=== PATIENT | male | born 1980 | race Caucasian/White ===

== ENCOUNTER → 2017-10-17 11:37 | Outpatient (CLI) | payer OTHER, SELFPAY ==
[2017-10-19 20:26] LABS: Testosterone, Total, LC/MS 818.2 ng/dL (264.0-916.0); Testosterone,Free 25.6 pg/mL (8.7-25.1)
== END ==
PROVIDERS: PCP Internal Medicine Adolescent Medicine; Visit Provider Urology
DX: E29.1 Testicular hypofunction (principal)
CPT/HCPCS: 36415; 84402; 84403

== ENCOUNTER → 2018-06-26 10:15 | Outpatient (CLI) | payer OTHER, SELFPAY ==
[2018-06-26 10:17] LABS: MANUAL DIFFERENTIAL MANUAL DIFFERENTIAL (MANUAL DIFF)
[2018-06-26 11:11] LABS: Basophils # 0.1 K/mm3 (0-0.2); Basophils % 0.7 % (0.1-2.0); Eosinophils # 0.3 K/mm3 (0.0-0.4); Eosinophils % 3.9 % (0.1-12.0); Hematocrit 44.5 % (42.0-52.0); Hemoglobin 16.6 g/dL (14.1-18.0); Lymphocytes # 2.5 K/mm3 (0.7-4.5); Lymphocytes % 31.7 % (10-50); Mean Corpuscular HGB Conc 37.3 g/dL (31.8-35.4); Mean Corpuscular Hemoglobin 31.1 pg (27.0-31.2); Mean Corpuscular Volume 83.3 fl (80-94); Monocytes # 0.5 K/mm3 (0.1-1.0); Neutrophils # 4.5 K/mm3 (1.8-7.8); Neutrophils % 57.7 % (37.0-80.0); Platelet Count 264 K/mm3 (142-424); Red Blood Count 5.34 M/mm3 (4.60-6.20); Red Cell Distribution Width 14.1 % (11.5-17.5); White Blood Count 7.8 K/mm3 (4.8-10.8)
[2018-06-26 11:28] LABS: Alanine Aminotransferase 104 U/L (12-78); Albumin Level 4.2 gm/dL (3.4-5.0); Alkaline Phosphatase 42 U/L (46-116); Aspartate Amino Transferase 39 U/L (15-37); Bilirubin,Direct 0.1 mg/dL (0.0-0.2); Bilirubin,Indirect 0.6 mg/dL (0.0-0.9); Bilirubin,Total 0.7 mg/dL (0.2-1.0); Total Protein,Serum 7.8 gm/dL (6.4-8.2)
[2018-06-26 13:26] LABS: Eosinophils % 4 % (0-3); Lymphocytes % 27 % (10-50); Monocytes % 5 % (2-9); Neutrophils % 57 % (42-76); Platelet Estimate Normal; RBC Morphology Normal; Total Cells Counted 100
== END ==
PROVIDERS: Visit Provider Urology
DX: E34.9 Endocrine disorder, unspecified (principal)
CPT/HCPCS: 36415; 80076; 85007; 85014; 85018; 85048; 85049

== ENCOUNTER → 2019-01-08 09:58 | Outpatient (CLI) | payer OTHER, SELFPAY ==
[2019-01-13 06:15] LABS: Testosterone, Total, LC/MS 1335.2 ng/dL (264.0-916.0); Testosterone,Free 34.3 pg/mL (8.7-25.1)
== END ==
PROVIDERS: Visit Provider Urology
DX: E34.9 Endocrine disorder, unspecified (principal)
CPT/HCPCS: 36415; 84402; 84403

== ENCOUNTER → 2019-07-10 11:28 | Outpatient (CLI) | payer OTHER, SELFPAY ==
[2019-07-10 12:24] LABS: Basophils # 0.2 K/mm3 (0-0.2); Basophils % 2.7 % (0.1-2.0); Eosinophils # 0.2 K/mm3 (0.0-0.4); Eosinophils % 2.9 % (0.1-12.0); Hematocrit 52.7 % (42.0-52.0); Lymphocytes # 2.1 K/mm3 (0.7-4.5); Lymphocytes % 25.2 % (10-50); Mean Corpuscular HGB Conc 34.6 g/dL (31.8-35.4); Mean Corpuscular Hemoglobin 29.5 pg (27.0-31.2); Mean Corpuscular Volume 85.2 fl (80-94); Mean Platelet Volume 7.7 fl (7.4-10.4); Monocytes # 0.5 K/mm3 (0.1-1.0); Monocytes % 6.4 % (1.7-9.3); Neutrophils # 5.2 K/mm3 (1.8-7.8); Neutrophils % 62.8 % (37.0-80.0); Platelet Count 248 K/mm3 (142-424); Red Blood Count 6.18 M/mm3 (4.60-6.20); Red Cell Distribution Width 14.3 % (11.5-17.5); White Blood Count 8.4 K/mm3 (4.8-10.8)
[2019-07-10 12:28] LABS: Hemoglobin 18.2 g/dL (14.1-18.0)
[2019-07-10 12:41] LABS: Alanine Aminotransferase 60 U/L (12-78); Albumin Level 5.4 g/dl (3.5-5.0); Alkaline Phosphatase 39 U/L (38-126); Aspartate Amino Transferase 39 U/L (17-59); Bilirubin,Direct 0.2 mg/dl (0.0-0.4); Bilirubin,Total 1.2 mg/dl (0.2-1.3); Total Protein,Serum 8.4 g/dl (6.3-8.2)
[2019-07-15 14:32] LABS: Testosterone, Total, LC/MS 824.5 ng/dL (264.0-916.0)
[2019-07-15 14:33] LABS: Testosterone,Free 30.4 pg/mL (8.7-25.1)
== END ==
PROVIDERS: Visit Provider Urology
DX: R79.89 Other specified abnormal findings of blood chemistry (principal)
CPT/HCPCS: 36415; 80076; 84402; 84403; 85025

== ENCOUNTER 2019-10-15 17:12 | Emergency (ER) | payer OTHER, SELFPAY ==
[2019-10-15 17:25] VITALS: BP 120/80; PULSE 74; RESP 18; TEMP 36.8; O2SAT 98; BMI 39.4
--- NOTE | 2019-10-15 17:42 | HMH.EDUTC ---
[facility] [place] Disposition Clinical Impression: Otitis media Qualifiers: Otitis media type: unspecified Laterality: right Qualified Code(s): H66.91 - Otitis media, unspecified, right ear Impacted ear wax Qualifiers: Laterality: bilateral Qualified Code(s): H61.23 - Impacted cerumen, bilateral Disposition: Home, Self-Care Condition on Discharge: Good Instructions: DI for Cerumen Impaction, Middle Ear Infections (Alternative Therapy), Cerumen Impaction, Middle Ear Infection Additional Instructions: Take medication as prescribed Over the counter Motrin and Tylenol as directed on package for pain Follow up with Family Doctor if needed Return if needed Straight to ER if any life threatening symptoms Prescriptions: Cefdinir [Omnicef 300mg Capsule] 300 mg PO BID #20 cap Transmission Status: Pending to [id number] Referrals: Jam Richardson MD [Primary Care Provider] - As needed Time of Disposition: 17:52 Medical Decision Making - Gabriele Inquiry Pt receiving controlled substance: No Gabriele was queried for this patient: No Vital Signs: 10/15/19 17:25 Temperature 98.2 F Temperature Source Oral Pulse Rate [Right Brachial] 74 Respiratory Rate 18 Blood Pressure [Right Arm] 120/80 Blood Pressure Mean [Right Arm] 93 Blood Pressure Source [Right Arm] Automatic Cuff Blood Pressure Position [Right Arm] Sitting 02 Sat by Pulse Oximetry 98 Oxygen Delivery Method Room Air [facility] [place] HPI - General Stated complaint: R ear pain Time Seen by Provider: 10/15/19 17:43 Mode of Arrival: Ambulatory Source of Information: Patient Limitations: No Limitations Description of Symptoms (Recalled from Triage Doc. by RN): PATIENT C/O RIGHT EAR PAIN AND DECREASED HEARING X 2 DAYS THAT STARTED AFTER CLEANING IT WITH A Q-TIP HEENT Symptoms (Recalled from RN notes): Yes Resp Symptoms (Recalled from RN notes): No Skin Symptoms (Recalled from RN notes): No MS Symptoms (Recalled from RN notes): No Functional Status (Recalled from RN notes): WNL - History of Present Illness Provider Complaint: Patient state that he has been having pain in his right ear for several days and feeling like it is stopped up and he cannot hear out of it State that left ear feels stopped up too with decreased hearing and needing them checked and cleaned out - Related Data Home Medications Medication Instructions Recorded Confirmed amlodipine 10 mg tablet 10 mg PO DAILY 10/03/17 07/10/19 carvedilol 25 mg tablet 25 mg PO BID 10/03/17 07/10/19 metformin 1,000 mg tablet 1,000 mg PO BID 10/03/17 07/10/19 Previous Rx's Medication Instructions Recorded Cefdinir [Omnicef 300mg Capsule] 300 mg PO BID #20 cap 10/15/19 Allergies Allergy/AdvReac Type Severity Reaction Status Date / Time No Known Allergies Allergy Verified 07/10/19 11:13 - Worker's Comp Is this a Worker's Comp case?: No [facility] History - Hepatitis A Screen Drug use history?: No High risk sexual behaviors?: No History of sexually transmitted infection?: No Currently employed?: No Childcare worker?: No Do you have indoor plumbing?: Yes Do you have electricity?: Yes Attestation statement:: This patient has been screened for Hepatitis A risk factors. I have reviewed the patient's past medical history: Yes Medical History: Reports:: Diabetes Mellitus Type 2, Hypertension Other Surgeries: Yes: No Previous Surgery Amputation: No Fractures: No - Social History Smoking Status: Never smoker Alcohol Intake: never Substance Use Type: denies use Occupational Status: other Family Hx:: Heart Attack, Hyperlipidemia ROS Obtained: Yes All systems reviewed & no additional complaints, Yes Systems reviewed as appropriate & no additional complaints - Constitutional Constitutional: Reports system reviewed and no additional complaints, except as docu - ENT Ears, Nose, Mouth, and Throat: Reports otalgia Physical Exam - General General appearance: alert, in no apparent distress - E
[2019-10-15 17:56] VITALS: BP 120/80; PULSE 74; RESP 18; TEMP 36.8; O2SAT 98
== END 2019-10-15 17:59 | disposition home or self-care (01) ==
PROVIDERS: Emergency Provider Nurse Practitioner; PCP Internal Medicine Adolescent Medicine
DX: H66.91 Otitis media, unspecified, right ear (principal); H61.23 Impacted cerumen, bilateral; E11.9 Type 2 diabetes mellitus without complications; I10 Essential (primary) hypertension; Z79.899 Other long term (current) drug therapy
CPT/HCPCS: 99201

== ENCOUNTER → 2020-01-02 10:33 | Outpatient (CLI) | payer OTHER, SELFPAY ==
[2020-01-02 10:50] LABS: Basophils # 0.1 K/mm3 (0-0.2); Basophils % 1.3 % (0.1-2.0); Eosinophils # 0.3 K/mm3 (0.0-0.4); Eosinophils % 3.9 % (0.1-12.0); Hematocrit 54.1 % (42.0-52.0); Lymphocytes # 2.2 K/mm3 (0.7-4.5); Lymphocytes % 30.5 % (10-50); Mean Corpuscular HGB Conc 33.7 g/dL (31.8-35.4); Mean Corpuscular Hemoglobin 28.9 pg (27.0-31.2); Mean Corpuscular Volume 85.8 fl (80-94); Mean Platelet Volume 7.9 fl (7.4-10.4); Monocytes # 0.5 K/mm3 (0.1-1.0); Monocytes % 6.4 % (1.7-9.3); Neutrophils # 4.3 K/mm3 (1.8-7.8); Platelet Count 257 K/mm3 (142-424); Red Cell Distribution Width 14.7 % (11.5-17.5); White Blood Count 7.3 K/mm3 (4.8-10.8)
[2020-01-02 11:02] LABS: Hemoglobin 18.2 g/dL (14.1-18.0)
[2020-01-02 11:41] LABS: Chloride 101 mmol/L (98-107); Potassium 4.1 mmoL/L (3.5-5.1); Sodium 142 mmol/L (136-145)
[2020-01-02 11:43] LABS: Alanine Aminotransferase 105 U/L (12-78); Aspartate Amino Transferase 61 U/L (17-59); Blood Urea Nitrogen 13 mg/dl (9-20); Estimated Glomerular Filt Rate 68 ml/min (>60); GFR (African American) 82 ML/MIN (>60)
[2020-01-02 11:44] LABS: Albumin Level 4.9 g/dl (3.5-5.0); Albumin/Globulin Ratio 1.6 (1.1-1.8); Alkaline Phosphatase 31 U/L (38-126); Anion Gap 15.1 mEq/L (5-15); Bilirubin,Total 0.9 mg/dl (0.2-1.3); Calcium 10.2 mg/dl (8.4-10.2); Carbon Dioxide 30 mmol/L (22.0-30.0); Globulin 3.1 g/dL (1.3-3.2); Glucose 116 mg/dl (74-100)
[2020-01-02 11:45] LABS: Hemoglobin A1C 6.3 % (4.0-6.0)
[2020-01-02 12:14] LABS: Thyroid Stimulating Hormone 1.24 uIU/mL (0.465-4.68)
== END ==
PROVIDERS: Visit Provider Internal Medicine Adolescent Medicine
DX: I10 Essential (primary) hypertension (principal); E11.9 Type 2 diabetes mellitus without complications; Z79.84 Long term (current) use of oral hypoglycemic drugs
CPT/HCPCS: 36415; 80053; 83036; 84443; 85025

== ENCOUNTER 2020-02-15 14:56 | Outpatient (CLI) | payer OTHER, SELFPAY ==
[2020-02-15 15:02] VITALS: BMI 38.5
[2020-02-15 15:30] LABS: Hematocrit 56.4 % (42.0-52.0); Hemoglobin 19.1 g/dL (14.1-18.0)
[2020-02-15 15:38] VITALS: BP 131/84; PULSE 82; RESP 18; TEMP 36.6; O2SAT 99
[2020-02-15 16:08] VITALS: BP 136/78; PULSE 82; RESP 16; TEMP 36.6; O2SAT 99
--- NOTE | 2020-02-15 16:15 | PC.NURSE ---
1540 Patient receiving therapeutic phlebotomy as ordered per electronic lab technician/ Patient tolerating well. 1555 Therapeutic phlebotomy of 250ml complete. Patient tolerated well with no problems noted. 1610 Patient discharged home/stable. Denies complaints. See discharge assessment.
[2020-02-21 18:09] LABS: Testosterone, Total, LC/MS 955.8 ng/dL (264.0-916.0); Testosterone,Free 24.3 pg/mL (8.7-25.1)
== END 2020-02-15 16:10 | disposition home or self-care (01) ==
LOC: INF 14:56
PROVIDERS: Visit Provider Urology
DX: E34.9 Endocrine disorder, unspecified (principal); E29.1 Testicular hypofunction
CPT/HCPCS: 84402; 84403; 85014; 85018; 99195

== ENCOUNTER → 2020-08-23 12:42 | Outpatient (CLI) | payer OTHER, SELFPAY ==
[2020-08-23 12:43] LABS: MANUAL DIFFERENTIAL MANUAL DIFFERENTIAL (MANUAL DIFF)
[2020-08-23 14:43] LABS: Alanine Aminotransferase 61 U/L (12-78); Albumin Level 4.9 g/dl (3.5-5.0); Alkaline Phosphatase 44 U/L (38-126); Aspartate Amino Transferase 42 U/L (17-59); Bilirubin,Direct 0.6 mg/dl (0.0-0.4); Bilirubin,Indirect 0.6 mg/dL (0.0-0.9); Bilirubin,Total 1.2 mg/dl (0.2-1.3); Bilirubin,Unconjugated 0.6 mg/dL (0.0-1.1); Total Protein,Serum 7.8 g/dl (6.3-8.2)
[2020-08-23 18:41] LABS: Basophils # 0.1 K/mm3 (0-0.2); Basophils % 1.2 % (0.1-2.0); Eosinophils # 0.3 K/mm3 (0.0-0.4); Eosinophils % 4.2 % (0.1-12.0); Hematocrit 49.3 % (42.0-52.0); Hemoglobin 17.2 g/dL (14.1-18.0); Lymphocytes # 1.8 K/mm3 (0.7-4.5); Lymphocytes % 29.9 % (10-50); Mean Corpuscular Hemoglobin 29.7 pg (27.0-31.2); Mean Corpuscular Volume 84.9 fl (80-94); Mean Platelet Volume 9.4 fl (7.4-10.4); Monocytes # 0.4 K/mm3 (0.1-1.0); Monocytes % 5.8 % (1.7-9.3); Neutrophils # 3.6 K/mm3 (1.8-7.8); Neutrophils % 58.8 % (37.0-80.0); Platelet Count 231 K/mm3 (142-424); Red Blood Count 5.81 M/mm3 (4.60-6.20); Red Cell Distribution Width 13.9 % (11.5-17.5); White Blood Count 6.2 K/mm3 (4.8-10.8)
[2020-08-23 21:00] LABS: Total Cells Counted 100
[2020-08-23 21:01] LABS: Platelet Estimate Normal
[2020-08-27 10:12] LABS: Testosterone, Total, LC/MS 85.8 ng/dL (264.0-916.0); Testosterone,Free 3.5 pg/mL (8.7-25.1)
== END ==
PROVIDERS: Visit Provider Urology
DX: E29.1 Testicular hypofunction (principal)
CPT/HCPCS: 36415; 80076; 84402; 84403; 85007; 85014; 85018; 85048; 85049

== ENCOUNTER → 2020-12-15 19:02 | Outpatient (CLI) | payer OTHER, SELFPAY ==
[2020-12-15 19:59] LABS: Chloride 97 mmol/L (98-107); Sodium 136 mmol/L (136-145)
[2020-12-15 20:00] LABS: Potassium 3.8 mmoL/L (3.5-5.1)
[2020-12-15 20:02] LABS: Alanine Aminotransferase 98 U/L (12-78); Albumin Level 4.5 g/dl (3.5-5.0); Albumin/Globulin Ratio 1.6 (1.1-1.8); Alkaline Phosphatase 58 U/L (38-126); Anion Gap 14.8 mEq/L (5-15); Aspartate Amino Transferase 68 U/L (17-59); Bilirubin,Total 0.9 mg/dl (0.2-1.3); Blood Urea Nitrogen 13 mg/dl (9-20); Carbon Dioxide 28 mmol/L (22.0-30.0); Cholesterol 175 mg/dl (140-200); Estimated Glomerular Filt Rate 94 ml/min (>60); GFR (African American) 114 ML/MIN (>60); Globulin 2.9 g/dL (1.3-3.2); Total Protein,Serum 7.4 g/dl (6.3-8.2); Triglycerides 294 mg/dl (30-150); VLDL Cholesterol 59 mg/dL (0-40)
[2020-12-15 20:03] LABS: Calcium 9.8 mg/dl (8.4-10.2); Chol/HDL Ratio 5.8 (1-3.5); Glucose 247 mg/dl (74-100); HDL Cholesterol 30 mg/dl (40-60)
[2020-12-15 20:13] LABS: Direct LDL Cholesterol 106.14 mg/dL (100-129)
[2020-12-15 20:50] LABS: Hemoglobin A1C 8.8 % (4.0-6.0)
== END ==
PROVIDERS: Visit Provider Internal Medicine Adolescent Medicine
DX: E11.9 Type 2 diabetes mellitus without complications (principal); E78.5 Hyperlipidemia, unspecified; Z79.84 Long term (current) use of oral hypoglycemic drugs
CPT/HCPCS: 80053; 80061; 83036

== ENCOUNTER → 2021-02-23 11:13 | Outpatient (CLI) | payer OTHER, SELFPAY ==
[2021-02-23 11:15] LABS: MANUAL DIFFERENTIAL MANUAL DIFFERENTIAL (MANUAL DIFF)
[2021-02-23 11:49] LABS: Basophils # 0.1 K/mm3 (0-0.2); Basophils % 1.1 % (0.1-2.0); Eosinophils # 0.3 K/mm3 (0.0-0.4); Eosinophils % 4.4 % (0.1-12.0); Hematocrit 53.5 % (42.0-52.0); Lymphocytes # 1.7 K/mm3 (0.7-4.5); Mean Corpuscular HGB Conc 33.7 g/dL (31.8-35.4); Mean Corpuscular Hemoglobin 29.8 pg (27.0-31.2); Mean Corpuscular Volume 88.5 fl (80-94); Mean Platelet Volume 8.4 fl (7.4-10.4); Monocytes # 0.4 K/mm3 (0.1-1.0); Monocytes % 6.5 % (1.7-9.3); Neutrophils # 3.7 K/mm3 (1.8-7.8); Neutrophils % 61.1 % (37.0-80.0); Platelet Count 242 K/mm3 (142-424); Red Blood Count 6.04 M/mm3 (4.60-6.20); Red Cell Distribution Width 13.8 % (11.5-17.5); White Blood Count 6.1 K/mm3 (4.8-10.8)
[2021-02-23 13:13] LABS: Alanine Aminotransferase 100 U/L (12-78); Albumin Level 4.8 g/dl (3.5-5.0); Alkaline Phosphatase 42 U/L (38-126); Aspartate Amino Transferase 75 U/L (17-59); Bilirubin,Direct 0.4 mg/dl (0.0-0.4); Bilirubin,Indirect 0.8 mg/dL (0.0-0.9); Bilirubin,Total 1.2 mg/dl (0.2-1.3); Bilirubin,Unconjugated 0.8 mg/dL (0.0-1.1); Total Protein,Serum 7.6 g/dl (6.3-8.2)
[2021-02-23 13:37] LABS: Eosinophils % 3 % (0-3); Lymphocytes % 32 % (10-50); Monocytes % 4 % (2-9); Neutrophils % 61 % (42-76); Total Cells Counted 100
[2021-02-23 13:38] LABS: Platelet Estimate Normal; RBC Morphology Normal
[2021-02-27 18:13] LABS: Testosterone, Total, LC/MS 165.1 ng/dL (264.0-916.0); Testosterone,Free 9.5 pg/mL (8.7-25.1)
== END ==
LOC: LAB 11:13
PROVIDERS: Visit Provider Urology
DX: E29.1 Testicular hypofunction (principal)
CPT/HCPCS: 36415; 80076; 84402; 84403; 85007; 85014; 85018; 85048; 85049

== ENCOUNTER → 2021-06-03 10:02 | Outpatient (CLI) | payer OTHER, SELFPAY ==
[2021-06-03 11:49] LABS: Alanine Aminotransferase 66 U/L (12-78); Albumin Level 4.6 g/dl (3.5-5.0); Albumin/Globulin Ratio 1.8 (1.1-1.8); Alkaline Phosphatase 35 U/L (38-126); Anion Gap 11.9 mEq/L (5-15); Aspartate Amino Transferase 43 U/L (17-59); Bilirubin,Total 0.9 mg/dl (0.2-1.3); Blood Urea Nitrogen 15 mg/dl (9-20); Calcium 9.6 mg/dl (8.4-10.2); Carbon Dioxide 30 mmol/L (22.0-30.0); Chloride 99 mmol/L (98-107); Cholesterol 181 mg/dl (140-200); Estimated Glomerular Filt Rate 75 ml/min (>60); GFR (African American) 91 ML/MIN (>60); Globulin 2.6 g/dL (1.3-3.2); Glucose 237 mg/dl (74-100); HDL Cholesterol 36 mg/dl (40-60); Potassium 3.9 mmoL/L (3.5-5.1); Sodium 137 mmol/L (136-145); Total Protein,Serum 7.2 g/dl (6.3-8.2); Triglycerides 160 mg/dl (30-150); VLDL Cholesterol 32 mg/dL (0-40)
[2021-06-03 12:00] LABS: Direct LDL Cholesterol 114.23 mg/dL (100-129)
[2021-06-03 12:40] LABS: Hemoglobin A1C 9.2 % (4.0-6.0)
== END ==
PROVIDERS: PCP Internal Medicine Adolescent Medicine; Visit Provider Internal Medicine Adolescent Medicine
DX: E11.9 Type 2 diabetes mellitus without complications (principal); E78.2 Mixed hyperlipidemia; Z79.84 Long term (current) use of oral hypoglycemic drugs
CPT/HCPCS: 36415; 80053; 80061; 83036

== ENCOUNTER 2021-10-09 03:16 | Emergency (ER) | payer OTHER, SELFPAY ==
[2021-10-09 03:17] VITALS: BP 132/84; PULSE 81; RESP 14; TEMP 36.7; O2SAT 98; BMI 38.5
--- NOTE | 2021-10-09 03:27 | CT_ITS ---
PROCEDURE INFORMATION: Exam: CT Abdomen And Pelvis With Contrast Exam date and time: 10/09/2021 3:46 AM Age: 41 years old Clinical indication: Abdominal pain; Epigastric; Additional info: Upper abd pain TECHNIQUE: Imaging protocol: Computed tomography of the abdomen and pelvis with contrast. Radiation optimization: All CT scans at this facility use at least one of these dose optimization techniques: automated exposure control; mA and/or kV adjustment per patient size (includes targeted exams where dose is matched to clinical indication); or iterative reconstruction. Contrast material: ISOVUE; Contrast volume: 75 ml; Contrast route: IV; COMPARISON: RUQ US RUQ-(ABD LTD)1ORGAN/QUAD/FU 11/02/2016 8:32 AM FINDINGS: Lungs: The lung bases are clear. No pleural effusion. Liver: The liver is mildly enlarged with diffuse low attenuation consistent with fatty infiltration. No discrete hepatic mass abnormal enhanced. Gallbladder and bile ducts: Contracted. No calcified stones. No ductal dilation. Pancreas: Unremarkable. Spleen: The spleen is mildly enlarged. Adrenal glands: Unremarkable. Kidneys and ureters: No renal mass or hydronephrosis. Stomach and bowel: There are a few loops of fluid-filled nondilated small bowel exhibiting mildly thickened harper suggesting enteritis, mild. There is fluid within the right colon. No diverticulosis. Appendix: The appendix is identified and is normal. Intraperitoneal space: No free air. No significant fluid collection. Retroperitoneal space: No bulky lymphadenopathy. Vasculature: Unremarkable. No abdominal aortic aneurysm. Lymph nodes: Unremarkable. No enlarged lymph nodes. Urinary bladder: Unremarkable as visualized. Reproductive: Unremarkable as visualized. Bones/joints: Unremarkable. No acute osseous abnormality. Soft tissues: Small bilateral inguinal hernias contain fat only. Small umbilical hernia contains fat only. IMPRESSION: 1. Findings suggest enteritis. 2. Mild hepatosplenomegaly with diffuse fatty infiltration of liver.
[2021-10-09 03:38] LABS: Microscopic, Urine URINE MICROSCOPIC (MICROSCOPIC)
[2021-10-09 03:46] LABS: Appearance,Urine CLEAR (Clear); Bilirubin,Urine Negative (Negative); Blood, Urine Negative (Negative); Color,Urine YELLOW (Yellow); Glucose,Urine (UA) 2+ (Negative); Ketones,Urine Negative (Negative); Leukocyte Esterase,Urine Negative (Negative); Nitrate,Urine Negative (Negative); Protein,Urine Negative (Negative); Specific Gravity, Urine >= 1.030 (1.005-1.030); Urobilinogen,Urine 0.2 EU/dl (0.2)
[2021-10-09 03:50] LABS: Amorphous Sediment,Urine Trace /lpf; Mucus,Urine Trace /lpf; WBC,Urine Occasional #/hpf (0-3)
[2021-10-09 03:55] LABS: Alanine Aminotransferase 85 U/L (12-78); Albumin Level 3.9 g/dl (3.5-5.0); Albumin/Globulin Ratio 1.4 (1.1-1.8); Alkaline Phosphatase 50 U/L (38-126); Amylase 61 U/L (30-110); Anion Gap 10.5 mEq/L (5-15); Aspartate Amino Transferase 49 U/L (17-59); Bilirubin,Total 0.4 mg/dl (0.2-1.3); Blood Urea Nitrogen 7 mg/dl (9-20); Calcium 9.6 mg/dl (8.4-10.2); Carbon Dioxide 27 mmol/L (22.0-30.0); Chloride 103 mmol/L (98-107); Creatinine Clearance Estimated 174 mL/min (50-200); Estimated Glomerular Filt Rate 75 ml/min (>60); GFR (African American) 90 ML/MIN (>60); Globulin 2.8 g/dL (1.3-3.2); Glucose 225 mg/dl (74-100); Lipase 325 U/L (23-300); Potassium 3.5 mmoL/L (3.5-5.1); Sodium 137 mmol/L (136-145); Total Protein,Serum 6.7 g/dl (6.3-8.2)
[2021-10-09 04:01] LABS: C-Reactive Protein 4.6 mg/L (0-4)
[2021-10-09 04:11] LABS: Erythrocyte Sedimentation Rate 1 mm/hr (0-15)
[2021-10-09 04:12] LABS: Procalcitonin 0.168 ng/mL (0.0-2.0)
[2021-10-09 04:13] LABS: Basophils # 0.1 K/mm3 (0-0.2); Basophils % 1.7 % (0.1-2.0); Eosinophils # 1.7 K/mm3 (0.0-0.4); Eosinophils % 20.9 % (0.1-12.0); Hematocrit 51.7 % (42.0-52.0); Hemoglobin 17.2 g/dL (14.1-18.0); Lymphocytes # 2.3 K/mm3 (0.7-4.5); Lymphocytes % 28.1 % (10-50); Mean Corpuscular HGB Conc 33.2 g/dL (31.8-35.4); Mean Corpuscular Hemoglobin 29.3 pg (27.0-31.2); Mean Corpuscular Volume 88.3 fl (80-94); Mean Platelet Volume 8.1 fl (7.4-10.4); Monocytes # 0.6 K/mm3 (0.1-1.0); Monocytes % 6.8 % (1.7-9.3); Neutrophils # 3.4 K/mm3 (1.8-7.8); Neutrophils % 42.4 % (37.0-80.0); Platelet Count 231 K/mm3 (142-424); Red Blood Count 5.86 M/mm3 (4.60-6.20); Red Cell Distribution Width 14.1 % (11.5-17.5); White Blood Count 8.1 K/mm3 (4.8-10.8)
--- NOTE | 2021-10-09 04:13 | HMH.EDNVD ---
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 The time I documented below is in addition to time spent performing reported procedures but includes the following listed in this critical care notation. Medical Decision Making - Medical Records Medical records reviewed: Yes: I reviewed the patient's medical records. - Gabriele Inquiry Pt receiving controlled substance: No Vital Signs: 10/09/21 03:17 Temperature 98.0 F Temperature Source Oral Pulse Rate [Right] 81 Respiratory Rate 14 Blood Pressure [Right Arm] 132/84 Blood Pressure Mean [Right Arm] 100 02 Sat by Pulse Oximetry 98 - Lab Data Lab results reviewed: Yes: I reviewed the patient's lab results. Lab Results 10/09/21 03:21: Urine Color Yellow, Urine Appearance Clear, Urine pH 6.0, Ur Specific [place] >= 1.030, Urine Protein Negative, Urine Glucose (UA) 2+, Urine Ketones Negative, Urine Blood Negative, Urine Nitrate Negative, Urine Bilirubin Negative, Urine Urobilinogen 0.2, Ur Leukocyte Esterase Negative, Urine WBC Occasional, Amorphous Sediment Trace, Urine Mucus Trace 10/09/21 03:30: WBC 8.1, RBC 5.86, Hgb 17.2, Hct 51.7, MCV 88.3, MCH 29.3, MCHC 33.2, RDW 14.1, Plt Count 231, MPV 8.1, Neut % (Auto) 42.4, Lymph % (Auto) 28.1, Orange % (Auto) 6.8, Eos % (Auto) 20.9 H, Baso % (Auto) 1.7, Neut # (Auto) 3.4, Lymph # (Auto) 2.3, Orange # (Auto) 0.6, Eos # (Auto) 1.7 H, Baso # (Auto) 0.1, ESR 1 10/09/21 03:30: Sodium 137, Potassium 3.5, Chloride 103, Carbon Dioxide 27, Anion Gap 10.5, BUN 7 L, Creatinine 1.10, Estimated Creat Clear 174, Estimated GFR 75, Est GFR ( Amer) 90, Glucose 225 H, Calcium 9.6, Total Bilirubin 0.4, AST 49, ALT 85 H, Alkaline Phosphatase 50, C-Reactive Protein 4.6 H, Total Protein 6.7, Albumin 3.9, Globulin 2.8, Albumin/Globulin Ratio 1.4, Amylase 61, Lipase 325 H, Procalcitonin 0.168 10/09/21 03:30: Hemoglobin A1c 9.7 H Result diagrams: 10/09/21 03:30 10/09/21 03:30 Orders (Tests/Meds): ED MEDICATIONS Generic Name Dose Route Start Last Admin Trade Name Freq PRN Reason Stop Dose Admin Sodium Chloride 8 ml 10/09/21 03:29 Sodium Chloride 0.9% 10ml Vial IV 11/08/21 03:28 NEEDED PRN dilute pepcid Discontinued Medications Generic Name Dose Route Start Last Admin Trade Name Freq PRN Reason Stop Dose Admin Famotidine 20 mg 10/09/21 03:29 10/09/21 03:40 Famotidine 20mg/2ml Vial IV 10/09/21 03:30 20 mg ONCE ONE Administration Sodium Chloride 1,000 mls @ 999 mls/hr 10/09/21 03:30 10/09/21 03:40 Sod Chlor 0.9% 1000ml Bag IV 10/09/21 04:30 999 mls/hr .Q1H1M CLAUDINE Administration Iopamidol 75 ml 10/09/21 03:59 10/09/21 04:00 Iopamidol-370 (76%);100ml Bottle IV 10/09/21 04:00 75 ml ONCE ONE Administration Ketorolac Tromethamine 30 mg 10/09/21 03:29 10/09/21 03:49 Ketorolac 30mg/Ml Vial IV 10/09/21 03:30 30 mg ONCE ONE Administration Metoclopramide HCl 10 mg 10/09/21 03:29 10/09/21 03:40 Metoclopramide Hcl 10mg/2ml Vial IVP 10/09/21 03:30 10 mg ONCE ONE Administration Ondansetron HCl 4 mg 10/09/21 03:29 10/09/21 03:40 Ondansetron 4mg/2ml Vial IV 09/19
[2021-10-09 04:27] LABS: Hemoglobin A1C 9.7 % (4.0-6.0)
[2021-10-09 05:48] LABS: Adenovirus F 40/41, stool Not Detected (NotDetected); Astrovirus Not Detected (NotDetected); Campylobacter Not Detected (NotDetected); Cryptosporidium Not Detected (NotDetected); Cyclospora Cayetanesis Not Detected (NotDetected); Entamoeba histolytica Not Detected (NotDetected); Enteroaggregative E coli Not Detected (NotDetected); Enteropathogenic E coli Not Detected (NotDetected); Enterotoxigenic E coli Not Detected (NotDetected); Giardia lamblia Not Detected (NotDetected); Norovirus Not Detected (NotDetected); Plesimonas Shigalloides, PCR Not Detected (NotDetected); Rotavirus A Not Detected (NotDetected); Salmonella, PCR Not Detected (NotDetected); Sapovirus Not Detected (NotDetected); Shiga-like toxin E coli Not Detected (NotDetected); Shigella Enterovasive E coli Not Detected (NotDetected); Vibrio Cholerae Not Detected (NotDetected); Vibrio, PCR Not Detected (NotDetected); Yersinia Entercolitica, PCR Not Detected (NotDetected)
[2021-10-09 06:14] VITALS: BP 125/85; PULSE 78; RESP 18; TEMP 36.6; O2SAT 99
--- NOTE | 2021-10-09 06:16 | PC.NURSE ---
Pt asked to leave ER prior to the results of his diarrhea panel. Per lab, it would be at least another 2 hours before the results would be ready. Pt was told that the ER would call him with the results of his panel as soon as possible. Pt was advised as well to set up the patient portal with registration so that his results would be more readily available. Pt states that he feels well enough to go home and plans to just take some tylenol and go to bed . Pt asked if he would like tylenol now and he said that he would just wait. Pt is alert oriented and stable upon dc.
[2021-10-09 08:02] LABS: Clostridium Difficile A/B, PCR Detected (NotDetected)
--- NOTE | 2021-10-09 09:05 | PC.NURSE ---
pt called with diarrhea panel results at this time, notified pt to contact PCP
== END 2021-10-09 06:19 | disposition home or self-care (01) ==
PROVIDERS: Emergency Provider Emergency Medicine; PCP Internal Medicine Adolescent Medicine
DX: K52.9 Noninfective gastroenteritis and colitis, unspecified (principal); E11.9 Type 2 diabetes mellitus without complications; Z79.4 Long term (current) use of insulin; Z87.891 Personal history of nicotine dependence; Z82.49 Family history of ischemic heart disease and other diseases of the circulatory system; Z83.438 Family history of other disorder of lipoprotein metabolism and other lipidemia
CPT/HCPCS: 74177; 80053; 81001; 82150; 83036; 83690; 84145; 85025; 85651; 86140; 87507; 96361; 96374; 96375; 99284; 99285; J2405; Q9967

== ENCOUNTER 2022-01-07 09:58 | Emergency (ER) | payer OTHER, SELFPAY ==
--- NOTE | 2022-01-07 11:14 | EXP.UTC ---
Discharge Plan Disposition Patient Disposition: Home, Self-Care Condition: Good Prescriptions Prescriptions: New azithromycin [Zithromax] 250 mg tablet 250 mg PO UD DOSE PK Qty: 6 0RF Rx Instructions: Take two (2) tablets today, then one (1) tablet days #2 thru #5 benzonatate [benzonatate] 100 mg capsule 100 mg PO TIDP PRN (Reason: Cough) Qty: 30 0RF methylprednisolone 4 mg Tablets,Dose Pack 4 mg PO DIRECTED Qty: 21 0RF No Action carvedilol 25 mg tablet 25 mg PO BID amlodipine 10 mg tablet 10 mg PO DAILY testosterone cypionate 200 MG/ML oil 200 mg IM Q2W pravastatin 40 MG tablet 40 mg PO HS meloxicam 15 MG tablet 15 mg PO DAILY allopurinol 100 MG tablet 100 mg PO DAILY hydrochlorothiazide 25 MG tablet 25 mg PO DAILY tadalafil (pulm. hypertension) 20 MG tablet 20 mg PO DAILY PRN (Reason: erectile dysfunction) semaglutide 2 MG/0.75 ML pen injector 2 mg SQ WEEKLY fenofibrate nanocrystallized 145 MG tablet 145 mg PO DAILY Referrals Follow up/Referrals: Jam Richardson MD [Primary Care Provider] - See instructions Activity Restrictions/Add. Instructions Additional Instructions/Restrictions: Drink plenty of fluids. Take tylenol or ibuprofen for pain or fever. Take the medications as directed. Follow up with your regular doctor. GO TO THE ER FOR ANY WORSENING SYMPTOMS Clinical Impressions Clinical Impression: Bronchitis Instructions Patient Instructions: Acute Bronchitis Discharge ED Provider: Alexandre Allen [facility] [place] HPI General Stated complaint: sore throat, congestion, cough Time Seen by Provider: 01/07/22 11:14 History of Present Illness Provider Complaint: He states that for the past 2 days he has had sore throat, chills, body aches and low grade fever. Related Data Home Medications Medication Instructions Recorded Confirmed amlodipine 10 mg tablet 10 mg PO DAILY High blood pressure 10/03/17 10/09/21 carvedilol 25 mg tablet 25 mg PO BID High blood pressure 10/03/17 10/09/21 allopurinol 100 mg tablet 100 mg PO DAILY gout 10/09/21 10/09/21 fenofibrate nanocrystallized 145 145 mg PO DAILY hld 10/09/21 10/09/21 mg tablet hydrochlorothiazide 25 mg tablet 25 mg PO DAILY htn 10/09/21 10/09/21 meloxicam 15 mg tablet 15 mg PO DAILY Pain 10/09/21 10/09/21 pravastatin 40 mg tablet 40 mg PO HS hld 10/09/21 10/09/21 semaglutide 2 mg/dose (8 mg/3 mL) 2 mg SQ WEEKLY dm 10/09/21 10/09/21 subcutaneous pen injector tadalafil (pulm. hypertension) 20 20 mg PO DAILY PRN erectile 10/09/21 10/09/21 mg tablet (pulmonary hypertension) dysfunction testosterone cypionate 200 mg/mL 200 mg IM Q2W Supplement 10/09/21 10/09/21 intramuscular oil Previous Rx's Medication Instructions Recorded azithromycin 250 mg tablet 250 mg PO UD DOSE PK #6 tabs 01/07/22 (Zithromax) benzonatate 100 mg capsule 100 mg PO TIDP PRN Cough #30 caps 01/07/22 methylprednisolone 4 mg tablets in 4 mg PO DIRECTED #21 tabs 01/07/22 a dose pack Allergies Allergy/AdvReac Type Severity Reaction Status Date / Time No Known Allergies Allergy Verified 01/07/22 11:28 [facility] Social History Smoking Status: Never smoker alcohol intake: former substance use type: denies use current occupational status: employed and other Travel in the last 8 weeks: None household members: spouse and family housing: house ROS Obtained: Yes All systems reviewed & no additional complaints except as documented Constitutional Constitutional: Reports chills and Reports fever(s) Eyes Eyes: Denies eye discharge ENT Ears, Nose, Mouth, and Throat: Reports as per HPI Cardiovascular Cardiovascular: Denies chest pain Respiratory Respiratory: Denies chest congestion and Reports cough Gastrointestinal Gastrointestingal: Reports nausea; Denies abdominal pain, constipation, crampi
[2022-01-07 11:26] VITALS: BP 111/60; PULSE 91; RESP 15; TEMP 36.8; O2SAT 97; BMI 37.5
[2022-01-07 11:35] LABS: UTC Strep Screen (Rapid) Negative (Negative)
[2022-01-07 11:36] LABS: UTC Influenza A Antigen Negative (Negative); UTC Influenza B Antigen Negative (Negative)
[2022-01-07 12:29] VITALS: BP 111/60; PULSE 91; RESP 15; TEMP 36.8
== END 2022-01-07 12:29 | disposition home or self-care (01) ==
PROVIDERS: Emergency Provider Nurse Practitioner Family; PCP Internal Medicine Adolescent Medicine
DX: J02.9 Acute pharyngitis, unspecified (principal); R50.9 Fever, unspecified; R05.9 Cough, unspecified; N52.9 Male erectile dysfunction, unspecified; R09.81 Nasal congestion; Z20.822 Contact with and (suspected) exposure to COVID-19; Z79.52 Long term (current) use of systemic steroids
CPT/HCPCS: 87804; 87880; 99213; C9803; G0463; U0003; U0005

== ENCOUNTER → 2023-01-15 09:18 | Outpatient (CLI) | payer OTHER, SELFPAY ==
[2023-01-15 09:31] LABS: Basophils # 0.1 K/mm3 (0-0.2); Basophils % 0.9 % (0.1-2.0); Eosinophils # 0.2 K/mm3 (0.0-0.4); Eosinophils % 2.4 % (0.1-12.0); Hematocrit 48.7 % (42.0-52.0); Hemoglobin 16.9 g/dL (14.1-18.0); Lymphocytes # 1.8 K/mm3 (0.7-4.5); Lymphocytes % 26.7 % (10-50); Mean Corpuscular HGB Conc 34.7 g/dL (31.8-35.4); Mean Corpuscular Hemoglobin 29.7 pg (27.0-31.2); Mean Corpuscular Volume 85.5 fl (80-94); Mean Platelet Volume 7.5 fl (7.4-10.4); Monocytes # 0.4 K/mm3 (0.1-1.0); Monocytes % 6.4 % (1.7-9.3); Neutrophils # 4.3 K/mm3 (1.8-7.8); Neutrophils % 63.5 % (37.0-80.0); Platelet Count 229 K/mm3 (142-424); Red Cell Distribution Width 13.6 % (11.5-17.5); White Blood Count 6.7 K/mm3 (4.8-10.8)
[2023-01-15 10:02] LABS: Hemoglobin A1C 9.8 % (4.0-6.0)
[2023-01-15 10:55] LABS: Chloride 98 mmol/L (98-107); Potassium 3.6 mmoL/L (3.5-5.1); Sodium 137 mmol/L (136-145)
[2023-01-15 10:57] LABS: Alanine Aminotransferase 122 U/L (12-78); Aspartate Amino Transferase 116 U/L (17-59); Blood Urea Nitrogen 16 mg/dl (9-20); Estimated Glomerular Filt Rate 83 ml/min (>60); GFR (African American) 100 ML/MIN (>60)
[2023-01-15 10:58] LABS: Albumin Level 4.5 g/dl (3.5-5.0); Albumin/Globulin Ratio 1.6 (1.1-1.8); Alkaline Phosphatase 53 U/L (38-126); Anion Gap 12.6 mEq/L (5-15); Bilirubin,Total 0.9 mg/dl (0.2-1.3); Calcium 9.2 mg/dl (8.4-10.2); Carbon Dioxide 30 mmol/L (22.0-30.0); Chol/HDL Ratio 7.4 (1-3.5); Cholesterol 171 mg/dl (140-200); Globulin 2.9 g/dL (1.3-3.2); Glucose 218 mg/dl (74-100); HDL Cholesterol 23 mg/dl (40-60); Total Protein,Serum 7.4 g/dl (6.3-8.2); Triglycerides 214 mg/dl (30-150); VLDL Cholesterol 43 mg/dL (0-40)
[2023-01-15 11:05] LABS: Uric Acid 2.8 mg/dl (3.5-8.5)
[2023-01-16 12:49] LABS: Testosterone,Total 341 ng/dL (264-916)
== END ==
LOC: LAB 09:20
PROVIDERS: PCP Nurse Practitioner Family; Visit Provider Nurse Practitioner Family
DX: E11.9 Type 2 diabetes mellitus without complications (principal); E29.1 Testicular hypofunction; M10.9 Gout, unspecified; R59.1 Generalized enlarged lymph nodes; Z79.84 Long term (current) use of oral hypoglycemic drugs
CPT/HCPCS: 36415; 80053; 80061; 83036; 84403; 84550; 85025

== ENCOUNTER 2023-09-23 10:17 | Emergency (ER) | payer OTHER, SELFPAY ==
[2023-09-23 10:24] VITALS: BP 129/80; PULSE 65; RESP 18; O2SAT 97
[2023-09-23 10:29] VITALS: BP 129/80; PULSE 89; RESP 16; TEMP 36.9; O2SAT 98; BMI 40.7
[2023-09-23 10:30] VITALS: BP 131/93; PULSE 91; O2SAT 98
--- NOTE | 2023-09-23 10:30 | PC.NURSE ---
DR RAM AT BEDSIDE
--- NOTE | 2023-09-23 10:31 | XR_ITS ---
FINAL REPORT CLINICAL HISTORY: fall off horse, pain COMPARISON: None FINDINGS: RIGHT FOOT: Three views of the right foot were obtained. Mild degenerative change is present. There is widening of the ankle mortise and lateral subluxation of the talus. There is a defect in the proximal fourth metatarsal, that may represent a subacute fracture or lytic mass. There is no soft tissue abnormality. IMPRESSION: Defect in the proximal fourth metatarsal that may represent a subacute fracture or lytic mass. Suggest either follow-up radiographs or MRI for further evaluation. Reviewed, Interpreted and Dictated by Sy Villarreal III, MD Transcribed by Soumya Long Authenticated and [facility]
--- NOTE | 2023-09-23 10:31 | XR_ITS ---
FINAL REPORT CLINICAL HISTORY: fall off horse, pain COMPARISON: None FINDINGS: Three views of the right knee reveal no evidence of fracture or dislocation. The bony alignment is normal. Mild degenerative change is present. There is no evidence of joint effusion. No localized soft tissue abnormality is identified. IMPRESSION: No acute abnormality identified. Reviewed, Interpreted and Dictated by Sy Villarreal III, MD Transcribed by Soumya Long Authenticated and [facility]
--- NOTE | 2023-09-23 10:31 | XR_ITS ---
FINAL REPORT CLINICAL HISTORY: fall off horse, pain COMPARISON: None FINDINGS: RIGHT TIBIA FIBULA: There is a comminuted fracture of the mid fibular diaphysis with a butterfly fragment present, and mild lateral displacement of the distal fracture fragment. There is lateral subluxation of the talus at the tibiotalar joint with a widened ankle mortise. IMPRESSION: Comminuted fracture of the mid fibular diaphysis with a butterfly fragment present, and lateral displacement of the distal fracture fragment. Lateral subluxation of the talus at the tibiotalar joint, with a widened ankle mortise. Reviewed, Interpreted and Dictated by Sy Villarreal III, MD Transcribed by Soumya Long Authenticated and [facility]
--- NOTE | 2023-09-23 10:31 | XR_ITS ---
FINAL REPORT CLINICAL HISTORY: fall off horse, pain COMPARISON: None FINDINGS: RIGHT ANKLE: Three views of the right ankle were obtained. There is no acute fracture or dislocation. There is lateral subluxation of the talus at the tibiotalar joint, with a widened ankle mortise. There is a small calcification adjacent to the medial malleolus of uncertain age. Diffuse soft tissue swelling is noted. Calcaneal spurs are present. There is no soft tissue abnormality. IMPRESSION: Lateral subluxation of the talus at the tibiotalar joint with a widened ankle mortise. Reviewed, Interpreted and Dictated by Sy Villarreal III, MD Transcribed by Soumya Long Authenticated and [facility]
--- NOTE | 2023-09-23 10:33 | ED_ITS ---
Discharge Plan Disposition Patient Disposition: Xfer Short-Term Hosp Condition: Good Prescriptions Prescriptions: No Action carvedilol 25 mg tablet 25 mg PO BID amlodipine 10 mg tablet 10 mg PO DAILY testosterone cypionate 200 MG/ML oil 200 mg IM Q2W pravastatin 40 MG tablet 40 mg PO HS meloxicam 15 MG tablet 15 mg PO DAILY allopurinol 100 MG tablet 100 mg PO DAILY hydrochlorothiazide 25 MG tablet 25 mg PO DAILY tadalafil (pulm. hypertension) 20 MG tablet 20 mg PO DAILY PRN (Reason: erectile dysfunction) semaglutide 2 MG/0.75 ML pen injector 2 mg SQ WEEKLY fenofibrate nanocrystallized 145 MG tablet 145 mg PO DAILY azithromycin [Zithromax] 250 mg tablet 250 mg PO UD DOSE PK Qty: 6 0RF Rx Instructions: Take two (2) tablets today, then one (1) tablet days #2 thru #5 benzonatate [benzonatate] 100 mg capsule 100 mg PO TIDP PRN (Reason: Cough) Qty: 30 0RF methylprednisolone 4 mg Tablets,Dose Pack 4 mg PO DIRECTED Qty: 21 0RF Referrals Follow up/Referrals: Trish Juarez APRN [Primary Care Provider] - See instructions Activity Restrictions/Add. Instructions Additional Instructions/Restrictions: Please proceed directly to [facility] at [address] [place] [address]. Clinical Impressions Clinical Impression: Closed right fibular fracture, Dislocation of right talus, Fracture of fourth metatarsal bone Print Language Print Language: Faroese Discharge ED Provider: Makayla Gregg General Adult HPI General Chief complaint: Extremity Injury, Lower Stated complaint: ao 8/3, right ankle/foot pain Time Seen by Provider: 09/23/23 10:18 History of Present Illness HPI narrative: This patient is a 43-year-old male with history of obesity, diabetes, hypertension, hyperlipidemia, gout presenting to the emergency department for evaluation with concern for right ankle injury. Patient reports that on Saturday, he was stepping off a horse when he stepped on his right foot/ankle wrong. He believes that his foot may have been dislocated, as his foot was sideways but his leg was straight, and he felt a loud pop. He felt a pop again as it realigned, and states that he has had pain since then. He went to another hospital was evaluated there with x-rays, which were reportedly negative for any acute fracture. He states that he feels something is still misaligned and is feeling popping anytime he tries to put weight on that leg. He is using a walking boot and crutches at this time. He also complains of pain just below his right knee and wonders if his knee could have been what popped. No numbness, tingling, or other concerns. No other injuries, such as head injury, loss of consciousness, or other issues. Related Data Home Medications ?Medication ?Instructions ?Recorded ?Confirmed amlodipine 10 mg tablet 10 mg PO DAILY High blood pressure 10/03/17 10/09/21 carvedilol 25 mg tablet 25 mg PO BID High blood pressure 10/03/17 10/09/21 allopurinol 100 mg tablet 100 mg PO DAILY gout 10/09/21 10/09/21 fenofibrate nanocrystallized 145 145 mg PO DAILY hld 10/09/21 10/09/21 mg tablet hydrochlorothiazide 25 mg tablet 25 mg PO DAILY htn 10/09/21 10/09/21 meloxicam 15 mg tablet 15 mg PO DAILY Pain 10/09/21 10/09/21 pravastatin 40 mg tablet 40 mg PO HS hld 10/09/21 10/09/21 semaglutide 2 mg/dose (8 mg/3 mL) 2 mg SQ WEEKLY dm 10/09/21 10/09/21 subcutaneous pen injector tadalafil (pulm. hypertension) 20 20 mg PO DAILY PRN erectile 10/09/21 10/09/21 mg tablet (pulmonary hypertension) dysfunction testosterone cypionate 200 mg/mL 200 mg IM Q2W Supplement 10/09/21 10/09/21 intramuscular oil Previous Rx's ?Medication ?Instructions ?Recorded azithromycin 250 mg tablet 250 mg PO UD DOSE PK #6 tabs 01/07/22 (Zithromax) benzonatate 100 mg capsule 100 mg PO TIDP PRN Cough #30 caps 01/07/22 methylprednisolone 4 mg tablets in 4 mg PO DIRECTED #21 tabs 01/07/22 a dose pack Allergies Allergy/AdvReac Type Severity Reaction Status Date / Time No Known Allergies Allergy Verified 09/23/23 10:38 [facility] Disclaimer: The information contained in this section may have been updated after the patient was seen, as this information can be updated by other users. Social History Smoking Status: Never smoker alcohol intake: former substance use type: denies use current occupational status: employed and other Travel in the last 8 weeks: None household members: spouse and family housing: house ROS Obtained: Yes All systems reviewed & no additional complaints except as documented Physical Exam General General appearance: alert and in no apparent distress Head Head exam: atraumatic and normocephalic Eye Eye exam: Present normal appearance, PERRL and EOMI ENT ENT exam: Present normal exam, normal oropharynx, mucous membranes moist and normal external ear exam Neck Neck exam: Present normal inspection, full ROM and trachea midline; Absent tenderness Chest Chest inspection: Present normal inspection and symmetric chest wall rise; Absent tenderness Respiratory Respiratory exam: Present normal lung sounds bilaterally; Absent respiratory distress, wheezes, stridor or accessory muscle use Cardiovascular Cardiovascular exam: Present regular rate and normal rhythm Abdominal Exam Abdominal exam: Present soft; Absent distention, tenderness or guarding Extremities Exam Extremities exam: Present tenderness (Medial right ankle joint), normal capillary refill, joint swelling (Right ankle) and other (All compartment soft, neurovascularly intact distally.); Absent full ROM (Limited range of motion of the right ankle secondary to pain) or edema Back Exam Back exam: Present normal inspection and full ROM; Absent tenderness Neurological Exam Neurological exam: Present alert, oriented X3, CN II-XII intact and normal gait; Absent motor sensory deficit Psychiatric Psychiatric exam: Present normal affect and normal mood Skin Skin exam: Present warm and dry Medical Decision Making Medical Records Medical records reviewed: Yes I reviewed the patient's medical records. Gabriele Inquiry Pt receiving controlled substance: No Vital Signs: 09/23/23 10:24 09/23/23 10:29 09/23/23 10:30 Temperature 98.5 F Temperature Source Oral Pulse Rate 65 91 H Pulse Rate [Left] 89 Respiratory Rate 18 16 Blood Pressure 129/80 131/93 H Blood Pressure [Right Arm] 129/80 Blood Pressure Mean 105 Blood Pressure Mean [Right Arm] 96 Blood Pressure Source [Right Arm] Automatic Cuff Blood Pressure Position [Right Arm] Sitting 02 Sat by Pulse Oximetry 97 98 98 Oxygen Delivery Method Room Air Room Air 09/23/23 11:23 09/23/23 11:30 Temperature Temperature Source Pulse Rate 82 84 Pulse Rate [Left] Respiratory Rate 18 16 Blood Pressure 140/85 138/93 H Blood Pressure [Right Arm] Blood Pressure Mean 100 110 Blood Pressure Mean [Right Arm] Blood Pressure Source [Right Arm] Blood Pressure Position [Right Arm] 02 Sat by Pulse Oximetry 97 96 Oxygen Delivery Method Room Air Room Air Lab Data Lab results reviewed: Yes I reviewed the patient's lab results. Orders (Tests/Meds): ED MEDICATIONS Generic Name Dose Route Start Last Admin Trade Name Eugenie PRN Reason Stop Dose Admin Acetaminophen 1,000 mg 09/23/23 12:03 Acetaminophen 500mg Tab PO 09/23/23 12:04 ONCE ONE Ondansetron HCl 4 mg 09/23/23 12:03 Ondansetron 4mg Odt SL 09/23/23 12:04 ONCE ONE Oxycodone HCl 10 mg 09/23/23 12:04 Oxycodone 5mg Immediate Release Tablet PO 09/23/23 12:05 ONCE ONE ORDERS Category Date Time Status Ankle XR -Right minimum 3 Views [XR ankle RT min 3V] Exams 09/23/23 10:31 Completed Stat Foot XR right minimum 3 views [XR foot RT min 3V] Stat Exams 09/23/23 10:31 Completed Tibia/fibula XR right 2 views [XR tibia fibula RT 2V] Exams 09/23/23 10:31 Completed Stat XR knee RT 3V Stat Exams 09/23/23 10:31 Completed Medical Decision Narrative: In summary, this patient is a 43-year-old male presenting to the Emergency Department for evaluation of right ankle pain after traumatic injury Saturday. Differential diagnoses considered include but are not limited to fracture, contusion, strain/sprain, neurovascular injury, dislocation. Ruling out the most morbid conditions drove assessment. It should be noted patient's history includes obesity, hypertension, hyperlipidemia, diabetes which may or may not be at goal therapy. This complicates all aspects of care by increasing patient's risk for morbidity. On exam, the patient is lying in bed in no acute distress. He has tenderness to palpation of the right ankle with limited range of motion secondary to pain, but he is neurovascularly intact. No open wounds. workup included x-rays of the right knee, tib-fib, ankle, and foot.. I independently interpreted x-ray prior to the radiologist read and noted fracture of the fibular diaphysis. Please see their read for final interpretation. They noted that he also has widening of his ankle joint with subluxation of his talus as well as an abnormality of his fourth metatarsal, which I notified him of. On reassessment, the patient remains neurovascularly intact. I advised him of his injuries and we unfortunately do not have orthopedist on-call here today. I considered procedural sedation and reduction, however since this has been subluxed since Saturday, I feel I am unlikely to have great success. given this, I called and had an interactive discussion with [facility] Dr. Andrew and the transfer center who advised he would be happy to accept the patient for transfer to [facility] emergency department for orthopedics evaluation. Patient was placed in a posterior short leg splint, which he tolerated well and remained neurovascularly intact afterwards. He elected to go to emergency department POV. Advised that he maintain nonweightbearing status and stay NPO. He was given instructions to proceed directly there. 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 He left in stable condition Critical Care Critical Care Time Critical Care Time: No
[2023-09-23 11:23] VITALS: BP 140/85; PULSE 82; RESP 18; O2SAT 97
[2023-09-23 11:30] VITALS: BP 138/93; PULSE 84; RESP 16; O2SAT 96
--- NOTE | 2023-09-23 11:58 | PC.NURSE ---
DR RAM AT BEDSIDE IMAGES POWERSHARED TO [facility]
--- NOTE | 2023-09-23 12:10 | PC.NURSE ---
Dr. Gregg speaking to [facility] at this time for possible transfer
--- NOTE | 2023-09-23 12:11 | PC.NURSE ---
DR RAM SPEAKING WITH DR DUARTE FOR TRANSFER
[2023-09-23] MEDS: ONDANSETRON 4MG ODT 4 MG SL (12:16)
[2023-09-23] MEDS: OXYCODONE 5MG IMMEDIATE RELEASE TABLET 10 MG PO (12:17)
[2023-09-23] MEDS: ACETAMINOPHEN 500MG TAB 1000 MG PO (12:17)
--- NOTE | 2023-09-23 12:31 | PC.NURSE ---
I called report to jacob Maddox RN, at ED.
--- NOTE | 2023-09-23 12:34 | PC.NURSE ---
Short posterior leg splint applied. Pt advised of care and understands. CR
[2023-09-23 12:42] VITALS: BP 123/87; PULSE 85; RESP 16; TEMP 36.7
--- NOTE | 2023-09-23 12:43 | HMH.EDGENADL ---
Discharge Plan Disposition Patient Disposition: Xfer Short-Term Hosp Condition: Good Prescriptions Prescriptions: No Action carvedilol 25 mg tablet 25 mg PO BID amlodipine 10 mg tablet 10 mg PO DAILY testosterone cypionate 200 MG/ML oil 200 mg IM Q2W pravastatin 40 MG tablet 40 mg PO HS meloxicam 15 MG tablet 15 mg PO DAILY allopurinol 100 MG tablet 100 mg PO DAILY hydrochlorothiazide 25 MG tablet 25 mg PO DAILY tadalafil (pulm. hypertension) 20 MG tablet 20 mg PO DAILY PRN (Reason: erectile dysfunction) semaglutide 2 MG/0.75 ML pen injector 2 mg SQ WEEKLY fenofibrate nanocrystallized 145 MG tablet 145 mg PO DAILY azithromycin [Zithromax] 250 mg tablet 250 mg PO UD DOSE PK Qty: 6 0RF Rx Instructions: Take two (2) tablets today, then one (1) tablet days #2 thru #5 benzonatate [benzonatate] 100 mg capsule 100 mg PO TIDP PRN (Reason: Cough) Qty: 30 0RF methylprednisolone 4 mg Tablets,Dose Pack 4 mg PO DIRECTED Qty: 21 0RF Referrals Follow up/Referrals: Trish Juarez APRN [Primary Care Provider] - See instructions Activity Restrictions/Add. Instructions Additional Instructions/Restrictions: Please proceed directly to [facility] ER at [address] [place] [address]. Clinical Impressions Clinical Impression: Closed right fibular fracture, Dislocation of right talus, Fracture of fourth metatarsal bone Stand Alone Forms Stand Alone Forms: Transfer Record - ED Print Language Print Language: Armenian Discharge ED Provider: Makayla Gregg General Adult HPI General Chief complaint: Extremity Injury, Lower Stated complaint: ao 8/3, right ankle/foot pain Time Seen by Provider: 09/23/23 10:18 Mode of Arrival: Wheelchair Source of Information: Patient and Spouse Limitations: No Limitations Description of Symptoms (Recalled from ER Triage Doc. by RN): pt reports he was on a horse Saturday and it reared up as he was trying to get off. pt states his L ankle rotated external and popped. pt states it popped again and felt like it went back in place. pt states he was seen at [facility] and had a negative xray. pt reports he is here for a second opinion. pt states he has sharp 5/10 ankle pain that radiates proximal to his knee and distal. Related Data Home Medications ?Medication ?Instructions ?Recorded ?Confirmed amlodipine 10 mg tablet 10 mg PO DAILY High blood pressure 10/03/17 10/09/21 carvedilol 25 mg tablet 25 mg PO BID High blood pressure 10/03/17 10/09/21 allopurinol 100 mg tablet 100 mg PO DAILY gout 10/09/21 10/09/21 fenofibrate nanocrystallized 145 145 mg PO DAILY hld 10/09/21 10/09/21 mg tablet hydrochlorothiazide 25 mg tablet 25 mg PO DAILY htn 10/09/21 10/09/21 meloxicam 15 mg tablet 15 mg PO DAILY Pain 10/09/21 10/09/21 pravastatin 40 mg tablet 40 mg PO HS hld 10/09/21 10/09/21 semaglutide 2 mg/dose (8 mg/3 mL) 2 mg SQ WEEKLY dm 10/09/21 10/09/21 subcutaneous pen injector tadalafil (pulm. hypertension) 20 20 mg PO DAILY PRN erectile 10/09/21 10/09/21 mg tablet (pulmonary hypertension) dysfunction testosterone cypionate 200 mg/mL 200 mg IM Q2W Supplement 10/09/21 10/09/21 intramuscular oil Previous Rx's ?Medication ?Instructions ?Recorded azithromycin 250 mg tablet 250 mg PO UD DOSE PK #6 tabs 01/07/22 (Zithromax) benzonatate 100 mg capsule 100 mg PO TIDP PRN Cough #30 caps 01/07/22 methylprednisolone 4 mg tablets in 4 mg PO DIRECTED #21 tabs 01/07/22 a dose pack Allergies Allergy/AdvReac Type Severity Reaction Status Date / Time No Known Allergies Allergy Verified 09/23/23 10:38 [facility] Disclaimer: The information contained in this section may have been updated after the patient was seen, as this information can be updated by other users. Social History Smoking Status: Never smoker alcohol intake: former substance use type: denies use current occupational status: employed and other Travel in the last 8 weeks: None household members: spouse and family housing: house Physical Exam General General appearance: alert and in no apparent distress Medical Decision Making Vital Signs: 09/23/23 10:24 09/23/23 10:29 09/23/23 10:30 Temperature 98.5 F Temperature Source Oral Pulse Rate 65 91 H Pulse Rate [Left] 89 Respiratory Rate 18 16 Blood Pressure 129/80 131/93 H Blood Pressure [Right Arm] 129/80 Blood Pressure Mean 105 Blood Pressure Mean [Right Arm] 96 Blood Pressure Source [Right Arm] Automatic Cuff Blood Pressure Position [Right Arm] Sitting 02 Sat by Pulse Oximetry 97 98 98 Oxygen Delivery Method Room Air Room Air 09/23/23 11:23 09/23/23 11:30 Temperature Temperature Source Pulse Rate 82 84 Pulse Rate [Left] Respiratory Rate 18 16 Blood Pressure 140/85 138/93 H Blood Pressure [Right Arm] Blood Pressure Mean 100 110 Blood Pressure Mean [Right Arm] Blood Pressure Source [Right Arm] Blood Pressure Position [Right Arm] 02 Sat by Pulse Oximetry 97 96 Oxygen Delivery Method Room Air Room Air Orders (Tests/Meds): ED MEDICATIONS Discontinued Medications Generic Name Dose Route Start Last Admin Trade Name Freq PRN Reason Stop Dose Admin Acetaminophen 1,000 mg 09/23/23 12:03 09/23/23 12:17 Acetaminophen 500mg Tab PO 09/23/23 12:04 1,000 mg ONCE ONE Administration Ondansetron HCl 4 mg 09/23/23 12:03 09/23/23 12:16 Ondansetron 4mg Odt SL 09/23/23 12:04 4 mg ONCE ONE Administration Oxycodone HCl 10 mg 09/23/23 12:04 09/23/23 12:17 Oxycodone 5mg Immediate Release Tablet PO 09/23/23 12:05 10 mg ONCE ONE Administration ORDERS Category Date Time Status Ankle XR -Right minimum 3 Views [XR ankle RT min 3V] Exams 09/23/23 10:31 Completed Stat Foot XR right minimum 3 views [XR foot RT min 3V] Stat Exams 09/23/23 10:31 Completed Tibia/fibula XR right 2 views [XR tibia fibula RT 2V] Exams 09/23/23 10:31 Completed Stat XR knee RT 3V Stat Exams 09/23/23 10:31 Completed Procedures Risk/Benefits of Procedure(s) Were Explained: Yes Orthopedic Splinting/Casting Injury #1: Side: right Lower Extremity Injury Location: lower leg Lower Extremity Immobilizer: posterior splint and applied by nurse/dr kathleen Additional Comments: Splint applied by medic and checked by myself. Patient was placed in a posterior short leg fiberglass splint and remained neurovascularly intact after splinting. He tolerated this well with no complications. Post Cast/Splinting Neuro Status: intact and no change Post Cast/Splinting Vasc Status: intact and no change
== END 2023-09-23 12:44 | disposition short-term general hospital (02) ==
PROVIDERS: Emergency Provider Emergency Medicine; PCP Nurse Practitioner Family
DX: S82.451A Displaced comminuted fracture of shaft of right fibula, initial encounter for closed fracture (principal); S93.01XA Subluxation of right ankle joint, initial encounter; S92.341A Displaced fracture of fourth metatarsal bone, right foot, initial encounter for closed fracture; X50.1XXA Overexertion from prolonged static or awkward postures, initial encounter; Y93.52 Activity, horseback riding
CPT/HCPCS: 29515; 73562; 73590; 73610; 73630; 99285; Q0162

== ENCOUNTER 2024-01-31 17:16 | Outpatient (CLI) | payer OTHER, SELFPAY ==
[2024-01-31 18:34] LABS: Hemoglobin A1C 6.9 % (4.0-6.0)
== END 2024-01-31 23:59 | disposition home or self-care (01) ==
LOC: LAB 17:18
PROVIDERS: PCP Nurse Practitioner Family; Visit Provider Nurse Practitioner Family
DX: E87.6 Hypokalemia (principal); E11.9 Type 2 diabetes mellitus without complications
CPT/HCPCS: 83036

== ENCOUNTER 2024-02-03 12:30 | Outpatient (CLI) | payer OTHER, SELFPAY ==
[2024-02-03 14:00] LABS: Chloride 93 mmol/L (98-107); Sodium 127 mmol/L (136-145)
[2024-02-03 14:01] LABS: Potassium 3.3 mmoL/L (3.5-5.1)
[2024-02-03 14:03] LABS: Blood Urea Nitrogen 14 mg/dl (9-20); Estimated Glomerular Filt Rate 74 ml/min (>60); GFR (African American) 89 ML/MIN (>60)
[2024-02-03 14:04] LABS: Anion Gap 9.3 mEq/L (5-15); Calcium 8.9 mg/dl (8.4-10.2); Carbon Dioxide 28 mmol/L (22.0-30.0); Glucose 251 mg/dl (74-100)
== END 2024-02-03 23:59 | disposition home or self-care (01) ==
PROVIDERS: PCP Internal Medicine Adolescent Medicine; Visit Provider Nurse Practitioner Family
DX: E87.6 Hypokalemia (principal); E11.9 Type 2 diabetes mellitus without complications
CPT/HCPCS: 36415; 80048

== ENCOUNTER 2024-08-13 10:40 | Outpatient (POV) | payer OTHER, SELFPAY ==
--- OUTSIDE RECORDS SUMMARY | 2024-06-15 10:00 | XMS_ITS | Encounter Summary ---
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 Name Role Phone Unavailable Primary Care Provider Unavailabl e Reason for Visit * Reason Comments Follow-up Encounter Details Date Type Department Care Team (Late st Contact Info) Description 06/15/2024 10:00 AM EDT Office Visit [facility] [address] [address] Edu Choe MD [address] [place] [address] Left arm pain (Primary Dx) Social History Tobacco Use Types Packs/Day Years Used Date Smoking Tobacco: Never Smokeless Tobacco: Current Chew Alcohol Use Standard Drinks/Week Comments Yes 0 (1 standard drink = 0.6 oz pur e alcohol) occas / 1-2 drinks/ day Sex and Gender Information Value Date Recorded Sex Assigned at Not on file Legal Sex Male 1:48 PM EST Gender Identity Not on file Sexual Orientation Not on file documented as of this encounter Progress Notes * Edu Choe MD - 06/15/2024 10:00 AM EDT Images from the original note were not included. Azeem Chris 1980 CC: S/p left arm exploration with neurolysis of radial nerve of the upper arm, left cubital tunnel release and left open carpal tunnel release DOS: 02/28/2024 History: Patient states that he has not had any change in function of his right hand and wrist. He states that the numbness throughout the hand is more pronounced than it was prior to surgery. Does not have sensation throughout the fingers in his hand. States that he has been having a lot of pain in his arm at the fracture site the past couple of weeks. No new injury. He has not been following with his surgeon in [place] for this. He did not do therapy for his shoulder. He did do hand therapy for the nerve palsy. He is in extension splint at night and does a lot of passive range of motion exercises. Physical exam: Left upper Extremity: Incisions are all well-healed. Wrist drop noted. Patient can actively extend the wrist 50 to 60 degrees but cannot actively extend the fingers. Is able to make a fist and actively flex thumb IP and index finger DIP joints Decreased sensation throughout median radial and ulnar nerve distribution in the hand. Fingers and hand are warm and well-perfused with brisk capillary refill. Radiology: 2 view image of the left humerus obtained today to check healing of the humeral shaft fracture. There is good callus present consistent with healing. Hardware intact without signs of failure. Impression: S/p above procedures Plan: Again talked with the patient about the very slow and unpredictable nature of nerve healing. Still could have some chance that further return of function over the course of a full year from postsurgical release. Discussed the importance of passively motion is stable. Would recommend that he reach out to his surgeon in [place] to get therapy on his shoulder and arm. Will have him follow-up another 3 months when he is about 6 months postoperative and consider getting a repeat EMG at that time. Patient in agreement with plan of care today and all questions answered. The supervising/collaborating provider for the technical component of the x-rays is Edu Choe MD. This chart was completed using voice recognition technology and may contain unintended errors. documented in this encounter Plan of Treatment Upcoming Encounters Date Type Department Care Team (Late st Contact Info) Description 09/14/2024 10:00 AM EDT Office Visit [facility] [address] [facility] [address] [place] [address] Edu Choe MD [address] [place] [address] documented as of this encounter Visit Diagnoses Diagnosis Left arm pain- Primary Pain in limb documented in this encounter
--- OUTSIDE RECORDS SUMMARY | 2024-06-15 10:15 | XMS_ITS | Encounter Summary ---
Author Organization [facility] Address [address] [place] [address] Care Team Providers Care Tugboat Mate Name Role Phone Unavailable Primary Care Provider Unavailabl e Encounter Details Date Type Department Care Team (Late st Contact Info) Description 06/15/2024 10:15 AM EDT Ancillary Procedure [facility] [address] [address] Karla Jackson PA-C [address] [place] [address] Left arm pain Social History Tobacco Use Types Packs/Day Years [...] on file documented as of this encounter Plan of Treatment Upcoming Encounters Date Type Department Care Team (Late st Contact Info) Description 09/14/2024 10:00 AM EDT Office Visit [facility] [address] [address] Edu Choe MD [address] [place] [address] documented as of this encounter Procedures Procedure Name Priority Date/Time Associated Diagnosis Comments XR HUMERUS LEFT AP LATERAL Routine 06/15/2024 10:22 AM EDT Left arm pain documented in this encounter Results * XR HUMERUS LEFT AP LATERAL (06/15/2024 10:22 AM EDT) Narrative [facility] - 06/15/2024 10:22 AM EDT Please see physician's note from office encounter for x-ray imaging result us Karla Jackson PA-C IMG DIAGNOSTIC IMAGING OR DERABLES Final Result [facility] documented in this encounter Visit Diagnoses Diagnosis Left arm pain Pain in limb documented in this encounter
--- OUTSIDE RECORDS SUMMARY | 2024-08-13 10:44 | XMS_ITS | Clinical Summary ---
Author Organization [facility] Address [address] [id number] Care Team Providers Care Data Management Specialist Name Role Phone Jam Richardson MD Primary Care Provider + [phone] Allergies Active Allergy Reactions Criticality Noted Date Comments Lisinopril Cough Low 09/23/2023 Medications carvedilol (Coreg) 25 MG tablet Take by mouth 2 (two) times a day with meals. Active amLODIPine (Norvasc) 10 MG tablet Take by mouth 1 (one) time each day in the morning. Active tirzepatide (Mounjaro) 15 MG/0.5ML solution pen-injector solution pen-injector Inject 0.5 mL (15 mg) under the skin 1 (one) time per week. Takes on Saturday. Active ondansetron ODT (Zofran-ODT) 4 MG disintegrating tablet Take 1 tablet (4 mg) by mouth every 8 (eight) hours if needed for nausea or vomiting. 20 tablet 09/27/19 24 Active oxyCODONE (Roxicodone) 5 MG immediate release tablet Take 1 tablet (5 mg) by mouth every 6 (six) hours if needed for severe pain. 20 tablet 10/03/19 24 Active Additional Information Patient not taking.Reported on 01/13/2024 allopurinol (Zyloprim) 100 MG tablet Take 1 tablet (100 mg) by mouth 1 (one) time each day. 03/19/19 17 Active Farxiga 5 MG tablet Take 1 tablet (5 mg) by mouth 1 (one) time each day. Active escitalopram (Lexapro) 10 MG tablet Take 1 tablet (10 mg) by mouth 1 (one) time each day. Active fenofibrate (Tricor) 145 MG tablet Take 1 tablet (145 mg) by mouth 1 (one) time each day. 03/19/19 17 Active glimepiride (Amaryl) 4 MG tablet Take 1 tablet (4 mg) by mouth 1 (one) time each day. Active hydroCHLOROthiazid e (HYDRODiuril) 12.5 MG tablet Take 10 mg by mouth 1 (one) time each day. Active acetaminophen (Tylenol) 500 MG tablet Take 1 tablet (500 mg) by mouth every 6 (six) hours if needed for pain for up to 20 doses. 20 tablet 10/18/19 24 Active ibuprofen 600 MG tablet Take 1 tablet (600 mg) by mouth every 6 (six) hours if needed for mild pain. 50 tablet 10/18/19 24 Active omeprazole (PriLOSEC) [address] capsule 11/06/19 24 Active pravastatin (Pravachol) 40 MG tablet 11/06/19 24 Active Xyosted 75 MG/0.5ML solution auto-injector 10/18/19 24 Active lidocaine (Xylocaine) 2 % solution APPLY 5 ML TO AFFECTED AREA 4 TIMES DAILY FOR 10 DAYS BEFORE MEALS AND AT BEDTIME 01/06/20 24 Active losartan (Cozaar) 25 MG tablet 01/12/20 24 Active meloxicam (Mobic) 7.5 MG tablet Take 1 tablet (7.5 mg) by mouth 1 (one) time each day. 12/31/19 24 Active Active Problems Problem Noted Date Diagnosed Date Class III obesity with body mass index (BMI) of 40.0 or higher 09/27/2023 Closed displaced comminuted fracture of shaft of right fibula 09/23/2023 Family History Medical History Relation Name Comments Coronary artery disease Other 1 COPD Other 2 Diabetes Other 3 Other cancer Other 4 Relation Name Status Comments Other 1 Other 2 Other 3 Other 4 Social History Tobacco Use Types Packs/Day Years Used Date Smoking Tobacco: Never Smokeless Tobacco: Never Tobacco Cessation:Counseling Given: Not Answered Alcohol Use Standard Drinks/Week Comments Yes 6 (1 standard drink = 0.6 oz pur e alcohol) socially every few days PHQ-2 Answer Date Recorded Patient Health Questionnaire-2 Score 0 10/18/2023 Sex and Gender Information Value Date Recorded Sex Assigned at Not on file Legal Sex Male 6:17 PM EDT Gender Identity Not on file Sexual Orientation Not on file Last Filed Vital Signs Vital Sign Reading Time Taken Comments Blood Pressure 179/98 01/13/2024 1:48 PM EST Pulse 88 01/13/2024 1:48 PM EST Temperature 36.4 C (97.6 F) 01/13/2024 1:48 PM EST Respiratory Rate 15 09/27/2023 1:30 PM EDT Oxygen Saturation 95% 01/13/2024 1:48 PM EST Inhaled Oxygen Concentration - - Weight 150 kg (330 lb) 01/13/2024 1:48 PM EST Height 190.5 cm (6' 3 ) 01/13/2024 1:48 PM EST Body Mass Index 41.25 01/13/2024 1:48 PM EST Plan of Treatment Health Maintenance Due Date Last Done Comments [facility]-/Child/Adol SDOH Screenings 1982 [facility]-Varicella Vaccines (1 of 2 - 13+ 2-dose series) 09/14/1995 HPV Vaccines (1 - Male 3-dos e series) 1997 [facility]-DTaP,Tdap,and Td Vaccine s (2 - Tdap) 12/02/1997 12/01/1997 [facility]- SDOH Screenings 2000 [facility]-Adult SDOH Screenings 2000 [facility]-Hepatitis B Vaccines (1 of 3 - 19+ 3-dose series) 2001 [id number] Vaccine (1 - 2023- season) 2023 [facility]-Depression Screening 10/17/2024 10/18/2023 [facility]-Influenza Vaccine ([place]as[place] n Ended) 2024 [facility]-Zoster Vaccines (1 of 2) 2032 [facility]-HIV Screening Completed 09/23/2023 [facility]-Hepatitis C Screening Completed 09/23/2023 [facility]-Obesity Intervention Completed 024, 11/11/2023, 10/18/2023 [facility]-HIB Vaccines Aged Out No longer e ligible based on patient's age to complete this topic [facility]-Hepatitis A Vaccines Aged Out No longer eligible based on patient's age to complete this topic [facility]-IPV Vaccines Aged Out No longer e ligible based on patient's age to complete this topic [facility]-Pneumococcal Vaccine: Pediatrics (0 to 5 Years) and At-Risk Patients (6 to 49 Years) Aged Out No longer eligible b ased on patient's age to complete this topic [facility]-Rotavirus Vaccines Aged Out No lo nger eligible based on patient's age to complete this topic Medical Devices Implanted Type Area Bolt Threader Device Identifier Shelf Expiration Date Model / Serial / 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[employer] Tightrope Ss - Sna - [id number] Implanted:Qty: 2 on 09/27/2023 by Calderon Alan MD at [facility] [place] Right: Ankle [id number] 09/26/2024 [id number] / NA / Plate Lcp 1/3 Tubl Col 57mm 5h - Sna - [id number] Implanted:Qty: 1 on 09/27/2023 by Calderon Alan MD at [facility] Plate Right: Ankle [employer] [id number] 09/26/2024 [id number] / NA / Screw 3.5mm Cortex Selftap 16mm - Sna - [id number] Implanted:Qty: 1 on 09/27/2023 by Calderon Alan MD at [facility] Screw Right: Ankle [employer] [id number] 09/26/2024 [id number] / NA / Procedures Procedure Name Priority Date/Time Associated Diagnosis Comments HEPATITIS C ANTIBODY - ED W/REFLEX TO HCV QUANT PCR STAT 09/23/2023 2:49 PM EDT ED HIV 1/2 ANTIBODY/ANTIGEN SCREEN WITH REFLEX TO HIV I/II DIFFERENTIATION STAT 09/23/2023 2:49 PM EDT from Last 3 Months or Most Recently Relevant to Health Maintenance Results * ED HIV 1/2 Antibody/Antigen Screen w/Reflex to HIV 1/2 Differentiation (09/23/2023 2:49 PM EDT) HIV 1 & 2 Antibody/Antigen Screen Non Reactive Non Reactive 09/23/2023 4:06 PM EDT [facility] Comment:Screening for HIV 1 & 2 antibodies, and P24 antigen is NONREACTIVE. No confirmatory testing is required. Blood Venous blood specimen / Unknown Venipuncture / Unknown 09/23/2023 2:49 PM EDT 09/23/2023 3:27 PM EDT Jacky Zuniga MD LAB BLOOD ORDERABLES Final Res ult [facility] [address] [place] [address] * Hepatitis C Antibody - ED (09/23/2023 2:49 PM EDT) Hepatitis C Antibody Negative Negative 09/23/2023 4:06 PM EDT [facility] Blood Venous blood specimen / Unknown Venipuncture / Unknown 09/23/2023 2:49 PM EDT 09/23/2023 3:26 PM EDT Jacky Zuniga MD LAB BLOOD ORDERABLES Final Res ult Performing Organization Address City/[facility]/ZIP Co de Phone Number [facility] [address] [place] [address] from Last 3 Months or Most Recently Relevant to Health Maintenance Insurance [facility] Advance Directives Documents on File Type Date Recorded Patient Change Booth Attendant Expl anation Advance Directives and Living Will 09/23/2023 Care Teams Data Management Specialist Relationship Specialty Start Date End Date Jam Richardson MD [address] [place] [address] [place] [address] PCP - General 07/01/20
--- OUTSIDE RECORDS SUMMARY | 2024-08-13 10:44 | XMS_ITS | Data Portability ---
Author Organization [facility] Address [address] [place] [address] Assessment Encounter Date Assessment Date Assessment LastModified by Organization Details LastModified Time 03/03/2024 03/03/2024 -sent rx for [facility]ed to [facility]. await HST result. has fu with hematology in summer 2024 -f/u with us in 1 month. Not available 03/03/2024 09:41:10 04/01/2024 04/01/2024 -sent rx for [facility]ed to [facility]. spoke with vaibhav warren aprn at hematology, HST result showes severe BRAXTON, she has ordered a CPAP has fu with hematology in summer 2024 -f/u with us in 1 month. labs today- shot 3 days ago [email or web address] Not available 04/01/2024 10:09:28 05/22/2024 05/22/2024 -sent rx for [facility]ed to [facility]. spoke with vaibhav warren aprn at hematology, HST result shows severe BRAXTON, she has ordered a CPAP has fu with hematology in summer 2024 -f/u with us in 1 month. labs before fu- may consider increasing dose, still fatigued. updated CSA again- filled out wrong pharmacy last time. [email or web address] Not available 05/22/2024 14:33:42 06/17/2024 06/17/2024 -sent rx for [facility]ed to [facility]. spoke with vaibhav warren aprn at hematology, HST result shows severe BRAXTON, she has ordered a CPAP has fu with hematology in summer 2024 -f/u with us in 1 month. still fatigued. will increase to 100mg weekly on 06/17 Not available 06/17/2024 11:26:30 07/15/2024 07/15/2024 spoke with vaibhav warren aprn at hematology, HST result shows severe BRAXTON, he is using CPAP has fu with hematology in summer 2024 -f/u with Linda Gamboa APRN july-september for xyosted refills and then I have given him a lab order for september to get labs repeated before he comes back to see me in october. Not available 07/15/2024 12:29:42 Plan of Treatment Reminders Order Date Submit Date Provider Last Modified By Organization Details Last Modified Time Details Appointments Follow Up 2024 02:00P Nadia Anderson APRN Not available Not available Not available Lab drug screen, urine 2024 025 [email or web address], [address] [place], [address], 07/15/2024 12:19:29 CBC w/ auto diff - get drawn 3-4 days after xyosted injection . 2024 025 [facility], [address], [address], [place], [address], 07/15/2024 12:20:19 testoster one, total, serum - get drawn 3-4 days after xyosted injection . 2024 025 [facility], [address], [address], [place], [address], 07/15/2024 12:20:19 drug screen, urine 2024 025 [email or web address], [address] [place], [address], 06/17/2024 11:30:32 drug screen, urine [address], [address] [place], [address], 05/22/2024 14:33:15 CBC w/ auto diff 2024 025 [facility], [address], [address], [place], [address], 06/09/2024 08:57:19 testoster one, total, serum 2024 025 [facility], [address], [address], [place], [address], 06/09/2024 08:57:19 PSA, total, serum or plasma 2024 025 [facility], [address], [address], [place], [address], 06/09/2024 08:57:20 drug screen, urine [address], [address] [place], [address], 04/01/2024 10:05:09 CBC w/ auto diff 2024 025 [facility], [address], [address], [place], [address], 04/02/2024 08:23:25 testoster one, total, serum 2024 025 [facility], [address], [address], [place], [address], 04/02/2024 08:23:26 drug screen, urine [address], [address] [place], [address], 03/03/2024 09:40:26 Referral None recorded. Procedures None recorded. Surgeries None recorded. Imaging None recorded. Medication Orders Xyosted 100 mg/0.5 mL subcutane ous auto-inje ctor 2024 025 [facility], [facility] Jeannine Carreon, [address], [place], [place], [phone], 07/22/2024 05:01:29 Xyosted 100 mg/0.5 mL subcutane ous auto-inje ctor 2024 025 [facility], [facility] , [address], [place], [place], [id number], 07/22/2024 05:01:29 Xyosted 75 mg/0.5 mL subcutane ous auto-inje ctor 2024 025 [facility], [facility] , [address], [place], [place], [phone], 07/15/2024 16:27:28 Xyosted 75 mg/0.5 mL subcutane ous auto-inje ctor 2024 025 [email or web address], [facility] Jeannine Carreon, [address], [place], [place], [phone], 07/15/2024 12:06:04 Xyosted 75 mg/0.5 mL subcutane ous auto-inje ctor 2024 025 [email or web address], [facility] Jeannine Carreon, [address], [place], [place], [phone], 07/15/2024 12:06:04 Patient TargetsNo targets recorded. Patient Instructions Encounter Date Encounter Id Patient Instructions Last Modified By Organization Details Last Modified Time 03/03/2024 [id number] high blood pressure: care instructions [email or web address] Not available 03/03/2024 09:40:26 Erection Problems: Care Instructions Not available 03/03/2024 09:40:25 type 2 diabetes: care instructions Not available 03/03/2024 09:40:25 hypogonadism: care instructions Not available 03/03/2024 09:40:25 high cholesterol : care instructions Not available 03/03/2024 09:40:26 polycythemia: care instructions Not available 03/03/2024 09:40:26 04/01/2024 [id number] high blood pressure: care instructions Not available 04/01/2024 10:05:08 Erection Problems: Care Instructions Not available 04/01/2024 10:05:09 type 2 diabetes: care instructions Not available 04/01/2024 10:05:09 hypogonadism: care instructions Not available 04/01/2024 10:05:09 high cholesterol : care instructions Not available 04/01/2024 10:05:09 polycythemia: care instructions Not available 04/01/2024 10:05:08 05/22/2024 [id number] high blood pressure: care instructions Not available 05/22/2024 14:24:49 Erection Problems: Care Instructions Not available 05/22/2024 14:24:49 type 2 diabetes: care instructions Not available 05/22/2024 14:24:49 hypogonadism: care instructions Not available 05/22/2024 14:24:49 high cholesterol : care instructions Not available 05/22/2024 14:24:49 polycythemia: care instructions Not available 05/22/2024 14:24:49 06/17/2024 [id number] high blood pressure: care instructions Not available 06/17/2024 11:30:32 Erection Problems: Care Instructions Not available 06/17/2024 11:30:32 type 2 diabetes: care instructions Not available 06/17/2024 11:30:32 hypogonadism: care instructions Not available 06/17/2024 11:30:32 high cholesterol : care instructions Not available 06/17/2024 11:30:32 polycythemia: care instructions Not available 06/17/2024 11:30:32 07/15/2024 [id number] high blood pressure: care instructions Not available 07/15/2024 12:19:29 Erection Problems: Care Instructions Not available 07/15/2024 12:19:29 type 2 diabetes: care instructions Not available 07/15/2024 12:19:29 hypogonadism: care instructions Not available 07/15/2024 12:19:29 high cholesterol : care instructions Not available 07/15/2024 12:19:29 polycythemia: care instructions Not available 07/15/2024 12:19:29 Reason for Referral None Reported. Results Created Date Observation Date Name Description Value Unit Range Abnormal Flag Note LastModifiedBy Organization Detail LastModifiedTime 03/03/1903/03/2024 drug scree n, urine THC negati ve Not Available [address], [address], 03/02/2024 07:57:04 03/03/1903/03/2024 drug scree n, urine TCA negati ve Not Available [facility] [address] [place], [address], 03/02/2024 07:57:04 03/03/1903/03/2024 drug scree n, urine BAR negati ve Not Available [facility] [address] [place], [address], 03/02/2024 07:57:04 03/03/1903/03/2024 drug scree n, urine BZO negati ve Not Available [address], [address], 03/02/2024 07:57:04 03/03/19 25 03/03/2024 drug scree n, urine MTD negati ve Not Available [facility] [address] [place], [address], 03/02/2024 07:57:04 03/03/1903/03/2024 drug scree n, urine AMP negati ve Not Available [facility] [address] [place], [address], 03/02/2024 07:57:04 03/03/19 25 03/03/2024 drug scree n, urine MOP negati ve Not Available [facility] [address] [place], [address], 03/02/2024 07:57:04 03/03/19 25 03/03/2024 drug scree n, urine OXY positi ve Not Available [facility] [address] [place], [address], 03/02/2024 07:57:04 03/03/19 25 03/03/2024 drug scree n, urine MDMA negati ve Not Available [facility] [address] [place], [address], 03/02/2024 07:57:04 03/03/19 25 03/03/2024 drug scree n, urine HUBERT negati ve Not Available [facility] [address] [place], [address], 03/02/2024 07:57:04 03/03/19 25 03/03/2024 drug scree n, urine PCP negati ve Not Available [facility] [address] [place], [address], 03/02/2024 07:57:04 03/03/19 25 03/03/2024 drug scree n, urine MET negati ve Not Available [facility] [address] [place], [address], 03/02/2024 07:57:04 04/01/1904/02/2024 CBC WITH DIFFE RENTI AL/PL ATELE T WBC 6.2 x10e3 /uL 3.4-10 .8 normal Not Available [facility] ([facility]) [address] [facility], [place], [address], 04/02/2024 08:23:25 04/01/1904/02/2024 CBC WITH DIFFE RENTI AL/PL ATELE T RBC 5.19 x10e6 /uL 4.14-5 .80 normal Not Available [facility] ([facility]) [address] [place], [address], 04/02/2024 08:23:25 04/01/1904/02/2024 CBC WITH DIFFE RENTI AL/PL ATELE T hemoglobin 15.0 g/dL 13.0-1 7.7 normal Not Available [facility] ([facility]) [address] [place], [address], 04/02/2024 08:23:25 04/01/1904/02/2024 CBC WITH DIFFE RENTI AL/PL ATELE T hematocrit 44.2 % 37.5-5 1.0 normal Not Available [facility] ([facility]) [address] [place], [address], 04/02/2024 08:23:25 04/01/1904/02/2024 CBC WITH DIFFE RENTI AL/PL ATELE T MCV 85 fL 79-97 normal Not Available [facility] ([facility]) [address] [place], [address], 04/02/2024 08:23:25 04/01/19 25 04/02/2024 CBC WITH DIFFE RENTI AL/PL ATELE T MCH 28.9 pg 26.6-3 3.0 normal Not Available [facility] ([facility]) [address] [facility], [place], [address], 04/02/2024 08:23:25 04/01/19 25 04/02/2024 CBC WITH DIFFE RENTI AL/PL ATELE T MCHC 33.9 g/dL 31.5-3 5.7 normal Not Available [facility] ([facility]) [address] [facility], [place], [address], 04/02/2024 08:23:25 04/01/19 25 04/02/2024 CBC WITH DIFFE RENTI AL/PL ATELE T RDW 13.8 % 11.6-1 5.4 Not Available [facility] ([facility]) [address] [facility], [place], [address], 04/02/2024 08:23:25 04/01/19 25 04/02/2024 CBC WITH DIFFE RENTI AL/PL ATELE T platelets 292 x10e3 /uL 150-45 0 normal Not Available [facility] ([facility]) [address] [facility], [place], [address], 04/02/2024 08:23:25 04/01/19 25 04/02/2024 CBC WITH DIFFE RENTI AL/PL ATELE T neutrophils 65 % not estab. normal Not Available [facility] ([facility]) [address] [place], [address], 04/02/2024 08:23:25 04/01/19 25 04/02/2024 CBC WITH DIFFE RENTI AL/PL ATELE T lymphs 19 % not estab. normal Not Available [facility] ([facility]) [address] [place], [address], 04/02/2024 08:23:25 04/01/19 25 04/02/2024 CBC WITH DIFFE RENTI AL/PL ATELE T monocytes 13 % not estab. normal Not Available [facility] ([facility]) [address] [place], [address], 04/02/2024 08:23:25 04/01/19 25 04/02/2024 CBC WITH DIFFE RENTI AL/PL ATELE T eos 1 % not estab. normal Not Available [facility] ([facility]) [address] [place], [address], 04/02/2024 08:23:25 04/01/19 25 04/02/2024 CBC WITH DIFFE RENTI AL/PL ATELE T basos 1 % not estab. normal Not Available [facility] ([facility]) [address] [place], [address], 04/02/2024 08:23:25 04/01/19 25 04/02/2024 CBC WITH DIFFE RENTI AL/PL ATELE T immature cells COTTON INSPECTOR Not Available [facility] ([facility]) [address] [place], [address], 04/02/2024 08:23:25 04/01/19 25 04/02/2024 CBC WITH DIFFE RENTI AL/PL ATELE T neutrophils (absolute) 4.1 x10e3 /uL 1.4-7. 0 normal Not Available [facility] ([facility]) [address] [place], [address], 04/02/2024 08:23:25 04/01/19 25 04/02/2024 CBC WITH DIFFE RENTI AL/PL ATELE T lymphs (absolute) 1.2 x10e3 /uL 0.7-3. 1 normal Not Available [facility] ([facility]) [address] [place], [address], 04/02/2024 08:23:25 04/01/19 25 04/02/2024 CBC WITH DIFFE RENTI AL/PL ATELE T monocytes(ab solute) 0.8 x10e3 /uL 0.1-0. 9 normal Not Available [facility] ([facility]) [address] [place], [address], 04/02/2024 08:23:25 04/01/19 25 04/02/2024 CBC WITH DIFFE RENTI AL/PL ATELE T eos (absolute) 0.1 x10e3 /uL 0.0-0. 4 normal Not Available [facility] ([facility]) [address] [facility], [place], [address], 04/02/2024 08:23:25 04/01/19 25 04/02/2024 CBC WITH DIFFE RENTI AL/PL ATELE T baso (absolute) 0.0 x10e3 /uL 0.0-0. 2 normal Not Available [facility] ([facility]) [address] [facility], [place], [address], 04/02/2024 08:23:25 04/01/19 25 04/02/2024 CBC WITH DIFFE RENTI AL/PL ATELE T immature granulocytes 1 % not estab. Not Available [facility] ([facility]) [address] [facility], [place], [address], 04/02/2024 08:23:25 04/01/19 25 04/02/2024 CBC WITH DIFFE RENTI AL/PL ATELE T immature grans (abs) 0.0 x10e3 /uL 0.0-0. 1 Not Available [facility] ([facility]) [address] [place], [address], 04/02/2024 08:23:25 04/01/19 25 04/02/2024 CBC WITH DIFFE RENTI AL/PL ATELE T NRBC COTTON INSPECTOR Not Available [facility] ([facility]) [address] [facility], [place], [address], 04/02/2024 08:23:25 04/01/19 25 04/02/2024 CBC WITH DIFFE RENTI AL/PL ATELE T hematology comments: COTTON INSPECTOR Not Available [facility] ([facility]) [address] [place], [address], 04/02/2024 08:23:25 04/01/19 25 04/02/2024 TESTO STERO NE testosterone 230 NG/dL 264-91 6 below low normal Adult male refer ence inter unruly is based on a popul ation of healt hy nonob jessica males (BMI <30) betwe en 19 and 39 years old. Jonathan landin, et.al . JCEM 2017, 102;1 161-1 173. PMID: 05593 103. Not Available [facility] ([facility]) [address] [facility], [place], [address], 04/02/2024 08:23:26 04/01/19 25 04/01/2024 drug scree n, urine THC negati ve Not Available [facility] [address] [place], [address], 03/30/2024 09:27:00 04/01/19 25 04/01/2024 drug scree n, urine TCA negati ve Not Available [facility] [address] [place], [address], 03/30/2024 09:27:00 04/01/19 25 04/01/2024 drug scree n, urine BAR negati ve Not Available [facility] [address] [place], [address], 03/30/2024 09:27:00 04/01/19 25 04/01/2024 drug scree n, urine BZO negati ve Not Available [facility] [address] [place], [address], 03/30/2024 09:27:00 04/01/19 25 04/01/2024 drug scree n, urine MTD negati ve Not Available [facility] [address] [place], [address], 03/30/2024 09:27:00 04/01/19 25 04/01/2024 drug scree n, urine AMP negati ve Not Available [facility] [address] [place], [address], 03/30/2024 09:27:00 04/01/19 25 04/01/2024 drug scree n, urine MOP negati ve Not Available [facility] [address] [place], [address], 03/30/2024 09:27:00 04/01/19 25 04/01/2024 drug scree n, urine OXY negati ve Not Available [facility] [address] [place], [address], 03/30/2024 09:27:00 04/01/19 25 04/01/2024 drug scree n, urine MDMA negati ve Not Available [facility] [address] [place], [address], 03/30/2024 09:27:00 04/01/19 25 04/01/2024 drug scree n, urine HUBERT negati ve Not Available [facility] [address] [place], [address], 03/30/2024 09:27:00 04/01/19 25 04/01/2024 drug scree n, urine PCP negati ve Not Available [facility] [address] [place], [address], 03/30/2024 09:27:00 04/01/19 25 04/01/2024 drug scree n, urine MET negati ve Not Available [facility] [address] [place], [address], 03/30/2024 09:27:00 05/23/19 25 05/22/2024 drug scree n, urine BAR negati ve Not Available [facility] [address] [place], [address], 04/27/2024 09:27:48 05/23/19 25 05/22/2024 drug scree n, urine BZO negati ve Not Available [facility] [address] [place], [address], 04/27/2024 09:27:48 05/23/19 25 05/22/2024 drug scree n, urine MTD negati ve Not Available [facility] [address] [place], [address], 04/27/2024 09:27:48 05/23/19 25 05/22/2024 drug scree n, urine AMP negati ve Not Available [facility] [address] [place], [address], 04/27/2024 09:27:48 05/23/19 25 05/22/2024 drug scree n, urine MOP negati ve Not Available [facility] [address] [place], [address], 04/27/2024 09:27:48 05/23/19 25 05/22/2024 drug scree n, urine OXY negati ve Not Available [facility] [address] [place], [address], 04/27/2024 09:27:48 05/23/19 25 05/22/2024 drug scree n, urine MDMA negati ve Not Available [facility] [address] [place], [address], 04/27/2024 09:27:48 05/23/19 25 05/22/2024 drug scree n, urine HUBERT negati ve Not Available [facility] [address] [place], [address], 04/27/2024 09:27:48 05/23/19 25 05/22/2024 drug scree n, urine PCP negati ve Not Available [facility] [address] [place], [address], 04/27/2024 09:27:48 05/23/19 25 05/22/2024 drug scree n, urine MET negati ve Not Available [facility] [address] [place], [address], 04/27/2024 09:27:48 06/09/19 25 06/09/2024 CBC WITH DIFFE RENTI AL/PL ATELE T WBC 7.0 x10e3 /uL 3.4-10 .8 normal Not Available [facility] ([facility]) [address] [place], [address], 06/09/2024 08:57:19 06/09/1906/09/2024 CBC WITH DIFFE RENTI AL/PL ATELE T RBC 5.34 x10e6 /uL 4.14-5 .80 normal Not Available [facility] ([facility]) [address] [place], [address], 06/09/2024 08:57:19 06/09/1906/09/2024 CBC WITH DIFFE RENTI AL/PL ATELE T hemoglobin 15.1 g/dL 13.0-1 7.7 normal Not Available [facility] ([facility]) [address] [place], [address], 06/09/2024 08:57:19 06/09/19 25 06/09/2024 CBC WITH DIFFE RENTI AL/PL ATELE T hematocrit 45.9 % 37.5-5 1.0 normal Not Available [facility] ([facility]) [address] [facility], [place], [address], 06/09/2024 08:57:19 06/09/19 25 06/09/2024 CBC WITH DIFFE RENTI AL/PL ATELE T MCV 86 fL 79-97 normal Not Available [facility] ([facility]) [address] [facility], [place], [address], 06/09/2024 08:57:19 06/09/19 25 06/09/2024 CBC WITH DIFFE RENTI AL/PL ATELE T MCH 28.3 pg 26.6-3 3.0 normal Not Available [facility] ([facility]) [address] [facility], [place], [address], 06/09/2024 08:57:19 06/09/19 25 06/09/2024 CBC WITH DIFFE RENTI AL/PL ATELE T MCHC 32.9 g/dL 31.5-3 5.7 normal Not Available [facility] ([facility]) [address] [facility], [place], [address], 06/09/2024 08:57:19 06/09/19 25 06/09/2024 CBC WITH DIFFE RENTI AL/PL ATELE T RDW 13.3 % 11.6-1 5.4 Not Available [facility] ([facility]) [address] [facility], [place], [address], 06/09/2024 08:57:19 06/09/19 25 06/09/2024 CBC WITH DIFFE RENTI AL/PL ATELE T platelets 257 x10e3 /uL 150-45 0 normal Not Available [facility] ([facility]) [address] [place], [address], 06/09/2024 08:57:19 06/09/19 25 06/09/2024 CBC WITH DIFFE RENTI AL/PL ATELE T neutrophils 63 % not estab. normal Not Available [facility] ([facility]) [address] [facility], [place], [address], 06/09/2024 08:57:19 06/09/19 25 06/09/2024 CBC WITH DIFFE RENTI AL/PL ATELE T lymphs 27 % not estab. normal Not Available [facility] ([facility]) [address] [facility], [place], [address], 06/09/2024 08:57:19 06/09/19 25 06/09/2024 CBC WITH DIFFE RENTI AL/PL ATELE T monocytes 7 % not estab. normal Not Available [facility] ([facility]) [address] [facility], [place], [address], 06/09/2024 08:57:19 06/09/19 25 06/09/2024 CBC WITH DIFFE RENTI AL/PL ATELE T eos 2 % not estab. normal Not Available [facility] ([facility]) [address] [facility], [place], [address], 06/09/2024 08:57:19 06/09/19 25 06/09/2024 CBC WITH DIFFE RENTI AL/PL ATELE T basos 1 % not estab. normal Not Available [facility] ([facility]) [address] [facility], [place], [address], 06/09/2024 08:57:19 06/09/19 25 06/09/2024 CBC WITH DIFFE RENTI AL/PL ATELE T immature cells COTTON INSPECTOR Not Available [facility] ([facility]) [address] [facility], [place], [address], 06/09/2024 08:57:19 06/09/19 25 06/09/2024 CBC WITH DIFFE RENTI AL/PL ATELE T neutrophils (absolute) 4.4 x10e3 /uL 1.4-7. 0 normal Not Available [facility] ([facility]) [address] [place], [address], 06/09/2024 08:57:19 06/09/19 25 06/09/2024 CBC WITH DIFFE RENTI AL/PL ATELE T lymphs (absolute) 1.9 x10e3 /uL 0.7-3. 1 normal Not Available [facility] ([facility]) [address] [facility], [place], [address], 06/09/2024 08:57:19 06/09/19 25 06/09/2024 CBC WITH DIFFE RENTI AL/PL ATELE T monocytes(ab solute) 0.5 x10e3 /uL 0.1-0. 9 normal Not Available [facility] ([facility]) [address] [facility], [place], [address], 06/09/2024 08:57:19 06/09/19 25 06/09/2024 CBC WITH DIFFE RENTI AL/PL ATELE T eos (absolute) 0.1 x10e3 /uL 0.0-0. 4 normal Not Available [facility] ([facility]) [address] [facility], [place], [address], 06/09/2024 08:57:19 06/09/19 25 06/09/2024 CBC WITH DIFFE RENTI AL/PL ATELE T baso (absolute) 0.1 x10e3 /uL 0.0-0. 2 normal Not Available [facility] ([facility]) [address] [facility], [place], [address], 06/09/2024 08:57:19 06/09/19 25 06/09/2024 CBC WITH DIFFE RENTI AL/PL ATELE T immature granulocytes 0 % not estab. Not Available [facility] ([facility]) [address] [place], [address], 06/09/2024 08:57:19 06/09/19 25 06/09/2024 CBC WITH DIFFE RENTI AL/PL ATELE T immature grans (abs) 0.0 x10e3 /uL 0.0-0. 1 Not Available [facility] ([facility]) [address] [facility], [place], [address], 06/09/2024 08:57:19 06/09/19 25 06/09/2024 CBC WITH DIFFE RENTI AL/PL ATELE T NRBC COTTON INSPECTOR Not Available [facility] ([facility]) [address] [facility], [place], [address], 06/09/2024 08:57:19 06/09/19 25 06/09/2024 CBC WITH DIFFE RENTI AL/PL ATELE T hematology comments: COTTON INSPECTOR Not Available [facility] ([facility]) [address] [facility], [place], [address], 06/09/2024 08:57:19 06/09/19 25 06/09/2024 TESTO STERO NE testosterone 191 NG/dL 264-91 6 below low normal Adult male refer ence inter unruly is based on a popul ation of healt hy nonob jessica males (BMI <30) betwe en 19 and 39 years old. Jonathan landin, et.al . JCEM 2017, 102;1 161-1 173. PMID: 77904 103. Not Available [facility] ([facility]) [address] [facility], [place], [address], 06/09/2024 08:57:19 06/09/1906/09/2024 PROST ATE-S PECIF IC AG prostate specific Ag 0.4 NG/mL 0.0-4. 0 normal Ladonna ECLIA metho dolog y. Accor ding to the [employer]i can [employer] iatio n, Serum PSA shoul d decre ase and remai n at undet ectab le level s after radic al prost atect alex. The AUA defin es bioch emica l recur rence as an initi al PSA value 0.2 ng/mL or great er follo wed by a subse quent confi rmato ry PSA value 0.2 ng/mL or great er. Value s obtai scotty with diffe rent assay metho ds or kits canno t be used inter cabrera eably . Resul ts canno t be inter prete d as absol johnny evide nce of the prese nce or absen ce of ross douglas se. Not Available [facility] ([facility]) [address], [place], [address], 06/09/2024 08:57:20 06/18/19 25 06/17/2024 drug scree n, urine BAR negati ve Not Available [facility] [address] [place], [place], [id number], 06/15/2024 09:40:10 06/18/19 25 06/17/2024 drug scree n, urine BZO negati ve Not Available [facility] [address] [place], [address], 06/15/2024 09:40:10 06/18/19 25 06/17/2024 drug scree n, urine MTD negati ve Not Available [facility] [address] [place], [address], 06/15/2024 09:40:10 06/18/19 25 06/17/2024 drug scree n, urine AMP negati ve Not Available [facility] [address] [place], [address], 06/15/2024 09:40:10 06/18/19 25 06/17/2024 drug scree n, urine MOP negati ve Not Available [facility] [address] [place], [address], 06/15/2024 09:40:10 06/18/19 25 06/17/2024 drug scree n, urine OXY negati ve Not Available [facility] [address] [place], [address], 06/15/2024 09:40:10 06/18/19 25 06/17/2024 drug scree n, urine MDMA negati ve Not Available [facility] [address] [place], [address], 06/15/2024 09:40:10 06/18/19 25 06/17/2024 drug scree n, urine HUBERT negati ve Not Available [facility] [address] [place], [address], 06/15/2024 09:40:10 06/18/19 25 06/17/2024 drug scree n, urine PCP negati ve Not Available [facility] [address] [place], [address], 06/15/2024 09:40:10 06/18/19 25 06/17/2024 drug scree n, urine MET negati ve Not Available [facility] [address] [place], [address], 06/15/2024 09:40:10 07/16/1907/15/2024 drug scree n, urine THC negati ve Not Available [facility] [address] [place], [address], 07/14/2024 07:54:16 07/16/19 25 07/15/2024 drug scree n, urine TCA negati ve Not Available [facility] [address] [place], [address], 07/14/2024 07:54:16 07/16/19 25 07/15/2024 drug scree n, urine BAR negati ve Not Available [facility] [address] [place], [address], 07/14/2024 07:54:16 07/16/19 25 07/15/2024 drug scree n, urine BZO negati ve Not Available [facility] [address] [place], [address], 07/14/2024 07:54:16 07/16/1907/15/2024 drug scree n, urine MTD negati ve Not Available [facility] [address] [place], [address], 07/14/2024 07:54:16 07/16/19 25 07/15/2024 drug scree n, urine AMP negati ve Not Available [facility] [address] [place], [address], 07/14/2024 07:54:16 07/16/1907/15/2024 drug scree n, urine MOP negati ve Not Available [facility] [address] [place], [address], 07/14/2024 07:54:16 07/16/1907/15/2024 drug scree n, urine OXY negati ve Not Available [facility] [address] [place], [address], 07/14/2024 07:54:16 07/16/1907/15/2024 drug scree n, urine MDMA negati ve Not Available [facility] [address] [place], [address], 07/14/2024 07:54:16 07/16/1907/15/2024 drug scree n, urine HUBERT negati ve Not Available [facility] [address] [place], [address], 07/14/2024 07:54:16 07/16/1907/15/2024 drug scree n, urine PCP negati ve Not Available [facility] [address] [place], [address], 07/14/2024 07:54:16 07/16/1907/15/2024 drug scree n, urine MET negati ve Not Available [facility] [address] [place], [address], 07/14/2024 07:54:16 Result Notes None recorded. Problems Name Problem SNOMED Code Status Onset Date Resolution Date Notes Provider Name and Address Organization Details Recorded Time Erectile dysfunction [id number] Active 2021 Yamini Ida null, [place] - [facility] 2 08:04:56 Hypertensive disorder 13291604 Active 2021 Yamini Ida null, [place] - [facility] 08:05:13 Problem Notes None recorded. Procedures Surgical History Date Name Laterality Status Provider Name and Address Organization Details Recorded Time Ear Tubes - Tympanostomy Tubes completed Yamini Ida [place] - [facility] 02/13/2022 08:12:25 Imaging Results None recorded. Procedure Notes None recorded. Medical Equipment None Reported. Allergies No known drug allergies Medications Name Sig Start Date Stop Date Status Note LastModified by Organization Details LastModified Time Prescript ion - Prior Authoriza tion Request active Not Available Not Available Not Available amoxicill in 500 mg capsule TAKE 1 CAPSULE BY MOUTH THREE TIMES DAILY UNTIL GONE 01/30 completed Not Available Not Available Not Available carvedilo l 25 mg tablet TAKE 1 TABLET BY MOUTH TWICE DAILY active Not Available Not Available No t Available trazodone 50 mg tablet TAKE 1 /2 (ONE-CARLO F) TO 1 TABLET BY MOUTH ONCE DAILY AT BEDTIME active Not Available Not Available No t Available azithromy genaro 250 mg tablet TAKE 2 TABLETS BY MOUTH ON DAY 1, AND THEN TAKE 1 TABLET BY MOUTH ONCE A DAY ON DAY 2 THROUGH DAY 5 07/15 completed Not Available Not Available Not Available pravastat in 40 mg tablet TAKE 1 TABLET BY MOUTH EVERY DAY AT BEDTIME active Not Available Not Available No t Available fluconazo le 150 mg tablet TAKE 1 TABLET BY MOUTH EVERY OTHER DAY FOR 4 DAYS active Not Available Not Available No t Available hydrocodo ne 5 mg-acetam inophen 325 mg tablet TAKE 1 TABLET BY MOUTH EVERY 6 HOURS NEEDED 07/15 completed Not Available Not Available Not Available meloxicam 15 mg tablet TAKE 1 TABLET BY MOUTH ONCE DAILY 07/15 completed Not Available Not Available Not Available diphenoxy late-atro pine 2.5 mg-0.025 mg tablet TAKE 1 BY MOUTH 4 TIMES A DAY 02/13 completed Not Available Not Available Not Available phentermi ne 37.5 mg tablet TAKE 1 TABLET BY MOUTH ONCE DAILY 09/14 completed Not Available Not Available Not Available allopurin ol 100 mg tablet TAKE 1 TABLET BY MOUTH ONCE DAILY active Not Available Not Available No t Available ciproflox acin 500 mg tablet TAKE 1 TABLET BY MOUTH EVERY 12 HOURS FOR 10 DAYS 12/25 completed Not Available Not Available Not Available sulfameth oxazole 800 mg-trimet hoprim 160 mg tablet TAKE 2 TABLETS BY MOUTH EVERY 12 HOURS FOR 14 DAYS active Not Available Not Available No t Available omeprazol e 40 mg capsule,d elayed release TAKE 1 CAPSULE BY MOUTH ONCE DAILY active Not Available Not Available No t Available vancomyci n 125 mg capsule TAKE 1 CAPSULE BY MOUTH 4 TIMES A DAY 02/13 completed Not Available Not Available Not Available glimepiri de 2 mg tablet TAKE 1 TABLET BY MOUTH ONCE DAILY 07/15 completed Not Available Not Available Not Available Voltaren 75 mg tablet,de layed release take 1 tablet (75 mg) by oral route 2 times per day for 15 days 03/02 completed Voltaren Oral Tablet, Delayed Release (E.C.) 75 mg;Recor ded Status: Recorded on: 03/03/19 10 12:45PM; Disconti nued Status: Disconti nued on: 03/02/19 11 9:27AM;U ser: [email or web address] ;Est. Completi on: 05/03/19 10;Print ed: 03/03/19 10 Not Available Not Available Not Available cefadroxi l 500 mg capsule TAKE 1 CAPSULE BY MOUTH TWICE DAILY 07/15 completed Not Available Not Available Not Available meloxicam 7.5 mg tablet TAKE 1 TABLET BY MOUTH ONCE DAILY active Not Available Not Available No t Available oxycodone -acetamin ophen 5 mg-325 mg tablet TAKE 1 TABLET BY MOUTH EVERY 4 HOURS NEEDED FOR PAIN active Not Available Not Available No t Available amlodipin e 10 mg tablet TAKE 1 TABLET BY MOUTH ONCE DAILY. active Not Available Not Available No t Available benzonata te 100 mg capsule TAKE 1 CAPSULE BY MOUTH THREE TIMES DAILY NEEDED FOR COUGH 02/13 completed Not Available Not Available Not Available clotrimaz ole-betam ethasone 1 %-0.05 % topical cream APPLY CREAM TOPICALL Y TO AFFECTED AND SURROUND ING AREA(S) TWICE DAILY IN THE MORNING AND IN THE EVENING FOR 2 WEEKS active Not Available Not Available No t Available lisinopri l 10 mg tablet take 1 tablet (10 mg) by oral route once daily for 30 days 03/02 completed Lisinopr il Oral Tablet 10 mg;Recor ded Status: Recorded on: 03/03/19 10 11:32AM; Disconti nued Status: Disconti nued on: 03/02/19 11 10:12AM; User: [email or web address] Not Available Not Available Not Available glimepiri de 4 mg tablet TAKE 1 TABLET BY MOUTH ONCE DAILY active Not Available Not Available No t Available losartan 25 mg tablet TAKE 1 TABLET BY MOUTH ONCE A DAY. active Not Available Not Available No t Available lidocaine HCl 2 % mucosal solution active Not Available Not Available Not Available omeprazol e 20 mg capsule,d elayed release take 1 capsule (20 mg) by oral route once daily before a meal for 30 days active Not Available Not Available No t Available hydroxyzi ne HCl 25 mg tablet TAKE 1 TABLET BY MOUTH THREE TIMES DAILY NEEDED FOR ANXIETY active Not Available Not Available No t Available hydrochlo rothiazid e 25 mg tablet TAKE 1 TABLET BY MOUTH ONCE DAILY active Not Available Not Available No t Available mupirocin 2 % topical ointment APPLY A SMALL AMOUNT TO THE AFFECTED AREA BY TOPICAL ROUTE 3 TIMES PER DAY active Not Available Not Available No t Available gabapenti n 100 mg capsule TAKE 1 TO 3 CAPSULES BY MOUTH THREE TIMES DAILY FOR 30 DAYS active Not Available Not Available No t Available testoster one cypionate 200 mg/mL intramusc ular oil 07/27 completed Not Available Not Available Not Available ibuprofen 600 mg tablet active Not Available Not Available Not Available methylpre dnisolone 4 mg tablets in a dose pack TAKE BY MOUTH DIRECTED ON INSIDE OF PACKAGE 07/15 completed Not Available Not Available Not Available lisinopri l 40 mg tablet take 1 tablet (40 mg) by oral route once daily for 30 days 11/12 completed lisinopr il Oral Tablet 40 mg;Recor ded Status: Recorded on: 10/14/19 11 3:44PM;U ser: [email or web address]; Est. Completi on: 11/13/19 11 Not Available Not Available Not Available ondansetr on 4 mg disintegr ating tablet active Not Available Not Available Not Available naproxen 500 mg tablet active Not Available Not Available Not Available oxycodone 5 mg tablet TAKE 1 TABLET BY MOUTH EVERY 6 HOURS NEEDED FOR SEVERE PAIN 07/15 completed Not Available Not Available Not Available escitalop marisa 10 mg tablet TAKE 1 TABLET BY MOUTH ONCE DAILY active Not Available Not Available No t Available escitalop marisa 20 mg tablet TAKE 1 TABLET BY MOUTH ONCE DAILY active Not Available Not Available No t Available tadalafil 20 mg tablet TAKE 1 TABLET BY MOUTH NEEDED ORALLY ONCE A DAY. active Not Available Not Available No t Available fenofibra te nanocryst allized 145 mg tablet TAKE 1 TABLET BY MOUTH ONCE DAILY active Not Available Not Available No t Available Farxiga 10 mg tablet TAKE 1 TABLET BY MOUTH ONCE DAILY active Not Available Not Available No t Available Farxiga 5 mg tablet TAKE 1 TABLET BY MOUTH ONCE DAILY 07/15 completed Not Available Not Available Not Available testoster one cypionate 200 mg/mL intramusc ular kit 07/27 completed Not Available Not Available Not Available Ozempic 0.25 mg or 0.5 mg (2 mg/1.5 mL) subcutane ous pen injector INJECT 0.25 MG SUBCUTAN EOUSLY ONCE WEEKLY DIRECTED 02/13 completed Not Available Not Available Not Available Xyosted 100 mg/0.5 mL subcutane ous auto-inje ctor Inject 0.5 mL every week by subcutan eous route for 28 days. 07/22 completed Not Available Not Available Not Available Xyosted 75 mg/0.5 mL subcutane ous auto-inje ctor Inject 0.5 mL every week by subcutan eous route for 28 days. 07/15 completed Not Available Not Available Not Available Ozempic 1 mg/dose (4 mg/3 mL) subcutane ous pen injector INJECT 1 MG SUBCUTAN EOUSLY ONCE A WEEK 02/13 completed Not Available Not Available Not Available Ozempic 2 mg/dose (8 mg/3 mL) subcutane ous pen injector INJECT 2 UNITS SUBCUTAN EOUSLY ONCE A WEEK DIRECTED active Not Available Not Available No t Available Mounjaro 7.5 mg/0.5 mL subcutane ous pen injector INJECT 1 ONCE A WEEK 07/15 completed Not Available Not Available Not Available Mounjaro 5 mg/0.5 mL subcutane ous pen injector INJECT 1 ONCE A WEEK 09/14 completed Not Available Not Available Not Available Mounjaro 15 mg/0.5 mL subcutane ous pen injector INJECT 1 PEN SUBCUTAN EOUSLY ONCE A WEEK active Not Available Not Available No t Available Mounjaro 10 mg/0.5 mL subcutane ous pen injector INJECT 1 SYRINGE SUBCUTAN EOUSLY ONCE A WEEK FOR 28 DAYS 07/15 completed Not Available Not Available Not Available Mounjaro 12.5 mg/0.5 mL subcutane ous pen injector 07/15 completed Not Available Not Available Not Available Mounjaro 2.5 mg/0.5 mL subcutane ous pen injector INJECT 2.5 MG SUBCUTAN EOUSLY ONCE A WEEK 09/14 completed Not Available Not Available Not Available Vitals Date Recorded Body height Body mass index (BMI) Body weight Heart rate Oxygen saturation Oxygen saturation in Arterial blood by Pulse oximetry Systolic blood pressure Diastolic blood pressure Provider Name and Address Organization Details Last Updated DateTime 5 185.42 cm 47.3 kg/m2 399589. 17 g 90 /min 95 % 95 % 138 mm[Hg] 70 mm[Hg] Ángela Walt [place] - [facility] 5 09:21:30 Date Recorded Body height Body mass index (BMI) Body weight Heart rate Oxygen saturation Oxygen saturation in Arterial blood by Pulse oximetry Respiratory rate Systolic blood pressure Diastolic blood pressure Provider Name and Address Organization Details Last Updated DateTime 5 185.42 cm 45.4 kg/m2 657108. 78 g 73 /min 95 % 95 % 18 /min 126 mm[Hg] 80 mm[Hg] Olivia Guzmán [facility] 5 09:46:55 Date Recorded Body height Body mass index (BMI) Body weight Heart rate Oxygen saturation Oxygen saturation in Arterial blood by Pulse oximetry Respiratory rate Systolic blood pressure Diastolic blood pressure Provider Name and Address Organization Details Last Updated DateTime 5 185.42 cm 44.6 kg/m2 519133. 22 g 93 /min 95 % 95 % 18 /min 122 mm[Hg] 74 mm[Hg] Olivia FRANKLIN [facility] 5 14:14:35 Date Recorded Body height Body mass index (BMI) Body weight Heart rate Oxygen saturation Oxygen saturation in Arterial blood by Pulse oximetry Respiratory rate Systolic blood pressure Diastolic blood pressure Provider Name and Address Organization Details Last Updated DateTime 5 185.42 cm 45.2 kg/m2 401913. 99 g 80 /min 95 % 95 % 18 /min 130 mm[Hg] 80 mm[Hg] Olivia RFANKLIN [facility] 5 11:20:53 Date Recorded Body height Body mass index (BMI) Body weight Heart rate Oxygen saturation Oxygen saturation in Arterial blood by Pulse oximetry Respiratory rate Systolic blood pressure Diastolic blood pressure Provider Name and Address Organization Details Last Updated DateTime 5 185.42 cm 45.6 kg/m2 213335. 17 g 85 /min 96 % 96 % 18 /min 142 mm[Hg] 82 mm[Hg] Olivia FRANKLIN [facility] 5 12:02:55 Social History Question Answer Notes LastModified by Organizat ion Details LastModified Time Tobacco Smoking Status Never Smoker Yamini recinos [place] - [facility] 02/13/2022 08:07:28 Do You Have An Advance Directive? No Information n ot available 02/13/2022 Are You Blind Or Do You Have Difficulty Seeing? No Information n ot available 02/13/2022 What Is Your Level Of Caffeine Consumption? Occasional Information not available 02/13/2022 How Much Tobacco Do You Chew? 1/day Information not available 02/13/2022 In The 14 Days Before Symptom Onset, Have You Had Close Contact With A Laboratory-confirm ed COVID-19 While That Case Was Ill? No Information n ot available 02/13/2022 In The 14 Days Before Symptom Onset, Have You Had Close Contact With A Person Who Is Under Investigation For COVID-19 While That Person Was Ill? No Information not available 02/13/2022 Have You Been To An Area Known To Be High Risk For COVID-19? No Information not available 02/13/2022 Are You Deaf Or Do You Have Serious Difficulty Hearing? No Information not available 02/13/2022 What Type Of Diet Are You Following? REGULAR Information n ot available 02/13/2022 Have You Processed Blood Or Body Fluids From An Ebola Virus Disease Patient Without Appropriate PPE? No Information not available 02/13/2022 Do You Reside In Or Have You Traveled To An Area Where Ebola Virus Transmission Is Active? No Information not available 02/13/2022 What Is The Highest Grade Or Level Of School You Have Completed Or The Highest Degree You Have Received? [id number] Information not available 02/13/2022 Have There Been Any Changes To Your Family Or Social Situation? No Information no t available 02/13/2022 Have You Recently Or Are You Planning To Travel To An Area With Zika Virus? No Information not available 02/13/2022 Do You Have A Medical Power Of Rehabilitation Counsellor? No Information not available 02/13/2022 What Was The Date Of Your Most Recent Tobacco Screening? 03/03/2024 [email or web address] Information not available 03/03/2024 How Many Children Do You Have? 3 Information not available 02/13/2022 What Is Your Relationship Status? Information not available 02/13/2022 Are You Sexually Active? Yes Information not available 02/13/2022 Do You Have Smoke And Carbon Monoxide Detectors In Your Home? Yes Information not available 02/13/2022 Are You Passively Exposed To Smoke? No Information no t available 02/13/2022 Do You Have Difficulty Walking Or Climbing Stairs? No Information not available 02/13/2022 How Many Years Have You Used Smokeless Tobacco? 20 Information n ot available 02/13/2022 Sex: Male Functional Status Question Answer Note LastModified by Organizat ion Details LastModified Time How many times per week do you consume alcohol? 5-7 times per week Information not available 02/13/2022 Do you or have you ever used smokeless tobacco? Currently chews tobacco Information not available 02/13/2022 Are you currently employed? Yes Information not available 02/13/2022 Do you have transportation difficulties? Yes Information not available 02/13/2022 Are you able to care for yourself? Yes Information n ot available 02/13/2022 Do you have difficulty dressing or bathing? No Information not available 02/13/2022 Do you or have you ever used e-cigarettes or vape? Never used electronic cigarettes Information not available 02/13/2022 What is your exercise level? None Information not available 02/13/2022 Do you use any illicit or recreational drugs? No Information not available 02/13/2022 Do you or have you ever used any other forms of tobacco or nicotine? Yes Information not available 02/13/2022 What is your level of alcohol consumption? Moderate Information not available 02/13/2022 Are you able to walk? YESWOREST Information not available 02/13/2022 Do you have difficulty doing errands alone? 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 [id number] Information not available 02/13/2022 Do you have difficulty concentrating, remembering or making decisions? No Information no t available 02/13/2022 Family History Relationship Description Onset Age of this Age Resolved Age Notes LastModified by Organization Details LastModified Time Mother Multiple sclerosis Not available 2021 08:05:28 Maternal Grandfather Hypertensive disorder Not available 2021 08:05:45 Medical History No medical history recorded. Past Encounters Encounter ID Performer Location Encounter Start Date Encounter Closed Date Diagnosis/Indication Diagnosis SNOMED-CT Code Diagnosis ICD10 Code [id number] [facility] [address] [place] [address] 02/13/2022 07:47:44 02/13/2022 09:15:32 Male hypogonadism 58857324 E29.1 Discussed with pt protocol/p jacob for evaluating /treating hypogonadi sm: - will begin replacemen t and standardiz ed dose, and then may adjust in the future.--- - Minimum visit in office [id number] and possibly labs as needed.--- - Pt to visit monthly for refills. no refill to be given if overdue for visit to office.- Controlled substance agreement required. UPDATED 02/13/22- UDS - UPDATED--- - If failed UDS- no prescripti on for controlled substance will be given.- CHARLINE at every refill. UPDATED Erectile dysfunction 860 166284 F52.21 Hypertensive disorder 38 003991 I10 Hyperlipidemia 00821253 E78.5 Patient id dical record not available [id number] Z76.89 [id number] Suzie Anderson [facility] [address] [place] [address] 03/13/2022 08:20:14 03/13/2022 09:00:19 Male hypogonadism 53815702 E29.1 Discussed with pt protocol/p jacob for evaluating /treating hypogonadi sm: - will begin replacemen t and standardiz ed dose, and then may adjust in the future.--- - Minimum visit in office [id number] and possibly labs as needed.--- - Pt to visit monthly for refills. no refill to be given if overdue for visit to office.- Controlled substance agreement required. UPDATED 02/13/22- UDS - UPDATED--- - If failed UDS- no prescripti on for controlled substance will be given.- CHARLINE at every refill. UPDATED Erectile dysfunction 860 080656 F52.21 Hypertensive disorder 38 113145 I10 Hyperlipidemia 85763177 E78.5 [id number] [facility] [address] [place] [address] 04/06/2022 10:44:36 04/06/2022 13:15:17 Male hypogonadism 72644349 E29.1 Discussed with pt protocol/p jacob for evaluating /treating hypogonadi sm: - will begin replacemen t and standardiz ed dose, and then may adjust in the future.--- - Minimum visit in office [id number] and possibly labs as needed.--- - Pt to visit monthly for refills. no refill to be given if overdue for visit to office.- Controlled substance agreement required. UPDATED 02/13/22- UDS - UPDATED--- - If failed UDS- no prescripti on for controlled substance will be given.- CHARLINE at every refill. UPDATED Erectile dysfunction 860 731062 F52.21 Hypertensive disorder 38 179878 I10 Hyperlipidemia 46566565 E78.5 Reduced libido 5367593 R 68.82 Needle phobia 028324678 F40.231 Incoordination 534947459 R27.9 Liver enzy mes level above reference range 915924930 R74.01 [id number] [facility] [address] [place] [address] 05/04/2022 10:47:11 05/04/2022 11:22:18 Male hypogonadism 99895370 E29.1 Discussed with pt protocol/p jacob for evaluating /treating hypogonadi sm: - will begin replacemen t and standardiz ed dose, and then may adjust in the future.--- - Minimum visit in office [id number] and possibly labs as needed.--- - Pt to visit monthly for refills. no refill to be given if overdue for visit to office.- Controlled substance agreement required. UPDATED 02/13/22- UDS - UPDATED--- - If failed UDS- no prescripti on for controlled substance will be given.- CHARLINE at every refill. UPDATED Erectile dysfunction 860 966754 F52.21 Hypertensive disorder 38 482675 I10 Hyperlipidemia 76421402 E78.5 Reduced libido 8354080 R 68.82 Needle phobia 504443417 F40.231 Incoordination 909491464 R27.9 [id number] [facility] [address] [place] [address] 06/01/2022 10:04:52 06/01/2022 11:32:00 Male hypogonadism 87491350 E29.1 Discussed with pt protocol/p diannay for evaluating /treating hypogonadi sm: - will begin replacemen t and standardiz ed dose, and then may adjust in the future.--- - Minimum visit in office [id number] and possibly labs as needed.--- - Pt to visit monthly for refills. no refill to be given if overdue for visit to office.- Controlled substance agreement required. UPDATED 02/13/22- UDS - UPDATED--- - If failed UDS- no prescripti on for controlled substance will be given.- CHARLINE at every refill. UPDATED Erectile dysfunction 860 341304 F52.21 Hypertensive disorder 38 547547 I10 Hyperlipidemia 92278286 E78.5 Reduced libido 6200172 R 68.82 Needle phobia 794735453 F40.231 Incoordination 047706258 R27.9 Furuncle 212759942 L02.9 2 [id number] [facility] [address] [place] [address] 06/21/2022 09:58:50 06/21/2022 10:30:12 Male hypogonadism 25146029 E29.1 Discussed with pt protocol/p jacob for evaluating /treating hypogonadi sm: - will begin replacemen t and standardiz ed dose, and then may adjust in the future.--- - Minimum visit in office [id number] and possibly labs as needed.--- - Pt to visit monthly for refills. no refill to be given if overdue for visit to office.- Controlled substance agreement required. UPDATED 02/13/22- UDS - UPDATED--- - If failed UDS- no prescripti on for controlled substance will be given.- CHARLINE at every refill. UPDATED Erectile dysfunction 860 913928 F52.21 Hypertensive disorder 38 618122 I10 Hyperlipidemia 34453015 E78.5 Reduced libido 8466866 R 68.82 Needle phobia 112623946 F40.231 Incoordination 984659852 R27.9 [id number] [facility] [address] [place] [address] 07/27/2022 10:07:19 07/27/2022 11:02:14 Male hypogonadism 28610377 E29.1 Discussed with pt protocol/p jacob for evaluating /treating hypogonadi sm: - will begin replacemen t and standardiz ed dose, and then may adjust in the future.--- - Minimum visit in office s5wtwesn and possibly labs as needed.--- - Pt to visit monthly for refills. no refill to be given if overdue for visit to office.- Controlled substance agreement required. UPDATED 02/13/22- UDS - UPDATED--- - If failed UDS- no prescripti on for controlled substance will be given.- CHARLINE at every refill. UPDATED Erectile dysfunction 860 176863 F52.21 Hypertensive disorder 38 614578 I10 Hyperlipidemia 39198632 E78.5 Reduced libido 5819948 R 68.82 Needle phobia 540649342 F40.231 Incoordination 438665345 R27.9 [id number] [facility] [address] [place] [address] 09/14/2022 09:04:02 09/14/2022 10:17:58 Male hypogonadism 29020049 E29.1 Discussed with pt protocol/p jacob for evaluating /treating hypogonadi sm: - will begin replacemen t and standardiz ed dose, and then may adjust in the future.--- - Minimum visit in office w2ersawb and possibly labs as needed.--- - Pt to visit monthly for refills. no refill to be given if overdue for visit to office.- Controlled substance agreement required. UPDATED 02/13/22- UDS - UPDATED--- - If failed UDS- no prescripti on for controlled substance will be given.- CHARLINE at every refill. 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 no refill to be given if overdue for visit to office.- Controlled substance agreement required. UPDATED 02/13/22- UDS - UPDATED--- - If failed UDS- no prescripti on for controlled substance will be given.- CHARLINE at every refill. 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 no refill to be given if overdue for visit to office.- Controlled substance agreement required. UPDATED 02/13/22- UDS - UPDATED--- - If failed UDS- no prescripti on for controlled substance will be given.- CHARLINE at every refill. 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 no refill to be given if overdue for visit to office.- Controlled substance agreement required. UPDATED 02/13/22- UDS - UPDATED--- - If failed UDS- no prescripti on for controlled substance will be given.- CHARLINE at every refill. UPDATED Erectile dysfunction 860 464110 F52.21 Hypertensive disorder 38 364401 I10 Hyperlipidemia 01946071 E78.5 Reduced libido 9120290 R 68.82 Needle phobia 693547090 F40.231 Incoordination 436577010 R27.9 Type 2 timoteo betes mellitus 41200592 E11.9 Secondary polycythemia 49030314 D75.1 [id number] [facility] [address] [place] [address] 01/22/2023 08:33:03 01/22/2023 09:11:51 Male hypogonadism 54512903 E29.1 Discussed with pt protocol/p olicy for evaluating /treating hypogonadi sm: - will begin replacemen t and standardiz ed dose, and then may adjust in the future.--- - Minimum visit in office v7cvbycu and possibly labs as needed.--- - Pt to visit monthly for refills. no refill to be given if overdue for visit to office.- Controlled substance agreement required. UPDATED 02/13/22- UDS - UPDATED--- - If failed UDS- no prescripti on for controlled substance will be given.- CHARLINE at every refill. UPDATED Erectile dysfunction 860 469770 F52.21 Hypertensive disorder 38 582108 I10 Hyperlipidemia 38057728 E78.5 Reduced libido 8485881 R 68.82 Needle phobia 376583796 F40.231 Incoordination 409468717 R27.9 Type 2 timoteo betes mellitus 28442269 E11.9 Secondary polycythemia 91881727 D75.1 [id number] [facility] [address] [place] [address] 02/22/2023 08:38:05 02/22/2023 09:06:49 Male hypogonadism 89999322 E29.1 Discussed with pt protocol/p jacob for evaluating /treating hypogonadi sm: - will begin replacemen t and standardiz ed dose, and then may adjust in the future.--- - Minimum visit in office i7goxyzm and possibly labs as needed.--- - Pt to visit monthly for refills. no refill to be given if overdue for visit to office.- Controlled substance agreement required. UPDATED 02/22/23- UDS - UPDATED--- - If failed UDS- no prescripti on for controlled substance will be given.- CHARLINE at every refill. UPDATED Erectile dysfunction 860 752429 F52.21 Hypertensive disorder 38 851969 I10 Hyperlipidemia 41853407 E78.5 Reduced libido 8744512 R 68.82 Needle phobia 956951168 F40.231 Incoordination 062671889 R27.9 Type 2 timoteo betes mellitus 45639902 E11.9 Secondary polycythemia 44987966 D75.1 [id number] [facility] [address] [place] [address] 03/26/2023 08:05:02 03/26/2023 09:00:27 Male hypogonadism 75901804 E29.1 Discussed with pt protocol/p jacob for evaluating /treating hypogonadi sm: - will begin replacemen t and standardiz ed dose, and then may adjust in the future.--- - Minimum visit in office p4vjmiwb and possibly labs as needed.--- - Pt to visit monthly for refills. no refill to be given if overdue for visit to office.- Controlled substance agreement required. UPDATED 02/22/23- UDS - UPDATED--- - If failed UDS- no prescripti on for controlled substance will be given.- CHARLINE at every refill. UPDATED Erectile dysfunction 860 935034 F52.21 Hypertensive disorder 38 798502 I10 Hyperlipidemia 76843237 E78.5 Reduced libido 7931559 R 68.82 Needle phobia 701577511 F40.231 Incoordination 551963669 R27.9 Type 2 timoteo betes mellitus 67781703 E11.9 Secondary polycythemia 86728363 D75.1 [id number] Suzie Anderson APRN [facility] [address] [place] [address] 05/21/2023 09:23:39 05/21/2023 10:35:56 Male hypogonadism 24632042 E29.1 Discussed with pt protocol/p jacob for evaluating /treating hypogonadi sm: - will begin replacemen t and standardiz ed dose, and then may adjust in the future.--- - Minimum visit in office l7lskssh and possibly labs as needed.--- - Pt to visit monthly for refills. no refill to be given if overdue for visit to office.- Controlled substance agreement required. UPDATED 02/22/23- UDS - UPDATED--- - If failed UDS- no prescripti on for controlled substance will be given.- CHARLINE at every refill. UPDATED Erectile dysfunction 860 069651 F52.21 Hypertensive disorder 38 481369 I10 Hyperlipidemia 41691109 E78.5 Reduced libido 9752912 R 68.82 Needle phobia 724577398 F40.231 Incoordination 010450479 R27.9 Type 2 timoteo betes mellitus 74081486 E11.9 Secondary polycythemia 75538081 D75.1 [id number] [facility] [address] [place] [address] 07/05/2023 14:47:28 07/05/2023 15:20:47 Male hypogonadism 91111256 E29.1 Discussed with pt protocol/p jacob for evaluating /treating hypogonadi sm: - will begin replacemen t and standardiz ed dose, and then may adjust in the future.--- - Minimum visit in office i2fnroos and possibly labs as needed.--- - Pt to visit monthly for refills. no refill to be given if overdue for visit to office.- Controlled substance agreement required. UPDATED 02/22/23- UDS - UPDATED--- - If failed UDS- no prescripti on for controlled substance will be given.- CHARLINE at every refill. UPDATED Erectile dysfunction 860 255850 F52.21 Hypertensive disorder 38 642791 I10 Hyperlipidemia 06304138 E78.5 Reduced libido 6445033 R 68.82 Needle phobia 263847554 F40.231 Incoordination 650314308 R27.9 Type 2 timoteo betes mellitus 63857451 E11.9 Secondary polycythemia 44166464 D75.1 [id number] [facility] [address] [place] [address] 08/02/2023 08:19:02 08/02/2023 08:55:30 Male hypogonadism 19227987 E29.1 Discussed with pt protocol/p jacob for evaluating /treating hypogonadi sm: - will begin replacemen t and standardiz ed dose, and then may adjust in the future.--- - Minimum visit in office r3izgnlt and possibly labs as needed.--- - Pt to visit monthly for refills. no refill to be given if overdue for visit to office.- Controlled substance agreement required. UPDATED 02/22/23- UDS - UPDATED--- - If failed UDS- no prescripti on for controlled substance will be given.- CHARLINE at every refill. UPDATED Erectile dysfunction 860 563666 F52.21 Hypertensive disorder 38 393930 I10 Hyperlipidemia 72128990 E78.5 Reduced libido 3554514 R 68.82 Needle phobia 713076810 F40.231 Incoordination 838351407 R27.9 Type 2 timoteo betes mellitus 44519909 E11.9 Secondary polycythemia 31601677 D75.1 [id number] [facility] [address] [place] [address] 09/17/2023 11:17:43 09/17/2023 11:52:03 Male hypogonadism 89138586 E29.1 Discussed with pt protocol/p diannay for evaluating /treating hypogonadi sm: - will begin replacemen t and standardiz ed dose, and then may adjust in the future.--- - Minimum visit in office d2nckerm and possibly labs as needed.--- - Pt to visit monthly for refills. no refill to be given if overdue for visit to office.- Controlled substance agreement required. UPDATED 02/22/23- UDS - UPDATED--- - If failed UDS- no prescripti on for controlled substance will be given.- CHARLINE at every refill. UPDATED Erectile dysfunction 860 013978 F52.21 Hypertensive disorder 38 692764 I10 Hyperlipidemia 96052617 E78.5 Reduced libido 9433178 R 68.82 Needle phobia 266398391 F40.231 Incoordination 162020658 R27.9 Type 2 timoteo betes mellitus 42300337 E11.9 Secondary polycythemia 30799375 D75.1 Patient id dical record not available 593102580 Z76.89 Penile candidiasis 28513 8000 B37.49 [id number] [facility] [address] [place] [address] 10/17/2023 09:48:12 10/17/2023 11:07:34 Male hypogonadism 73834330 E29.1 Discussed with pt protocol/p jacob for evaluating /treating hypogonadi sm: - will begin replacemen t and standardiz ed dose, and then may adjust in the future.--- - Minimum visit in office f3cdnsgk and possibly labs as needed.--- - Pt to visit monthly for refills. no refill to be given if overdue for visit to office.- Controlled substance agreement required. UPDATED 02/22/23- UDS - UPDATED--- - If failed UDS- no prescripti on for controlled substance will be given.- CHARLINE at every refill. UPDATED Erectile dysfunction 860 400368 F52.21 Hypertensive disorder 38 281343 I10 Hyperlipidemia 32788052 E78.5 Reduced libido 4294974 R 68.82 Needle phobia 705759470 F40.231 Incoordination 837682191 R27.9 Type 2 timoteo betes mellitus 62073781 E11.9 Secondary polycythemia 81443427 D75.1 Patient me dical record not available 868156063 Z76.89 [id number] [facility] 1 [place] [address] 4 11/20/2023 08:30:53 11/20/2023 09:31:02 Male hypogonadism 44329512 E29.1 Discussed with pt protocol/p olicy for evaluating /treating hypogonadi sm: - will begin replacemen t and standardiz ed dose, and then may adjust in the future.--- - Minimum visit in office h0glgqdx and possibly labs as needed.--- - Pt to visit monthly for refills. no refill to be given if overdue for visit to office.- Controlled substance agreement required. UPDATED 02/22/23- UDS - UPDATED--- - If failed UDS- no prescripti on for controlled substance will be given.- CHARLINE at every refill. UPDATED Erectile dysfunction 860 222992 F52.21 Hypertensive disorder 38 067414 I10 Hyperlipidemia 90666293 E78.5 Reduced libido 9524651 R 68.82 Needle phobia 301097426 F40.231 Incoordination 576285098 R27.9 Type 2 timoteo betes mellitus 97155773 E11.9 Secondary polycythemia 65157137 D75.1 [id number] [facility] [address] [place] [address] 12/18/2023 09:16:06 12/18/2023 10:17:41 Male hypogonadism 14011428 E29.1 Discussed with pt protocol/p olicy for evaluating /treating hypogonadi sm: - will begin replacemen t and standardiz ed dose, and then may adjust in the future.--- - Minimum visit in office w4nhejom and possibly labs as needed.--- - Pt to visit monthly for refills. no refill to be given if overdue for visit to office.- Controlled substance agreement required. UPDATED 02/22/23- UDS - UPDATED--- - If failed UDS- no prescripti on for controlled substance will be given.- CHARLINE at every refill. UPDATED Erectile dysfunction 860 913454 F52.21 Hypertensive disorder 38 063175 I10 Hyperlipidemia 59119523 E78.5 Reduced libido 3482554 R 68.82 Needle phobia 122143073 F40.231 Incoordination 175240280 R27.9 Type 2 timoteo betes mellitus 13043554 E11.9 Secondary polycythemia 80352851 D75.1 Long-term current use of drug therapy 150743285 Z79.899 Patient me dical record not available 221574892 Z76.89 [id number] Suzie Anderson ACCREDITATION SPECIALIST [facility] [address] [place] [address] 01/31/2024 13:28:39 01/31/2024 14:09:15 Male hypogonadism 49501788 E29.1 Discussed with pt protocol/p jacob for evaluating /treating hypogonadi sm: - will begin replacemen t and standardiz ed dose, and then may adjust in the future.--- - Minimum visit in office x0ejcwjk and possibly labs as needed.--- - Pt to visit monthly for refills. no refill to be given if overdue for visit to office.- Controlled substance agreement required. UPDATED 02/22/23- UDS - UPDATED--- - If failed UDS- no prescripti on for controlled substance will be given.- CHARLINE at every refill. UPDATED Erectile dysfunction 860 583616 F52.21 Hypertensive disorder 38 076387 I10 Hyperlipidemia 71623641 E78.5 Reduced libido 4440499 R 68.82 Needle phobia 745584810 F40.231 Incoordination 758282772 R27.9 Type 2 timoteo betes mellitus 55222253 E11.9 Secondary polycythemia 69505416 D75.1 Long-term current use of drug therapy 074126610 Z79.899 Patient id dical record not available 046482805 Z76.89 [id number] [facility] [place] [address] 03/03/2024 09:02:13 03/03/2024 09:44:26 Male hypogonadism 66617942 E29.1 Discussed with pt protocol/alem james for evaluating /treating hypogonadi sm: - will begin replacemen t and standardiz ed dose, and then may adjust in the future.--- - Minimum visit in office m0zubtmt and possibly labs as needed.--- - Pt to visit monthly for refills. no refill to be given if overdue for visit to office.- Controlled substance agreement required. UPDATED 02/22/23- UDS - UPDATED--- - If failed UDS- no prescripti on for controlled substance will be given.- CHARLINE at every refill. UPDATED Erectile dysfunction 860 694575 F52.21 Hypertensive disorder 38 312644 I10 Hyperlipidemia 17760876 E78.5 Reduced libido 0488434 R 68.82 Needle phobia 401414158 F40.231 Incoordination 606524804 R27.9 Type 2 timoteo betes mellitus 88360640 E11.9 Secondary polycythemia 99009081 D75.1 Long-term current use of drug therapy 060582268 Z79.927 [id number] [facility] [address] [place] [address] 04/01/2024 09:37:49 04/01/2024 10:18:31 Male hypogonadism 75688814 E29.1 Discussed with pt protocol/alem james for evaluating /treating hypogonadi sm: - will begin replacemen t and standardiz ed dose, and then may adjust in the future.--- - Minimum visit in office t1kznqdm and possibly labs as needed.--- - Pt to visit monthly for refills. no refill to be given if overdue for visit to office.- Controlled substance agreement required. UPDATED 02/22/23- UDS - UPDATED--- - If failed UDS- no prescripti on for controlled substance will be given.- CHARLINE at every refill. UPDATED Erectile dysfunction 860 609285 F52.21 Hypertensive disorder 38 761207 I10 Hyperlipidemia 39770975 E78.5 Reduced libido 0879531 R 68.82 Needle phobia 562345939 F40.231 Incoordination 277087146 R27.9 Type 2 timoteo betes mellitus 52850005 E11.9 Secondary polycythemia 48504896 D75.1 Long-term current use of drug therapy 345990788 Z79.960 [id number] [facility] [address] [place] [address] 05/22/2024 14:01:29 05/22/2024 15:14:41 Male hypogonadism 33129587 E29.1 Discussed with pt protocol/p olicy for evaluating /treating hypogonadi sm: - will begin replacemen t and standardiz ed dose, and then may adjust in the future.--- - Minimum visit in office k7zhihwd and possibly labs as needed.--- - Pt to visit monthly for refills. no refill to be given if overdue for visit to office.- Controlled substance agreement required. UPDATED 05/22/24- UDS - UPDATED--- - If failed UDS- no prescripti on for controlled substance will be given.- CHARLINE at every refill. UPDATED Erectile dysfunction 860 352728 F52.21 Hypertensive disorder 38 080851 I10 Hyperlipidemia 97276064 E78.5 Reduced libido 9123056 R 68.82 Needle phobia 924241699 F40.231 Incoordination 883902283 R27.9 Type 2 timoteo betes mellitus 39492164 E11.9 Secondary polycythemia 74565904 D75.1 Long-term current use of drug therapy 672616637 Z79.141 [id number] [facility] [address] [place] [address] 06/17/2024 11:11:45 06/17/2024 15:15:28 Male hypogonadism 22690940 E29.1 Discussed with pt protocol/p olicy for evaluating /treating hypogonadi sm: - will begin replacemen t and standardiz ed dose, and then may adjust in the future.--- - Minimum visit in office d4ulyojn and possibly labs as needed.--- - Pt to visit monthly for refills. no refill to be given if overdue for visit to office.- Controlled substance agreement required. UPDATED 05/22/24- UDS - UPDATED--- - If failed UDS- no prescripti on for controlled substance will be given.- CHARLINE at every refill. UPDATED Erectile dysfunction 860 945590 F52.21 Hypertensive disorder 38 555585 I10 Hyperlipidemia 76526068 E78.5 Reduced libido 4531212 R 68.82 Needle phobia 778679288 F40.231 Incoordination 013677754 R27.9 Type 2 timoteo betes mellitus 67741801 E11.9 Secondary polycythemia 37092151 D75.1 Long-term current use of drug therapy 704411393 Z79.271 [id number] Suzie Anderson ACCREDITATION SPECIALIST [facility] [address] [place] [address] 07/15/2024 11:34:38 07/15/2024 12:32:00 Male hypogonadism 06323382 E29.1 Discussed with pt protocol/p jacob for evaluating /treating hypogonadi sm: - will begin replacemen t and standardiz ed dose, and then may adjust in the future.--- - Minimum visit in office c0rkfeex and possibly labs as needed.--- - Pt to visit monthly for refills. no refill to be given if overdue for visit to office.- Controlled substance agreement required. UPDATED 05/22/24- UDS - UPDATED--- - If failed UDS- no prescripti on for controlled substance will be given.- CHARLINE at every refill. UPDATED Erectile dysfunction 860 091341 F52.21 Hypertensive disorder 38 012533 I10 Hyperlipidemia 74993133 E78.5 Reduced libido 6838145 R 68.82 Needle phobia 785724188 F40.231 Incoordination 182784715 R27.9 Type 2 timoteo betes mellitus 44543936 E11.9 Secondary polycythemia 60920828 D75.1 Long-term current use of drug therapy 643447146 Z79.899 Health Concerns Section Related Observation LastModified by Organization Detai ls LastModified Time None Recorded Concern Status LastModified by Organization Details LastModified Time None Recorded Advance Directives Directive N: Payers Insurance Date Sequence Insurance Name Policy Number Policy Schumacher Covered Member ID Schumacher Member ID Guarantor Name 07/12/2024 Nilsa MARC [id number] Azeem Perez [id number] Azeem Lua Perez Notes Date Note Type Note Provider Name and Address Organization Details Recorded Time 03/03/2024 text/html Lower Urinary Tr act Symptoms (LUTS)Reported bypatient.Context:patrick s seen Urologist (dr capellan) Associated Symptoms:no abdominal pain; no groin pain; no flank pain; no low back pain; no chills; no fever; no constipation; no diarrhea; no nausea; no vomiting; no temperaure; good force of stream; no straining; no post void dribbling; no hesitancy; empties well; no urgency; no frequency; no dysuria; no incontinence; no nocturia; no urine odor; no gross hematuria; no hematospermia; no ejaculatory pain; no premature ejaculation; no penile pain; no penile curvature;abnormal erection(uses cialis);decreased libido(improved with testo)Notes:-04/04/22 - rbc 5.84, hgb 16.8, hct 49.2, AST 46, ALT, 65, lipid- trig 160, HDL 27, LDL 116. testo 194, psa 0.3 -08/03/22- psa 0.4, testo 648, lipids- trigs 266, hdl 29, bmp, gluc 258, CBC stable. (notified of dx of T2DM and HLD, instructed to see primary care, he had already been started on meds. ) -09/14/22- hgb 17.8, hct 54.3, rbc 6.53 -11/22/22- CBC- RBC- 6.08, hgb 17.4, hct 52.6. -12/05/22- UCX- enterococcus faecalis (tx cipro 500mg bid x 10 days.) -01/15/23- CBC- hgb 16.9, hct 48.2 -05/20/23- testo 74, cbc- hgb 18.0, hct 53.5, rbc 6.2. 07/05/23- CBC WNL. BMP stable. iron/tibc wnl. testo 293. psa 0.4. ferritin wnl. (testo shot 3 days before) 11/20/23- CBC-hgb 18.2, hct 53.4, iron/tibc/ferritin WNL. testo 347 12/09/23- CBC WNL 01/31/24- CBC WNL. iron/tibc/ferritin WNL. testo 78. Pt comes for low T. was previously seeing Dr Capellan.PCP is Dr Patterson in [place]. hx HLD, HTN, t2dm, ED. takes cialis 20mg PRN. has been taking for the past year. works well. Travels a lot for work. 03/03/24 comes to f/u on lowt, ed, polycythemia STARTED XYOSTED 04/06/22needs refill.saw dontae, scheduled for sleep study.ortho had him hold his testo x 1 wk as he is having surgery on his arm this saturday. reviewed driver sales note from 01/20/24neg polycythemia vera testing, erythrocytosis likely secondary to undx BRAXTON and testo tx. which they ordered a HST and he fu in 6 months. he did HST last night. waiting on results. Suzie Alvaton, ACCREDITATION SPECIALIST [address], [place], [address], [place] - [facility] 03/03/2024 09:42:35 04/01/2024 text/html Lower Urinary Tr act Symptoms (LUTS)Reported bypatient.Context:patrick s seen Urologist (dr capellan) Associated Symptoms:no abdominal pain; no groin pain; no flank pain; no low back pain; no chills; no fever; no constipation; no diarrhea; no nausea; no vomiting; no temperaure; good force of stream; no straining; no post void dribbling; no hesitancy; empties well; no urgency; no frequency; no dysuria; no incontinence; no nocturia; no urine odor; no gross hematuria; no hematospermia; no ejaculatory pain; no premature ejaculation; no penile pain; no penile curvature;abnormal erection(uses cialis);decreased libido(improved with testo)Notes:-04/04/22 - rbc 5.84, hgb 16.8, hct 49.2, AST 46, ALT, 65, lipid- trig 160, HDL 27, LDL 116. testo 194, psa 0.3 -08/03/22- psa 0.4, testo 648, lipids- trigs 266, hdl 29, bmp, gluc 258, CBC stable. (notified of dx of T2DM and HLD, instructed to see primary care, he had already been started on meds. ) -09/14/22- hgb 17.8, hct 54.3, rbc 6.53 -11/22/22- CBC- RBC- 6.08, hgb 17.4, hct 52.6. -12/05/22- UCX- enterococcus faecalis (tx cipro 500mg bid x 10 days.) -01/15/23- CBC- hgb 16.9, hct 48.2 -05/20/23- testo 74, cbc- hgb 18.0, hct 53.5, rbc 6.2. 07/05/23- CBC WNL. BMP stable. iron/tibc wnl. testo 293. psa 0.4. ferritin wnl. (testo shot 3 days before) 11/20/23- CBC-hgb 18.2, hct 53.4, iron/tibc/ferritin WNL. testo 347 12/09/23- CBC WNL driver sales note from 01/20/24neg polycythemia vera testing, erythrocytosis likely secondary to undx BRAXTON and testo tx. which they ordered a HST and he fu in 6 months. 01/31/24- CBC WNL. iron/tibc/ferritin WNL. testo 78. Pt comes for low T. was previously seeing Dr Capellan.PCP is Dr Patterson in [place]. hx HLD, HTN, t2dm, ED. takes cialis 20mg PRN. has been taking for the past year. works well. Travels a lot for work. 04/01/24 comes to f/u on lowt, ed, polycythemia STARTED XYOSTED 04/06/22needs refill.saw dontae, HAD sleep study. Suzie Anderson, ACCREDITATION SPECIALIST [address], [place], [address], [place] - [facility] 04/01/2024 10:09:31 05/22/2024 text/html Lower Urinary Tr act Symptoms (LUTS)Reported bypatient.Context:patrick s seen Urologist (dr capellan) Associated Symptoms:no abdominal pain; no groin pain; no flank pain; no low back pain; no chills; no fever; no constipation; no diarrhea; no nausea; no vomiting; no temperaure; good force of stream; no straining; no post void dribbling; no hesitancy; empties well; no urgency; no frequency; no dysuria; no incontinence; no nocturia; no urine odor; no gross hematuria; no hematospermia; no ejaculatory pain; no premature ejaculation; no penile pain; no penile curvature;abnormal erection(uses cialis);decreased libido(improved with testo)Notes:-04/04/22 - rbc 5.84, hgb 16.8, hct 49.2, AST 46, ALT, 65, lipid- trig 160, HDL 27, LDL 116. testo 194, psa 0.3 -08/03/22- psa 0.4, testo 648, lipids- trigs 266, hdl 29, bmp, gluc 258, CBC stable. (notified of dx of T2DM and HLD, instructed to see primary care, he had already been started on meds. ) -09/14/22- hgb 17.8, hct 54.3, rbc 6.53 -11/22/22- CBC- RBC- 6.08, hgb 17.4, hct 52.6. -12/05/22- UCX- enterococcus faecalis (tx cipro 500mg bid x 10 days.) -01/15/23- CBC- hgb 16.9, hct 48.2 -05/20/23- testo 74, cbc- hgb 18.0, hct 53.5, rbc 6.2. 07/05/23- CBC WNL. BMP stable. iron/tibc wnl. testo 293. psa 0.4. ferritin wnl. (testo shot 3 days before) 11/20/23- CBC-hgb 18.2, hct 53.4, iron/tibc/ferritin WNL. testo 347 12/09/23- CBC WNL driver sales note from 01/20/24neg polycythemia vera testing, erythrocytosis likely secondary to undx BRAXTON and testo tx. which they ordered a HST and he fu in 6 months. 01/31/24- CBC WNL. iron/tibc/ferritin WNL. testo 78. 04/01/24- testo-230 CBC WNL Pt comes for low T. was previously seeing Dr Capellan.PCP is Dr Patterson in [place]. hx HLD, HTN, t2dm, ED. takes cialis 20mg PRN. has been taking for the past year. works well. Travels a lot for work. 05/22/24 comes to f/u on lowt, ed, polycythemia STARTED XYOSTED 04/06/22needs refill.saw dontae, HAD sleep study. severe BRAXTON. CPAP [facility], ACCREDITATION SPECIALIST [address], [place], [address], [place] - [facility] 05/22/2024 14:33:57 06/17/2024 text/html Lower Urinary Tr act Symptoms (LUTS)Reported bypatient.Context:patrick s seen Urologist (dr capellan) Associated Symptoms:no abdominal pain; no groin pain; no flank pain; no low back pain; no chills; no fever; no constipation; no diarrhea; no nausea; no vomiting; no temperaure; good force of stream; no straining; no post void dribbling; no hesitancy; empties well; no urgency; no frequency; no dysuria; no incontinence; no nocturia; no urine odor; no gross hematuria; no hematospermia; no ejaculatory pain; no premature ejaculation; no penile pain; no penile curvature;abnormal erection(uses cialis);decreased libido(improved with testo)Notes:-04/04/22 - rbc 5.84, hgb 16.8, hct 49.2, AST 46, ALT, 65, lipid- trig 160, HDL 27, LDL 116. testo 194, psa 0.3 -08/03/22- psa 0.4, testo 648, lipids- trigs 266, hdl 29, bmp, gluc 258, CBC stable. (notified of dx of T2DM and HLD, instructed to see primary care, he had already been started on meds. ) -09/14/22- hgb 17.8, hct 54.3, rbc 6.53 -11/22/22- CBC- RBC- 6.08, hgb 17.4, hct 52.6. -12/05/22- UCX- enterococcus faecalis (tx cipro 500mg bid x 10 days.) -01/15/23- CBC- hgb 16.9, hct 48.2 -05/20/23- testo 74, cbc- hgb 18.0, hct 53.5, rbc 6.2. 07/05/23- CBC WNL. BMP stable. iron/tibc wnl. testo 293. psa 0.4. ferritin wnl. (testo shot 3 days before) 11/20/23- CBC-hgb 18.2, hct 53.4, iron/tibc/ferritin WNL. testo 347 12/09/23- CBC WNL driver sales note from 01/20/24neg polycythemia vera testing, erythrocytosis likely secondary to undx BRAXTON and testo tx. which they ordered a HST and he fu in 6 months. 01/31/24- CBC WNL. iron/tibc/ferritin WNL. testo 78. 04/01/24- testo-230 CBC WNL 06/08/24- psa 0.4, testo 191. CBC WNL. (3 days post injection) Pt comes for low T. was previously seeing Dr Capellan.PCP is Dr Patterson in [place].hx HLD, HTN, t2dm, ED. Travels a lot for work. 06/17/24 comes to f/u on lowt, ed, polycythemia takes cialis 20mg PRN. works well. STARTED XYOSTED 04/06/22needs refill.saw dontae, HAD sleep study. severe BRAXTON using CPAP got labs. Suzie Anderson, ACCREDITATION SPECIALIST [address], [place], [address], [place] - [facility] 06/18/2024 14:17:51 07/15/2024 text/html Lower Urinary Tr act Symptoms (LUTS)Reported bypatient.Context:patrick s seen Urologist (dr capellan) Associated Symptoms:no abdominal pain; no groin pain; no flank pain; no low back pain; no chills; no fever; no constipation; no diarrhea; no nausea; no vomiting; no temperaure; good force of stream; no straining; no post void dribbling; no hesitancy; empties well; no urgency; no frequency; no dysuria; no incontinence; no nocturia; no urine odor; no gross hematuria; no hematospermia; no ejaculatory pain; no premature ejaculation; no penile pain; no penile curvature;abnormal erection(uses cialis);decreased libido(improved with testo)Notes:-04/04/22 - rbc 5.84, hgb 16.8, hct 49.2, AST 46, ALT, 65, lipid- trig 160, HDL 27, LDL 116. testo 194, psa 0.3 -08/03/22- psa 0.4, testo 648, lipids- trigs 266, hdl 29, bmp, gluc 258, CBC stable. (notified of dx of T2DM and HLD, instructed to see primary care, he had already been started on meds. ) -09/14/22- hgb 17.8, hct 54.3, rbc 6.53 -11/22/22- CBC- RBC- 6.08, hgb 17.4, hct 52.6. -12/05/22- UCX- enterococcus faecalis (tx cipro 500mg bid x 10 days.) -01/15/23- CBC- hgb 16.9, hct 48.2 -05/20/23- testo 74, cbc- hgb 18.0, hct 53.5, rbc 6.2. 07/05/23- CBC WNL. BMP stable. iron/tibc wnl. testo 293. psa 0.4. ferritin wnl. (testo shot 3 days before) 11/20/23- CBC-hgb 18.2, hct 53.4, iron/tibc/ferritin WNL. testo 347 12/09/23- CBC WNL driver sales note from 01/20/24neg polycythemia vera testing, erythrocytosis likely secondary to undx BRAXTON and testo tx. which they ordered a HST and he fu in 6 months. 01/31/24- CBC WNL. iron/tibc/ferritin WNL. testo 78. 04/01/24- testo-230 CBC WNL 06/08/24- psa 0.4, testo 191. CBC WNL. (3 days post injection) Pt comes for low T. was previously seeing Dr Capellan.PCP is Dr Patterson in [place].hx HLD, HTN, t2dm, ED. Travels a lot for work. 07/15/24 comes to f/u on lowt, ed, polycythemia takes cialis 20mg PRN. works well. STARTED XYOSTED 04/06/22,increased to 100mg weekly on 06/17 needs refill.saw dontae, HAD sleep study. severe BRAXTON using CPAP just got refill in mail the other day but isnt showing on charline yet. Suzie Anderson, ACCREDITATION SPECIALIST [address], [place], [address], [place] - [facility] 07/15/2024 12:30:10
--- OUTSIDE RECORDS SUMMARY | 2024-08-13 10:45 | XMS_ITS | Continuity of Care Document ---
Author Organization [facility] Address [address] [place] [address] Assessment Encounter Date Assessment Date Assessment LastModified by Organization Details LastModified Time 06/17/2024 06/17/2024 -sent rx for xyosted to [place]. spoke with vaibhav warren aprn at hematology, HST result shows severe BRAXTON, she has ordered a CPAP has fu with hematology in summer 2024 -f/u with us in 1 month. still fatigued. will increase to 100mg weekly on 06/17 Not available 06/17/2024 11:26:30 Plan of Treatment Reminders Order Date Submit Date Provider Last Modified By Organization Details Last Modified Time Details Appointments Follow Up 20 2024 02:00P M Suzie Anderson APRN Not available Not available Not available Lab drug screen, urine [address] [facility], [address], [place], [address], 06/17/2024 11:30:32 Referral None recorded. Procedures None recorded. Surgeries None recorded. Imaging None recorded. Medication Orders Xyosted 100 mg/0.5 mL subcutane ous auto-inje ctor 2024 025 [facility], [address] [place] [address] , [address], [place], [place], [id number], 07/22/2024 05:01:29 Patient TargetsNo targets recorded. Patient Instructions Encounter Date Encounter Id Patient Instructions Last Modified By Organization Details Last Modified Time 06/17/2024 [id number] high blood pressure: care instructions Not available 06/17/2024 11:30:32 Erection Problems: Care Instructions Not available 06/17/2024 11:30:32 type 2 diabetes: care instructions Not available 06/17/2024 11:30:32 hypogonadism: care instructions Not available 06/17/2024 11:30:32 high cholesterol : care instructions Not available 06/17/2024 11:30:32 polycythemia: care instructions Not available 06/17/2024 11:30:32 Reason for Referral None Reported. Results Created Date Observation Date Name Description Value Unit Range Abnormal Flag Note LastModifiedBy Organization Detail LastModifiedTime 06/18/19 25 06/17/2024 drug scree n, urine BAR negati ve Not Available [facility] [address] [place], [address], 06/15/2024 09:40:10 06/18/19 25 06/17/2024 drug scree n, urine BZO negati ve Not Available [facility] [address] [place], [address], 06/15/2024 09:40:10 06/18/19 25 06/17/2024 drug scree n, urine MTD negati ve Not Available [facility] [address] [place], [address], 06/15/2024 09:40:10 06/18/19 25 06/17/2024 drug scree n, urine AMP negati ve Not Available [facility] [address] [place], [address], 06/15/2024 09:40:10 06/18/19 25 06/17/2024 drug scree n, urine MOP negati ve Not Available [facility] [address] [place], [address], 06/15/2024 09:40:10 06/18/19 25 06/17/2024 drug scree n, urine OXY negati ve Not Available [facility] [address] [place], [address], 06/15/2024 09:40:10 06/18/19 25 06/17/2024 drug scree n, urine MDMA negati ve Not Available [facility] [address] [place], [address], 06/15/2024 09:40:10 06/18/19 25 06/17/2024 drug scree n, urine HUBERT negati ve Not Available [facility] [address] [place], [address], 06/15/2024 09:40:10 06/18/19 25 06/17/2024 drug scree n, urine PCP negati ve Not Available [facility] [address] [place], [address], 06/15/2024 09:40:10 06/18/19 25 06/17/2024 drug scree n, urine MET negati ve Not Available [facility] [address] [place], [address], 06/15/2024 09:40:10 Result Notes None recorded. Problems Name Problem SNOMED Code Status Onset Date Resolution Date Notes Provider Name and Address Organization Details Recorded Time Erectile dysfunction 520663672 Active 2021 Yamini Prieto null, [place] - [facility] 2 08:04:56 Hypertensive disorder 92620865 Active 2021 Yamini Prieto null, [place] - [facility] 2 08:05:13 Problem Notes None recorded. Procedures Surgical History Date Name Laterality Status Provider Name and Address Organization Details Recorded Time Ear Tubes - Tympanostomy Tubes completed Yamini Prieto [place] - [facility] 02/13/2022 08:12:25 Imaging Results [...] Status: Recorded on: 10/14/19 11 3:44PM;U ser: bart; Est. Completi on: 11/13/19 11 Not Available [...] Updated DateTime 5 185.42 cm 45.2 kg/m2 974908. 99 g 80 /min 95 % 95 % 18 /min 130 mm[Hg] 80 mm[Hg] Olivia Rodriguez [place] - [facility] 5 11:20:53 Social History Question Answer Notes LastModified by Organizat ion Details LastModified Time Tobacco Smoking Status Never Smoker Yamini Ida recinos, [place] - [facility] 02/13/2022 08:07:28 Do You Have [...] Or The Highest Degree You Have Received? [id number] Information not available 02/13/2022 Have There Been Any Changes To Your Family Or Social Situation? No Information no t available 02/13/2022 Have You Recently Or Are You Planning To Travel To An Area With Zika Virus? No Information not available 02/13/2022 Do You Have A Medical Power Of Fitness And Wellness Manager? No Information not available 02/13/2022 What Was The Date Of Your Most Recent Tobacco Screening? 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 [id number] Information not available 02/13/2022 Do you have [...] SNOMED-CT Code Diagnosis ICD10 Code Diagnosis Note [id number] Suzie Anderson APRN [facility] [address] [place] [address] 05/22/2024 14:01:29 05/22/2024 15:14:41 Male hypogonadism 08992825 E29.1 Discussed with pt protocol/p jacob for evaluating /treating hypogonadi sm: - will begin replacemen t and standardiz ed dose, and then may adjust in the future.--- - Minimum visit in office [id number] and possibly labs as needed.--- - Pt to visit monthly for refills. no refill to be given if overdue for visit to office.- Controlled substance agreement required. UPDATED 05/22/24- UDS - UPDATED--- - If failed UDS- no prescripti on for controlled substance will be given.- CHARLINE at every refill. UPDATED Erectile dysfunction 860 179386 F52.21 Hypertensive disorder 38 006358 I10 Hyperlipidemia 05410437 E78.5 Reduced libido 8579042 R 68.82 Needle phobia 574162234 F40.231 Incoordination 702228327 R27.9 Type 2 timoteo betes mellitus 50022302 E11.9 Secondary polycythemia 92863323 D75.1 Long-term current use of drug therapy 402324875 Z79.468 [id number] Szuie Anderson [facility] [address] [place] [address] 06/17/2024 11:11:45 06/17/2024 15:15:28 Male hypogonadism 71052897 E29.1 Discussed with pt protocol/p jacob for evaluating /treating hypogonadi sm: - will begin replacemen t and standardiz ed dose, and then may adjust in the future.--- - Minimum visit in office [id number] and possibly labs as needed.--- - Pt to visit monthly for refills. no refill to be given if overdue for visit to office.- Controlled substance agreement required. UPDATED 05/22/24- UDS - UPDATED--- - If failed UDS- no prescripti on for controlled substance will be given.- CHARLINE at every refill. UPDATED Erectile dysfunction 860 438736 F52.21 Hypertensive disorder 38 627962 I10 Hyperlipidemia 25007667 E78.5 Reduced libido 8090128 R 68.82 Needle phobia 577026397 F40.231 Incoordination 106398912 R27.9 Type 2 timoteo betes mellitus 46453733 E11.9 Secondary polycythemia 44458040 D75.1 Long-term current use of drug therapy 820962452 Z79.899 Health Concerns Section Related Observation LastModified by Organization Detai ls LastModified Time None Recorded Concern Status LastModified by Organization Details LastModified Time None Recorded Payers Encounter Date Sequence Insurance Name Policy Number Policy Schumacher Covered Member ID Schumacher Member ID Guarantor Name 06/17/2024 Nilsa MARC [id number] Azeem Lua Chris [id number] Azeem Perez Notes Date Note Type Note Provider Name and Address Organization Details Recorded Time 06/17/2024 text/html Lower Urinary Tr act Symptoms (LUTS)Reported bypatient.Context:patrick s seen Urologist (dr galloway) Associated Symptoms:no abdominal pain; no groin pain; [...] iron/tibc/ferritin WNL. 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 which they ordered a HST and he fu in 6 months. 01/31/24- CBC WNL. iron/tibc/ferritin WNL. testo 78. 04/01/24- testo-230 CBC WNL 06/08/24- psa 0.4, testo 191. CBC WNL. (3 days post injection) Pt comes for low T. was previously seeing Dr Galloway.PCP is Dr Patterson in [place].hx HLD, HTN, t2dm, ED. Travels a lot for work. 06/17/24 comes to f/u on lowt, ed, polycythemia takes cialis 20mg PRN. works well. STARTED XYOSTED 04/06/22needs refill.saw dontae, HAD sleep study. severe BRAXTON using CPAP got labs. Suzie Anderson, [employer] [address], [place], [address], [place] - [facility] 06/18/2024 14:17:51
--- OUTSIDE RECORDS SUMMARY | 2024-08-13 10:45 | XMS_ITS | Data Portability ---
Author Organization [place] - [facility] Address [address] [place] [address] Care Team Providers Care Preflight Mechanic Name Role Phone ROCÍO GUZMAN Primary Care Provider Assessment No assessment recorded. Plan of Treatment Reminders Order Date Submit Date Provider Last Modified By Organization Details Last Modified Time Details Appointments None recorded. Lab iron + total iron-larry ng capacity (TIBC), serum [address] (Registration ), [place], [address], 5 08:46:36 CBC w/ auto diff 2023 024 [facility] (Registration ), [place], [address], 5 08:30:01 ferritin, serum or plasma [address] (Registration ), [place], [address], 5 08:46:36 hemochroma tosis mutation (hfe), blood/tiss ue 2023 024 [email or web address] [facility] (Registration ), [place], [address], 4 08:23:13 iron + TIBC + ferritin, serum [address] (Registration ), [place], [address], 4 08:37:55 iron saturation , serum [address] (Registration ), [place], [address], 4 08:23:13 CBC w/ auto diff 2023 024 [facility] (Registration ), [place], [address], 4 19:07:05 Referral None recorded. Procedures None recorded. Surgeries None recorded. Imaging home sleep study 2024 025 [facility] Centralized Scheduling, [place], [address], 5 11:35:23 home sleep study [address] Centralized Scheduling, [place], [address], 4 08:23:04 XR, humerus 2023 024 liz [facility], [address] [place] [address] [place], [address], 4 07:09:03 XR, humerus 2023 024 [email or web address] [facility], [address] [place] [address] [place], [address], 4 14:06:17 Medication Orders None recorded. Patient TargetsNo targets recorded. Patient InstructionsNo instructions recorded. Reason for Referral None Reported. Results Created Date Observation Date Name Description Value Unit Range Abnormal Flag Note LastModifiedBy Organization Detail LastModifiedTime 10/03/19 24 10/03/2023 C-BETZY CTIVE PROTE IN note See Note Order ing Provi suni: Emanuel Wells MD Not Available [address] , [place], [address], 10/03/2023 10:03:50 10/03/19 24 10/03/2023 C-BETZY CTIVE PROTE IN C-reactive protein 22.3 mg/L <5.0 high NOT E NEW REFER ENCE RANGE S Not Available [address] , [place], [address], 10/03/2023 10:03:50 10/03/19 24 10/03/2023 C-BETZY CTIVE PROTE IN performing lab see note - [facility] R [address] [facility] [address] Not Available [address] , [place], [address], 10/03/2023 10:03:50 10/10/19 24 10/10/2023 C-BETZY CTIVE PROTE IN note See Note Order ing Provi suni: Emanuel Wells MD Not Available [address] , [place], [address], 10/10/2023 10:39:22 10/10/19 24 10/10/2023 C-BETZY CTIVE PROTE IN C-reactive protein 6.4 mg/L <5.0 high NOT E NEW REFER ENCE RANGE S Not Available [address] , [place], [address], 10/10/2023 10:39:22 10/10/19 24 10/10/2023 C-BETZY CTIVE PROTE IN performing lab see note ML - [facility] R [address] [facility] [address] Not Available [address], [place], [address], 10/10/2023 10:39:22 10/17/19 24 10/17/2023 C-BETZY CTIVE PROTE IN note See Note Order ing Provi suni: Emanuel Wells MD Not Available [address] , [place], [address], 10/17/2023 10:45:09 10/17/19 24 10/17/2023 C-BETZY CTIVE PROTE IN C-reactive protein <5.0 mg/L <5.0 NOT E NEW REFER ENCE RANGE S Not Available [address] , [place], [address], 10/17/2023 10:45:09 10/17/19 24 10/17/2023 C-BETZY CTIVE PROTE IN performing lab see note ML - [facility] R [address] [facility] [address] Not Available [address], [place], [address], 10/17/2023 10:45:09 12/09/19 24 12/09/2023 CBC W/AUT O DIFFE RENTI AL note SEE NOTE Order ing Provi suni: Leoncio caldwell APRN Not Available [address], [place], [address], 12/09/2023 19:07:05 12/09/19 24 12/09/2023 CBC W/AUT O DIFFE RENTI AL white blood cell 7.2 10e3/ uL 4.5-13 .0 normal Not Available [address] , [place], [address], 12/09/2023 19:07:05 12/09/19 24 12/09/2023 CBC W/AUT O DIFFE RENTI AL red blood cell 5.53 10e6/ uL 4.10-5 .70 normal Not Available [address], [place], [address], 12/09/2023 19:07:05 12/09/1912/09/2023 CBC W/AUT O DIFFE RENTI AL hemoglobin 16.7 g/dL 12.0-1 6.9 normal Not Available [address], [place], [address], 12/09/2023 19:07:05 12/09/1912/09/2023 CBC W/AUT O DIFFE RENTI AL hematocrit 48.2 % 36.0-4 9.0 normal Not Available [address], [place], [address], 12/09/2023 19:07:05 12/09/1912/09/2023 CBC W/AUT O DIFFE RENTI AL mean cell volume 87 fL 78.0-9 8.0 normal Not Available [place] [address], [place], [address], 12/09/2023 19:07:05 12/09/1912/09/2023 CBC W/AUT O DIFFE RENTI AL mean cell HGB 30.2 pg 25.0-3 5.0 normal Not Available [address], [place], [address], 12/09/2023 19:07:05 12/09/1912/09/2023 CBC W/AUT O DIFFE RENTI AL mean cell HGB concentratio n 34.6 g/dL 31.0-3 6.0 normal Not Available [address], [place], [address], 12/09/2023 19:07:05 12/09/19 24 12/09/2023 CBC W/AUT O DIFFE RENTI AL red cell distribution width 13.7 % 11.0-1 5.0 normal Not Available [address], [place], [address], 12/09/2023 19:07:05 12/09/19 24 12/09/2023 CBC W/AUT O DIFFE RENTI AL platelet count 276 10e3/ uL 150-40 0 normal Not Available [address], [place], [address], 12/09/2023 19:07:05 12/09/1912/09/2023 CBC W/AUT O DIFFE RENTI AL immature granulocyte % 1 0-1 normal Not Available [address] [place], [place], [address], 12/09/2023 19:07:05 12/09/19 24 12/09/2023 CBC W/AUT O DIFFE RENTI AL neutrophil % 62 % 35-75 normal Not Available [address] [place], [place], [address], 12/09/2023 19:07:05 12/09/19 24 12/09/2023 CBC W/AUT O DIFFE RENTI AL lymphocyte % 24 % 10-50 normal Not Available [address], [place], [address], 12/09/2023 19:07:05 12/09/1912/09/2023 CBC W/AUT O DIFFE RENTI AL monocyte % 9 % 0-15 normal Not Available [address] [place], [place], [address], 12/09/2023 19:07:05 12/09/19 24 12/09/2023 CBC W/AUT O DIFFE RENTI AL eosinophil % 3 % 0-5 normal Not Available [address] [place], [place], [address], 12/09/2023 19:07:05 12/09/19 24 12/09/2023 CBC W/AUT O DIFFE RENTI AL basophil % 1 % 0-5 normal Not Available [address] [place], [place], [address], 12/09/2023 19:07:05 12/09/1912/09/2023 CBC W/AUT O DIFFE RENTI AL immature granulocyte # 0.04 x1000 /uL 0-0.05 normal Not Available [address] , [place], [address], 12/09/2023 19:07:05 12/09/1912/09/2023 CBC W/AUT O DIFFE RENTI AL neutrophil # 4.47 x1000 /uL 1.50-8 .00 normal Not Available [address], [place], [address], 12/09/2023 19:07:05 12/09/19 24 12/09/2023 CBC W/AUT O DIFFE RENTI AL lymphocyte # 1.74 x1000 /uL 1.20-5 .20 normal Not Available [place] [address], [place], [address], 12/09/2023 19:07:05 12/09/19 24 12/09/2023 CBC W/AUT O DIFFE RENTI AL monocyte # 0.64 x1000 /uL 0.30-0 .90 normal Not Available [address] [place], [place], [address], 12/09/2023 19:07:05 12/09/19 24 12/09/2023 CBC W/AUT O DIFFE RENTI AL eosinophil # 0.19 x1000 /uL 0.00-0 .50 normal Not Available [address] , [place], [address], 12/09/2023 19:07:05 12/09/19 24 12/09/2023 CBC W/AUT O DIFFE RENTI AL basophil # 0.07 x1000 /uL 0.00-0 .30 normal Not Available [address], [place], [address], 12/09/2023 19:07:05 12/09/19 24 12/09/2023 CBC W/AUT O DIFFE RENTI AL NRBC automated 0.0 /100_ WBC Not Available [address] , [place], [address], 12/09/2023 19:07:05 12/09/19 24 12/09/2023 CBC W/AUT O DIFFE RENTI AL performing lab SEE NOTE - [facility] R [address] [facility] [address] Not Available [address] , [place], [address], 12/09/2023 19:07:05 12/09/19 24 12/09/2023 FE W/TOT AL IRON LARRY NG CAP note See Note Order ing Provi suni: Leoncio caldwell APRN Not Available [address], [place], [address], 12/09/2023 20:39:59 12/09/19 24 12/09/2023 FE W/TOT AL IRON LARRY NG CAP iron 62 ug/dL 65-175 low Not Available [address] [place], [place], [address], 12/09/2023 20:39:59 12/09/19 24 12/09/2023 FE W/TOT AL IRON LARRY NG CAP total iron binding capacity 412 ug/dL 260-40 0 high Not Available [address] , [place], [address], 12/09/2023 20:39:59 12/09/19 24 12/09/2023 FE W/TOT AL IRON LARRY NG CAP iron saturation 15 % 20-50 low Not Available [address] , [place], [address], 12/09/2023 20:39:59 12/09/1912/09/2023 FE W/TOT AL IRON LARRY NG CAP performing lab see note ML - [facility] R [address] [place] [address] [place] [address] Not Available [address] , [place], [address], 12/09/2023 20:39:59 12/09/19 24 12/09/2023 JANINA TIN note See Note Order ing Provi suni: Leoncio caldwell [employer] Not Available [address] , [place], [address], 12/09/2023 20:46:19 12/09/19 24 12/09/2023 JANINA TIN ferritin 155 NG/mL 26-388 normal Not Available [address] , [place], [address], 12/09/2023 20:46:19 12/09/19 24 12/09/2023 JANINA TIN performing lab see note ML - [facility] R [address] [place] [address] Not Available [address] , [place], [address], 12/09/2023 20:46:19 12/09/19 24 12/09/2023 HERED .HEMO CHROM ATOSI S DNA, PCR note See Note Order ing Provi suni: Leoncio caldwell [employer] Not Available [place] [id number] , [place], [address], 12/17/2023 14:14:06 12/09/19 24 12/09/2023 HERED .HEMO CHROM ATOSI S DNA, PCR hered hemochromato sis DNA, PCR Commen t () Resul t: c.845 G>A (p.Cy s282T yr) - Not Detec rajiv c.187 C>G (p.Hi s63As p) - Not Detec rajiv c.193 A>T (p.Se r65Cy s) - Not Detec rajiv Not assoc iated with incre ased risk to devel op clini whitley sympt oms of Hered itary Hemoc hroma tosis . In sympt omati c indiv idual s, other cause s of iron overl oad shoul d be evalu ated. See Addit ional Infor matio n and Comme nts. . Addit ional Clini whitley Infor matio n: Hered itary hemoc hroma tosis (HFE relat ed) is an autos omal reces sive iron stora ge disor suni. Patie nts may have a kyle ic diagn osis of hered itary hemoc hroma tosis and never show clini whitley sympt oms. Clini whitley sympt oms typic ally appea r betwe en 40 to 60 years in males and after menop ause in femal es. Signs and sympt oms may inclu de organ damag e, prima rily in the liver , risk for hepat ocell ular carci noma, diabe nora, and heart disea se due to iron accum ulati on. Life expec tancy may be decre ased in indiv idual s who devel op cirrh osis. Treat ment for clini teodora sympt omati c indiv idual s may inclu de thera peuti c phleb otomy . Liver trans plant may be used to treat end stage liver failu re. For preve ntive care, monit oring for iron overl oad is recom dominic d for patie nts who are homoz ygous for c.845 G>A (p.Cy s282T yr) and have yet to exper ience clini whitley sympt oms. . Comme nts: The most commo n HFE varia nts assoc iated with hered itary hemoc hroma tosis are c.845 G>A (p.Cy s282T yr), c.187 C>G (p.Hi s63As p), c.193 A>T (p.Se r65Cy s). While patie nts homoz ygous for c.845 G>A (p.Cy s282T yr) are the most likel y to prese nt clini whitley sympt oms, less than 10% devel op clini teodora signi fican t iron overl oad with tissu e and organ damag e. . Kyle ic couns julio is recom dominic d to discu ss the poten tial clini whitley impli catio ns of posit vance resul ts, as well as recom menda tions for testi ng famil y membe rs. Kyle ic Coord inato rs are avail able for healt h care provi ders to discu ss resul ts at [phone] [phone] (1978 ). . Test Detai ls: Three varia nts cookie zed: c.845 G>A (p.Cy s282T yr), commo nly refer red to as C282Y c.187 C>G (p.Hi s63As p), commo nly refer red to as H63D c.193 A>T (p.Se r65Cy s), commo nly refer red to as S65C . Metho ds/Li mitat ions: DNA Cookie sis of the HFE gene (NM_[id number] .[id number]) was perfo rmed by PCR ampli ficat ion follo wed by restr ictio n enzym e diges tion cookie ses. Resul ts must be combi scotty with clini whitley infor matio n for the most accur ate inter preta tion. Molec ular- based testi ng is highl y accur ate, but as in any labor atory test, diagn ostic error s may occur . False posit vance or false negat vance resul ts may occur for reaso ns that inclu de kyle ic varia nts, blood trans fusio ns, bone marro w trans plant ation , somat ic or tissu e-spe cific mosai cism, misla beled sampl es, or giovanna eous repre senta tion of famil y relat ionsh ips. This test was devel oped and its perfo rmanc e grey cteri stics deter mined by [facility]. It has not been clear ed or appro keyanna by the Food and Drug Admin istra tion. . Refer ences : Williams BR, Yaakov PC, Orlandol ey K[place], Taurus norris LW, Anurag norris ; Ameri can Assoc iatio n for the Study of Liver Disea ses. Diagn osis and manag ement of hemoc hroma tosis : 2010 pract ice guide line by the Ameri can Assoc iatio n for the Study of Liver Disea ses. Hepat ology . 2010;5 4(1): 328-4 3. doi: 10.10 /he p.243 30. PMID: 35389 290; PMCID : PMC31 07817 . Molly G, Maribeth ot P, Rudolph vaughna DW, Natalie r H, Ponce valdez O, Tracy n S, Conrad o I, Ray s M, Joel y S. EMQN best pract ice guide lines for the molec ular kyle ic diagn osis of hered itary hemoc hroma tosis (HH). Eur J Hum Kyle . 2016 May;2 4(4): 479-9 5. doi: 10.10 /ej hg.20 15.12 8. Epub 2014Aug 25. PMID: 61239 218; PMCID : PMC49 10938 . Not Available [address] , [place], [address], 12/17/2023 14:14:06 12/09/19 24 12/09/2023 HERED .HEMO CHROM ATOSI S DNA, PCR performing lab see note LC2 - [facility] MUSHTAQ Vargas# [id number] [address] [place] [address] Not Available [address] , [place], [address], 12/17/2023 14:14:06 01/20/20 24 01/20/2024 CBC W/AUT O DIFFE RENTI AL note SEE NOTE Order ing Provi suni: Leoncio winston caldwell APRN Not Available [address], [place], [address], 01/22/2024 17:21:46 01/20/20 24 01/20/2024 CBC W/AUT O DIFFE RENTI AL white blood cell 8.6 10e3/ uL 4.5-13 .0 normal Not Available [address], [place], [address], 01/22/2024 17:21:46 01/20/20 24 01/20/2024 CBC W/AUT O DIFFE RENTI AL red blood cell 5.29 10e6/ uL 4.10-5 .70 normal Not Available [address], [place], [address], 01/22/2024 17:21:46 01/20/20 24 01/20/2024 CBC W/AUT O DIFFE RENTI AL hemoglobin 16.1 g/dL 12.0-1 6.9 normal Not Available [place] [address], [place], [address], 01/22/2024 17:21:46 01/20/20 24 01/20/2024 CBC W/AUT O DIFFE RENTI AL hematocrit 45.2 % 36.0-4 9.0 normal Not Available [place] [address], [place], [address], 01/22/2024 17:21:46 01/20/20 24 01/20/2024 CBC W/AUT O DIFFE RENTI AL mean cell volume 85 fL 78.0-9 8.0 normal Not Available [address], [place], [address], 01/22/2024 17:21:46 01/20/20 24 01/20/2024 CBC W/AUT O DIFFE RENTI AL mean cell HGB 30.4 pg 25.0-3 5.0 normal Not Available [address] [place], [place], [address], 01/22/2024 17:21:46 01/20/20 24 01/20/2024 CBC W/AUT O DIFFE RENTI AL mean cell HGB concentratio n 35.6 g/dL 31.0-3 6.0 normal Not Available [address], [place], [address], 01/22/2024 17:21:46 01/20/20 24 01/20/2024 CBC W/AUT O DIFFE RENTI AL red cell distribution width 13.3 % 11.0-1 5.0 normal Not Available [address], [place], [address], 01/22/2024 17:21:46 01/20/20 24 01/20/2024 CBC W/AUT O DIFFE RENTI AL platelet count 273 10e3/ uL 150-40 0 normal Not Available [address] [place], [place], [address], 01/22/2024 17:21:46 01/20/20 24 01/20/2024 CBC W/AUT O DIFFE RENTI AL immature granulocyte % 0 0-1 normal Not Available [address] [place], [place], [address], 01/22/2024 17:21:46 01/20/20 24 01/20/2024 CBC W/AUT O DIFFE RENTI AL neutrophil % 69 % 35-75 normal Not Available [address] [place], [place], [address], 01/22/2024 17:21:46 01/20/20 24 01/20/2024 CBC W/AUT O DIFFE RENTI AL lymphocyte % 19 % 10-50 normal Not Available [address] , [place], [address], 01/22/2024 17:21:46 01/20/20 24 01/20/2024 CBC W/AUT O DIFFE RENTI AL monocyte % 10 % 0-15 normal Not Available [address] [place], [place], [address], 01/22/2024 17:21:46 01/20/20 24 01/20/2024 CBC W/AUT O DIFFE RENTI AL eosinophil % 1 % 0-5 normal Not Available [address] , [place], [address], 01/22/2024 17:21:46 01/20/20 24 01/20/2024 CBC W/AUT O DIFFE RENTI AL basophil % 1 % 0-5 normal Not Available [address] [place], [place], [address], 01/22/2024 17:21:46 01/20/20 24 01/20/2024 CBC W/AUT O DIFFE RENTI AL immature granulocyte # 0.03 x1000 /uL 0-0.05 normal Not Available [address], [place], [address], 01/22/2024 17:21:46 01/20/20 24 01/20/2024 CBC W/AUT O DIFFE RENTI AL neutrophil # 5.89 x1000 /uL 1.50-8 .00 normal Not Available [address] [place], [place], [address], 01/22/2024 17:21:46 01/20/20 24 01/20/2024 CBC W/AUT O DIFFE RENTI AL lymphocyte # 1.63 x1000 /uL 1.20-5 .20 normal Not Available [address] , [place], [address], 01/22/2024 17:21:46 01/20/20 24 01/20/2024 CBC W/AUT O DIFFE RENTI AL monocyte # 0.84 x1000 /uL 0.30-0 .90 normal Not Available [address] , [place], [address], 01/22/2024 17:21:46 01/20/20 24 01/20/2024 CBC W/AUT O DIFFE RENTI AL eosinophil # 0.09 x1000 /uL 0.00-0 .50 normal Not Available [address] , [place], [address], 01/22/2024 17:21:46 01/20/20 24 01/20/2024 CBC W/AUT O DIFFE RENTI AL basophil # 0.07 x1000 /uL 0.00-0 .30 normal Not Available [address] , [place], [address], 01/22/2024 17:21:46 01/20/20 24 01/20/2024 CBC W/AUT O DIFFE RENTI AL NRBC automated 0.0 /100_ WBC Not Available [address] , [place], [address], 01/22/2024 17:21:46 01/20/20 24 01/20/2024 CBC W/AUT O DIFFE RENTI AL performing lab SEE NOTE - JASBIR [address] [facility] [address] Not Available [address] [place], [address], 01/22/2024 17:21:46 01/20/20 24 01/20/2024 FE W/TOT AL IRON LARRY NG CAP note SEE NOTE Order ing Provi suni: Leoncio winston caldwell [employer] Not Available [address] , [place], [address], 01/22/2024 17:21:52 01/20/20 24 01/20/2024 FE W/TOT AL IRON LARRY NG CAP iron 95 ug/dL 65-175 normal Not Available [address] , [place], [address], 01/22/2024 17:21:52 01/20/20 24 01/20/2024 FE W/TOT AL IRON LARRY NG CAP total iron binding capacity 399 ug/dL 260-40 0 normal Not Available [address] , [place], [address], 01/22/2024 17:21:52 01/20/20 24 01/20/2024 FE W/TOT AL IRON LARRY NG CAP iron saturation 24 % 20-50 normal Not Available [address] , [place], [address], 01/22/2024 17:21:52 01/20/20 24 01/20/2024 FE W/TOT AL IRON LARRY NG CAP performing lab SEE NOTE - [facility] R [address] [facility] [address] Not Available [address] , [place], [address], 01/22/2024 17:21:52 01/20/20 24 01/20/2024 JANINA TIN note SEE NOTE Order ing Provi suni: Miguel Angelvaldo winston caldwell [employer] Not Available [address] , [place], [address], 01/22/2024 17:21:54 01/20/20 24 01/20/2024 JANINA TIN ferritin 129 NG/mL 26-388 normal Not Available [address] , [place], [address], 01/22/2024 17:21:54 01/20/2001/20/2024 JANINA CAMARA performing lab SEE NOTE - [facility] R [address] [facility] [address] Not Available [address] , [place], [address], 01/22/2024 17:21:54 10/10/19 24 XR, humer us No observ ation record ed. [address] , [place], [address], 10/10/2023 08:51:46 10/17/19 24 XR, humer us No observ ation record ed. ISRRAEL [address] , [place], [address], 10/17/2023 13:38:58 11/12/19 24 XR, humer us No observ ation record ed. [address] , [place], [address], 11/14/2023 10:44:53 03/04/19 25 03/02/2024 home sleep study No observ ation record ed. [address] , [place], [address], 04/02/2024 14:26:43 Result Notes None recorded. Problems Name Problem SNOMED Code Status Onset Date Resolution Date Notes Provider Name and Address Organization Details Recorded Time Serum ferritin above reference range 162216435 Active 2023 NOEMI Yao - [facility] - [place] 13:33:07 Hemochromat osis 834531292 Active 2024 MICHAEL HWANG NP [address] [facility],Jadyn te [address] [place] [address], [phone], [place] - [facility] - [place] 5 11:31:40 Hypertensiv e disorder 08037277 Active 2021 Samara Walden null, [place] - [facility] - [facility] [place] 4 12:16:10 Erectile dysfunction 637885637 Active 2021 Samara Brownmons null, [place] - [facility] - [facility] & [place] 4 12:16:10 Erythrocyto sis 174263487 Active 2023 MICHAEL HWANG NP [address] [place] [address],[address], [phone], [place] - [facility] - [place] 4 10:24:29 Cellulitis of left upper limb 6826769592306 9108 Active 2023 Alli Wells MD [address] [place] [address],[address], [address], [place] - [facility] - [place] 4 09:41:57 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 2023 Alli Wells MD [address] [place] [address],Jadyn te [address] [place] [address], [phone], [place] - [facility] - [place] 4 09:42:17 Stitch abscess 491429925 Active 2023 Alli Wells MD [address] [place] [address],Jadyn te [address] [place] [address], [phone], [place] - [facility] - [place] 4 09:42:23 Problem Notes Documentation Provider Name and Address Organization Details Recorded Time Clinic Note : [facility] Clinical Note REPORT #: [id number] REPORT STATUS: Signed DATE: 03/04/24 TIME: 437 PATIENT: ROSELYN PEREZ UNIT #: [id number] ROOM/BED: AGE: 43 SEX: M ATTEND: Michael Hwang APRN ADM AUTHOR: Lavon Mendez MD * ALL edits or amendments must be made on the electronic/computer document * Sleep Study Note Sleep Study Note Home sleep study 43-year-old male with a weight of 362 and BMI of 48. Patient complains of snoring, fatigue and witnessed apneas. Note a home sleep study may underestimate the severity of sleep apnea and/or the presence of other sleep disorders, clinical correlation recommended. Total monitoring time was 377 minutes. Patient had an apnea plus hypopnea index of 80, which is severe sleep apnea. Patient spent 121 minutes less than 90 percent saturation, lowest saturation recorded was 79 percent. Average saturation was 91 percent. Patient spent 98 percent of the night snoring. Patient had a mean heart rate of 78, lowest heart rate during sleep was 51, highest heart rate during sleep was 102. Impression: 1. Severe obstructive sleep apnea-hypopnea syndrome G4 7.33 2. Morbid obesity Recommendations: 1. No driving motorized vehicles or operating machinery while fatigued, sleepy or drowsy. Avoidance of alcohol and sedatives. Weight loss. 2. Consider auto titrating CPAP in a range of 5-20 cm. If auto titrating CPAP is used, this should be set up per the patient's primary care physician/primary care provider/referring physician/referring provider. 3. If the patient is intolerant to CPAP, or if ineffective, then consider return for full overnight CPAP/BiPAP titration study, clinical correlation recommended. 4. Follow-up with the patient's primary care physician/primary care provider/ referring physician/referring provider and with a sleep physician if necessary. at 0446 RPT #: [id number] END OF REPORT CC'ed Logic: Ordering Provider: MANSOOR MERRITT Attending Provider: ERI RODRIGUEZ Referring Provider: ERI RODRIGUEZ Consulting Provider: NOEMI Mittal TYLER [facility] [place] 03/04/2024 09:06:15 Procedures Surgical History Date Name Laterality Status Provider Name and Address Organization Details Recorded Time 5 ENT Surgery completed Sveta BUTLER [facility] [place] 09/03/2023 08:19:55 Imaging Results None recorded. Procedure Notes None recorded. Medical Equipment None Reported. Allergies Allergen ID Allergen Name Allergen Category Reaction Reaction Severity Criticality Documentation Date Start Date Code Code System Note Provider Name and Address Organization Details Recorded Time [id number] No known allergy (situatio n) Not available Not available Not available Not available 12/12/2023 [id number] SNOMED Angela Taylor [facility], [place] - [facility] [place] & [place] 4 13:07:45 Medications Name Sig Start Date Stop Date Status Note LastModified by Organization Details LastModified Time amoxicillin 500 mg capsule TAKE 1 CAPSULE BY MOUTH THREE TIMES DAILY UNTIL GONE 12/08 completed Not Available Not Available Not Available carvedilol 25 mg tablet TAKE 1 TABLET BY MOUTH TWICE DAILY active Not Available Not Available No t Available trazodone 50 mg tablet TAKE 1 /2 (ONE-HALF ) TO 1 TABLET BY MOUTH ONCE DAILY AT BEDTIME active Not Available Not Available No t Available azithromyci n 250 mg tablet TAKE 2 TABLETS BY MOUTH ON DAY 1, AND THEN TAKE 1 TABLET BY MOUTH ONCE A DAY ON DAY 2 THROUGH DAY 5 active Not Available Not Available No t Available pravastatin 40 mg tablet TAKE 1 TABLET BY MOUTH EVERY DAY AT BEDTIME active Not Available Not Available No t Available fluconazole 150 mg tablet TAKE 1 TABLET BY MOUTH EVERY OTHER DAY FOR 4 DAYS 12/08 completed Not Available Not Available Not Available hydrocodone 5 mg-acetamin ophen 325 mg tablet TAKE 1 TABLET BY MOUTH EVERY 6 HOURS NEEDED 12/08 completed Not Available Not Available Not Available meloxicam 15 mg tablet 15 mg by oral route. active Not Available Not Available No t Available testosteron e cypionate 100 mg/mL intramuscul ar oil 100 mg by intramusc . route. active Not Available Not Available No t Available diphenoxyla te-atropine 2.5 mg-0.025 mg tablet TAKE 1 BY MOUTH 4 TIMES A DAY 02/13 completed Not Available Not Available Not Available phentermine 37.5 mg tablet TAKE 1 TABLET BY MOUTH ONCE DAILY 09/14 completed Not Available Not Available Not Available allopurinol 100 mg tablet TAKE 1 TABLET BY MOUTH ONCE DAILY active Not Available Not Available No t Available ciprofloxac in 500 mg tablet TAKE 1 TABLET BY MOUTH EVERY 12 HOURS FOR 10 DAYS 12/25 completed Not Available Not Available Not Available sulfamethox azole 800 mg-trimetho prim 160 mg tablet TAKE 2 TABLETS BY MOUTH EVERY 12 HOURS FOR 14 DAYS 12/08 completed Not Available Not Available Not Available omeprazole 40 mg capsule,del ayed release TAKE 1 CAPSULE BY MOUTH ONCE DAILY active Not Available Not Available No t Available vancomycin 125 mg capsule TAKE 1 CAPSULE BY MOUTH 4 TIMES A DAY 02/13 completed Not Available Not Available Not Available glimepiride 2 mg tablet TAKE 1 TABLET BY MOUTH ONCE DAILY 12/08 completed Not Available Not Available Not Available Voltaren 75 mg tablet,misti yed release take 1 tablet (75 mg) by oral route 2 times per day for 15 days 03/02 completed Not Available Not Available Not Available cefadroxil 500 mg capsule TAKE 1 CAPSULE BY MOUTH TWICE DAILY 12/08 completed Not Available Not Available Not Available meloxicam 7.5 mg tablet TAKE 1 TABLET BY MOUTH ONCE DAILY active Not Available Not Available No t Available oxycodone-a cetaminophe n 5 mg-325 mg tablet TAKE 1 TABLET BY MOUTH EVERY 4 HOURS NEEDED FOR PAIN 12/08 completed Not Available Not Available Not Available amlodipine 10 mg tablet TAKE 1 TABLET BY MOUTH ONCE DAILY active Not Available Not Available No t Available benzonatate 100 mg capsule TAKE 1 CAPSULE BY MOUTH THREE TIMES DAILY NEEDED FOR COUGH 02/13 completed Not Available Not Available Not Available clotrimazol e-betametha sone 1 %-0.05 % topical cream APPLY CREAM TOPICALLY TO AFFECTED AND SURROUNDI NG AREA(S) TWICE DAILY IN THE MORNING AND IN THE EVENING FOR 2 WEEKS 12/08 completed Not Available Not Available Not Available lisinopril 10 mg tablet take 1 tablet (10 mg) by oral route once daily for 30 days 03/02 completed Not Available Not Available Not Available glimepiride 4 mg tablet TAKE 1 TABLET BY MOUTH ONCE DAILY active Not Available Not Available No t Available losartan 25 mg tablet TAKE 1 TABLET BY MOUTH ONCE DAILY active Not Available Not Available No t Available lidocaine HCl 2 % mucosal solution active Not Available Not Available Not Available omeprazole 20 mg capsule,del ayed release TAKE 1 CAPSULE BY MOUTH ONCE DAILY FOR 10 DAYS active Not Available Not Available No t Available hydroxyzine HCl 25 mg tablet TAKE 1 TABLET BY MOUTH THREE TIMES DAILY NEEDED FOR ANXIETY 12/08 completed Not Available Not Available Not Available hydrochloro thiazide 25 mg tablet TAKE 1 TABLET BY MOUTH ONCE DAILY active Not Available Not Available No t Available mupirocin 2 % topical ointment APPLY A SMALL AMOUNT TO THE AFFECTED AREA BY TOPICAL ROUTE 3 TIMES PER DAY active Not Available Not Available No t Available gabapentin 100 mg capsule TAKE 1 TO 3 CAPSULES BY MOUTH THREE TIMES DAILY FOR 30 DAYS active Not Available Not Available No t Available testosteron e cypionate 200 mg/mL intramuscul ar oil 07/27 completed Not Available Not Available Not Available ibuprofen 600 mg tablet active Not Available Not Available Not Available methylpredn isolone 4 mg tablets in a dose pack TAKE BY MOUTH DIRECTED ON INSIDE OF PACKAGE active Not Available Not Available No t Available lisinopril 40 mg tablet take 1 tablet (40 mg) by oral route once daily for 30 days 11/12 completed Not Available Not Available Not Available ondansetron 4 mg disintegrat ing tablet active Not Available Not Available N ot Available naproxen 500 mg tablet 09/02 completed Not Available Not Available Not Available oxycodone 5 mg tablet TAKE 1 TABLET BY MOUTH EVERY 4 HOURS NEEDED FOR PAIN active Not Available Not Available No t Available escitalopra m 10 mg tablet TAKE 1 TABLET BY MOUTH ONCE DAILY active Not Available Not Available No t Available escitalopra m 20 mg tablet TAKE 1 TABLET BY MOUTH ONCE DAILY active Not Available Not Available No t Available tadalafil 20 mg tablet TAKE 1 TABLET BY MOUTH ONCE DAILY active Not Available Not Available No t Available fenofibrate nanocrystal lized 145 mg tablet 145 mg by oral route. active Not Available Not Available No t Available Farxiga 10 mg tablet TAKE 1 TABLET BY MOUTH ONCE DAILY active Not Available Not Available No t Available Farxiga 5 mg tablet TAKE 1 TABLET BY MOUTH ONCE DAILY 12/08 completed Not Available Not Available Not Available testosteron e cypionate 200 mg/mL intramuscul ar kit 07/27 completed Not Available Not Available Not Available Ozempic 0.25 mg or 0.5 mg (2 mg/1.5 mL) subcutaneou s pen injector INJECT 0.25 MG SUBCUTANE OUSLY ONCE WEEKLY DIRECTED 02/13 completed Not Available Not Available Not Available Xyosted 75 mg/0.5 mL subcutaneou s auto-inject or Inject 0.5 mL every week by subcutane ous route for 28 days. active Not Available Not Available No t Available Ozempic 1 mg/dose (4 mg/3 mL) subcutaneou s pen injector INJECT 1 MG SUBCUTANE OUSLY ONCE A WEEK 02/13 completed Not Available Not Available Not Available Ozempic 2 mg/dose (8 mg/3 mL) subcutaneou s pen injector INJECT 2 UNITS SUBCUTANE OUSLY ONCE A WEEK DIRECTED 12/08 completed Not Available Not Available Not Available Mounjaro 7.5 mg/0.5 mL subcutaneou s pen injector INJECT 1 ONCE A WEEK 07/07 completed Not Available Not Available Not Available Mounjaro 5 mg/0.5 mL subcutaneou s pen injector INJECT 1 ONCE A WEEK 09/14 completed Not Available Not Available Not Available Mounjaro 15 mg/0.5 mL subcutaneou s pen injector INJECT 1 PEN SUBCUTANE OUSLY ONCE A WEEK active Not Available Not Available No t Available Mounjaro 10 mg/0.5 mL subcutaneou s pen injector INJECT 1 SYRINGE SUBCUTANE OUSLY ONCE A WEEK FOR 28 DAYS 07/07 completed Not Available Not Available Not Available Mounjaro 12.5 mg/0.5 mL subcutaneou s pen injector 07/07 completed Not Available Not Available Not Available Mounjaro 2.5 mg/0.5 mL subcutaneou s pen injector INJECT 2.5 MG SUBCUTANE OUSLY ONCE A WEEK 09/14 completed Not Available Not Available Not Available Vitals Date Recorded Body height Body mass index (BMI) Body weight Body temperature Oxygen saturation Oxygen saturation in Arterial blood by Pulse oximetry Heart rate Respiratory rate Systolic blood pressure Diastolic blood pressure Provider Name and Address Organization Details Last Updated DateTime 4 185.42 cm 44.8 kg/m2 709256. 89 g 98.4 [degF] 95 % 95 % 103 /min 16 /min 124 mm[Hg] 84 mm[Hg] May [facility] [place] 4 13:09:31 Date Recorded Body height Provider Name an d Address Organization Details Last Updated DateTime 12/12/2023 185.42 cm [facility] [place] 12/12/2023 13:07:28 Date Recorded Body height Body mass index (BMI) Body weight Body temperature Oxygen saturation Oxygen saturation in Arterial blood by Pulse oximetry Heart rate Respiratory rate Systolic blood pressure Diastolic blood pressure Provider Name and Address Organization Details Last Updated DateTime 185.42 cm 47.8 kg/m2 950235. 44 g 98 [degF] 93 % 93 % 92 /min 18 /min 168 mm[Hg] 92 mm[Hg] Marlene Wong [facility] [place] 14:12:58 Social History Question Answer Notes LastModified by [employer] Details LastModified Time Tobacco Smoking Status Never Smoker Samara Walden [facility], [facility] [place] 07/08/2023 12:18:12 Do You Have An Advance Directive? No Information not available 09/03/2023 Are You Blind Or Do You Have Difficulty Seeing? No Information not available 09/03/2023 What Was The Date Of Your Most Recent Tobacco Screening? 09/03/2023 Information not available 09/03/2023 Are You Passively Exposed To Smoke? No Information not available 09/03/2023 How Many Years Have You Smoked Tobacco? 0 Information not available 09/03/2023 Sex: Male Functional Status Question Answer Note LastModified by [employer] ion Details LastModified Time Do you use any illicit or recreational drugs? No Information not available 09/03/2023 Do you or have you ever used any other forms of tobacco or nicotine? Yes [email or web address] Information not available 07/08/2023 What is your level of alcohol consumption? Occasional Information not available 09/03/2023 Do you or have you ever used smokeless tobacco? Currently chews tobacco [email or web address] Information not available 07/08/2023 Do you or have you ever used e-cigarettes or vape? Never used electronic cigarettes Information not available 07/08/2023 What is your exercise level? Occasional Information not available 09/03/2023 Mental Status Question Answer Note LastModified by Organization D etails LastModified Time Do you feel stressed (tense, restless, nervous, or anxious, or unable to sleep at night)? [id number] Information not available 09/03/2023 Family History Relationship Description Onset Age of this Age Resolved Age Notes LastModified by Organization Details LastModified Time Mother Multiple sclerosis [email or web address] Not available 06/19 15:05:10 Maternal Grandfather Hypertensive disorder [email or web address] Not available 06/19 15:05:33 Medical History Condition Response Obesity Y Headaches Y Diabetes Y Reflux/GERD Y Hypertension Y Immunizations Vaccine Type Date Status Note Provider Nam e and Address Organization Details Recorded Time Td (adult), 2 Lf tetanus toxoid, preservative free, adsorbed 8 completed Sveta Montalvo [facility], [place] - [facility] [address] - [place] & [place] 09/19/2023 14:38:47 Past Encounters Encounter ID Performer Location Encounter Start Date Encounter Closed Date Diagnosis/Indication Diagnosis SNOMED-CT Code Diagnosis ICD10 Code Diagnosis Note [id number] [facility] [address] [place] [address] 07/08/2023 14:49:53 07/08/2023 15:26:47 Erythrocytosis 477857637 D75.1 Patient presents July 08, 2023 for evaluation of erythrocyt osis. Suspect this is likely secondary to undiagnose d obstructiv e sleep apnea. However, differenti al diagnosis cannot exclude myeloproli ferative disease, kidney disease, or vitamin deficiency . Laboratory evaluation today. Laboratory evaluation performed in the office. Labs pending at this time. Patient to return to clinic in 2 weeks to review results. Should you have any further questions or concerns, please feel free to give me a call at . I personally spent 45 minutes in patient care on this date reviewing records, obtaining interim history, performing a physical exam, counseling the patient, ordering and reviewing today's labs, and documentin g informatio n in the electronic health record. [id number] MD BRIDGER Stephen [facility] [address] [place], [place] [id number] 09/03/2023 07:48:34 09/03/2023 09:03:57 Closed fracture of shaft of humerus 75061039 S42.302A [id number] Alli Wells MD [facility] [place] [address] 09/19/2023 14:21:33 09/19/2023 14:56:06 Follow-up orthopedic assessment 536905788 Z47.89 [id number] Alli Wells MD [facility] [address] [place] [address] 9 10/03/2023 08:25:48 10/03/2023 09:21:28 Follow-up orthopedic assessment 448828687 Z47.89 Cellulitis of left upper limb 1120697364 1793309 L03.114 Stitch abscess 868997254 T81.41XA Right radi al nerve palsy 8717089752 2482823 G56.31 [id number] Alli Wells MD [facility] [place] [address] 10/10/2023 08:32:24 10/10/2023 08:57:00 Follow-up orthopedic assessment 025734615 Z47.89 Cellulitis of left upper limb 0828624376 2717293 L03.114 Stitch abscess 938634571 T81.41XA Right radi al nerve palsy 1923869619 5224761 G56.31 [id number] RIKA FRANCES DO [facility] [address] [place] [address] 9 10/17/2023 13:04:08 10/17/2023 14:29:36 Follow-up orthopedic assessment 844231431 Z47.89 Cellulitis of left upper limb 4397429773 6793228 L03.114 Stitch abscess 369896202 T81.41XA Right radi al nerve palsy 1021633918 1181146 G56.31 [id number] Alli Wells MD [facility] [address] [place] [address] 9 11/14/2023 09:57:36 11/14/2023 10:52:29 Follow-up orthopedic assessment 167050196 Z47.89 Cellulitis of left upper limb 8853866092 5695247 L03.114 Right radi al nerve palsy 8140553999 2616190 G56.31 [id number] [facility] [address] [place] [address] [place] [address] 12/09/2023 12:46:08 12/09/2023 13:55:33 Erythrocytosis 151417847 D75.1 Patient presents December 09, 2023 for follow-up regarding erythrocyt osis. patient reports he is doing well. He has donated blood since his last visit. Patient previously tested negative for JAK2. Suspect his erythrocyt osis is secondary to undiagnose d sleep apnea and testostero ne use. Laboratory evaluation today. Laboratory evaluation performed in the office. Labs pending at this time. Recommend home sleep study. Patient to return to clinic in 2 weeks to review results. Should you have any further questions or concerns, please feel free to give me a call at . I personally spent 25 minutes in patient care on this date reviewing records, obtaining interim history, performing a physical exam, counseling the patient, ordering and reviewing today's labs, and documentin g informatio n in the electronic health record. Serum ferr itin above reference range 322373911 R77.8 Patient with elevated ferritin. Concerns for hemochroma tosis. We will test for this today. [id number] MD BRIDGER Stephen [address] [address] 12/12/2023 13:02:49 12/12/2023 13:30:06 Follow-up orthopedic assessment [id number] Z47.89 Right radi al nerve palsy 3512300157 5742043 G56.31 [id number] [facility] [address] [place] [address] [place] [address] 01/20/2024 13:31:37 01/20/2024 14:47:00 Erythrocytosis [id number] D75.1 Patient presents January 20, 2024 for follow-up regarding erythrocyt osis. Patient reports he is doing well. He has donated blood since his last visit. Patient previously tested negative for JAK2. Suspect his erythrocyt osis is secondary to undiagnose d sleep apnea and testostero ne use. Laboratory evaluation today. Labs pending at this time. Recommend home sleep study, will reorder this. Patient to return to clinic in 6 months. Should you have any further questions or concerns, please feel free to give me a call at . I personally spent 25 minutes in patient care on this date reviewing records, obtaining interim history, performing a physical exam, counseling the patient, ordering and reviewing today's labs, and documentin g informatio n in the electronic health record. Serum ferr itin above reference range 300092994 R77.8 Patient with elevated ferritin. Hemochroma tosis was negative. Will reassess iron studies today. Health Concerns Section Related Observation LastModified by Organization Detai ls LastModified Time None Recorded Concern Status LastModified by Organization Details LastModified Time None Recorded Advance Directives Directive N: Payers Insurance Date Sequence Insurance Name Policy Number Policy Schumacher Covered Member ID Schumacher Member ID Guarantor Name 07/19/2024 1 MONICO [id number] Roselyn Perez [id number] 1 Roselyn Perez Notes Date Note Type Note Provider Name and Address Organization Details Recorded Time 10/17/2023 text/html Pt is here for f /u of his DOS 7.19.24 - left humeral shaft fx ORIF. His incision is less red. He took his last ABX yesterday. We are getting [id number] SWATI MANRIQUE NP [address] [place] [address],[address], [place], [address], [place] - [facility] - [place] & [place] 10/18/2023 13:18:26 11/14/2023 text/html Follow up left humeral shaft ORIF/radial nerve palsy with x-rays; DOS 7.19.24Pain is improving about upper arm, left hand is still drawing /unable gripPatient previously had cellulitis, incision continues to [id number] Alli Wells MD [address] [place] [address] Drive,[address], [place], [address], [place] - [facility] 11/15/2023 07:32:08 12/09/2023 text/html 42-year-old male referred for evaluation of erythrocytosis. Patient notes he presented to his PCP for routine follow-up and laboratory evaluation. Patient with a past medical history of erectile dysfunction, and hypertension. Patient complains of intermittent fatigue. he reports he does snore but has never had a sleep study before. He also reports receiving testosterone injections. He denies chest or abdominal pain. He denies palpitations or shortness of breath. He denies fever, chills, or night sweats. He denies any overt bleeding. He reports he has never smoked. He denies blood in his stool or changes in bowel habits. Patient denies family history of blood disorders or blood cancers.Laboratory evaluation from 05/21/2023 reviewed. CBC showed hemoglobin 18.0 with hematocrit 53.5, and MCV 86. RBC was elevated at 6.20. WBC, platelets, and differential were otherwise unremarkable. CBC from 01/15/2023 showed hemoglobin 16.9, hematocrit 40.7, MCV 85.5. Patient presents December 09, 2023 for follow-up regarding erythrocytosis. Patient reports he donated blood and felt better. He denies chest or abdominal pain. He denies palpitations or shortness of breath. He denies fever, chills, or night sweats. He denies any overt bleeding. MICHAEL HWANG NP [address] [facility],[address], [place], [address], [place] - [facility] [place] 01/03/2024 10:14:34 12/12/2023 text/html Patient is here today for EMG results. 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 Mild right carpal tunnel syndrome.2. Moderate left carpal tunnel syndrome.3. Mild right cubital tunnel syndrome.4. Moderate left cubital tunnel syndrome.5. Left radial motor nerve exhibited complete conduction block across the spiral groove and diminished CMAP amplitudes (approximal 75% side to side difference compared to the right side). 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 [id number] Alli Wells MD [address] [facility],[address], [place], [address], [facility] & [place] 12/13/2023 07:32:55 01/20/2024 text/html 43-year-old male referred for evaluation of erythrocytosis. Patient notes he presented to his PCP for routine follow-up and laboratory evaluation. Patient with a past medical history of erectile dysfunction, and hypertension. Patient complains of intermittent fatigue. he reports he does snore but has never had a sleep study before. He also reports receiving testosterone injections. He denies chest or abdominal pain. He denies palpitations or shortness of breath. He denies fever, chills, or night sweats. He denies any overt bleeding. He reports he has never smoked. He denies blood in his stool or changes in bowel habits. Patient denies family history of blood disorders or blood cancers.Laboratory evaluation from 05/21/2023 reviewed. CBC showed hemoglobin 18.0 with hematocrit 53.5, and MCV 86. RBC was elevated at 6.20. WBC, platelets, and differential were otherwise unremarkable. CBC from 01/15/2023 showed hemoglobin 16.9, hematocrit 40.7, MCV 85.5. Patient presents January 20, 2024 for follow-up regarding erythrocytosis. Patient reports he feels well. He denies chest or abdominal pain. He denies palpitations or shortness of breath. He denies fever, chills, or night sweats. He denies any overt bleeding. MICHAEL HWANG NP [address] [facility],[address], [place], [address], [facility] [place] 02/21/2024 11:35:36
--- OUTSIDE RECORDS SUMMARY | 2024-08-13 10:45 | XMS_ITS | Clinical Summary ---
Author Organization [facility] Phone Care Team Providers Care Human Resources Director Name Role Phone Unavailable Primary Care Provider Unavailabl e Allergies No known active allergies Medications amLODIPine (NORVASC) 10 mg Oral Tablet Take 1 Tablet by mouth daily. 8 Active allopurinoL (ZYLOPRIM) 100 mg Oral Tablet Take 1 Tablet by mouth daily. 7 Active carvediloL (COREG) 25 mg Oral Tablet Take 1 Tablet by mouth 2 times daily. 8 Active FARXIGA 10 mg Oral Tablet Take 1 Tablet by mouth daily. Active escitalopram oxalate (LEXAPRO) 20 mg Oral Tablet Take 1 Tablet by mouth daily. Active glimepiride (AMARYL) 4 mg Oral Tablet Take 1 Tablet by mouth daily. Active hydroCHLOROthia zide 25 mg Oral Tablet Take 1 Tablet by mouth daily. 2 Active losartan (COZAAR) 25 mg Oral Tablet Take 1 Tablet by mouth daily. 4 Active meclizine (ANTIVERT) 25 mg Oral Tablet Take 25 mg by mouth 3 times daily as needed. 1 Active meloxicam (MOBIC) 7.5 mg Oral Tablet Take 1 Tablet by mouth daily. 4 Active omeprazole (PRILOSEC) 40 mg Oral Capsule, Delayed Release(E.C.) Take 1 Capsule by mouth daily. 4 Active pravastatin (PRAVACHOL) 40 mg Oral Tablet Take 1 Tablet by mouth nightly. 2 Active XYOSTED 75 mg/0.5 mL SubQ Auto-Injector LD 02/18 4 Active MOUNJARO 15 mg/0.5 mL SubQ Pen Injector Subcutaneous (Inject under the skin) 15 mg once a week. Active oxyCODONE (ROXICODONE) 5 mg Oral Tablet Take 1 Tablet by mouth every 4 hours as needed for Major Surgery/Trauma (G89.18). 28 Tablet Active Additional Information Patient not taking.Reason: Therapy Completed, Reported on 06/15/2024 Active Problems Problem Noted Date Diagnosed Date Carpal tunnel syndrome of left wrist 01/20/2024 Cubital tunnel syndrome on left 01/20/2024 Encounters Date Type Department Care Team Description 06/15/2024 10:15 AM EDT Ancillary Procedure [facility] [address] [address] Karla Jackson PA-C Left arm pain 06/15/2024 10:00 AM EDT Office Visit [facility] [address] [address] Edu Choe MD Left arm pain (Primary Dx) from Last 3 Months Surgical History Surgery Date Site/Laterality Comments ARM SURGERY 08/19/2023 - 09/18/2023 Left Humerus ORIF ANKLE SURGERY 09/19/2023 - 10/19/2023 Right Broken Right Ankle EAR SURGERY tubes WISDOM TOOTH EXTRACTION ULNAR TUNNEL RELEASE 02/28/2024 Arm/Elbow/Left Left Cubital Tunnel Release, Open Carpal Tunnel Release, Exploration of Radial Nerve with Neurolysis Repair; Surgeon: Edu Choe MD; Location: [facility] OR; Service: Orthopedics CARPAL TUNNEL RELEASE 02/28/2024 Hand/Wrist/Left .; Surgeon: Eud Choe MD; Location: [facility]; Service: Orthopedics Medical History Medical History Date Comments Type 2 diabetes mellitus without complications ( HCC) Essential (primary) hypertension Hyperlipidemia Heartburn Depression Social History Tobacco Use Types Packs/Day Years Used Date Smoking Tobacco: Never Smokeless Tobacco: Current Chew Tobacco Cessation:Ready to Q uit: Not Asked; Counseling Given: Not Answered Alcohol Use Standard Drinks/Week Comments Yes 0 (1 standard drink = 0.6 oz pur e alcohol) occas / 1-2 drinks/ day Sex and Gender Information Value Date Recorded Sex Assigned at Not on file Legal Sex Male 1:48 PM EST Gender Identity Not on file Sexual Orientation Not on file Obstetrics History Last Filed Vital Signs Vital Sign Reading Time Taken Comments Blood Pressure 151/86 02/28/2024 4:40 PM EST Pulse 88 02/28/2024 4:40 PM EST Temperature 37.1 C (98.7 F) 02/28/2024 4:40 PM EST Respiratory Rate 18 02/28/2024 4:40 PM EST Oxygen Saturation 96% 02/28/2024 4:40 PM EST Inhaled Oxygen Concentration - - Weight 159.7 kg (352 lb) 02/28/2024 12:33 PM EST Height 190.5 cm (6' 3 ) 02/28/2024 12:33 PM EST Body Mass Index 44 02/28/2024 12:33 PM EST Plan of Treatment Upcoming Encounters Date Type Department Care Team (Late st Contact Info) Description 09/14/2024 10:00 AM EDT Office Visit [facility] [address] [place] [address] Edu Choe MD [address] [place] [address] Health Maintenance Due Date Last Done Comments Annual Wellness Exam 1985 DTaP/TDaP/Td (2 - Tdap) 12/02/1997 12/01/1997 Hepatitis B Vaccine (1 of 3 - 19+ 3-dose series) 2001 COVID-19 Vaccine (2023-2 5 season) 2023 Influenza Vaccine (Season Ended) 2024 Meningococcal B Vaccine Aged Out No l onger eligible based on patient's age to complete this topic Pneumococcal Vaccine 0-49 Aged Out No longer eligible based on patient's age to complete this topic Medical Devices Implanted Type Area Potato Sorter Device Identifier Shelf Expiration Date Model / Serial / Lot Plate And Screws In Left Arm Band And Screws In Right Leg/Ankle Procedures Procedure Name Priority Date/Time Associated Diagnosis Comments XR HUMERUS LEFT AP LATERAL Routine 06/15/2024 10:22 AM EDT Left arm pain from Last 3 Months Results * XR HUMERUS LEFT AP LATERAL (06/15/2024 10:22 AM EDT) Narrative [facility] - 06/15/2024 10:22 AM EDT Please see physician's note from office encounter for x-ray imaging result Karla Jackson PA-C IMG DIAGNOSTIC IMAGING OR DERABLES Final Result [facility]TH[facility] from Last 3 Months Insurance [employer] OPEN ACCESS [employer] [address] [place], [id number] [employer] [id number] [employer] OPEN ACCESS PLUS [facility] OPEN ACCESS PLUS
--- OUTSIDE RECORDS SUMMARY | 2024-08-13 10:45 | XMS_ITS | Continuity of Care Document ---
Author Organization [facility] Address [address] [place] [address] Assessment Encounter Date Assessment Date Assessment LastModified by Organization Details LastModified Time 07/15/2024 07/15/2024 spoke with vaibhav warren aprn at hematology, HST result shows severe BRAXTON, he is using CPAP has fu with hematology in summer 2024 -f/u with Linda Gamboa APRN july-september for xyosted refills and then I have given him a lab order for september to get labs repeated before he comes back to see me in october. aislinn Not available 07/15/2024 12:29:42 Plan of Treatment Reminders Order Date Submit Date Provider Last Modified By Organization Details Last Modified Time Details Appointments Follow Up 20 2024 02:00P Nadia Anderson APRN Not available Not available Not available Lab drug screen, urine 2024 025 aislinn [facility], [address], [place], [address], 07/15/2024 12:19:29 CBC w/ auto diff - get drawn 3-4 days after xyosted injection . 2024 025 aislinn [facility], [address], [address], [place], [address], 07/15/2024 12:20:19 testoster one, total, serum - get drawn 3-4 days after xyosted injection . 2024 025 [facility], [address], [address], [place], [address], 07/15/2024 12:20:19 Referral None recorded. Procedures None recorded. Surgeries None recorded. Imaging None recorded. Medication Orders Xyosted 100 mg/0.5 mL subcutane ous auto-inje ctor 2024 025 [facility], [facility] , [address], [place], [place], [id number], 07/22/2024 05:01:29 Patient TargetsNo targets recorded. Patient Instructions Encounter Date Encounter Id Patient Instructions Last Modified By Organization Details Last Modified Time 07/15/2024 [id number] high blood pressure: care instructions Not available [...] Abnormal Flag Note LastModifiedBy Organization Detail LastModifiedTime 07/16/1907/15/2024 drug scree n, urine THC negati ve Not Available [facility] [address] [place], [address], 07/14/2024 07:54:16 07/16/1907/15/2024 drug scree n, urine TCA negati ve Not Available [facility] [address] [place], [address], 07/14/2024 07:54:16 07/16/1907/15/2024 drug scree n, urine BAR negati ve Not Available [facility] [address] [place], [address], 07/14/2024 07:54:16 07/16/19 25 07/15/2024 drug scree n, urine BZO negati ve Not Available [facility] [address] [place], [address], 07/14/2024 07:54:16 07/16/19 25 07/15/2024 drug scree n, urine MTD negati ve Not Available [facility] [address] [place], [address], 07/14/2024 07:54:16 07/16/19 25 07/15/2024 drug scree n, urine AMP negati ve Not Available [facility] [address] [place], [address], 07/14/2024 07:54:16 07/16/1907/15/2024 drug scree n, urine MOP negati ve Not Available [facility] [address] [place], [address], 07/14/2024 07:54:16 07/16/1907/15/2024 drug scree n, urine OXY negati ve Not Available [facility] [address] [place], [address], 07/14/2024 07:54:16 07/16/1907/15/2024 drug scree n, urine MDMA negati ve Not Available [facility] [address] [place], [address], 07/14/2024 07:54:16 07/16/19 25 07/15/2024 drug scree n, urine HUBERT negati ve Not Available [facility] [address] [place], [address], 07/14/2024 07:54:16 07/16/1907/15/2024 drug scree n, urine PCP negati ve Not Available [facility] [address] [place], [address], 07/14/2024 07:54:16 07/16/1907/15/2024 drug scree n, urine MET negati ve Not Available [facility] [address] [place], [address], 07/14/2024 07:54:16 Result Notes None recorded. Problems Name Problem SNOMED Code Status Onset Date Resolution Date Notes Provider Name and Address Organization Details Recorded Time Erectile dysfunction 226446026 Active 2021 Yamini Prieto [place], [place] - [facility] 2 08:04:56 Hypertensive disorder 83592196 Active 2021 Yamini Prieto [place], [place] - [...] Status: Recorded on: 10/14/19 11 3:44PM;U ser: [email or web address]; Est. Completi on: 11/13/19 11 Not Available [...] Organization Details Last Updated DateTime 185.42 cm 45.6 kg/m2 045411. 17 g 85 /min 96 % 96 % 18 /min 142 mm[Hg] 82 mm[Hg] Olivia Rodriguez [place] - [facility] 05/28/202 5 12:02:55 Social History Question Answer Notes LastModified by Organizat ion Details LastModified Time Tobacco Smoking Status Never Smoker Yamini Prieto [place], [place] - [facility] 02/13/2022 08:07:28 Do You [...] Or The Highest Degree You Have Received? [id number] Information not available 02/13/2022 Have There Been Any Changes To Your Family Or Social Situation? No Information no t available 02/13/2022 Have You Recently Or Are You Planning To Travel To An Area With Zika Virus? No Information not available 02/13/2022 Do You Have A Medical Power Of Cone Classifier Tender? No Information not available 02/13/2022 What Was The Date Of Your Most Recent Tobacco Screening? 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 [id number] Information not available 02/13/2022 Do you have [...] SNOMED-CT Code Diagnosis ICD10 Code Diagnosis Note [id number] Suzie Anderson [facility] [address] [place] [address] 06/17/2024 11:11:45 06/17/2024 15:15:28 Male hypogonadism 39919058 E29.1 Discussed with pt protocol/p jacob for evaluating /treating hypogonadi sm: - will begin replacemen t and standardiz ed dose, and then may adjust in the future.--- - Minimum visit in office [id number] and possibly labs as needed.--- - Pt to visit monthly for refills. no refill to be given if overdue for visit to office.- Controlled substance agreement required. UPDATED 05/22/24- UDS - UPDATED--- - If failed UDS- no prescripti on for controlled substance will be given.- CHARLINE at every refill. UPDATED Erectile dysfunction 860 730208 F52.21 Hypertensive disorder 38 682033 I10 Hyperlipidemia 23034493 E78.5 Reduced libido 7212157 R 68.82 Needle phobia 585351068 F40.231 Incoordination 729229771 R27.9 Type 2 timoteo betes mellitus 60511621 E11.9 Secondary polycythemia 01324763 D75.1 Long-term current use of drug therapy 297046411 Z79.490 [id number] [facility] [address] [place] [address] 07/15/2024 11:34:38 07/15/2024 12:32:00 Male hypogonadism 98987568 E29.1 Discussed with pt protocol/p jacob for evaluating /treating hypogonadi sm: - will begin replacemen t and standardiz ed dose, and then may adjust in the future.--- - Minimum visit in office [id number] and possibly labs as needed.--- - Pt to visit monthly for refills. no refill to be given if overdue for visit to office.- Controlled substance agreement required. UPDATED 05/22/24- UDS - UPDATED--- - If failed UDS- no prescripti on for controlled substance will be given.- CHARLINE at every refill. UPDATED Erectile dysfunction 860 817644 F52.21 Hypertensive disorder 38 366204 I10 Hyperlipidemia 09792610 E78.5 Reduced libido 4659733 R 68.82 Needle phobia 013521871 F40.231 Incoordination 223848370 R27.9 Type 2 timoteo betes mellitus 01917310 E11.9 Secondary polycythemia 52701309 D75.1 Long-term current use of drug therapy 528570757 Z79.899 Health Concerns Section Related Observation LastModified by Organization Detai ls LastModified Time None Recorded Concern Status LastModified by Organization Details LastModified Time None Recorded Payers Encounter Date Sequence Insurance Name Policy Number Policy Schumacher Covered Member ID Schumacher Member ID Guarantor Name 07/15/2024 [id number] Azeem Perez [id number] Azeem Perez Notes Date Note Type Note Provider Name and Address Organization Details Recorded Time 07/15/2024 text/html Lower Urinary Tr act Symptoms [...] iron/tibc/ferritin WNL. 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 which they ordered a HST and he fu in 6 months. 01/31/24- CBC WNL. iron/tibc/ferritin WNL. testo 78. 04/01/24- testo-230 CBC WNL 06/08/24- psa 0.4, testo 191. CBC WNL. (3 days post injection) Pt comes for low T. was previously seeing Dr Capellan.PCP is Dr Patterson in [place].hx HLD, HTN, t2dm, ED. Travels a lot for work. 07/15/24 comes to f/u on lowt, ed, polycythemia takes cialis 20mg PRN. works well. STARTED XYOSTED 04/06/22,increased to 100mg weekly on 06/17 needs refill.saw dontae, HAD sleep study. severe BRAXTON using CPAP just got refill in mail the other day but isnt showing on charline yet. Suzie Anderson, WINDOW MACHINE OPERATOR [address], [place], [address], [place] - [facility] 07/15/2024 12:30:10
--- NOTE | 2024-08-13 12:25 | EXP.PAIN.OV ---
HPI Data of Consult Patient: new to practice Consult date: 08/13/24 Requesting Physician: Makayla Tenorio APRN Primary Care Provider: Trish Juarez APRN Reason for consult: left arm numbness, right ankle numbness History of present illness: Mr. Perez is a 43 year old male who presents today as a new patient. He is a referral from Denisse Juarez. Today he rates his pain a 7 out of 10. Patient has been having chronic pain in his left arm that does radiate down to his fingertips with constant numbness and right lower leg/ankle numbness. Patient states that this is all related to an injury he suffered last year around August where he was thrown off a horse and had multiple fractures in these 2 locations. Patient ended up having surgery with hardware placed. He states from then on he has continued to have worsening pain. Patient states that the upper extremity pain is worse than the lower. He does state that they ended up doing an EMG test and that it did show 75% nerve damage. 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 He states from his upper arm down to his fingers he cannot feel anything. Patient states that the pain is interfering with his activities of daily living such as cooking and cleaning. Patient has tried physical therapy with no additional improvement. He has also done heat and ice and topicals with minimal changes. Patient states that he was given gabapentin however this made no additional improvement. Patient has been tried on meloxicam however he states he really did not notice much improvement. Patient denies any heart or kidney issues other than having some high blood pressure. His Gabriele has been reviewed and is appropriate. Pain at rest (0-10 scale): 7 Has patient had previous pain injection?: No Conservative treatment options previously tried: NSAIDS (longer than 12 weeks), Home exercise plan (longer than 12 weeks) and Physical Therapy (no improvement) cc:: CC: Makayla Tenorio APRN [facility] Disclaimer: The information contained in this section may have been updated after the patient was seen, as this information can be updated by other users. Medical History (Updated 08/13/24 @ 12:27 by Makayla Tenorio APRN) GERD (gastroesophageal reflux disease) Chronic pain High blood pressure Diabetes Surgical History (Updated 01/14/24 @ 11:11 by GOVIND Larios) History of vasectomy Hx of LASIK History of surgery on lower extremity History of surgery on arm Social History (Updated 01/14/24 @ 11:14 by GOVIND Larios) Smoking Status: Current every day smoker tobacco type: smokeless tobacco alcohol intake: current alcohol intake frequency: 0-2 drinks per day counseling given: Yes substance use type: denies use current occupational status: employed Travel in the last 8 weeks?: None household members: spouse and family housing: house Review of Systems Review of Systems Review of systems:: pertinent systems reviewed and negative unless documented below Review of systems (narrative): Review of Systems: General: No recent weight changes, no fever, no sleep disturbances Respiratory: No cough, no shortness of air, no recurring pulmonary infections Cardiovascular/peripheral vascular: No chest pain, no palpitations, no edema, no shortness of breath Gastrointestinal: No new onset incontinence, normal bowel movements reported Genitourinary: No new onset incontinence Musculoskeletal: Left arm numbness/pain, altered assistant education director, right ankle pain Psychiatric: [Normal mood/affect] Neurological: [Denies weakness in extremities], [denies balance issues] Meds Home Medications and Allergies Home Medications ?Medication ?Instructions ?Recorded ?Confirmed ?Type amlodipine 10 mg tablet 10 mg PO DAILY High blood pressure 10/03/17 08/13/24 History carvedilol 25 mg tablet 25 mg PO BID High blood pressure 10/03/17 08/13/24 History allopurinol 100 mg tablet 100 mg PO DAILY gout 10/09/21 08/13/24 History fenofibrate nanocrystallized 145 145 mg PO DAILY hld 10/09/21 08/13/24 History mg tablet hydrochlorothiazide 25 mg tablet 25 mg PO DAILY htn 10/09/21 08/13/24 History pravastatin 40 mg tablet 40 mg PO HS hld 10/09/21 08/13/24 History tadalafil (pulm. hypertension) 20 20 mg PO DAILY PRN erectile 10/09/21 08/13/24 History mg tablet (pulmonary hypertension) dysfunction testosterone cypionate 200 mg/mL 200 mg IM Q2W Supplement 10/09/21 08/13/24 History intramuscular oil escitalopram oxalate 20 mg tablet 20 mg PO DAILY 01/14/24 08/13/24 History glimepiride 4 mg tablet 4 mg PO DAILY 01/14/24 08/13/24 History lidocaine HCl 2 % mucosal solution 2.5 ml mucous membrane TID-QID 01/14/24 08/13/24 History losartan 25 mg tablet 25 mg PO DAILY 01/14/24 08/13/24 History meloxicam 7.5 mg tablet 7.5 mg PO DAILY 01/14/24 08/13/24 History omeprazole 40 mg capsule,delayed 40 mg PO DAILY 01/14/24 08/13/24 History release tirzepatide 15 mg/0.5 mL 15 mg SQ QWEEK 01/14/24 08/13/24 History subcutaneous pen injector (Kunalunketanro) diclofenac sodium 75 mg 75 mg PO BID #28 tabs 08/13/24 Rx tablet,delayed release New Prescriptions to Start Prescriptions: diclofenac sodium Makayla Tenorio Allergies Allergy/AdvReac Type Severity Reaction Status Date / Time No Known Allergies Allergy Verified 01/14/24 11:03 Objective Narrative: Physical Exam: General: Alert and oriented x3, no acute distress, pleasant and cooperative Lungs: Respirations even and unlabored, symmetrical chest expansion Eyes: PERRL Musculoskeletal: Flexion and extension of left shoulder somewhat guarded secondary to pain, altered sensation and poor assistant education director in comparison to the right Neurological: Speech clear, no gross sensory deficit Assessment and Plan *Assessment and plan (1) Chronic pain: Status: Acute Category: Medical Code(s): G89.29 - Other chronic pain (2) Left arm pain: Status: Acute Category: Medical Code(s): M79.602 - Pain in left arm (3) Right ankle pain: Status: Acute Category: Medical Code(s): M25.571 - Pain in right ankle and joints of right foot (4) CRPS (complex regional pain syndrome), upper limb: Status: Acute Category: Medical Code(s): G90.519 - Complex regional pain syndrome I of unspecified upper limb Plan Patient is experienced significant pain and numbness throughout his left upper arm that does radiate down into his entire left hand with numbness. Patient did have significant loss of function including weak assistant education director and altered sensation. I did review over with the patient that I do believe he would benefit from a stellate ganglion nerve block along the left side. Risk and benefits were discussed with the patient and he would like to proceed forward with this plan of care. I will also order the patient compounded cream. We did discuss that we will discontinue the meloxicam and send in a 2-week prescription of diclofenac 75 mg twice a day. He was counseled to discontinue any other NSAIDs while taking this medication and to take it with food to minimize GI upset. Patient acknowledges understanding agrees with this plan of care. Patient has tried and failed conservative therapy including oral medications, heat and ice, topicals, physical therapy and continued at home stretching exercise that was physician guided for longer than 12 weeks. Patient has had surgical intervention with no additional improvement. Patient will be scheduled for a left stellate ganglion nerve block. This injection will be done with fluoroscopic and/or ultrasound guidance. Patient has been instructed to contact the clinic with any concerns before the next appointment. Dr. Robert has reviewed this note and agrees with this plan of care. This note was dictated using voice recognition software and make contain errors or omissions. All injections are used with Lidocaine, Bupivacaine and dexamethasone. Occasionally urine drug screen is needed to verify patient's compliance with our office pain contract. This is ordered based off specific treatments related to chronic pain with the potential to abuse certain medications.
[2024-08-13 12:27] VITALS: BP 108/57; PULSE 78; RESP 18; O2SAT 98; BMI 37.5
== END 2024-08-13 23:59 | disposition home or self-care (01) ==
PROVIDERS: PCP Nurse Practitioner Family; Visit Provider Nurse Practitioner Family
DX: G90.512 Complex regional pain syndrome I of left upper limb (principal); M25.571 Pain in right ankle and joints of right foot; Z79.1 Long term (current) use of non-steroidal anti-inflammatories (NSAID)
CPT/HCPCS: 99202; G0463

== ENCOUNTER 2024-08-28 14:11 | Day surgery (SDC) | payer OTHER, SELFPAY ==
[2024-08-28 14:31] VITALS: BP 116/62; PULSE 79; RESP 18; O2SAT 94; BMI 39.9
[2024-08-28] MEDS: LIDOCAINE 1% 30ML PF VIAL 30 ML (15:16)
[2024-08-28] MEDS: DEXAMETHASONE 10MG/ML 1ML VIAL 10 MG (15:18)
[2024-08-28 15:19] VITALS: BP 143/70; PULSE 80; RESP 18; O2SAT 94
[2024-08-28 15:22] VITALS: BP 143/70; PULSE 80; RESP 18; O2SAT 94
[2024-08-28] MEDS: IOPAMIDOL-200 (41%);10ML VIAL 10 ML IV (15:27)
[2024-08-28 15:28] VITALS: BP 125/75; PULSE 66; RESP 18; O2SAT 96
--- NOTE | 2024-08-28 15:50 | P.PCN_ITS ---
Procedure Date: 08/28/24 Time: 15:50 Anesthesiologist:: Yoan Robert MD Complications:: None Pre-procedure Diagnosis:: Complex regional pain syndrome type I left upper extremity Post-procedure Diagnosis:: Same Indications for Procedure:: The patient is a pleasant 43-year-old white male who we are treating for complex regional pain syndrome type I of left upper extremity. He has had previous injury and surgery to his left upper extremity with autonomic symptoms and temperature changes including increased pain and discoloration with complex regional pain syndrome symptoms. He is doing physical therapy. We will do a left stellate ganglion block today to help with his pain symptoms and allow him to be more aggressive with physical therapy. Procedure Details:: Informed consent was obtained the risk and benefits of the procedure were e xplained to the patient. The patient was taken the procedure room. He is placed supine on the procedure table. C arm fluoroscopy was used to view of the transverse process of the C7 vertebrae on the left side. The skin and subtenons tissues were anesthetized using lidocaine. A 25-gauge needle was inserted and advanced until it contacted the C7 transverse process on the left side. Dye was injected to make sure there was no intravascular spread. We then injected 15 mL lidocaine 1% and dexamethasone 10 mg and around the left stellate ganglion. The patient tolerated the procedure well with no complications. Plan and Disposition:: We will follow-up with this patient in 2 weeks. Will evaluate efficacy of this injection. Will reevaluate symptoms at that time.
== END 2024-08-28 15:28 | disposition home or self-care (01) ==
LOC: SC.PAINP 14:13
PROVIDERS: PCP Nurse Practitioner Family; Visit Provider Anesthesiology
DX: G90.512 Complex regional pain syndrome I of left upper limb (principal); E11.9 Type 2 diabetes mellitus without complications; K21.9 Gastro-esophageal reflux disease without esophagitis; I10 Essential (primary) hypertension; F17.290 Nicotine dependence, other tobacco product, uncomplicated; Z79.85 Long-term (current) use of injectable non-insulin antidiabetic drugs; Z79.899 Other long term (current) drug therapy
CPT/HCPCS: 64510; J1100; J2003; Q9966

== ENCOUNTER 2024-09-10 13:08 | Outpatient (POV) | payer OTHER, SELFPAY ==
--- OUTSIDE RECORDS SUMMARY | 2024-09-10 13:11 | XMS_ITS | Continuity of Care Document ---
[facility] Address [address] [place] [address] Assessment No assessment recorded. Plan of Treatment Reminders Order Date Submit Date Provider Last Modified By Organization Details Last Modified Time Details Appointments Establish ed Patient 2024 02:00P Nadia Gamboa APRN Not available Not available Not available Follow Up 2024 02:00P Nadia Anderson APRN Not available Not available Not available Lab drug screen, urine 2024 025 [facility], [address] [place] [address], [phone], 08/20/2024 16:55:46 Referral None recorded. Procedures None recorded. Surgeries None recorded. Imaging None recorded. Medication Orders Xyosted 100 mg/0.5 mL subcutane ous auto-inje ctor 2024 025 [facility], [address] [place] [address] , [address], [place], [place], [id number], 08/20/2024 16:33:38 Patient TargetsNo targets recorded. Patient InstructionsNo instructions recorded. Reason for Referral None Reported. Results Created Date Observation Date Name Description Value Unit Range Abnormal Flag Note LastModifiedBy Organization Detail LastModifiedTime 08/21/1908/20/2024 drug scree n, urine AMP negati ve Not Available [address], [address], 08/20/2024 15:35:04 08/21/19 25 08/20/2024 drug scree n, urine BAR negati ve Not Available [address], [address], 08/20/2024 15:35:04 08/21/19 25 08/20/2024 drug scree n, urine BUP negati ve Not Available [address], [address], 08/20/2024 15:35:04 08/21/19 25 08/20/2024 drug scree n, urine BZO negati ve Not Available [address], [address], 08/20/2024 15:35:04 08/21/19 25 08/20/2024 drug scree n, urine HUBERT negati ve Not Available [address], [address], 08/20/2024 15:35:04 08/21/19 25 08/20/2024 drug scree n, urine FTY negati ve Not Available [address], [address], 08/20/2024 15:35:04 08/21/19 25 08/20/2024 drug scree n, urine MDMA negati ve Not Available [address], [address], 08/20/2024 15:35:04 08/21/19 25 08/20/2024 drug scree n, urine MET negati ve Not Available [address], [address], 08/20/2024 15:35:04 08/21/19 25 08/20/2024 drug scree n, urine MOP negati ve Not Available [address], [address], 08/20/2024 15:35:04 08/21/19 25 08/20/2024 drug scree n, urine MTD negati ve Not Available [address], [address], 08/20/2024 15:35:04 08/21/19 25 08/20/2024 drug scree n, urine OXY negati ve Not Available [address], [address], 08/20/2024 15:35:04 08/21/19 25 08/20/2024 drug scree n, urine PCP negati ve Not Available [address], [address], 08/20/2024 15:35:04 08/21/19 25 08/20/2024 drug scree n, urine TCA negati ve Not Available [address], [address], 08/20/2024 15:35:04 08/21/19 25 08/20/2024 drug scree n, urine THC negati ve Not Available [address], [address], 08/20/2024 15:35:04 Result Notes None recorded. Problems Name Problem SNOMED Code Status Onset Date Resolution Date Notes Provider Name and Address Organization Details Recorded Time Erectile dysfunction 772952753 Active 2021 NOEMI Lewis - [facility] 2 08:04:56 Hypertensive disorder 20568670 Active 2021 Yamini Prieto nullNOEMI - [facility] 08:05:13 Problem Notes None recorded. Procedures Surgical History Date Name Laterality Status Provider Name and Address Organization Details Recorded Time Ear Tubes - Tympanostomy Tubes completed Yamini FRANKLIN - [facility] 02/13/2022 08:12:25 Imaging Results None [...] mg tablet TAKE 1 TABLET BY MOUTH AT BEDTIME active Not Available Not Available No t Available fluconazo le 150 mg tablet TAKE 1 TABLET BY MOUTH EVERY OTHER DAY FOR 4 DAYS 08/20 completed Not Available Not Available Not Available hydrocodo ne 5 mg-acetam inophen 325 [...] MOUTH EVERY 12 HOURS FOR 14 DAYS 08/20 completed Not Available Not Available Not Available omeprazol e 40 mg capsule,d elayed [...] completed Not Available Not Available Not Available cefadroxi l 500 mg capsule TAKE 1 CAPSULE BY MOUTH TWICE DAILY 07/15 completed Not Available Not Available Not Available meloxicam 7.5 mg tablet TAKE 1 TABLET BY MOUTH ONCE DAILY active Not Available Not Available No t Available oxycodone -acetamin ophen 5 mg-325 mg tablet TAKE 1 TABLET BY MOUTH EVERY 4 HOURS NEEDED FOR PAIN 08/20 completed Not Available Not Available Not Available amlodipin e 10 mg tablet TAKE [...] AND IN THE EVENING FOR 2 WEEKS 08/20 completed Not Available Not Available Not Available lisinopri l 10 mg tablet take 1 tablet (10 mg) by oral route once daily for 30 days 03/02 completed Lisinopr il Oral Tablet 10 mg;Recor ded Status: Recorded on: 03/03/19 10 11:32AM; Disconti nued Status: Disconti nued on: 03/02/19 11 10:12AM; User: haym Not Available Not Available Not Available glimepiri de 4 mg tablet TAKE 1 TABLET BY MOUTH ONCE DAILY active Not Available Not Available No t Available losartan 25 mg tablet TAKE 1 TABLET BY MOUTH ONCE A DAY. active Not Available Not Available No t Available lidocaine HCl 2 % mucosal solution 08/20 completed Not Available Not Available Not Available omeprazol e 20 mg capsule,d elayed release take 1 capsule (20 mg) by oral route once daily before a meal for 30 days 08/20 completed Not Available Not Available Not Available diclofena c sodium 75 mg tablet,de layed release TAKE 1 TABLET BY MOUTH TWICE DAILY [...] MOUTH THREE TIMES DAILY FOR 30 DAYS 08/20 completed swelling Not Available Not Available Not Available testoster one cypionate 200 mg/mL intramusc ular oil 07/27 completed Not Available Not Available Not Available ibuprofen 600 mg tablet 08/20 completed Not Available Not Available Not Available methylpre [...] ondansetr on 4 mg disintegr ating tablet 08/20 completed Not Available Not Available Not Available naproxen 500 mg tablet 08/20 completed Not Available Not Available Not Available oxycodone 5 mg tablet TAKE 1 TABLET BY MOUTH EVERY 6 HOURS NEEDED FOR SEVERE PAIN 07/15 completed Not Available Not Available Not Available escitalop marisa 10 mg tablet TAKE 1 TABLET BY MOUTH ONCE DAILY 08/20 completed Not Available Not Available Not Available escitalop marisa 20 mg tablet TAKE 1 TABLET BY MOUTH ONCE DAILY active Not Available Not Available No t Available bupropion HCl XL 150 mg 24 hr tablet, extended release TAKE 1 TABLET BY MOUTH ONCE DAILY FOR 30 DAYS active Not Available Not Available No t Available tadalafil 20 mg tablet TAKE 1 TABLET BY MOUTH NEEDED ORALLY ONCE A DAY. active Not Available Not Available No t Available fenofibra te nanocryst allized 145 mg tablet TAKE 1 TABLET BY MOUTH ONCE DAILY 08/20 completed Not Available Not Available Not Available Farxiga 10 mg tablet TAKE 1 [...] by subcutan eous route for 28 days. 2024 active Not Available Not Available Not Avai lable Xyosted 75 mg/0.5 mL subcutane ous auto-inje [...] UNITS SUBCUTAN EOUSLY ONCE A WEEK DIRECTED 08/20 completed Not Available Not Available Not Available Mounjaro 7.5 mg/0.5 mL subcutane ous [...] Arterial blood by Pulse oximetry Respiratory rate Pain severity - 0-10 verbal numeric rating [Score] - Reported Systolic And Diastolic Provider Name and Address Organization Details Last Updated DateTime 185.42 cm 46.8 kg/m2 492373. 29 g 88 /min 99 % 99 % 18 /min 0 138/80 mm[Hg] Angelia Black [place] - [facility] 16:24:51 Social History Question Answer Notes LastModified by [...] Or The Highest Degree You Have Received? [id number] Information not available 02/13/2022 Have There Been Any Changes To Your Family Or Social Situation? No Information no t available 02/13/2022 Have You Recently Or Are You Planning To Travel To An Area With Zika Virus? No Information not available 02/13/2022 Do You Have A Medical Power Of Television Picture Tube Rebuilder? 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 [id number] Information not available 02/13/2022 Do you have difficulty concentrating, remembering or making decisions? No Information no t available 02/13/2022 Family History Relationship Description Onset Age of this Age Resolved Age Notes LastModified by Organization Details LastModified Time Mother Multiple sclerosis Not available 2021 08:05:28 Maternal Grandfather Hypertensive disorder Not available 2021 08:05:45 Medical History No medical history recorded. Immunizations Vaccine Type Date Status Note Provider Nam e and Address Organization Details Recorded Time Td (adult), 2 Lf tetanus toxoid, preservative free, adsorbed 8 completed Not Available [facility] 08/20/2024 16:05:27 Past Encounters Encounter ID Performer Location Encounter Start Date Encounter Closed Date Diagnosis/Indication Diagnosis SNOMED-CT Code Diagnosis ICD10 Code Diagnosis Note [id number] Linda Gamboa APRN [address] [place] [address] 08/20/2024 16:04:34 08/20/2024 16:33:34 Erectile dysfunction 307988763 F52.21 Long-term current use of drug therapy 403203237 Z79.899 Male hypogonadism 453246 06 E29.1 Pt compliant with plan of careGabriele reviewedme dication compliance discussedL ast uds:08/20/24 Control substance agreement on file Health Concerns Section Related Observation LastModified by Organization Detai ls LastModified Time None Recorded Concern Status LastModified by Organization Details LastModified Time None Recorded Payers Encounter Date Sequence Insurance Name Policy Number Policy Schumacher Covered Member ID Schumacher Member ID Guarantor Name 08/20/2024 1 [id number] Azeem Perez [id number] Azeem Perez Notes Date Note Type Note Provider Name and Address Organization Details Recorded Time 08/20/2024 text/html 43 yr old male presents for a refill on xyosted. pt states he is doing well on this dose Linda Gamboa, PROCESS DEVELOPER [address], [place], [address], [place] - [facility] 08/20/2024 16:34:26
--- OUTSIDE RECORDS SUMMARY | 2024-09-10 13:11 | XMS_ITS | Clinical Summary ---
Author Organization [facility] Address [address] [id number] Care Team Providers Care Internal Control Consultant Name Role Phone Jam Richardson MD Primary Care Provider + [phone] Allergies Active Allergy Reactions Criticality Noted Date [...] of 3 - 19+ 3-dose series) 2001 [id number] Vaccine (1 - season) 2023 [facility]-Depression Screening 10/17/2024 10/18/2023 [facility]-Influenza Vaccine (#1) 2024 [facility]-Zoster Vaccines (1 of 2) 2032 [...] this topic Medical Devices Implanted Type Area Operator Assistant I Cementing Device Identifier Shelf Expiration Date Model / Serial / Lot [employer] Sys Watch Parts Grinder Knotless Tightrope Ss - Sna - [id number] Implanted:Qty: 2 on 09/27/2023 by Calderon Alan MD at [facility] Acton Right: Ankle [id number] 09/26/2024 [id number] / NA / Plate Lcp 1/3 Tubl Col 57mm 5h - Sna - [id number] Implanted:Qty: 1 on 09/27/2023 by Calderon Alan MD at [facility] Plate Right: Ankle Synthes [email or web address] 09/26/2024 [id number] / NA / Screw 3.5mm Cortex Selftap 16mm - Sna - [id number] Implanted:Qty: 1 on 09/27/2023 by Calderon Alan MD at [facility] Screw Right: Ankle [employer]ynthe[employer] [id number] 09/26/2024 204.816 / NA / Procedures Procedure [...] Reactive Non Reactive 09/23/2023 4:06 PM EDT [facility] Comment:Screening for HIV 1 & 2 antibodies, and P24 antigen is NONREACTIVE. No confirmatory testing is required. Blood Venous blood specimen / Unknown Venipuncture / Unknown 09/23/2023 2:49 PM EDT 09/23/2023 3:27 PM EDT Jacky Zuniga MD LAB BLOOD ORDERABLES Final Res ult [facility] [address] [place] [address] * Hepatitis C Antibody - ED (09/23/2023 2:49 PM EDT) Hepatitis C Antibody Negative Negative 09/23/2023 4:06 PM EDT [facility] Blood Venous blood specimen / Unknown Venipuncture / Unknown 09/23/2023 2:49 PM EDT 09/23/2023 3:26 PM EDT Jacky Zuniga MD LAB BLOOD ORDERABLES Final Res ult Performing Organization Address City/[facility]/ZIP Co de Phone Number [facility] [address] [place] [address] from Last 3 Months or Most Recently Relevant to Health Maintenance Insurance REPLACED BY [facility] Advance Directives Documents on File Type Date Recorded Patient Radiologic Technologist Chief Expl anation Advance Directives and Living Will 09/23/2023 Care Teams Internal Control Consultant Relationship Specialty Start Date End Date Jam Richardson MD [address] [place] [address] PCP - General 07/01/20
--- OUTSIDE RECORDS SUMMARY | 2024-09-10 13:11 | XMS_ITS | Data Portability ---
Author Organization [facility] Address [address] [place] [address] Assessment Encounter Date Assessment Date Assessment LastModified by Organization Details LastModified Time 04/01/2024 04/01/2024 -sent rx for [facility]ed to [facility]. spoke with vaibhav warren aprn at hematology, HST result showes severe BRAXTON, she has ordered a CPAP has fu with hematology in summer 2024 -f/u with us in 1 month. labs today- shot 3 days ago Not available 04/01/2024 10:09:28 05/22/2024 05/22/2024 -sent rx for [facility]osted to [facility]. spoke with vaibhav warren aprn at hematology, HST result shows severe BRAXTON, she has ordered a CPAP has fu with hematology in summer 2024 -f/u with us in 1 month. labs before fu- may consider increasing dose, still fatigued. updated CSA again- filled out wrong pharmacy last time. Not available 05/22/2024 14:33:42 06/17/2024 06/17/2024 -sent [...] in summer 2024 -f/u with Linda Gamboa [employer]PERVIS[employer] july-september for xyosted refills and then I have given him a lab order for september to get labs repeated before he comes back to see me in october. [email or web address] Not available 07/15/2024 12:29:42 Plan of Treatment Reminders Order Date Submit Date Provider Last Modified By Organization Details Last Modified Time Details Appointments Establish ed Patient 2024 02:00P M Linda Gamboa, [employer] SUPERVISOR Not available Not available Not available Follow Up 2024 02:00P M Suzie Anderson [employer] SUPERVISOR Not available Not available Not available Lab drug screen, urine 2024 025 [facility], [address] [place] [address], [address], 08/20/2024 16:55:46 drug screen, urine 2024 025 [email or web address], [address] [place] [address], [phone], 07/15/2024 12:19:29 CBC w/ auto diff - get drawn 3-4 days after xyosted injection . 2024 025 [facility], [address], [address], [place], [address], 07/15/2024 12:20:19 testoster one, total, serum - get drawn 3-4 days after xyosted injection . 2024 025 [facility], [address], [place] [address], [place], [address], 07/15/2024 12:20:19 drug screen, urine 2024 025 [facility], [address] [place] [address], [address], 06/17/2024 11:30:32 drug screen, urine [address], [address] [place], [address], 05/22/2024 14:33:15 CBC w/ auto diff 2024 025 [facility], [address], [address], [place], [address], 06/09/2024 08:57:19 testoster one, total, serum 2024 025 [facility], [address], [address], [place], [address], 06/09/2024 08:57:19 PSA, total, serum or plasma 2024 025 [facility], [address], [place] [address], [place], [address], 06/09/2024 08:57:20 drug screen, urine [address], [address] [place], [address], 04/01/2024 10:05:09 CBC w/ auto diff 2024 025 [facility], [address], [address], [place], [address], 04/02/2024 08:23:25 testoster one, total, serum 2024 025 [facility], [address], [address], [place], [address], 04/02/2024 08:23:26 Referral None recorded. Procedures None recorded. Surgeries None recorded. Imaging None recorded. Medication Orders Xyosted 100 mg/0.5 mL subcutane ous auto-inje ctor 2024 025 [facility], [address] [place] [address] , [address], [place], [place], [phone], 08/20/2024 16:33:38 Xyosted 100 mg/0.5 mL subcutane ous auto-inje ctor 2024 025 [facility], [address] [place] [address] , [address], [place], [place], [phone], 07/22/2024 05:01:29 Xyosted 100 mg/0.5 mL subcutane ous auto-inje ctor [email or web address] [facility], [address] [place] [address] , [address], [place], [place], [phone], 08/20/2024 16:18:15 Xyosted 75 mg/0.5 mL subcutane ous auto-inje ctor 2024 025 [facility], [address] [place] [address] , [address], [place], [place], [phone], 07/15/2024 16:27:28 Xyosted 75 mg/0.5 mL subcutane ous auto-inje ctor [email or web address], [address] [place] [address] , [address], [place], [place], [phone], 07/15/2024 12:06:04 Patient TargetsNo targets recorded. Patient Instructions Encounter Date Encounter Id Patient Instructions Last Modified By Organization Details Last Modified Time 04/01/2024 [id number] high blood pressure: care instructions Not available 04/01/2024 10:05:08 Erection Problems: Care Instructions Not available 04/01/2024 10:05:09 type 2 diabetes: care instructions Not available 04/01/2024 10:05:09 hypogonadism: care instructions Not available 04/01/2024 10:05:09 high cholesterol : care instructions Not available 04/01/2024 10:05:09 polycythemia: care instructions Not available 04/01/2024 10:05:08 05/22/2024 [id number] high blood pressure: care instructions Not available 05/22/2024 14:24:49 Erection Problems: Care Instructions Not available 05/22/2024 14:24:49 type 2 diabetes: care instructions Not available 05/22/2024 14:24:49 hypogonadism: care instructions Not available 05/22/2024 14:24:49 high cholesterol : care instructions Not available 05/22/2024 14:24:49 polycythemia: care instructions Not available 05/22/2024 14:24:49 06/17/2024 [id number] high blood pressure: care instructions Not available 06/17/2024 11:30:32 Erection Problems: Care Instructions Not available 06/17/2024 11:30:32 type 2 diabetes: care instructions Not available 06/17/2024 11:30:32 hypogonadism: care instructions Not available 06/17/2024 11:30:32 high cholesterol : care instructions Not available 06/17/2024 11:30:32 polycythemia: care instructions Not available 06/17/2024 11:30:32 07/15/2024 [id number] high blood pressure: care instructions Not available [...] n, urine THC negati ve Not Available [facility] [address] [place], [address], 03/02/2024 07:57:04 03/03/1903/03/2024 drug scree n, urine TCA negati ve Not Available [facility] [address] [place], [address], 03/02/2024 07:57:04 03/03/1903/03/2024 drug scree n, urine BAR negati ve Not Available [facility] [address] [place], [address], 03/02/2024 07:57:04 03/03/1903/03/2024 drug scree n, urine BZO negati ve Not Available [facility] [address] [place], [address], 03/02/2024 07:57:04 03/03/1903/03/2024 drug scree n, urine MTD negati ve Not Available [facility] [address] [place], [address], 03/02/2024 07:57:04 03/03/1903/03/2024 drug scree n, urine AMP negati ve Not Available [facility] [address] [place], [address], 03/02/2024 07:57:04 03/03/1903/03/2024 drug scree n, urine MOP negati ve Not Available [facility] [address] [place], [address], 03/02/2024 07:57:04 03/03/1903/0303/03/2024 drug scree n, urine OXY positi ve Not Available [facility] [address] [place], [address], 03/02/2024 07:57:04 03/03/19 25 03/03/2024 drug scree n, urine MDMA negati ve Not Available [facility] [address] [place], [address], 03/02/2024 07:57:04 03/03/19 25 03/03/2024 drug scree n, urine HUBERT negati ve Not Available [facility] [address] [place], [address], 03/02/2024 07:57:04 03/03/19 25 03/03/2024 drug scree n, urine PCP negati ve Not Available [facility] [address] [place], [address], 03/02/2024 07:57:04 03/03/19 25 03/03/2024 drug scree n, urine MET negati ve Not Available [facility] [address] [place], [address], 03/02/2024 07:57:04 04/01/19 25 04/02/2024 CBC WITH DIFFE RENTI AL/PL ATELE T WBC 6.2 x10e3 /uL 3.4-10 .8 normal Not Available [facility] ([facility] [place] [facility] [address] [place], [address], 04/02/2024 08:23:25 04/01/19 25 04/02/2024 CBC WITH DIFFE RENTI AL/PL ATELE T RBC 5.19 x10e6 /uL 4.14-5 .80 normal Not Available [facility] ([facility] [address] [place], [address], 04/02/2024 08:23:25 04/01/19 25 04/02/2024 CBC WITH DIFFE RENTI AL/PL ATELE T hemoglobin 15.0 g/dL 13.0-1 7.7 normal Not Available [facility] ([facility] [place] [facility] [address] [place], [address], 04/02/2024 08:23:25 04/01/19 25 04/02/2024 CBC WITH DIFFE RENTI AL/PL ATELE T hematocrit 44.2 % 37.5-5 1.0 normal Not Available [facility] ([facility] [place] [facility] [address] [place], [address], 04/02/2024 08:23:25 04/01/19 25 04/02/2024 CBC WITH DIFFE RENTI AL/PL ATELE T MCV 85 fL 79-97 normal Not Available [facility] ([facility] [address] [place], [address], 04/02/2024 08:23:25 04/01/19 25 04/02/2024 CBC WITH DIFFE RENTI AL/PL ATELE T MCH 28.9 pg 26.6-3 3.0 normal Not Available [facility] ([facility] [address] [place], [address], 04/02/2024 08:23:25 04/01/19 25 04/02/2024 CBC WITH DIFFE RENTI AL/PL ATELE T MCHC 33.9 g/dL 31.5-3 5.7 normal Not Available [facility] ([facility] [address] [place], [address], 04/02/2024 08:23:25 04/01/19 25 04/02/2024 CBC WITH DIFFE RENTI AL/PL ATELE T RDW 13.8 % 11.6-1 5.4 Not Available [facility] ([facility] [place] [facility] [address] [place], [address], 04/02/2024 08:23:25 04/01/19 25 04/02/2024 CBC WITH DIFFE RENTI AL/PL ATELE T platelets 292 x10e3 /uL 150-45 0 normal Not Available [facility] ([facility] [place] [facility] [address] [facility], [place], [address], 04/02/2024 08:23:25 04/01/19 25 04/02/2024 CBC WITH DIFFE RENTI AL/PL ATELE T neutrophils 65 % not estab. normal Not Available [facility] ([facility] [address] [facility], [place], [address], 04/02/2024 08:23:25 04/01/19 25 04/02/2024 CBC WITH DIFFE RENTI AL/PL ATELE T lymphs 19 % not estab. normal Not Available [facility] ([facility] [place] [facility] [address] [facility], [place], [address], 04/02/2024 08:23:25 04/01/19 25 04/02/2024 CBC WITH DIFFE RENTI AL/PL ATELE T monocytes 13 % not estab. normal Not Available [facility] ([facility] [address] [facility], [place], [address], 04/02/2024 08:23:25 04/01/19 25 04/02/2024 CBC WITH DIFFE RENTI AL/PL ATELE T eos 1 % not estab. normal Not Available [facility] ([facility] [place] [facility] [address] [facility], [place], [address], 04/02/2024 08:23:25 04/01/19 25 04/02/2024 CBC WITH DIFFE RENTI AL/PL ATELE T basos 1 % not estab. normal Not Available [facility] ([facility] [place] [facility] [address] [place], [address], 04/02/2024 08:23:25 02/12/04/02/2024 CBC WITH DIFFE RENTI AL/PL ATELE T immature cells SYSTEM DEVELOPMENT MANAGER Not Available [facility] ([facility] [address] [place], [address], 04/02/2024 08:23:25 04/01/19 25 04/02/2024 CBC WITH DIFFE RENTI AL/PL ATELE T neutrophils (absolute) 4.1 x10e3 /uL 1.4-7. 0 normal Not Available [facility] ([facility] [place] [facility] [address] [place], [address], 04/02/2024 08:23:25 04/01/19 25 04/02/2024 CBC WITH DIFFE RENTI AL/PL ATELE T lymphs (absolute) 1.2 x10e3 /uL 0.7-3. 1 normal Not Available [facility] ([facility] [place] [facility] [address] [place], [address], 04/02/2024 08:23:25 04/01/19 25 04/02/2024 CBC WITH DIFFE RENTI AL/PL ATELE T monocytes(ab solute) 0.8 x10e3 /uL 0.1-0. 9 normal Not Available [facility] ([facility] [place] [facility] [address] [place], [address], 04/02/2024 08:23:25 04/01/19 25 04/02/2024 CBC WITH DIFFE RENTI AL/PL ATELE T eos (absolute) 0.1 x10e3 /uL 0.0-0. 4 normal Not Available [facility] ([facility] [place] [facility] [address] [place], [address], 04/02/2024 08:23:25 04/01/19 25 04/02/2024 CBC WITH DIFFE RENTI AL/PL ATELE T baso (absolute) 0.0 x10e3 /uL 0.0-0. 2 normal Not Available [facility] ([facility] [place] [facility] [address] [place], [address], 04/02/2024 08:23:25 04/01/19 25 04/02/2024 CBC WITH DIFFE RENTI AL/PL ATELE T immature granulocytes 1 % not estab. Not Available [facility] ([facility] [place] [facility] [address] [facility], [place], [address], 04/02/2024 08:23:25 04/01/19 25 04/02/2024 CBC WITH DIFFE RENTI AL/PL ATELE T immature grans (abs) 0.0 x10e3 /uL 0.0-0. 1 Not Available [facility] ([facility] [place] [facility] [address] [place], [address], 04/02/2024 08:23:25 04/01/19 25 04/02/2024 CBC WITH DIFFE RENTI AL/PL ATELE T NRBC SYSTEM DEVELOPMENT MANAGER Not Available [facility] ([facility] [place] [facility] [address] [facility], [place], [address], 04/02/2024 08:23:25 04/01/19 25 04/02/2024 CBC WITH DIFFE RENTI AL/PL ATELE T hematology comments: SYSTEM DEVELOPMENT MANAGER Not Available [facility] [place] [facility] [address] [facility], [place], [address], 04/02/2024 08:23:25 04/01/19 25 04/02/2024 TESTO STERO NE testosterone 230 NG/dL 264-91 6 below low normal Adult male refer ence inter unruly is based on a popul ation of healt hy nonob jessica males (BMI <30) betwe en 19 and 39 years old. Jonathan landin et.al . JCEM 2017, 102;1 161-1 173. PMID: 44439 103. Not Available [facility] ([facility] [address] [place], [address], 04/02/2024 08:23:26 04/01/19 25 04/01/2024 drug scree n, urine THC negati ve Not Available [facility] [address] [place], [address], 03/30/2024 09:27:00 04/01/19 25 04/01/2024 drug scree n, urine TCA negati ve Not Available [facility] [address] [place], [address], 03/30/2024 09:27:00 04/01/19 25 04/01/2024 drug scree n, urine BAR negati ve Not Available [facility] [address] [place], [address], 03/30/2024 09:27:00 04/01/19 25 04/01/2024 drug scree n, urine BZO negati ve Not Available [facility] [address] [place], [address], 03/30/2024 09:27:00 04/01/19 25 04/01/2024 drug scree n, urine MTD negati ve Not Available [facility] [address] [place], [address], 03/30/2024 09:27:00 04/01/19 25 04/01/2024 drug scree n, urine AMP negati ve Not Available [facility] [address] [place], [address], 03/30/2024 09:27:00 04/01/19 25 04/01/2024 drug scree n, urine MOP negati ve Not Available [facility] [address] [place], [address], 03/30/2024 09:27:00 04/01/19 25 04/01/2024 drug scree n, urine OXY negati ve Not Available [facility] [address] [place], [address], 03/30/2024 09:27:00 04/01/19 25 04/01/2024 drug scree n, urine MDMA negati ve Not Available [facility] [address] [place], [address], 03/30/2024 09:27:00 04/01/19 25 04/01/2024 drug scree n, urine HUBERT negati ve Not Available [facility] [address] [place], [address], 03/30/2024 09:27:00 04/01/19 25 04/01/2024 drug scree n, urine PCP negati ve Not Available [facility] [address] [place], [address], 03/30/2024 09:27:00 04/01/19 25 04/01/2024 drug scree n, urine MET negati ve Not Available [facility] [address] [place], [address], 03/30/2024 09:27:00 05/23/19 25 05/22/2024 drug scree n, urine BAR negati ve Not Available [facility] [address] [place], [address], 04/27/2024 09:27:48 05/23/19 25 05/22/2024 drug scree n, urine BZO negati ve Not Available [facility] [address] [place], [address], 04/27/2024 09:27:48 05/23/19 25 05/22/2024 drug scree n, urine MTD negati ve Not Available [facility] [address] [place], [address], 04/27/2024 09:27:48 05/23/19 25 05/22/2024 drug scree n, urine AMP negati ve Not Available [facility] [address] [place], [address], 04/27/2024 09:27:48 05/23/19 25 05/22/2024 drug scree n, urine MOP negati ve Not Available [facility] [address] [place], [address], 04/27/2024 09:27:48 05/23/19 25 05/22/2024 drug scree n, urine OXY negati ve Not Available [facility] [address] [place], [address], 04/27/2024 09:27:48 05/23/19 25 05/22/2024 drug scree n, urine MDMA negati ve Not Available [facility] [address] [place], [address], 04/27/2024 09:27:48 05/23/19 25 05/22/2024 drug scree n, urine HUBERT negati ve Not Available [facility] [address] [place], [address], 04/27/2024 09:27:48 05/23/19 25 05/22/2024 drug scree n, urine PCP negati ve Not Available [facility] [address] [place], [address], 04/27/2024 09:27:48 05/23/19 25 05/22/2024 drug scree n, urine MET negati ve Not Available [facility] [address] [place], [address], 04/27/2024 09:27:48 06/09/19 25 06/09/2024 CBC WITH DIFFE RENTI AL/PL ATELE T WBC 7.0 x10e3 /uL 3.4-10 .8 normal Not Available [facility] ([facility] [place] [facility] [address] [place], [address], 06/09/2024 08:57:19 06/09/19 25 06/09/2024 CBC WITH DIFFE RENTI AL/PL ATELE T RBC 5.34 x10e6 /uL 4.14-5 .80 normal Not Available [facility] ([facility] [place] [facility] [address] [place], [address], 06/09/2024 08:57:19 06/09/19 25 06/09/2024 CBC WITH DIFFE RENTI AL/PL ATELE T hemoglobin 15.1 g/dL 13.0-1 7.7 normal Not Available [facility] ([facility] [place] [facility] [address] [place], [address], 06/09/2024 08:57:19 06/09/19 25 06/09/2024 CBC WITH DIFFE RENTI AL/PL ATELE T hematocrit 45.9 % 37.5-5 1.0 normal Not Available [facility] ([facility] [place] [facility] [address] [place], [address], 06/09/2024 08:57:19 06/09/19 25 06/09/2024 CBC WITH DIFFE RENTI AL/PL ATELE T MCV 86 fL 79-97 normal Not Available [facility] ([facility] [place] [facility] [address] [place], [address], 06/09/2024 08:57:19 06/09/19 25 06/09/2024 CBC WITH DIFFE RENTI AL/PL ATELE T MCH 28.3 pg 26.6-3 3.0 normal Not Available [facility] ([facility] [place] [facility] [address] [place], [address], 06/09/2024 08:57:19 06/09/19 25 06/09/2024 CBC WITH DIFFE RENTI AL/PL ATELE T MCHC 32.9 g/dL 31.5-3 5.7 normal Not Available [facility] ([facility] [place] [facility] [address] [facility], [place], [address], 06/09/2024 08:57:19 06/09/19 25 06/09/2024 CBC WITH DIFFE RENTI AL/PL ATELE T RDW 13.3 % 11.6-1 5.4 Not Available [facility] ([facility] [place] [facility] [address] [facility], [place], [address], 06/09/2024 08:57:19 06/09/19 25 06/09/2024 CBC WITH DIFFE RENTI AL/PL ATELE T platelets 257 x10e3 /uL 150-45 0 normal Not Available [facility] ([facility] [place] [facility] [address] [facility], [place], [address], 06/09/2024 08:57:19 06/09/19 25 06/09/2024 CBC WITH DIFFE RENTI AL/PL ATELE T neutrophils 63 % not estab. normal Not Available [facility] ([facility] [place] [facility] [address] [facility], [place], [address], 06/09/2024 08:57:19 06/09/19 25 06/09/2024 CBC WITH DIFFE RENTI AL/PL ATELE T lymphs 27 % not estab. normal Not Available [facility] ([facility] [place] [facility] [address] [place], [address], 06/09/2024 08:57:19 06/09/19 25 06/09/2024 CBC WITH DIFFE RENTI AL/PL ATELE T monocytes 7 % not estab. normal Not Available [facility] ([facility] [place] [facility] [address] [place], [address], 06/09/2024 08:57:19 06/09/19 25 06/09/2024 CBC WITH DIFFE RENTI AL/PL ATELE T eos 2 % not estab. normal Not Available [facility] ([facility] [place] [facility] [address] [place], [address], 06/09/2024 08:57:19 06/09/19 25 06/09/2024 CBC WITH DIFFE RENTI AL/PL ATELE T basos 1 % not estab. normal Not Available [facility] ([facility] [place] [facility] [address] [place], [address], 06/09/2024 08:57:19 06/09/19 25 06/09/2024 CBC WITH DIFFE RENTI AL/PL ATELE T immature cells SYSTEM DEVELOPMENT MANAGER Not Available [facility] [place] [facility] [address] [place], [address], 06/09/2024 08:57:19 06/09/19 25 06/09/2024 CBC WITH DIFFE RENTI AL/PL ATELE T neutrophils (absolute) 4.4 x10e3 /uL 1.4-7. 0 normal Not Available [facility] ([facility] [place] [facility] [address] [place], [address], 06/09/2024 08:57:19 06/09/19 25 06/09/2024 CBC WITH DIFFE RENTI AL/PL ATELE T lymphs (absolute) 1.9 x10e3 /uL 0.7-3. 1 normal Not Available [facility] ([facility] [place] [facility] [address] [place], [address], 06/09/2024 08:57:19 06/09/19 25 06/09/2024 CBC WITH DIFFE RENTI AL/PL ATELE T monocytes(ab solute) 0.5 x10e3 /uL 0.1-0. 9 normal Not Available [facility] ([facility] [place] [facility] [address] [place], [address], 06/09/2024 08:57:19 06/09/19 25 06/09/2024 CBC WITH DIFFE RENTI AL/PL ATELE T eos (absolute) 0.1 x10e3 /uL 0.0-0. 4 normal Not Available [facility] ([facility] [place] [facility] [address] [facility], [place], [address], 06/09/2024 08:57:19 06/09/19 25 06/09/2024 CBC WITH DIFFE RENTI AL/PL ATELE T baso (absolute) 0.1 x10e3 /uL 0.0-0. 2 normal Not Available [facility] ([facility] [address] [facility], [place], [address], 06/09/2024 08:57:19 06/09/19 25 06/09/2024 CBC WITH DIFFE RENTI AL/PL ATELE T immature granulocytes 0 % not estab. Not Available [facility] ([facility] [place] [facility] [address] [facility], [place], [address], 06/09/2024 08:57:19 06/09/19 25 06/09/2024 CBC WITH DIFFE RENTI AL/PL ATELE T immature grans (abs) 0.0 x10e3 /uL 0.0-0. 1 Not Available [facility] ([facility] [place] [facility] [address] [facility], [place], [address], 06/09/2024 08:57:19 06/09/19 25 06/09/2024 CBC WITH DIFFE RENTI AL/PL ATELE T NRBC SYSTEM DEVELOPMENT MANAGER Not Available [facility] ([facility] [place] [facility] [address] [facility], [place], [address], 06/09/2024 08:57:19 06/09/19 25 06/09/2024 CBC WITH DIFFE RENTI AL/PL ATELE T hematology comments: SYSTEM DEVELOPMENT MANAGER Not Available [facility] [place] [facility] [address] [facility], [place], [address], 06/09/2024 08:57:19 06/09/19 25 06/09/2024 TESTO STERO NE testosterone 191 NG/dL 264-91 6 below low normal Adult male refer ence inter unruly is based on a popul ation of healt hy nonob jessica males (BMI <30) betwe en 19 and 39 years old. Jonathan landin et.al . JCEM 2017, 102;1 161-1 173. PMID: 35383 103. Not Available [facility] ([facility] [place] [facility] [address] [facility], [place], [address], 06/09/2024 08:57:19 06/09/19 25 06/09/2024 PROST ATE-S PECIF IC AG prostate specific [...] of ross douglas se. Not Available [facility] ([facility] [address] [facility], [place], [address], 06/09/2024 08:57:20 06/18/19 25 06/17/2024 drug scree n, urine BAR negati ve Not Available [facility] [address] [place], [address], 06/15/2024 09:40:10 06/18/19 25 06/17/2024 drug scree n, urine BZO negati ve Not Available [facility] [address] [place], [address], 06/15/2024 09:40:10 06/18/19 25 06/17/2024 drug scree n, urine MTD negati ve Not Available [facility] [address] [place], [address], 06/15/2024 09:40:10 06/18/19 25 06/17/2024 drug scree n, urine AMP negati ve Not Available [facility] [address] [place], [address], 06/15/2024 09:40:10 06/18/19 25 06/17/2024 drug scree n, urine MOP negati ve Not Available [facility] [address] [place], [address], 06/15/2024 09:40:10 06/18/19 25 06/17/2024 drug scree n, urine OXY negati ve Not Available [facility] [address] [place], [address], 06/15/2024 09:40:10 06/18/19 25 06/17/2024 drug scree n, urine MDMA negati ve Not Available [facility] [address] [place], [address], 06/15/2024 09:40:10 06/18/19 25 06/17/2024 drug scree n, urine HUBERT negati ve Not Available [facility] [address] [place], [address], 06/15/2024 09:40:10 06/18/19 25 06/17/2024 drug scree n, urine PCP negati ve Not Available [facility] [facility] [address] [place], [address], 06/15/2024 09:40:10 06/18/19 25 06/17/2024 drug scree n, urine MET negati ve Not Available [facility] [address] [place], [address], 06/15/2024 09:40:10 07/16/19 25 07/15/2024 drug scree n, urine THC negati ve Not Available [facility] [address] [place], [address], 07/14/2024 07:54:16 07/16/19 25 07/15/2024 drug scree n, urine TCA negati ve Not Available [facility] [address] [place], [address], 07/14/2024 07:54:16 07/16/19 25 07/15/2024 drug scree n, urine BAR negati ve Not Available [facility] [address] [place], [address], 07/14/2024 07:54:16 07/16/19 25 07/15/2024 drug scree n, urine BZO negati ve Not Available [facility] [address] [place], [address], 07/14/2024 07:54:16 07/16/19 25 07/15/2024 drug scree n, urine MTD negati ve Not Available [facility] [address] [place], [address], 07/14/2024 07:54:16 07/16/19 25 07/15/2024 drug scree n, urine AMP negati ve Not Available [facility] [address] [place], [address], 07/14/2024 07:54:16 07/16/19 25 07/15/2024 drug scree n, urine MOP negati ve Not Available [facility] [address] [place], [address], 07/14/2024 07:54:16 07/16/19 25 07/15/2024 drug scree n, urine OXY negati ve Not Available [facility] [address] [place], [address], 07/14/2024 07:54:16 07/16/1907/15/2024 drug scree n, urine MDMA negati ve Not Available [facility] [address] [place], [address], 07/14/2024 07:54:16 07/16/19 25 07/15/2024 drug scree n, urine HUBERT negati ve Not Available [facility] [address] [place], [address], 07/14/2024 07:54:16 07/16/19 25 07/15/2024 drug scree n, urine PCP negati ve Not Available [facility] [address] [place], [address], 07/14/2024 07:54:16 07/16/1907/15/2024 drug scree n, urine MET negati ve Not Available [facility] [address] [place], [address], 07/14/2024 07:54:16 08/21/19 25 08/20/2024 drug scree n, urine AMP negati ve Not Available [address], [address], 08/20/2024 15:35:04 08/21/19 25 08/20/2024 drug scree n, urine BAR negati ve Not Available [address], [address], 08/20/2024 15:35:04 08/21/19 25 08/20/2024 drug scree n, urine BUP negati ve Not Available [address], [address], 08/20/2024 15:35:04 08/21/19 25 08/20/2024 drug scree n, urine BZO negati ve Not Available [address], [address], 08/20/2024 15:35:04 08/21/19 25 08/20/2024 drug scree n, urine HUBERT negati ve Not Available [address], [address], 08/20/2024 15:35:04 08/21/19 25 08/20/2024 drug scree n, urine FTY negati ve Not Available [address], [address], 08/20/2024 15:35:04 08/21/19 25 08/20/2024 drug scree n, urine MDMA negati ve Not Available [address], [address], 08/20/2024 15:35:04 08/21/19 25 08/20/2024 drug scree n, urine MET negati ve Not Available [address], [address], 08/20/2024 15:35:04 08/21/19 25 08/20/2024 drug scree n, urine MOP negati ve Not Available [address], [address], 08/20/2024 15:35:04 08/21/19 25 08/20/2024 drug scree n, urine MTD negati ve Not Available [address], [address], 08/20/2024 15:35:04 08/21/19 25 08/20/2024 drug scree n, urine OXY negati ve Not Available [address], [address], 08/20/2024 15:35:04 08/21/19 25 08/20/2024 drug scree n, urine PCP negati ve Not Available [address], [address], 08/20/2024 15:35:04 08/21/19 25 08/20/2024 drug scree n, urine TCA negati ve Not Available [address], [address], 08/20/2024 15:35:04 08/21/19 25 08/20/2024 drug scree n, urine THC negati ve Not Available [address], [address], 08/20/2024 15:35:04 Result Notes None recorded. Problems Name Problem SNOMED Code Status Onset Date Resolution Date Notes Provider Name and Address Organization Details Recorded Time Erectile dysfunction 794238923 Active 2021 NOEMI Lewis - [facility] 2 08:04:56 Hypertensive disorder 93702524 Active 2021 Yamini Prieto nullNOEMI - [facility] 2 08:05:13 Problem Notes None [...] Updated DateTime 5 185.42 cm 45.4 kg/m2 252048. 78 g 73 /min 95 % 95 % 18 /min 0 126/80 mm[Hg] Olivia Rodriguez [facility] 5 09:46:55 Date Recorded Body height Body mass index (BMI) Body weight Heart rate Oxygen saturation Oxygen saturation in Arterial blood by Pulse oximetry Respiratory rate Pain severity - 0-10 verbal numeric rating [Score] - Reported Systolic And Diastolic Provider Name and Address Organization Details Last Updated DateTime 5 185.42 cm 44.6 kg/m2 787771. 22 g 93 /min 95 % 95 % 18 /min 0 122/74 mm[Hg] Olivia Sheffielde [facility] 5 14:14:35 Date Recorded Body height Body mass index (BMI) Body weight Heart rate Oxygen saturation Oxygen saturation in Arterial blood by Pulse oximetry Respiratory rate Pain severity - 0-10 verbal numeric rating [Score] - Reported Systolic And Diastolic Provider Name and Address Organization Details Last Updated DateTime 5 185.42 cm 45.2 kg/m2 366801. 99 g 80 /min 95 % 95 % 18 /min 0 130/80 mm[Hg] Olivia Rowe [facility] 5 11:20:53 Date Recorded Body height Body mass index (BMI) Body weight Heart rate Oxygen saturation Oxygen saturation in Arterial blood by Pulse oximetry Respiratory rate Pain severity - 0-10 verbal numeric rating [Score] - Reported Systolic And Diastolic Provider Name and Address Organization Details Last Updated DateTime 5 185.42 cm 45.6 kg/m2 362654. 17 g 85 /min 96 % 96 % 18 /min 0 142/82 mm[Hg] Olivia Rodriguez [place] - [facility] 5 12:02:55 Date Recorded Body height Body mass index (BMI) Body weight Heart rate Oxygen saturation Oxygen saturation in Arterial blood by Pulse oximetry Respiratory rate Pain severity - 0-10 verbal numeric rating [Score] - Reported Systolic And Diastolic Provider Name and Address Organization Details Last Updated DateTime 5 185.42 cm 46.8 kg/m2 127037. 29 g 88 /min 99 % 99 % 18 /min 0 138/80 mm[Hg] Angelia Black [place] - [facility] 5 16:24:51 Social History Question Answer Notes LastModified by Organizat ion Details LastModified Time Tobacco Smoking Status Never [facility] 02/13/2022 08:07:28 Do You Have An Advance [...] Or The Highest Degree You Have Received? [id number] Information not available 02/13/2022 Have There Been Any Changes To Your Family Or Social Situation? No Information no t available 02/13/2022 Have You Recently Or Are You Planning To Travel To An Area With Zika Virus? No Information not available 02/13/2022 Do You Have A Medical Power Of Account Services Specialist? No Information not available 02/13/2022 What Was The Date Of Your Most Recent Tobacco Screening? 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 [id number] Information not available 02/13/2022 Do you have [...] preservative free, adsorbed 8 completed Not Available [facility]/20[facility]24 16:05:27 Past Encounters Encounter ID Performer Location Encounter Start Date Encounter Closed Date Diagnosis/Indication Diagnosis SNOMED-CT Code Diagnosis ICD10 Code Diagnosis Note [id number] Suzie Anderson APRN [facility] [address] [place] [address] 02/13/2022 07:47:44 02/13/2022 09:15:32 Male hypogonadism 53834465 E29.1 Discussed with pt protocol/p olicy for evaluating /treating hypogonadi sm: - will begin replacemen t and standardiz ed dose, and then may adjust in the future.--- - Minimum visit in office [id number] and possibly labs as needed.--- - Pt to visit monthly for refills. no refill to be given if overdue for visit to office.- Controlled substance agreement required. UPDATED 02/13/22- UDS - UPDATED--- - If failed UDS- no prescripti on for controlled substance will be given.- CHARLINE at every refill. UPDATED Erectile dysfunction 860 897966 F52.21 Hypertensive disorder 38 924196 I10 Hyperlipidemia 08693649 E78.5 Patient dc dical record not available [id number] Z76.89 [id number] [facility] [address] [place] [address] 03/13/2022 08:20:14 03/13/2022 09:00:19 Male hypogonadism 13133900 E29.1 Discussed with pt protocol/p diannay for evaluating /treating hypogonadi sm: - will begin replacemen t and standardiz ed dose, and then may adjust in the future.--- - Minimum visit in office [id number] and possibly labs as needed.--- - Pt to visit monthly for refills. no refill to be given if overdue for visit to office.- Controlled substance agreement required. UPDATED 02/13/22- UDS - UPDATED--- - If failed UDS- no prescripti on for controlled substance will be given.- CHARLINE at every refill. UPDATED Erectile dysfunction 860 269441 F52.21 Hypertensive disorder 38 310910 I10 Hyperlipidemia 17991547 E78.5 [id number] [facility] [address] [place] [address] 04/06/2022 10:44:36 04/06/2022 13:15:17 Male hypogonadism 98953382 E29.1 Discussed with pt protocol/p jacob for evaluating /treating hypogonadi sm: - will begin replacemen t and standardiz ed dose, and then may adjust in the future.--- - Minimum visit in office [id number] and possibly labs as needed.--- - Pt to visit monthly for refills. no refill to be given if overdue for visit to office.- Controlled substance agreement required. UPDATED 02/13/22- UDS - UPDATED--- - If failed UDS- no prescripti on for controlled substance will be given.- CHARLINE at every refill. UPDATED Erectile dysfunction 860 090551 F52.21 Hypertensive disorder 38 927927 I10 Hyperlipidemia 83367728 E78.5 Reduced libido 2269052 R 68.82 Needle phobia 694781930 F40.231 Incoordination 546250896 R27.9 Liver enzy mes level above reference range 130458291 R74.01 [id number] [facility] [address] [place] [address] 05/04/2022 10:47:11 05/04/2022 11:22:18 Male hypogonadism 12856311 E29.1 Discussed with pt protocol/p jacob for evaluating /treating hypogonadi sm: - will begin replacemen t and standardiz ed dose, and then may adjust in the future.--- - Minimum visit in office [id number] and possibly labs as needed.--- - Pt to visit monthly for refills. no refill to be given if overdue for visit to office.- Controlled substance agreement required. UPDATED 02/13/22- UDS - UPDATED--- - If failed UDS- no prescripti on for controlled substance will be given.- CHARLINE at every refill. UPDATED Erectile dysfunction 860 112614 F52.21 Hypertensive disorder 38 267095 I10 Hyperlipidemia 72567568 E78.5 Reduced libido 9757002 R 68.82 Needle phobia 526400029 F40.231 Incoordination 372050182 R27.9 [id number] [facility] [address] [place] [address] 06/01/2022 10:04:52 06/01/2022 11:32:00 Male hypogonadism 64199719 E29.1 Discussed with pt protocol/p jacob for evaluating /treating hypogonadi sm: - will begin replacemen t and standardiz ed dose, and then may adjust in the future.--- - Minimum visit in office f8elsooo and possibly labs as needed.--- - Pt to visit monthly for refills. no refill to be given if overdue for visit to office.- Controlled substance agreement required. UPDATED 02/13/22- UDS - UPDATED--- - If failed UDS- no prescripti on for controlled substance will be given.- CHARLINE at every refill. UPDATED Erectile dysfunction 860 860931 F52.21 Hypertensive disorder 38 531817 I10 Hyperlipidemia 04247429 E78.5 Reduced libido 9432157 R 68.82 Needle phobia 012314010 F40.231 Incoordination 654011154 R27.9 Furuncle 229236321 L02.9 2 [id number] [facility] [address] [place] [address] 06/21/2022 09:58:50 06/21/2022 10:30:12 Male hypogonadism 06956773 E29.1 Discussed with pt protocol/p jacob for evaluating /treating hypogonadi sm: - will begin replacemen t and standardiz ed dose, and then may adjust in the future.--- - Minimum visit in office [id number] and possibly labs as needed.--- - Pt to visit monthly for refills. no refill to be given if overdue for visit to office.- Controlled substance agreement required. UPDATED 02/13/22- UDS - UPDATED--- - If failed UDS- no prescripti on for controlled substance will be given.- CHARLINE at every refill. UPDATED Erectile dysfunction 860 264670 F52.21 Hypertensive disorder 38 085294 I10 Hyperlipidemia 33514571 E78.5 Reduced libido 0787878 R 68.82 Needle phobia 636758490 F40.231 Incoordination 580845288 R27.9 [id number] [facility] [address] [place] [address] 07/27/2022 10:07:19 07/27/2022 11:02:14 Male hypogonadism 31654729 E29.1 Discussed with pt protocol/p jacob for evaluating /treating hypogonadi sm: - will begin replacemen t and standardiz ed dose, and then may adjust in the future.--- - Minimum visit in office b2cyvoiw and possibly labs as needed.--- - Pt to visit monthly for refills. no refill to be given if overdue for visit to office.- Controlled substance agreement required. UPDATED 02/13/22- UDS - UPDATED--- - If failed UDS- no prescripti on for controlled substance will be given.- CHARLINE at every refill. UPDATED Erectile dysfunction 860 521723 F52.21 Hypertensive disorder 38 292871 I10 Hyperlipidemia 32749363 E78.5 Reduced libido 2738635 R 68.82 Needle phobia 652137827 F40.231 Incoordination 066762371 R27.9 [id number] [facility] [address] [place] [address] 09/14/2022 09:04:02 09/14/2022 10:17:58 Male hypogonadism 48591048 E29.1 Discussed with pt protocol/p jacob for evaluating /treating hypogonadi sm: - will begin replacemen t and standardiz ed dose, and then may adjust in the future.--- - Minimum visit in office k9ucjnbv and possibly labs as needed.--- - Pt to visit monthly for refills. no refill to be given if overdue for visit to office.- Controlled substance agreement required. UPDATED 02/13/22- UDS - UPDATED--- - If failed UDS- no prescripti on for controlled substance will be given.- CHARLINE at every refill. 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 no refill to be given if overdue for visit to office.- Controlled substance agreement required. UPDATED 02/13/22- UDS - UPDATED--- - If failed UDS- no prescripti on for controlled substance will be given.- CHARLINE at every refill. UPDATED Erectile dysfunction 860 755389 F52.21 Hypertensive disorder 38 236442 I10 Hyperlipidemia 65129822 E78.5 Reduced libido 5329206 R 68.82 Needle phobia 111259822 F40.231 Incoordination 646009536 R27.9 Type 2 timoteo betes mellitus 82543595 E11.9 Urobilinogenuria 1022014 1 R82.2 denies abd pain Secondary polycythemia 16023314 D75.1 [id number] Suzie Anderson [facility] [address] [place] [address] 11/23/2022 14:43:36 11/23/2022 15:26:34 Male hypogonadism 51598202 E29.1 Discussed with pt protocol/p jacob for evaluating /treating hypogonadi sm: - will begin replacemen t and standardiz ed dose, and then may adjust in the future.--- - Minimum visit in office r3raspcc and possibly labs as needed.--- - Pt to visit monthly for refills. no refill to be given if overdue for visit to office.- Controlled substance agreement required. UPDATED 02/13/22- UDS - UPDATED--- - If failed UDS- no prescripti on for controlled substance will be given.- CHARLINE at every refill. UPDATED Erectile dysfunction 860 134627 F52.21 Hypertensive disorder 38 510507 I10 Hyperlipidemia 22534304 E78.5 Reduced libido 6841068 R 68.82 Needle phobia 082642021 F40.231 Incoordination 156294170 R27.9 Type 2 timoteo betes mellitus 54215519 E11.9 Secondary polycythemia 13525532 D75.1 Abnormal urine 790276373 R82.90 [id number] [facility] [address] [place] [address] 12/25/2022 08:18:54 12/25/2022 09:15:18 Male hypogonadism 44344540 E29.1 Discussed with pt protocol/p jacob for evaluating /treating hypogonadi sm: - will begin replacemen t and standardiz ed dose, and then may adjust in the future.--- - Minimum visit in office l8msjxkz and possibly labs as needed.--- - Pt to visit monthly for refills. no refill to be given if overdue for visit to office.- Controlled substance agreement required. UPDATED 02/13/22- UDS - UPDATED--- - If failed UDS- no prescripti on for controlled substance will be given.- CHARLINE at every refill. UPDATED Erectile dysfunction 860 216465 F52.21 Hypertensive disorder 38 155865 I10 Hyperlipidemia 36561590 E78.5 Reduced libido 1854557 R 68.82 Needle phobia 277052862 F40.231 Incoordination 759297474 R27.9 Type 2 timoteo betes mellitus 62775470 E11.9 Secondary polycythemia 58719929 D75.1 [id number] [facility] [address] [place] [address] 01/22/2023 08:33:03 01/22/2023 09:11:51 Male hypogonadism 63853270 E29.1 Discussed with pt protocol/p jacob for evaluating /treating hypogonadi sm: - will begin replacemen t and standardiz ed dose, and then may adjust in the future.--- - Minimum visit in office q7bhdbiw and possibly labs as needed.--- - Pt to visit monthly for refills. no refill to be given if overdue for visit to office.- Controlled substance agreement required. UPDATED 02/13/22- UDS - UPDATED--- - If failed UDS- no prescripti on for controlled substance will be given.- CHARLINE at every refill. UPDATED Erectile dysfunction 860 555515 F52.21 Hypertensive disorder 38 587015 I10 Hyperlipidemia 27926994 E78.5 Reduced libido 7518095 R 68.82 Needle phobia 809570585 F40.231 Incoordination 973930658 R27.9 Type 2 timoteo betes mellitus 50638749 E11.9 Secondary polycythemia 69896843 D75.1 [id number] [facility] [address] [place] [address] 02/22/2023 08:38:05 02/22/2023 09:06:49 Male hypogonadism 53321003 E29.1 Discussed with pt protocol/p jacob for evaluating /treating hypogonadi sm: - will begin replacemen t and standardiz ed dose, and then may adjust in the future.--- - Minimum visit in office y0ohsllz and possibly labs as needed.--- - Pt to visit monthly for refills. no refill to be given if overdue for visit to office.- Controlled substance agreement required. UPDATED 02/22/23- UDS - UPDATED--- - If failed UDS- no prescripti on for controlled substance will be given.- CHARLINE at every refill. UPDATED Erectile dysfunction 860 221812 F52.21 Hypertensive disorder 38 733758 I10 Hyperlipidemia 59571798 E78.5 Reduced libido 7814915 R 68.82 Needle phobia 447541235 F40.231 Incoordination 131195888 R27.9 Type 2 timoteo betes mellitus 09100389 E11.9 Secondary polycythemia 42127104 D75.1 [id number] [facility] [address] [place] [address] 03/26/2023 08:05:02 03/26/2023 09:00:27 Male hypogonadism 78088861 E29.1 Discussed with pt protocol/p jacob for evaluating /treating hypogonadi sm: - will begin replacemen t and standardiz ed dose, and then may adjust in the future.--- - Minimum visit in office z8evhczv and possibly labs as needed.--- - Pt to visit monthly for refills. no refill to be given if overdue for visit to office.- Controlled substance agreement required. UPDATED 02/22/23- UDS - UPDATED--- - If failed UDS- no prescripti on for controlled substance will be given.- CHARLINE at every refill. UPDATED Erectile dysfunction 860 724004 F52.21 Hypertensive disorder 38 651123 I10 Hyperlipidemia 10071624 E78.5 Reduced libido 9954599 R 68.82 Needle phobia 621639869 F40.231 Incoordination 993694403 R27.9 Type 2 timoteo betes mellitus 13452850 E11.9 Secondary polycythemia 61370059 D75.1 [id number] [facility] [address] [place] [address] 05/21/2023 09:23:39 05/21/2023 10:35:56 Male hypogonadism 06567582 E29.1 Discussed with pt protocol/p olsujeyy for evaluating /treating hypogonadi sm: - will begin replacemen t and standardiz ed dose, and then may adjust in the future.--- - Minimum visit in office d2onqfyj and possibly labs as needed.--- - Pt to visit monthly for refills. no refill to be given if overdue for visit to office.- Controlled substance agreement required. UPDATED 02/22/23- UDS - UPDATED--- - If failed UDS- no prescripti on for controlled substance will be given.- CHARLINE at every refill. UPDATED Erectile dysfunction 860 639385 F52.21 Hypertensive disorder 38 956732 I10 Hyperlipidemia 74041773 E78.5 Reduced libido 4932588 R 68.82 Needle phobia 828676019 F40.231 Incoordination 575532841 R27.9 Type 2 timoteo betes mellitus 56207744 E11.9 Secondary polycythemia 10312979 D75.1 [id number] [facility] [address] [place] [address] 07/05/2023 14:47:28 07/05/2023 15:20:47 Male hypogonadism 55529325 E29.1 Discussed with pt protocol/p olsujeyy for evaluating /treating hypogonadi sm: - will begin replacemen t and standardiz ed dose, and then may adjust in the future.--- - Minimum visit in office z0hhgedh and possibly labs as needed.--- - Pt to visit monthly for refills. no refill to be given if overdue for visit to office.- Controlled substance agreement required. UPDATED 02/22/23- UDS - UPDATED--- - If failed UDS- no prescripti on for controlled substance will be given.- CHARLINE at every refill. UPDATED Erectile dysfunction 860 231754 F52.21 Hypertensive disorder 38 949126 I10 Hyperlipidemia 26921096 E78.5 Reduced libido 9436295 R 68.82 Needle phobia 909451492 F40.231 Incoordination 147867744 R27.9 Type 2 timoteo betes mellitus 40721256 E11.9 Secondary polycythemia 48147292 D75.1 [id number] [facility] [address] [place] [address] 08/02/2023 08:19:02 08/02/2023 08:55:30 Male hypogonadism 29903852 E29.1 Discussed with pt protocol/p jacob for evaluating /treating hypogonadi sm: - will begin replacemen t and standardiz ed dose, and then may adjust in the future.--- - Minimum visit in office s7wluwsh and possibly labs as needed.--- - Pt to visit monthly for refills. no refill to be given if overdue for visit to office.- Controlled substance agreement required. UPDATED 02/22/23- UDS - UPDATED--- - If failed UDS- no prescripti on for controlled substance will be given.- CHARLINE at every refill. UPDATED Erectile dysfunction 860 900400 F52.21 Hypertensive disorder 38 822309 I10 Hyperlipidemia 52023198 E78.5 Reduced libido 9493412 R 68.82 Needle phobia 752633372 F40.231 Incoordination 166194623 R27.9 Type 2 timoteo betes mellitus 23938580 E11.9 Secondary polycythemia 96308135 D75.1 [id number] [facility] [address] [place] [address] 09/17/2023 11:17:43 09/17/2023 11:52:03 Male hypogonadism 11543778 E29.1 Discussed with pt protocol/p jacob for evaluating /treating hypogonadi sm: - will begin replacemen t and standardiz ed dose, and then may adjust in the future.--- - Minimum visit in office w3kmzwwb and possibly labs as needed.--- - Pt to visit monthly for refills. no refill to be given if overdue for visit to office.- Controlled substance agreement required. UPDATED 02/22/23- UDS - UPDATED--- - If failed UDS- no prescripti on for controlled substance will be given.- CHARLINE at every refill. UPDATED Erectile dysfunction 860 682126 F52.21 Hypertensive disorder 38 334873 I10 Hyperlipidemia 27164906 E78.5 Reduced libido 6228403 R 68.82 Needle phobia 138552180 F40.231 Incoordination 751312308 R27.9 Type 2 timoteo betes mellitus 62336310 E11.9 Secondary polycythemia 19593187 D75.1 Patient me dical record not available [id number] Z76.89 Penile candidiasis 89835 8000 B37.49 [id number] Suzie Anderson [employer] [facility] [address] [place] [address] 10/17/2023 09:48:12 10/17/2023 11:07:34 Male hypogonadism 32904966 E29.1 Discussed with pt protocol/p jacob for evaluating /treating hypogonadi sm: - will begin replacemen t and standardiz ed dose, and then may adjust in the future.--- - Minimum visit in office [id number] and possibly labs as needed.--- - Pt to visit monthly for refills. no refill to be given if overdue for visit to office.- Controlled substance agreement required. UPDATED 02/22/23- UDS - UPDATED--- - If failed UDS- no prescripti on for controlled substance will be given.- CHARLINE at every refill. UPDATED Erectile dysfunction 860 618618 F52.21 Hypertensive disorder 38 519275 I10 Hyperlipidemia 04226956 E78.5 Reduced libido 3663432 R 68.82 Needle phobia 219193427 F40.231 Incoordination 316089356 R27.9 Type 2 timoteo betes mellitus 76320040 E11.9 Secondary polycythemia 59595416 D75.1 Patient dc dical record not available 637147208 Z76.89 [id number] [facility] [address] [place] [address] 11/20/2023 08:30:53 11/20/2023 09:31:02 Male hypogonadism 60069703 E29.1 Discussed with pt protocol/p jacob for evaluating /treating hypogonadi sm: - will begin replacemen t and standardiz ed dose, and then may adjust in the future.--- - Minimum visit in office [id number] and possibly labs as needed.--- - Pt to visit monthly for refills. no refill to be given if overdue for visit to office.- Controlled substance agreement required. UPDATED 02/22/23- UDS - UPDATED--- - If failed UDS- no prescripti on for controlled substance will be given.- CHARLINE at every refill. UPDATED Erectile dysfunction 860 953960 F52.21 Hypertensive disorder 38 913312 I10 Hyperlipidemia 16480879 E78.5 Reduced libido 6073584 R 68.82 Needle phobia 180091638 F40.231 Incoordination 570767527 R27.9 Type 2 timoteo betes mellitus 58277594 E11.9 Secondary polycythemia 19550756 D75.1 [id number] [facility] [address] [place] [address] 12/18/2023 09:16:06 12/18/2023 10:17:41 Male hypogonadism 79854857 E29.1 Discussed with pt protocol/p jacob for evaluating /treating hypogonadi sm: - will begin replacemen t and standardiz ed dose, and then may adjust in the future.--- - Minimum visit in office [id number] and possibly labs as needed.--- - Pt to visit monthly for refills. no refill to be given if overdue for visit to office.- Controlled substance agreement required. UPDATED 02/22/23- UDS - UPDATED--- - If failed UDS- no prescripti on for controlled substance will be given.- CHARLINE at every refill. UPDATED Erectile dysfunction 860 044714 F52.21 Hypertensive disorder 38 446374 I10 Hyperlipidemia 75606323 E78.5 Reduced libido 0392865 R 68.82 Needle phobia 509857223 F40.231 Incoordination 892049705 R27.9 Type 2 timoteo betes mellitus 32024733 E11.9 Secondary polycythemia 16290777 D75.1 Long-term current use of drug therapy 967282611 Z79.899 Patient me dical record not available 273515483 Z76.89 [id number] [facility] [address] [place] [address] 01/31/2024 13:28:39 01/31/2024 14:09:15 Male hypogonadism 83693750 E29.1 Discussed with pt protocol/p olsujeyy for evaluating /treating hypogonadi sm: - will begin replacemen t and standardiz ed dose, and then may adjust in the future.--- - Minimum visit in office n7ohpblg and possibly labs as needed.--- - Pt to visit monthly for refills. no refill to be given if overdue for visit to office.- Controlled substance agreement required. UPDATED 02/22/23- UDS - UPDATED--- - If failed UDS- no prescripti on for controlled substance will be given.- CHARLINE at every refill. 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 no refill to be given if overdue for visit to office.- Controlled substance agreement required. UPDATED 02/22/23- UDS - UPDATED--- - If failed UDS- no prescripti on for controlled substance will be given.- CHARLINE at every refill. UPDATED Erectile dysfunction 860 383660 F52.21 Hypertensive disorder 38 801465 I10 Hyperlipidemia 44177236 E78.5 Reduced libido 3442629 R 68.82 Needle phobia 299197514 F40.231 Incoordination 384760904 R27.9 Type 2 timoteo betes mellitus 87934647 E11.9 Secondary polycythemia 43520711 D75.1 Long-term current use of drug therapy 760782425 Z79.612 [id number] [facility] [address] [place] [address] 04/01/2024 09:37:49 04/01/2024 10:18:31 Male hypogonadism 41792179 E29.1 Discussed with pt protocol/p jacob for evaluating /treating hypogonadi sm: - will begin replacemen t and standardiz ed dose, and then may adjust in the future.--- - Minimum visit in office v7haempn and possibly labs as needed.--- - Pt to visit monthly for refills. no refill to be given if overdue for visit to office.- Controlled substance agreement required. UPDATED 02/22/23- UDS - UPDATED--- - If failed UDS- no prescripti on for controlled substance will be given.- CHARLINE at every refill. UPDATED Erectile dysfunction 860 092658 F52.21 Hypertensive disorder 38 682042 I10 Hyperlipidemia 93192686 E78.5 Reduced libido 8629296 R 68.82 Needle phobia 001607592 F40.231 Incoordination 255231747 R27.9 Type 2 timoteo betes mellitus 47347865 E11.9 Secondary polycythemia 66144456 D75.1 Long-term current use of drug therapy 016575064 Z79.803 [id number] [facility] [address] [place] [address] 05/22/2024 14:01:29 05/22/2024 15:14:41 Male hypogonadism 74756982 E29.1 Discussed with pt protocol/p jacob for evaluating /treating hypogonadi sm: - will begin replacemen t and standardiz ed dose, and then may adjust in the future.--- - Minimum visit in office i8qtrurt and possibly labs as needed.--- - Pt to visit monthly for refills. no refill to be given if overdue for visit to office.- Controlled substance agreement required. UPDATED 05/22/24- UDS - UPDATED--- - If failed UDS- no prescripti on for controlled substance will be given.- CHARLINE at every refill. UPDATED Erectile dysfunction 860 661325 F52.21 Hypertensive disorder 38 571255 I10 Hyperlipidemia 60299181 E78.5 Reduced libido 3688450 R 68.82 Needle phobia 978846447 F40.231 Incoordination 053342758 R27.9 Type 2 timoteo betes mellitus 52989862 E11.9 Secondary polycythemia 82639967 D75.1 Long-term current use of drug therapy 765693447 Z79.337 [id number] [facility] [address] [place] [address] 06/17/2024 11:11:45 06/17/2024 15:15:28 Male hypogonadism 69896347 E29.1 Discussed with pt protocol/p jacob for evaluating /treating hypogonadi sm: - will begin replacemen t and standardiz ed dose, and then may adjust in the future.--- - Minimum visit in office z6uopjer and possibly labs as needed.--- - Pt to visit monthly for refills. no refill to be given if overdue for visit to office.- Controlled substance agreement required. UPDATED 05/22/24- UDS - UPDATED--- - If failed UDS- no prescripti on for controlled substance will be given.- CHARLINE at every refill. UPDATED Erectile dysfunction 860 982565 F52.21 Hypertensive disorder 38 981711 I10 Hyperlipidemia 62705370 E78.5 Reduced libido 8710370 R 68.82 Needle phobia 667717405 F40.231 Incoordination 582445905 R27.9 Type 2 timoteo betes mellitus 59051867 E11.9 Secondary polycythemia 30549142 D75.1 Long-term current use of drug therapy 987792160 Z79.193 [id number] Suzie Anderson [facility] [address] [place] [address] 07/15/2024 11:34:38 07/15/2024 12:32:00 Male hypogonadism 68426076 E29.1 Discussed with pt protocol/p jacob for evaluating /treating hypogonadi sm: - will begin replacemen t and standardiz ed dose, and then may adjust in the future.--- - Minimum visit in office w0wdjrod and possibly labs as needed.--- - Pt to visit monthly for refills. no refill to be given if overdue for visit to office.- Controlled substance agreement required. UPDATED 05/22/24- UDS - UPDATED--- - If failed UDS- no prescripti on for controlled substance will be given.- CHARLINE at every refill. UPDATED Erectile dysfunction 860 873627 F52.21 Hypertensive disorder 38 781614 I10 Hyperlipidemia 75342181 E78.5 Reduced libido 2559779 R 68.82 Needle phobia 364380284 F40.231 Incoordination 287888404 R27.9 Type 2 timoteo betes mellitus 95611691 E11.9 Secondary polycythemia 18235038 D75.1 Long-term current use of drug therapy 870948068 Z79.212 [id number] Linda Gamboa APRN [address] [address] 08/20/2024 16:04:34 08/20/2024 16:33:34 Erectile dysfunction 922590165 F52.21 Long-term current use of drug therapy 632122828 Z79.899 Male hypogonadism 008377 06 E29.1 Pt compliant with plan of careCharline reviewedme dication compliance discussedL ast uds:08/20/24 Control substance agreement on file Health Concerns Section Related Observation LastModified by Organization Detai ls LastModified Time None Recorded Concern Status LastModified by Organization Details LastModified Time None Recorded Advance Directives Directive N: Payers Insurance Date Sequence Insurance Name Policy Number Policy Schumacher Covered Member ID Schumacher Member ID Guarantor Name 08/19/2024 1 MONICO [id number] Azeem Perez [id number] Azeem Lua Chris Notes Date Note Type Note Provider Name and Address Organization Details Recorded Time 04/01/2024 text/html Lower Urinary Tr act Symptoms (LUTS)Reported by PatientHPIFor associated symptoms, patient reportsabnormal erection (uses cialis)anddecreased libido (improved with testo)but reportsno abdominal pain,no groin pain,no flank pain,no low back pain,no chills,no fever,no constipation,no diarrhea,no nausea,no vomiting,no temperaure,good force of stream,no straining,no post void dribbling,no hesitancy,empties well,no urgency,no frequency,no dysuria,no incontinence,no nocturia,no urine odor,no gross hematuria,no hematospermia,no ejaculatory pain,no premature ejaculation,no penile pain, andno penile curvature. For context, patient reportshas seen urologist (dr capellan).-04/04/22- rbc 5.84, hgb 16.8, hct 49.2, AST [...] iron/tibc/ferritin WNL. testo 347 12/09/23- CBC WNL billet grinder note from 01/20/24neg polycythemia vera testing, erythrocytosis likely secondary to undx BRAXTON and testo tx. which they ordered a HST and he fu in 6 months. 01/31/24- CBC WNL. iron/tibc/ferritin WNL. testo 78. Pt comes for low T. was previously seeing Dr Capellan.PCP is Dr Patterson in [place]. hx HLD, HTN, t2dm, ED. takes cialis 20mg PRN. has been taking for the past year. works well. Travels a lot for work. 04/01/24 comes to f/u on lowt, ed, polycythemia STARTED XYOSTED 04/06/22needs refill.saw dontae, HAD sleep study. Suzie Justin, [employer] [address], [place], [address], [place] - [facility] 04/01/2024 10:09:31 05/22/2024 text/html Lower Urinary Tr act Symptoms (LUTS)Reported by PatientHPIFor associated symptoms, patient reportsabnormal erection (uses cialis)anddecreased libido (improved with testo)but reportsno abdominal pain,no groin pain,no flank pain,no low back pain,no chills,no fever,no constipation,no diarrhea,no nausea,no vomiting,no temperaure,good force of stream,no straining,no post void dribbling,no hesitancy,empties well,no urgency,no frequency,no dysuria,no incontinence,no nocturia,no urine odor,no gross hematuria,no hematospermia,no ejaculatory pain,no premature ejaculation,no penile pain, andno penile curvature. For context, patient reportshas seen urologist (dr capellan).-04/04/22- rbc 5.84, hgb 16.8, hct 49.2, AST [...] iron/tibc/ferritin WNL. testo 347 12/09/23- CBC WNL billet grinder note from 01/20/24neg polycythemia vera testing, erythrocytosis likely secondary to undx BRAXTON and testo tx. which they ordered a HST and he fu in 6 months. 01/31/24- CBC WNL. iron/tibc/ferritin WNL. testo 78. 04/01/24- testo-230 CBC WNL Pt comes for low T. was previously seeing Dr Capellan.PCP is Dr Patterson in [place]. hx HLD, HTN, t2dm, ED. takes cialis 20mg PRN. has been taking for the past year. works well. Travels a lot for work. 05/22/24 comes to f/u on lowt, ed, polycythemia STARTED XYOSTED 04/06/22needs refill.saw dontae, HAD sleep study. severe BRAXTON. CPAP Suzie Anderson, [employer] [address], [place], [address], [place] - [facility] 05/22/2024 14:33:57 06/17/2024 text/html Lower Urinary Tr act Symptoms (LUTS)Reported by PatientHPIFor associated symptoms, patient reportsabnormal erection (uses cialis)anddecreased libido (improved with testo)but reportsno abdominal pain,no groin pain,no flank pain,no low back pain,no chills,no fever,no constipation,no diarrhea,no nausea,no vomiting,no temperaure,good force of stream,no straining,no post void dribbling,no hesitancy,empties well,no urgency,no frequency,no dysuria,no incontinence,no nocturia,no urine odor,no gross hematuria,no hematospermia,no ejaculatory pain,no premature ejaculation,no penile pain, andno penile curvature. For context, patient reportshas seen urologist (dr capellan).-04/04/22- rbc 5.84, hgb 16.8, hct 49.2, AST [...] iron/tibc/ferritin WNL. testo 347 12/09/23- CBC WNL billet grinder note from 01/20/24neg polycythemia vera testing, erythrocytosis likely secondary to undx BRAXTON and testo tx. which they ordered a HST and he fu in 6 months. 01/31/24- CBC WNL. iron/tibc/ferritin WNL. testo 78. 04/01/24- testo-230 CBC WNL 06/08/24- psa 0.4, testo 191. CBC WNL. (3 days post injection) Pt comes for low T. was previously seeing Dr Capellan.PCP is Dr Patterson in [place].hx HLD, HTN, t2dm, ED. Travels a lot for work. 06/17/24 comes to f/u on lowt, ed, polycythemia takes cialis 20mg PRN. works well. STARTED XYOSTED 04/06/22needs refill.saw dontae, HAD sleep study. severe BRAXTON using CPAP got labs. Suzieletty AmbroseAlzada, [employer]OR [address], [place], [address], [place] - [facility] 06/18/2024 14:17:51 07/15/2024 text/html Lower Urinary Tr act Symptoms (LUTS)Reported by PatientHPIFor associated symptoms, patient reportsabnormal erection (uses cialis)anddecreased libido (improved with testo)but reportsno abdominal pain,no groin pain,no flank pain,no low back pain,no chills,no fever,no constipation,no diarrhea,no nausea,no vomiting,no temperaure,good force of stream,no straining,no post void dribbling,no hesitancy,empties well,no urgency,no frequency,no dysuria,no incontinence,no nocturia,no urine odor,no gross hematuria,no hematospermia,no ejaculatory pain,no premature ejaculation,no penile pain, andno penile curvature. For context, patient reportshas seen urologist (dr capellan).-04/04/22- rbc 5.84, hgb 16.8, hct 49.2, AST [...] iron/tibc/ferritin WNL. testo 347 12/09/23- CBC WNL billet grinder note from 01/20/24neg polycythemia vera testing, erythrocytosis likely secondary to undx BRAXTON and testo tx. which they ordered a HST and he fu in 6 months. 01/31/24- CBC WNL. iron/tibc/ferritin WNL. testo 78. 04/01/24- testo-230 CBC WNL 06/08/24- psa 0.4, testo 191. CBC WNL. (3 days post injection) Pt comes for low T. was previously seeing Dr Capellan.PCP is Dr Patterson in [place].hx HLD, HTN, t2dm, ED. Travels a lot for work. 07/15/24 comes to f/u on lowt, ed, polycythemia takes cialis 20mg PRN. works well. STARTED XYOSTED 04/06/22,increased to 100mg weekly on 06/17 needs refill.saw dontae, HAD sleep study. severe BRAXTON using CPAP just got refill in mail the other day but isnt showing on charline yet. Suzie Anderson, [employer]PER[employer]OR [address], [place], [address], [facility] - [facility] 07/15/2024 12:30:10 08/20/2024 text/html 43 yr old male presents for a refill on xyosted. pt states he is doing well on this dose Linda Gamboa, [employer] [address], [place], [address], [facility] - [facility] 08/20/2024 16:34:26
--- OUTSIDE RECORDS SUMMARY | 2024-09-10 13:11 | XMS_ITS | Encounter Summary ---
Author Organization [facility] Address [address] [place] [address] Care Team Providers Care Welfare Adviser Name Role Phone Unavailable Primary Care Provider Unavailabl e Reason for Visit * Reason Onset Date Comments Follow-up 08/27/2024 Encounter Details Date Type Department Care Team (Late Contact Info) Description 08/27/2024 Telephone [facility] [address] [id number] Edu Choe MD [address] [place] [address] Follow-up Social History Tobacco Use Types Packs/Day Years [...] on file documented as of this encounter Miscellaneous Notes * Telephone Encounter - Vanna Woodard MA - 08/27/2024 3:12 PM EDT Attempted to call patient to reschedule appointment with Дмитрий on 09/14/2024. It seemed someone picked up, did not say anything and then the call disconnected, will try again. documented in this encounter Plan of Treatment Upcoming Encounters Date Type Department Care Team (Late st Contact Info) Description 09/14/2024 10:00 AM EDT Office Visit [facility] [address] [facility] [address] [place] [address] Edu Choe MD [address] [place] [address] documented as of this encounter Visit Diagnoses Not on filedocumented in this encounter
--- OUTSIDE RECORDS SUMMARY | 2024-09-10 13:12 | XMS_ITS | Encounter Summary ---
Author Organization [facility] Address [address] [place] [address] Care Team Providers Care Certified Registered Nurse Anesthetist Name Role Phone Unavailable Primary Care Provider Unavailabl e Reason for Visit * Reason Onset Date Comments Missed Appointment 09/02/2024 Encounter Details Date Type Department Care Team (Late st Contact Info) Description 09/02/2024 Telephone [facility] [address] [employer] [address] [address] Edu Choe MD [address] [place] [address] Missed Appointment Social History Tobacco Use Types Packs/Day Years [...] Telephone Encounter - Vanna Woodard MA - 09/02/2024 1:10 PM EDT lvm for patient to call back so we can reschedule his appointment on 09/14/2024, Дмитрий out of office documented in this encounter Plan of Treatment Upcoming Encounters Date Type Department Care Team (Late st Contact Info) Description 09/14/2024 10:00 AM EDT Office Visit [facility] [address] [employer] [address] [address] Edu Choe MD [address] [place] [address] documented as of this encounter Visit Diagnoses Not on filedocumented in this encounter
--- OUTSIDE RECORDS SUMMARY | 2024-09-10 13:12 | XMS_ITS | Clinical Summary ---
Author Organization [facility] Phone Care Team Providers Care Fugitive Investigator Name Role Phone Unavailable Primary Care Provider [...] Encounters Date Type Department Care Team Description 09/02/2024 Telephone [facility] [employer] [address] [address] [address] Edu Choe MD Missed Appointment 08/27/2024 Telephone [facility] [address] [address] Edu Choe MD Follow-up 06/15/2024 10:15 AM EDT [facility] [address] [address] Karla Jackson PA-C Left arm pain 06/15/2024 10:00 AM EDT Office Visit [facility] [address] [address] Edu Choe MD Left arm pain (Primary [...] Neurolysis Repair; Surgeon: Edu Choe MD; Location: [facility] MAIN OR; Service: Orthopedics CARPAL TUNNEL RELEASE 02/28/2024 Hand/Wrist/Left .; Surgeon: Edu Choe MD; Location: [facility] MAIN OR; Service: Orthopedics Medical History Medical [...] Description 09/14/2024 10:00 AM EDT Office Visit [facility] [address] [facility] [address] [place] [address] Edu Choe MD [address] [place] [address] Health Maintenance Due Date Last Done Comments Annual Wellness Exam 1985 DTaP/TDaP/Td (2 - Tdap) 12/02/1997 12/01/1997 Hepatitis B Vaccine (1 of 3 - 19+ 3-dose series) 2001 COVID-19 Vaccine ( - 2023-2 5 season) 2023 Influenza Vaccine (#1) 2024 Meningococcal B Vaccine Aged Out No l onger eligible based on patient's age to complete this topic Pneumococcal Vaccine 0-49 Aged Out No longer eligible based on patient's age to complete this topic Medical Devices Implanted Type Area Implementation Services Analyst Device Identifier Shelf Expiration Date Model / [...] Result [facility] from Last [address] [facility] [address] [place] [id number] [employer] ACCESS PLUS [employer] ACCESS PLUS CIGNA OPEN ACCESS PLUS CIGNA OPEN ACCESS PLUS
--- OUTSIDE RECORDS SUMMARY | 2024-09-10 13:12 | XMS_ITS | Continuity of Care Document ---
Author Organization [facility] Address [address] [place] [address] Assessment Encounter Date Assessment Date Assessment LastModified [...] Modified Time Details Appointments Establish ed Patient 20 2024 02:00P M Linda Gamboa APRN Not available Not available Not available Follow Up 2024 02:00P M Suzie Anderson APRN Not available Not available Not available Lab drug screen, urine 2024 025 [email or web address] [facility], [address], [place], [address], 07/15/2024 12:19:29 CBC w/ auto diff - get drawn 3-4 days after xyosted injection . 2024 025 [email or web address] [facility], [address], [address], [place], [address], 07/15/2024 12:20:19 testoster one, total, serum - get drawn 3-4 days after xyosted injection . 2024 025 [facility], [address], [address], [place], [address], 07/15/2024 12:20:19 Referral None recorded. Procedures None recorded. Surgeries None recorded. Imaging None recorded. Medication Orders Xyosted 100 mg/0.5 mL subcutane ous auto-inje ctor 2024 025 [facility], [address] , [address], [place], [place], [id number], 07/22/2024 05:01:29 Patient TargetsNo targets recorded. Patient Instructions Encounter Date Encounter Id Patient Instructions Last Modified By Organization Details Last Modified Time 07/15/2024 [id number] high blood pressure: care instructions Not available [...] Abnormal Flag Note LastModifiedBy Organization Detail LastModifiedTime 06/18/1906/17/2024 drug scree n, urine BAR negati ve Not Available [facility] [address] [place], [address], 06/15/2024 09:40:10 06/18/19 25 06/17/2024 drug scree n, urine BZO negati ve Not Available [facility] [address] [place], [address], 06/15/2024 09:40:10 06/18/19 25 06/17/2024 drug scree n, urine MTD negati ve Not Available [facility] [address] [place], [address], 06/15/2024 09:40:10 06/18/19 25 06/17/2024 drug scree n, urine AMP negati ve Not Available [facility] [address] [place], [address], 06/15/2024 09:40:10 06/18/19 25 06/17/2024 drug scree n, urine MOP negati ve Not Available [facility] [address] [place], [address], 06/15/2024 09:40:10 06/18/19 25 06/17/2024 drug scree n, urine OXY negati ve Not Available [facility] [address] [place], [address], 06/15/2024 09:40:10 06/18/19 25 06/17/2024 drug scree n, urine MDMA negati ve Not Available [facility] [address] [place], [address], 06/15/2024 09:40:10 06/18/19 25 06/17/2024 drug scree n, urine HUBERT negati ve Not Available [facility] [address] [place], [address], 06/15/2024 09:40:10 06/18/19 25 06/17/2024 drug scree n, urine PCP negati ve Not Available [facility] [address] [place], [address], 06/15/2024 09:40:10 06/18/19 25 06/17/2024 drug scree n, urine MET negati ve Not Available [facility] [address] [place], [address], 06/15/2024 09:40:10 07/16/19 25 07/15/2024 drug scree n, urine THC negati ve Not Available [facility] [address] [place], [address], 07/14/2024 07:54:16 07/16/19 25 07/15/2024 drug scree n, urine TCA negati ve Not Available [facility] [address] [place], [address], 07/14/2024 07:54:16 07/16/1907/15/2024 drug scree n, urine BAR negati ve Not Available [facility] [address] [place], [address], 07/14/2024 07:54:16 07/16/1907/15/2024 drug scree n, urine BZO negati ve Not Available [facility] [address] [place], [address], 07/14/2024 07:54:16 07/16/19 25 07/15/2024 drug scree n, urine MTD negati ve Not Available [facility] [address] [place], [address], 07/14/2024 07:54:16 07/16/19 25 07/15/2024 drug scree n, urine AMP negati ve Not Available [facility] [address] [place], [address], 07/14/2024 07:54:16 07/16/1912 0707/15/2024 drug scree n, urine MOP negati ve Not Available [facility] [address] [place], [address], 07/14/2024 07:54:16 07/16/19 25 07/15/2024 drug scree n, urine OXY negati ve Not Available [facility] [address] [place], [address], 07/14/2024 07:54:16 07/16/19 25 07/15/2024 drug scree n, urine MDMA negati ve Not Available [facility] [address] [place], [address], 07/14/2024 07:54:16 07/16/19 25 07/15/2024 drug scree n, urine HUBERT negati ve Not Available [facility] [address] [place], [address], 07/14/2024 07:54:16 07/16/1907/15/2024 drug scree n, urine PCP negati ve Not Available [facility] [address] [place], [address], 07/14/2024 07:54:16 07/16/1907/15/2024 drug scree n, urine MET negati ve Not Available [facility] [address] [place], [address], 07/14/2024 07:54:16 Result Notes None recorded. Problems Name Problem SNOMED Code Status Onset Date Resolution Date Notes Provider Name and Address Organization Details Recorded Time Erectile dysfunction 580890328 Active 2021 Yamini Prieto null, [place] - [facility] 08:04:56 Hypertensive disorder 99203974 Active 2021 Yamini Prieto null, [place] - [facility] 08:05:13 Problem Notes None recorded. Procedures Surgical History Date Name Laterality Status Provider Name and Address Organization Details Recorded Time Ear Tubes - Tympanostomy Tubes completed Yamini Prieto [place] [facility] 02/13/2022 08:12:25 Imaging Results None recorded. Procedure [...] Last Updated DateTime 185.42 cm 45.6 kg/m2 898959. 17 g 85 /min 96 % 96 % 18 /min 0 142/82 mm[Hg] Olivia Rodriguez [place] - [facility] 12:02:55 Social History Question Answer Notes LastModified by [email or web address] ion Details LastModified Time Tobacco Smoking Status Never Smoker Yamini recinos, [place] - [facility] 02/13/2022 08:07:28 Do [...] Or The Highest Degree You Have Received? [id number] Information not available 02/13/2022 Have There Been Any Changes To Your Family Or Social Situation? No Information no t available 02/13/2022 Have You Recently Or Are You Planning To Travel To An Area With Zika Virus? No Information not available 02/13/2022 Do You Have A Medical Power Of Plug Wirer? 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 [id number] Information not available 02/13/2022 Do you have [...] preservative free, adsorbed 8 completed Not Available [facility] 08/20/2024 16:05:27 Past Encounters Encounter ID Performer Location Encounter Start Date Encounter Closed Date Diagnosis/Indication Diagnosis SNOMED-CT Code Diagnosis ICD10 Code Diagnosis Note [id number] [facility] [address] [place] [address] 06/17/2024 11:11:45 06/17/2024 15:15:28 Male hypogonadism 81875620 E29.1 Discussed with pt protocol/p jacob for evaluating /treating hypogonadi sm: - will begin replacemen t and standardiz ed dose, and then may adjust in the future.--- - Minimum visit in office [id number] and possibly labs as needed.--- - Pt to visit monthly for refills. no refill to be given if overdue for visit to office.- Controlled substance agreement required. UPDATED 05/22/24- UDS - UPDATED--- - If failed UDS- no prescripti on for controlled substance will be given.- CHARLINE at every refill. 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 no refill to be given if overdue for visit to office.- Controlled substance agreement required. UPDATED 05/22/24- UDS - UPDATED--- - If failed UDS- no prescripti on for controlled substance will be given.- CHARLINE at every refill. UPDATED Erectile dysfunction 860 082511 F52.21 Hypertensive disorder 38 393508 I10 Hyperlipidemia 03787554 E78.5 Reduced libido 0143065 R 68.82 Needle phobia 908053870 F40.231 Incoordination 544585427 R27.9 Type 2 timoteo betes mellitus 31631091 E11.9 Secondary polycythemia 25278188 D75.1 Long-term current use of drug therapy 388809159 Z79.899 Health Concerns Section Related Observation LastModified by Organization Detai ls LastModified Time None Recorded Concern Status LastModified by Organization Details LastModified Time None Recorded Payers Encounter Date Sequence Insurance Name Policy Number Policy Schumacher Covered Member ID Schumacher Member ID Guarantor Name 07/15/2024 1 MONICO [id number] Azeem Perez [id number] Azeem Perez Notes Date Note Type [...] iron/tibc/ferritin WNL. 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 which they ordered a HST and he fu in 6 months. 01/31/24- CBC WNL. iron/tibc/ferritin WNL. testo 78. 04/01/24- testo-230 CBC WNL 06/08/24- psa 0.4, testo 191. CBC WNL. (3 days post injection) Pt comes for low T. was previously seeing Dr Capellan.PCP is Dr Patterson in [address].hx HLD, HTN, t2dm, ED. Travels a lot for work. 07/15/24 comes to f/u on lowt, ed, polycythemia takes cialis 20mg PRN. works well. STARTED XYOSTED 04/06/22,increased to 100mg weekly on 06/17 needs refill.saw dontae, HAD sleep study. severe BRAXTON using CPAP just got refill in mail the other day but isnt showing on charline yet. Suzie Anderson, SAP MANAGER [address], [place], [address], [place] - [facility] 07/15/2024 12:30:10
--- OUTSIDE RECORDS SUMMARY | 2024-09-10 13:12 | XMS_ITS | Clinical Summary ---
Author Organization [facility] Address [address] [place] [id number] Care Team Providers Care Data Communications Analyst Name Role Phone Ignacia Sheridan APRN Primary Care Provider [phone] Allergies No known active allergies Medications fenofibrate (TRICOR) 145 MG tablet Take 145 mg by mouth Daily. Active metFORMIN (GLUCOPHAGE) 1000 MG tablet Take 1,000 mg by mouth 2 (Two) Times a Day With Meals. Active pravastatin (PRAVACHOL) 40 MG tablet Take 40 mg by mouth Daily. Active meloxicam (MOBIC) 15 MG tablet Take 15 mg by mouth Daily. Active amLODIPine (NORVASC) 10 MG tablet Take 10 mg by mouth Daily. Active allopurinol (ZYLOPRIM) 100 MG tablet Take 100 mg by mouth Daily. Active carvedilol (COREG) 25 MG tablet Take 25 mg by mouth 2 (Two) Times a Day With Meals. Active hydrochlorothiaz mohini (HYDRODIURIL) 25 MG tablet Take 25 mg by mouth Daily. Active JANUVIA 100 MG tablet Take 1 tablet by mouth Daily. 07/23/2016 Active Active Problems Problem Noted Date Diagnosed Date Cough 08/15/2016 GERD 08/15/2016 Nonsmoker 04/08/2016 Chews tobacco regularly 04/08/2016 Overview (04/08/2016): Over the past 15 years. Hypertension 04/08/2016 Type 2 diabetes mellitus wit hout complication, without long-term current use of insulin 04/08/2016 Lung nodules 04/08/2016 Overview (04/08/2016): [facility] scan [facility] 12/29/16: 1.2 cm noncalcified nodule right middle lobe, several smaller subcentimeter nodules in the right middle and lower lobe, nonspecific subpleural opacity is in the lung bases--no other CT scan to follow up on that to date Resolved Problems Problem Noted Date Diagnosed Date Resolved Date History of hemoptysis 04/08/20162016 Family History Medical History Relation Name Comments Asthma Daughter Asthma Son 2 Relation Name Status Comments Daughter Alive Asthma Father Alive Hypertension Mother Alive Multiple sclero sis, diabetic Son 1 Alive Son 2 Alive Asthma Social History Tobacco Use Types Packs/Day Years Used Date Smoking Tobacco: Never Smokeless Tobacco: Current Chew Tobacco Cessation:Ready to Q uit: No Alcohol Use Standard Drinks/Week Comments Yes 0 (1 standard drink = 0.6 oz pur e alcohol) 5-6 drinks per week whiskey Abuse Screen Answer Date Recorded Unsafe at Home or Work/School Not on file Feels Threatened by Someone? Not on file 12/2022 Does Anyone Keep You from Co ntacting Others or Doint Things Outside the Home? Not on file 11/28/2022 Physical Sign of Abuse Present Not on file 1 Housing Stability Answer Date Recorded Current Living Arrangements Not on file 11/18 Potentially Unsafe Housing Conditions Not on debby e 11/28/2022 Family and Community Support Answer Derek e Recorded Help with Day-to-Day Activities Not on file 11/28/2022 Lonely or Isolated Not on file 11/28/2022 Employment Answer Date Recorded Do you want help finding or keeping work or a melchor b? Not on file 11/28/2022 Disabilities Answer Date Recorded Concentrating, Remembering, or Making Decisions Difficulty Not on file 11/28/2022 Doing Errands Independently Difficulty Not on fi le 11/28/2022 Education Answer Date Recorded Help with school or training? Not on file Preferred Language Not on file 11/28/2022 Sex and Gender Information Value Date Recorded Sex Assigned at Not on file Legal Sex Male 9:21 AM EST Gender Identity Not on file Sexual Orientation Not on file Last Filed Vital Signs Vital Sign Reading Time Taken Comments Blood Pressure 140/102 09/24/2017 10:14 AM EDT Pulse 79 09/24/2017 10:14 AM EDT Temperature 36.7 C (98.1 F) 09/24/2017 10:14 AM EDT Respiratory Rate 18 09/24/2017 10:14 AM EDT Oxygen Saturation 96% 09/24/2017 10:14 AM EDT Inhaled Oxygen Concentration - - Weight 146 kg (321 lb 2 oz) 09/24/2017 10:14 AM EDT Height 190.5 cm (6' 3 ) 09/24/2017 10:14 AM EDT Body Mass Index 40.14 09/24/2017 10:14 AM EDT Plan of Treatment Health Maintenance Due Date Last Done Comments TDAP/TD VACCINES (1 - Tdap) 2001 ANNUAL PHYSICAL 06/19/2016 HEPATITIS C SCREENING 06/19/2016 COVID-19 Vaccine (2023-2 5 season) 2023 INFLUENZA VACCINE 11/18/2024 Pneumococcal Vaccine 0-49 Aged Out No longer eligible based on patient's age to complete this topic Insurance - [facility] Care Teams Data Communications Analyst Relationship Specialty Start Date End Date Ignacia Sheridan APRN PCP - General Nurse Practitioner 04/03/16
--- OUTSIDE RECORDS SUMMARY | 2024-09-10 13:12 | XMS_ITS | Data Portability ---
Author Organization [place] - [facility] Address [address] [place] [address] Care Team Providers Care Road Production General Manager Name Role Phone ROCÍO GUZMAN Primary Care Provider Assessment No assessment recorded. Plan of Treatment Reminders Order Date Submit Date Provider Last Modified By Organization Details Last Modified Time Details Appointments None recorded. Lab iron + total iron-juliocesar ng capacity (TIBC), serum [address] (Registration ), [place], [address], 5 08:46:36 CBC w/ auto diff 2023 024 [facility] (Registration ), [place], [address], 5 08:30:01 ferritin, serum or plasma [address] (Registration ), [place], [address], 5 08:46:36 hemochroma tosis mutation (hfe), blood/tiss ue 2023 024 [facility] (Registration ), [place], [address], 4 08:23:13 iron + TIBC + ferritin, serum [address] (Registration ), [place], [address], 4 08:37:55 iron saturation , serum [address] (Registration ), [place], [address], 4 08:23:13 CBC w/ auto diff 2023 024 [facility] (Registration ), [place], [address], 4 19:07:05 Referral None recorded. Procedures None recorded. Surgeries None recorded. Imaging home sleep study 2024 025 [facility] Centralized Scheduling, [place], [address], 5 11:35:23 home sleep study [address] Centralized Scheduling, [place], [address], 4 08:23:04 XR, humerus 2023 024 liz [facility], [address] [place] [address] [place], [address], 4 07:09:03 XR, humerus 2023 024 [email or web address] [facility], [address] [place] [address] [place], [address], 4 14:06:17 Medication Orders None recorded. Patient TargetsNo targets recorded. Patient InstructionsNo instructions recorded. Reason for Referral None Reported. Results Created Date Observation Date Name Description Value Unit Range Abnormal Flag Note LastModifiedBy Organization Detail LastModifiedTime 10/03/19 24 10/03/2023 C-BETZY CTIVE PROTE IN note See Note Order ing Provi suni: Emanuel Wells MD Not Available [address] , [place], [address], 10/03/2023 10:03:50 10/03/19 24 10/03/2023 C-BETZY CTIVE PROTE IN C-reactive protein 22.3 mg/L <5.0 high NOT E NEW REFER ENCE RANGE S Not Available [address] , [place], [address], 10/03/2023 10:03:50 10/03/19 24 10/03/2023 C-BETZY CTIVE PROTE IN performing lab see note - [facility] R [address] [facility] [address] Not Available [address] , [place], [address], 10/03/2023 10:03:50 10/10/19 24 10/10/2023 C-BETZY CTIVE PROTE IN note See Note Order ing Provi suni: Emanuel Wells MD Not Available [address] , [place], [address], 10/10/2023 10:39:22 10/10/19 24 10/10/2023 C-EBTZY CTIVE PROTE IN C-reactive protein 6.4 mg/L <5.0 high NOT E NEW REFER ENCE RANGE S Not Available [address] , [place], [address], 10/10/2023 10:39:22 10/10/19 24 10/10/2023 C-BETZY CTIVE PROTE IN performing lab see note ML - [facility] R [address] [facility] [address] Not Available [address]reon, [place], [address], 10/10/2023 10:39:22 10/17/19 24 10/17/2023 C-BETZY CTIVE PROTE IN note See Note Order ing Provi suni: Emanuel Wells MD Not Available [address] , [place], [address], 10/17/2023 10:45:09 10/17/19 24 10/17/2023 C-BETZY CTIVE PROTE IN C-reactive protein <5.0 mg/L <5.0 NOT E NEW REFER ENCE RANGE S Not Available [address] , [place], [address], 10/17/2023 10:45:09 10/17/19 24 10/17/2023 C-EBTZY CTIVE PROTE IN performing lab see note ML - [facility] R [address] [facility] [address] [facility] [address] Not Available [address]ia Carreon, [place], [address], 10/17/2023 10:45:09 12/09/19 24 12/09/2023 CBC W/AUT O DIFFE RENTI AL note SEE NOTE Order ing Provi suni: Leoncio caldwell APRN Not Available [address], [place], [address], 12/09/2023 19:07:05 12/09/19 24 12/09/2023 CBC W/AUT O DIFFE RENTI AL white blood cell 7.2 10e3/ uL 4.5-13 .0 normal Not Available [address] , [place], [address], 12/09/2023 19:07:05 12/09/19 24 12/09/2023 CBC W/AUT O DIFFE RENTI AL red blood cell 5.53 10e6/ uL 4.10-5 .70 normal Not Available [address], [place], [address], 12/09/2023 19:07:05 12/09/1912/09/2023 CBC W/AUT O DIFFE RENTI AL hemoglobin 16.7 g/dL 12.0-1 6.9 normal Not Available [address]reon, [place], [address], 12/09/2023 19:07:05 12/09/1912/09/2023 CBC W/AUT O DIFFE RENTI AL hematocrit 48.2 % 36.0-4 9.0 normal Not Available [address] Carreon, [place], [address], 12/09/2023 19:07:05 12/09/1912/09/2023 CBC W/AUT O DIFFE RENTI AL mean cell volume 87 fL 78.0-9 8.0 normal Not Available [place] [address], [place], [address], 12/09/2023 19:07:05 12/09/1912/09/2023 CBC W/AUT O DIFFE RENTI AL mean cell HGB 30.2 pg 25.0-3 5.0 normal Not Available [address], [place], [address], 12/09/2023 19:07:05 12/09/1912/09/2023 CBC W/AUT O DIFFE RENTI AL mean cell HGB concentratio n 34.6 g/dL 31.0-3 6.0 normal Not Available [address], [place], [address], 12/09/2023 19:07:05 12/09/19 24 12/09/2023 CBC W/AUT O DIFFE RENTI AL red cell distribution width 13.7 % 11.0-1 5.0 normal Not Available [address] [address], [place], [address], 12/09/2023 19:07:05 12/09/19 24 12/09/2023 CBC W/AUT O DIFFE RENTI AL platelet count 276 10e3/ uL 150-40 0 normal Not Available [address]reon, [place], [address], 12/09/2023 19:07:05 12/09/1912/09/2023 CBC W/AUT O DIFFE RENTI AL immature granulocyte % 1 0-1 normal Not Available [address] Denia Carreon, [place], [address], 12/09/2023 19:07:05 12/09/19 24 12/09/2023 CBC W/AUT O DIFFE RENTI AL neutrophil % 62 % 35-75 normal Not Available [address] Carreon, [place], [address], 12/09/2023 19:07:05 12/09/19 24 12/09/2023 CBC W/AUT O DIFFE RENTI AL lymphocyte % 24 % 10-50 normal Not Available [address], [place], [address], 12/09/2023 19:07:05 12/09/1912/09/2023 CBC W/AUT O DIFFE RENTI AL monocyte % 9 % 0-15 normal Not Available [address] [place], [place], [address], 12/09/2023 19:07:05 12/09/19 24 12/09/2023 CBC W/AUT O DIFFE RENTI AL eosinophil % 3 % 0-5 normal Not Available [address] Carreon, [place], [address], 12/09/2023 19:07:05 12/09/19 24 12/09/2023 CBC W/AUT O DIFFE RENTI AL basophil % 1 % 0-5 normal Not Available [address] [place], [place], [address], 12/09/2023 19:07:05 12/09/1912/09/2023 CBC W/AUT O DIFFE RENTI AL immature granulocyte # 0.04 x1000 /uL 0-0.05 normal Not Available [address] , [place], [address], 12/09/2023 19:07:05 12/09/1912/09/2023 CBC W/AUT O DIFFE RENTI AL neutrophil # 4.47 x1000 /uL 1.50-8 .00 normal Not Available [address]reon, [place], [address], 12/09/2023 19:07:05 12/09/19 24 12/09/2023 CBC W/AUT O DIFFE RENTI AL lymphocyte # 1.74 x1000 /uL 1.20-5 .20 normal Not Available [place] [address], [place], [address], 12/09/2023 19:07:05 12/09/19 24 12/09/2023 CBC W/AUT O DIFFE RENTI AL monocyte # 0.64 x1000 /uL 0.30-0 .90 normal Not Available [address], [place], [address], 12/09/2023 19:07:05 12/09/19 24 12/09/2023 CBC W/AUT O DIFFE RENTI AL eosinophil # 0.19 x1000 /uL 0.00-0 .50 normal Not Available [address] , [place], [address], 12/09/2023 19:07:05 12/09/19 24 12/09/2023 CBC W/AUT O DIFFE RENTI AL basophil # 0.07 x1000 /uL 0.00-0 .30 normal Not Available [address], [place], [address], 12/09/2023 19:07:05 12/09/19 24 12/09/2023 CBC W/AUT O DIFFE RENTI AL NRBC automated 0.0 /100_ WBC Not Available [address] , [place], [address], 12/09/2023 19:07:05 12/09/19 24 12/09/2023 CBC W/AUT O DIFFE RENTI AL performing lab SEE NOTE - [facility] R [address] [facility] [address] Not Available [address] , [place], [address], 12/09/2023 19:07:05 12/09/19 24 12/09/2023 FE W/TOT AL IRON JULIOCESAR NG CAP note See Note Order ing Provi suni: Leoncio caldwell APRN Not Available [address], [place], [address], 12/09/2023 20:39:59 12/09/19 24 12/09/2023 FE W/TOT AL IRON JULIOCESAR NG CAP iron 62 ug/dL 65-175 low Not Available [address], [place], [address], 12/09/2023 20:39:59 12/09/19 24 12/09/2023 FE W/TOT AL IRON JULIOCESAR NG CAP total iron binding capacity 412 ug/dL 260-40 0 high Not Available [address] , [place], [address], 12/09/2023 20:39:59 12/09/19 24 12/09/2023 FE W/TOT AL IRON JULIOCESAR NG CAP iron saturation 15 % 20-50 low Not Available [address] , [place], [address], 12/09/2023 20:39:59 12/09/1912/09/2023 FE W/TOT AL IRON JULIOCESAR NG CAP performing lab see note ML - [facility] [address] [place] [address] Not Available [address] , [place], [address], 12/09/2023 20:39:59 12/09/19 24 12/09/2023 JANINA TIN note See Note Order ing Provi suni: Leoncio caldwell RISK CONTROL OFFICER Not Available [address] , [place], [address], 12/09/2023 20:46:19 12/09/19 24 12/09/2023 JANINA TIN ferritin 155 NG/mL 26-388 normal Not Available [address] , [place], [address], 12/09/2023 20:46:19 12/09/19 24 12/09/2023 JANINA TIN performing lab see note ML - [facility] R [address] [facility] [place] [address] Not Available [address] , [place], [address], 12/09/2023 20:46:19 12/09/19 24 12/09/2023 HERED .HEMO CHROM ATOSI S DNA, PCR note See Note Order ing Provi suni: Leoncio caldwell RISK CONTROL OFFICER Not Available [place] [address] , [place], [address], 12/17/2023 14:14:06 12/09/19 24 12/09/2023 HERED .HEMO [...] ders to discu ss resul ts at [phone] ([phone] ). . Test Detai ls: Three varia nts cookie zed: c.845 G>A (p.Cy s282T yr), commo nly refer red to as C282Y c.187 C>G (p.Hi s63As p), commo nly refer red to as H63D c.193 A>T (p.Se r65Cy s), commo nly refer red to as S65C . Metho ds/Li mitat ions: DNA Cookie sis of the HFE gene (NM_0 10172 .4) was perfo rmed by PCR ampli [...] 3. doi: 10.10 /he p.243 30. PMID: 99554 290; PMCID : PMC31 01239 . Molly G, Maribeth ot P, Rudolph vaughan DW, Natalie r H, Ponce valdez O, Tracy n S, Conrad o I, Ray s M, Joel y S. EMQN best pract ice guide lines for the molec ular kyle ic diagn osis of hered itary hemoc hroma tosis (HH). Eur J Hum Kyle . 2016 May;2 4(4): 479-9 5. doi: 10.10 /ej hg.20 15.12 8. Epub 2014Aug 25. PMID: 02090 218; PMCID : PMC49 20691 . Not Available [address] , [place], [address], 12/17/2023 14:14:06 12/09/19 24 12/09/2023 HERED .HEMO CHROM ATOSI S DNA, PCR performing lab see note LC2 - LABCO RP MUSHTAQ Vargas# [id number] 022 [address] [place] [address] Not Available [address] , [place], [address], 12/17/2023 14:14:06 01/20/20 24 01/20/2024 CBC W/AUT O DIFFE RENTI AL note SEE NOTE Order ing Provi suni: Leoncio winston caldwell APRN Not Available [address], [place], [address], 01/22/2024 17:21:46 01/20/20 24 01/20/2024 CBC W/AUT O DIFFE RENTI AL white blood cell 8.6 10e3/ uL 4.5-13 .0 normal Not Available [address], [place], [address], 01/22/2024 17:21:46 01/20/20 24 01/20/2024 CBC W/AUT O DIFFE RENTI AL red blood cell 5.29 10e6/ uL 4.10-5 .70 normal Not Available [address] [place], [place], [address], 01/22/2024 17:21:46 01/20/20 24 01/20/2024 CBC W/AUT O DIFFE RENTI AL hemoglobin 16.1 g/dL 12.0-1 6.9 normal Not Available [place] [address], [place], [address], 01/22/2024 17:21:46 01/20/20 24 01/20/2024 CBC W/AUT O DIFFE RENTI AL hematocrit 45.2 % 36.0-4 9.0 normal Not Available [place] [address], [place], [address], 01/22/2024 17:21:46 01/20/20 24 01/20/2024 CBC W/AUT O DIFFE RENTI AL mean cell volume 85 fL 78.0-9 8.0 normal Not Available [address], [place], [address], 01/22/2024 17:21:46 01/20/20 24 01/20/2024 CBC W/AUT O DIFFE RENTI AL mean cell HGB 30.4 pg 25.0-3 5.0 normal Not Available [address], [place], [address], 01/22/2024 17:21:46 01/20/20 24 01/20/2024 CBC W/AUT O DIFFE RENTI AL mean cell HGB concentratio n 35.6 g/dL 31.0-3 6.0 normal Not Available [address], [place], [address], 01/22/2024 17:21:46 01/20/20 24 01/20/2024 CBC W/AUT O DIFFE RENTI AL red cell distribution width 13.3 % 11.0-1 5.0 normal Not Available [address], [place], [address], 01/22/2024 17:21:46 01/20/20 24 01/20/2024 CBC W/AUT O DIFFE RENTI AL platelet count 273 10e3/ uL 150-40 0 normal Not Available [address], [place], [address], 01/22/2024 17:21:46 01/20/20 24 01/20/2024 CBC W/AUT O DIFFE RENTI AL immature granulocyte % 0 0-1 normal Not Available [address], [place], [address], 01/22/2024 17:21:46 01/20/20 24 01/20/2024 CBC W/AUT O DIFFE RENTI AL neutrophil % 69 % 35-75 normal Not Available [address] [place], [place], [address], 01/22/2024 17:21:46 01/20/20 24 01/20/2024 CBC W/AUT O DIFFE RENTI AL lymphocyte % 19 % 10-50 normal Not Available [address] , [place], [address], 01/22/2024 17:21:46 01/20/20 24 01/20/2024 CBC W/AUT O DIFFE RENTI AL monocyte % 10 % 0-15 normal Not Available [address], [place], [address], 01/22/2024 17:21:46 01/20/20 24 01/20/2024 CBC W/AUT O DIFFE RENTI AL eosinophil % 1 % 0-5 normal Not Available [address] , [place], [address], 01/22/2024 17:21:46 01/20/20 24 01/20/2024 CBC W/AUT O DIFFE RENTI AL basophil % 1 % 0-5 normal Not Available [address], [place], [address], 01/22/2024 17:21:46 01/20/20 24 01/20/2024 CBC W/AUT O DIFFE RENTI AL immature granulocyte # 0.03 x1000 /uL 0-0.05 normal Not Available [address], [place], [address], 01/22/2024 17:21:46 01/20/20 24 01/20/2024 CBC W/AUT O DIFFE RENTI AL neutrophil # 5.89 x1000 /uL 1.50-8 .00 normal Not Available [address], [place], [address], 01/22/2024 17:21:46 01/20/20 24 01/20/2024 CBC W/AUT O DIFFE RENTI AL lymphocyte # 1.63 x1000 /uL 1.20-5 .20 normal Not Available [address] , [place], [address], 01/22/2024 17:21:46 01/20/20 24 01/20/2024 CBC W/AUT O DIFFE RENTI AL monocyte # 0.84 x1000 /uL 0.30-0 .90 normal Not Available [address] , [place], [address], 01/22/2024 17:21:46 01/20/20 24 01/20/2024 CBC W/AUT O DIFFE RENTI AL eosinophil # 0.09 x1000 /uL 0.00-0 .50 normal Not Available [address] , [place], [address], 01/22/2024 17:21:46 01/20/20 24 01/20/2024 CBC W/AUT O DIFFE RENTI AL basophil # 0.07 x1000 /uL 0.00-0 .30 normal Not Available [address] , [place], [address], 01/22/2024 17:21:46 01/20/20 24 01/20/2024 CBC W/AUT O DIFFE RENTI AL NRBC automated 0.0 /100_ WBC Not Available [address] , [place], [address], 01/22/2024 17:21:46 01/20/20 24 01/20/2024 CBC W/AUT O DIFFE RENTI AL performing lab SEE NOTE - JASBIR [address] [facility] [address] Not Available [address] [place], [address], 01/22/2024 17:21:46 01/20/20 24 01/20/2024 FE W/TOT AL IRON JULIOCESAR NG CAP note SEE NOTE Order ing Provi suni: Leoncio winston caldwell RISK CONTROL OFFICER Not Available [address] , [place], [address], 01/22/2024 17:21:52 01/20/20 24 01/20/2024 FE W/TOT AL IRON JULIOCESAR NG CAP iron 95 ug/dL 65-175 normal Not Available [address] , [place], [address], 01/22/2024 17:21:52 01/20/20 24 01/20/2024 FE W/TOT AL IRON JULIOCESAR NG CAP total iron binding capacity 399 ug/dL 260-40 0 normal Not Available [address] , [place], [address], 01/22/2024 17:21:52 01/20/20 24 01/20/2024 FE W/TOT AL IRON JULIOCESAR NG CAP iron saturation 24 % 20-50 normal Not Available [address] , [place], [address], 01/22/2024 17:21:52 01/20/20 24 01/20/2024 FE W/TOT AL IRON JULIOCESAR NG CAP performing lab SEE NOTE - [facility] R [address] [facility] [address] Not Available [address] , [place], [address], 01/22/2024 17:21:52 01/20/20 24 01/20/2024 JANINA TIN note SEE NOTE Order ing Provi suni: Miguel Angelvaldo winston caldwell RISK CONTROL OFFICER Not Available [address] , [place], [address], 01/22/2024 17:21:54 01/20/20 24 01/20/2024 JANINA TIN ferritin 129 NG/mL 26-388 normal Not Available [address] , [place], [address], 01/22/2024 17:21:54 01/20/2001/20/2024 JANINA CAMARA performing lab SEE NOTE - [facility] R [address] [facility] [address] [facility] [address] Not Available [address] , [place], [address], 01/22/2024 17:21:54 10/10/19 24 XR, humer us No observ ation record ed. ISRRAEL [address] [place], [address], 10/10/2023 08:51:46 10/17/19 24 XR, humer us No observ ation record ed. ISRRAEL [address] , [place], [address], 10/17/2023 13:38:58 11/12/19 24 XR, humer us No observ ation record ed. ISRRAEL [address] , [place], [address], 11/14/2023 10:44:53 03/04/19 25 03/02/2024 home sleep study No observ ation record ed. [address] , [place], [address], 04/02/2024 14:26:43 Result Notes None recorded. Problems Name Problem SNOMED Code Status Onset Date Resolution Date Notes Provider Name and Address Organization Details Recorded Time Hypertensiv e disorder 03588539 Active 2021 NOEMI Avila - [place] & [place] 12:16:10 Erectile dysfunction 142601994 Active 2021 NOEMI Avila - [place] & [place] 4 12:16:10 Erythrocyto sis 298261309 Active 2023 SUSANNAH HWANG NP [address] [place] [address],[address], [place], [address], [place] - [facility] - [facility] & [place] 4 10:24:29 Cellulitis of left upper limb 7033974650181 9108 Active 2023 Alli Wells MD [address] [place] [address],[address], [place], [address], [place] - [facility] - [facility] & [place] 4 09:41:57 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 2023 Alli Wells MD [address] [place] [address],[address], [place], [address], [place] [facility] & [place] 4 09:42:17 Stitch abscess 107984508 Active 2023 Alli Wells MD [address] [place] [address],[address], [place], [address], [place] - [facility] - [facility] & [place] 4 09:42:23 Serum ferritin above reference range 705121800 Active 2023 null, [place] - [facility] - [facility] & [place] 4 13:33:07 Hemochromat osis 153339091 Active 2024 SUSANNAH HWANG NP [address] [place] [address],[address], [place], [address], [place] - [facility] - [facility] & [place] 5 11:31:40 Problem Notes Documentation Provider Name and Address Organization Details Recorded Time Clinic Note : [facility] Clinical Note REPORT #: [id number] REPORT STATUS: Signed DATE: 03/04/24 TIME: 437 PATIENT: ROSELYN PEREZ UNIT #: [id number] ROOM/BED: AGE: 43 SEX: M ATTEND: Susannah Hwang APRN ADM AUTHOR: Lavon Mendez MD [...] physician if necessary. at 0446 RPT #: [id number] END OF REPORT CC'ed Logic: Ordering Provider: MANSOOR MERRITT Attending Provider: ERI RODRIGUEZ Referring Provider: ERI RODRIGUEZ Consulting Provider: NOEMI Mittal TYLER [facility] & [place] 03/04/2024 09:06:15 Procedures Surgical History Date Name Laterality Status Provider Name and Address Organization Details Recorded Time 5 ENT Surgery completed Sveta BUTLER [facility] & [place] 09/03/2023 08:19:55 Imaging Results None recorded. Procedure Notes None recorded. Medical Equipment None Reported. Allergies Allergen ID Allergen Name Allergen Category Reaction Reaction Severity Criticality Documentation Date Start Date Code Code System Note Provider Name and Address Organization Details Recorded Time 995319 No known allergy (situatio n) Not available Not available Not available Not available 12/12/2023 97417 6003 SNOMED [facility] [place] - [facility] - [place] & [place] 4 13:07:45 Medications Name Sig Start Date [...] Pulse oximetry Heart rate Respiratory rate Systolic And Diastolic Provider Name and Address Organization Details Last Updated DateTime 4 185.42 cm 44.8 kg/m2 969258. 89 g 98.4 [degF] 95 % 95 % 103 /min 16 /min 124/84 mm[Hg] May [place] - [place] - [place] & [place] 4 13:09:31 Date Recorded Body height Provider Name an d Address Organization Details Last Updated DateTime 12/12/2023 185.42 cm Angela Taylor [facility] & [place] 12/12/2023 13:07:28 Date Recorded Body height Body mass index (BMI) Body weight Body temperature Oxygen saturation Oxygen saturation in Arterial blood by Pulse oximetry Heart rate Respiratory rate Systolic And Diastolic Provider Name and Address Organization Details Last Updated DateTime 185.42 cm 47.8 kg/m2 786492. 44 g 98 [degF] 93 % 93 % 92 /min 18 /min 168/92 mm[Hg] Marlene Wong [facility] & [place] 14:12:58 Social History Question Answer Notes LastModified by OrganizMedivo ion Details LastModified Time Tobacco Smoking Status Never Smoker [facility], [facility] & [place] 07/08/2023 12:18:12 Do You Have An Advance [...] Organizat ion Details LastModified Time Do you use any illicit or recreational drugs? No Information not available 09/03/2023 Do you or have you ever used any other forms of tobacco or nicotine? Yes [email or web address] Information not available 07/08/2023 What is your level of alcohol consumption? Occasional Information not available 09/03/2023 Do you or have you ever used smokeless tobacco? Currently chews tobacco [email or web address] Information not available 07/08/2023 Do you or have you ever used e-cigarettes or vape? Never used electronic cigarettes [email or web address] Information not available 07/08/2023 What is your exercise level? Occasional Information not available 09/03/2023 Mental Status Question Answer Note LastModified by Organization D etails LastModified Time Do you feel stressed (tense, restless, nervous, or anxious, or unable to sleep at night)? [id number] [email or web address] Information not available 09/03/2023 Family History Relationship Description Onset Age of this Age Resolved Age Notes LastModified by Organization Details LastModified Time Mother Multiple sclerosis Not available 06/19 15:05:10 Maternal Grandfather Hypertensive disorder [email or web address] Not available 06/19 15:05:33 Medical History Condition Response Diabetes Y Obesity Y Headaches Y Reflux/GERD Y Hypertension Y Immunizations Vaccine Type Date Status Note Provider Nam e and Address Organization Details Recorded Time Td (adult), 2 Lf tetanus toxoid, preservative free, adsorbed 8 completed [facility], [facility] [facility] [place] 09/19/2023 14:38:47 Past Encounters Encounter ID Performer Location Encounter Start Date Encounter Closed Date Diagnosis/Indication Diagnosis SNOMED-CT Code Diagnosis ICD10 Code Diagnosis Note [id number] [facility] [address] [place] [address] 07/08/2023 14:49:53 07/08/2023 15:26:47 Erythrocytosis [id number] D75.1 Patient presents July 08, 2023 for [...] informatio n in the electronic health record. [id number] MD BRIDGER Stephen [address] [address] 09/03/2023 07:48:34 09/03/2023 09:03:57 Closed fracture of shaft of humerus [id number] S42.302A [id number] Alli Wells MD [facility] [place] [address] 09/19/2023 14:21:33 09/19/2023 14:56:06 Follow-up orthopedic assessment [id number] Z47.89 [id number] Alli Wells MD [facility] [place] [address] 9 10/03/2023 08:25:48 10/03/2023 09:21:28 Follow-up orthopedic assessment [id number] Z47.89 Cellulitis of left upper limb [id number] L03.114 Stitch abscess 259302234 T81.41XA Right radi al nerve palsy [id number] G56.31 [id number] Alli Wells MD [facility] [place] [phone] 10/10/2023 08:32:24 10/10/2023 08:57:00 Follow-up orthopedic assessment [id number] Z47.89 Cellulitis of left upper limb [id number] L03.114 Stitch abscess 284923304 T81.41XA Right radi al nerve palsy [id number] G56.31 [id number] RIKA FRANCES DO [facility] [address] [place] [address] 9 10/17/2023 13:04:08 10/17/2023 14:29:36 Follow-up orthopedic assessment [id number] Z47.89 Cellulitis of left upper limb [id number] L03.114 Stitch abscess 387554180 T81.41XA Right radi al nerve palsy [id number] G56.31 [id number] Alli Wells MD [facility] [place] [address] 9 11/14/2023 09:57:36 11/14/2023 10:52:29 Follow-up orthopedic assessment [id number] Z47.89 Cellulitis of left upper limb [id number] L03.114 Right radi al nerve palsy [id number] G56.31 [id number] [facility] [address] [place] [address] [place] [address] 12/09/2023 12:46:08 12/09/2023 13:55:33 Erythrocytosis [id number] D75.1 Patient presents December 09, 2023 for [...] record. Serum ferr itin above reference range 183591115 R77.8 Patient with elevated ferritin. Concerns for hemochroma tosis. We will test for this today. [id number] MD BRIDGER Stephen [facility] [address] [place] [phone] 12/12/2023 13:02:49 12/12/2023 13:30:06 Follow-up orthopedic assessment [id number] Z47.89 Right radi al nerve palsy [id number] G56.31 [id number] [facility] [address] [place] [address] [place] [address] 01/20/2024 13:31:37 01/20/2024 14:47:00 Erythrocytosis [id number] D75.1 Patient presents January 20, 2024 for [...] record. Serum ferr itin above reference range 843473120 R77.8 Patient with elevated ferritin. Hemochroma tosis was negative. Will reassess iron studies today. Health Concerns Section Related Observation LastModified by Organization Detai ls LastModified Time None Recorded Concern Status LastModified by Organization Details LastModified Time None Recorded Advance Directives Directive N: Payers Insurance Date Sequence Insurance Name Policy Number Policy Schumacher Covered Member ID Schumacher Member ID Guarantor Name 07/19/2024 [id number] Roselyn Perez [id number] Roselyn Perez Notes Date Note Type Note Provider Name and Address Organization Details Recorded Time 10/17/2023 text/html ROS as noted in the HPI Pt is here for f/u of his DOS 7.19.24 - left humeral shaft fx ORIF. His incision is less red. He took his last ABX yesterday. 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 & [place] 11/15/2023 07:32:08 12/09/2023 text/html 42-year-old male referred [...] night sweats. He denies any overt bleeding. SUSANNAH HWANG, ISHA 1 [facility],[address], [place], [address], [place] - [facility] 01/03/2024 10:14:34 12/12/2023 text/html ROS as noted in the HPI Patient is here today for EMG results. He is 3 months post op left humeral shaft fx ORIF and states he is not improving left hand is still drawing /unable foam molder [id number] EMG BUE @ PL 11.19.23:1. Mild [...] axon loss). CHE4 Alli Wells MD [address] [facility],[address], [place], [address], [facility] & [place] 12/13/2023 07:32:55 01/20/2024 text/html 43-year-old male referred [...] night sweats. He denies any overt bleeding. SUSANNAH HWANG NP [address] [facility],[address], [place], [address], [facility] & [place] 02/21/2024 11:35:36
--- NOTE | 2024-09-10 14:05 | EXP.PAIN.SOA ---
[facility] Disclaimer: The information contained in this section may have been updated after the patient was seen, as this information can be updated by other users. Medical History GERD (gastroesophageal reflux disease) Chronic pain High blood pressure Diabetes Surgical History History of vasectomy Hx of LASIK History of surgery on lower extremity History of surgery on arm Social History Smoking Status: Current every day smoker tobacco type: smokeless tobacco alcohol intake: current alcohol intake frequency: 0-2 drinks per day counseling given: Yes substance use type: denies use current occupational status: employed Travel in the last 8 weeks?: None household members: spouse and family housing: house PM Subjective & Objective Subjective Subjective:: Patient is a pleasant 43-year-old male who presents today for follow-up of his left stellate ganglion nerve block on 08/28/2024. He does rate that he had about 50 to 60% improvement however it only lasted a couple of hours. Patient states he is back to his baseline and rating his pain an 8 out of 10 and states it is all still along that left arm from his previous trauma. Patient continues to have chronic numbness and limited range of motion. Patient has continued conservative treatment with no additional improvement. Patient does state the pain interferes with his ability perform activities of daily living such as cooking and cleaning. He is interested in any help we may be able to provide. He did get the compounded cream from our office and does state it does help in the moment. Patient is scheduled to see Jaxson moreno coming up Saturday. He did say that the diclofenac does seem to help some. His Gabriele has been reviewed and is appropriate Review of Systems: General: No recent weight changes, no fever, no sleep disturbances Respiratory: No cough, no shortness of air, no recurring pulmonary infections Cardiovascular/peripheral vascular: No chest pain, no palpitations, no edema, no shortness of breath Gastrointestinal: No new onset incontinence, normal bowel movements reported Genitourinary: No new onset incontinence Musculoskeletal: Left arm numbness tingling Psychiatric: [Normal mood/affect] Neurological: [Denies weakness in extremities], [denies balance issues] Pain at rest (0-10 scale): 8 Objective Objective:: Physical Exam: General: Alert and oriented x3, no acute distress, pleasant and cooperative Lungs: Respirations even and unlabored, symmetrical chest expansion Eyes: PERRL Musculoskeletal: Flexion and extension of left arm somewhat guarded secondary to pain, [antalgic gait noted] Neurological: Speech clear, no gross sensory deficit Has patient had previous pain injection?: Yes Percent improvement in pain since last injection: 50 to 60% Conservative treatment options previously tried: Home exercise plan Length of treatment: Longer than 12 weeks Meds Home Medications and Allergies Home Medications ?Medication ?Instructions ?Recorded ?Confirmed ?Type amlodipine 10 mg tablet 10 mg PO DAILY High blood pressure 10/03/17 08/28/24 History carvedilol 25 mg tablet 25 mg PO BID High blood pressure 10/03/17 08/28/24 History allopurinol 100 mg tablet 100 mg PO DAILY gout 10/09/21 08/28/24 History fenofibrate nanocrystallized 145 145 mg PO DAILY hld 10/09/21 08/28/24 History mg tablet hydrochlorothiazide 25 mg tablet 25 mg PO DAILY htn 10/09/21 08/28/24 History pravastatin 40 mg tablet 40 mg PO HS hld 10/09/21 08/28/24 History tadalafil (pulm. hypertension) 20 20 mg PO DAILY PRN erectile 10/09/21 08/28/24 History mg tablet (pulmonary hypertension) dysfunction testosterone cypionate 200 mg/mL 200 mg IM Q2W Supplement 10/09/21 08/28/24 History intramuscular oil escitalopram oxalate 20 mg tablet 20 mg PO DAILY 01/14/24 08/28/24 History glimepiride 4 mg tablet 4 mg PO DAILY 01/14/24 08/28/24 History lidocaine HCl 2 % mucosal solution 2.5 ml mucous membrane TID-QID 01/14/24 08/28/24 History losartan 25 mg tablet 25 mg PO DAILY 01/14/24 08/28/24 History meloxicam 7.5 mg tablet 7.5 mg PO DAILY 01/14/24 08/28/24 History omeprazole 40 mg capsule,delayed 40 mg PO DAILY 01/14/24 08/28/24 History release tirzepatide 15 mg/0.5 mL 15 mg SQ QWEEK 01/14/24 08/28/24 History subcutaneous pen injector (Kunalunketanro) diclofenac sodium 75 mg See Rx Instructions .Route 08/26/24 08/28/24 Rx tablet,delayed release .COMPLEX #60 tabs New Prescriptions to Start Prescriptions: Allergies Allergy/AdvReac Type Severity Reaction Status Date / Time No Known Allergies Allergy Verified 01/14/24 11:03 Assessment and Plan *Assessment and plan (1) CRPS (complex regional pain syndrome), upper limb: Status: Acute Category: Medical Code(s): G90.519 - Complex regional pain syndrome I of unspecified upper limb (2) Left arm pain: Status: Acute Category: Medical Code(s): M79.602 - Pain in left arm Plan The patient did have significant improvement following his first stellate ganglion nerve block however it unfortunately only lasted a few hours. I have discussed with the patient that he may benefit from repeat injection. Risk and benefits were discussed with the patient and he would like to proceed forward with this plan of care. I did also discuss with the patient that I do believe he would benefit from a spinal cord stimulator trial. Risk and benefits and educational handouts were given at today's visit. We will order a psychological evaluation and if he is deemed an appropriate candidate we will proceed forward with the trial at a later date. We will continue to follow-up on how his orthopedic appointments go. At this time he is not a surgical candidate. Patient does have CRPS of the upper extremity and has had EMG testing that did show 75% nerve damage and has been told that this is a chronic issue from here on out. Patient has tried oral medication, heat and ice, topicals, at home stretching exercise for longer than 12 weeks that was physician guided as well as physical therapy. We will submit to insurance for the repeat left stellate ganglion nerve block under fluoroscopy. Patient has been instructed to contact the clinic with any concerns before the next appointment. Dr. Robert has reviewed this note and agrees with this plan of care. This note was dictated using voice recognition software and make contain errors or omissions. All injections are used with Lidocaine, Bupivacaine and dexamethasone. Occasionally urine drug screen is needed to verify patient's compliance with our office pain contract. This is ordered based off specific treatments related to chronic pain with the potential to abuse certain medications.
[2024-09-10 14:59] VITALS: BP 125/66; PULSE 85; RESP 14; O2SAT 96; BMI 37.5
== END 2024-09-10 23:59 | disposition home or self-care (01) ==
LOC: SC.PAIN 13:09
PROVIDERS: PCP Nurse Practitioner Family; Visit Provider Nurse Practitioner Family
DX: G90.512 Complex regional pain syndrome I of left upper limb (principal)
CPT/HCPCS: 99212; G0463

== ENCOUNTER 2024-10-12 12:48 | Outpatient (POV) | payer OTHER, SELFPAY ==
--- OUTSIDE RECORDS SUMMARY | 2024-09-18 10:30 | XMS_ITS | Encounter Summary ---
Author Organization [facility] Address [address] [place] [address] Care Team Providers Care Cut Off Saw Grader Name Role Phone Unavailable Primary Care Provider Unavailabl e Reason for Referral * EMG (Routine) - AFF Authorization Not Needed Specialty Diagnoses / Procedures Referred By Bib t Referred To Contact Diagnoses Left arm pain Carpal tunnel syndrome of left wrist Cubital tunnel syndrome on left Procedures EMG Edu Choe MD [address] [place] [address] Phone: tel: fax: Referral ID Status Reason Start Date Expiration Date Visits Requested Visits Authorized [id number] AFF Authorization Not Needed 09/18/2024 09/18/2025 1 1 Reason for Visit * Reason Comments Follow-up Encounter Details Date Type Department Care Team (Late st Contact Info) Description 09/18/2024 10:30 AM EDT [facility] [address] [place] [address] Edu Choe MD [address] [place] [address] Left arm pain (Primary Dx); Carpal tunnel syndrome of left wrist; Cubital tunnel syndrome on left Social History Tobacco Use Types Packs/Day Years [...] Progress Notes * Edu Choe MD - 09/18/2024 10:30 AM EDT Images from the original note were not included. CC: Recheck left arm History: The patient returns today for follow up of left arm. We did an arm exploration with radialnerve neurolysis, cubital tunnel release in situ, open carpal tunnel release on 02/28/2024. Again hehad a humerus fracture that was treated surgically at outside facility. Apparently they are not willing to follow the humerus fracture. He is working with therapy. He has regained some wrist extension but definitely not finger extension. He has regained some thumb extension. He is here for recheck. PAST MEDICAL HISTORY: Past Medical History: Diagnosis Date Depression Essential (primary) hypertension Heartburn Hyperlipidemia Type 2 diabetes mellitus without complications (HCC) REVIEW OF SYSTEMS: ROS neg except for positives in HPI Physical Exam : Left upper Extremity: Skin: intact with no lesions Improved wrist extension as well as thumb extension but very limited finger extension especially small and ring finger. He is not getting clawing and I can passively straighten them. There is no significant atrophy. Radiology: None Impression: Status post left arm exploration with radial nerve neurolysis, cubital tunnel release, open carpal tunnel release Plan: Told him it still is early on could get some improvement especially since I am seeing some improvement with the wrist extension. However passive it range of motion is the most important at this point. I do want to get a repeat EMG which I recommend doing by the same person who did his prior one fordirect comparison. Continue passive range of motion. Do not feel he can perform his work duties at this time would just keep him off. Could definitely require permanent disability but would defer if needed at that time to his PCP. Will see him back after the EMG is done. Will get x-rays of his humerus at that time. All questions and concerns were addressed today. Patient is in agreement with the plan. Edu Choe MD Hand & Upper Extremity Surgery Please note that this carpenter refrigerator was created using voice recognition software. Any errors are unintentional and may be due to voice recognition carpenter refrigerator. documented in this encounter Plan of Treatment Scheduled Orders Name Type Priority Associated Diagnoses Orde r Schedule EMG Neurology Routine Left arm pain Carpal tunnel syndrome of left wrist Cubital tunnel syndrome on left 1 Occurrences starting 09/18/2024 until 09/18/2025 documented as of this encounter Visit Diagnoses Diagnosis Left arm pain- Primary Pain in limb Carpal tunnel syndrome of left wrist Carpal tunnel syndrome Cubital tunnel syndrome on left Lesion of ulnar nerve documented in this encounter
--- OUTSIDE RECORDS SUMMARY | 2024-10-12 12:53 | XMS_ITS | Encounter Summary ---
Author Organization [facility] Address [address] [place] [address] Care Team Providers Care Dental Hygienist Mobile Coordinator Name Role Phone Unavailable Primary Care Provider Unavailabl e Reason for Visit * Reason Onset Date Comments Reschedule 09/11/2024 Encounter Details Date Type Department Care Team (Late st Contact Info) Description 09/11/2024 [place] [address] Edu Choe MD [address] [place] [address] Reschedule Social History Tobacco Use Types Packs/Day Years [...] encounter Miscellaneous Notes * Telephone Encounter - Suzie Hanna Athletic Trainer - 09/11/2024 8:31 AM EDT Spoke to patient. Rescheduled his Thursday 09/[address] Choe to Monday 09/18 due to Дмитрий being out of office. documented in this encounter Plan of Treatment Not on file documented as of this encounter Visit Diagnoses Not on filedocumented in this encounter
--- OUTSIDE RECORDS SUMMARY | 2024-10-12 12:53 | XMS_ITS | Encounter Summary ---
Author Organization [facility] Address [address] [place] [address] Care Team Providers Care Veneer Production Machine Operator Name Role Phone Unavailable Primary Care Provider Unavailabl e Reason for Visit * Reason Onset Date Comments Other 09/21/2024 Encounter Details Date Type Department Care Team (Late st Contact Info) Description 09/21/2024 Telephone [facility] [place] [address] [place] [id number] Edu Choe MD [address] [place] [address] Other Social History Tobacco Use Types Packs/Day Years [...] Encounter - Suzie Hanna Athletic Trainer - 09/21/2024 12:58 PM EDT EMG Referral Faxed to the number provided. * Telephone Encounter - Ana Maria Tanner - 09/21/2024 12:55 PM EDT please fax over referral he is seeing this dr on 10-01 documented in this encounter Plan of Treatment Not on file documented as of this encounter Visit Diagnoses Not on filedocumented in this encounter
--- OUTSIDE RECORDS SUMMARY | 2024-10-12 12:54 | XMS_ITS | Clinical Summary ---
Author Organization [facility] Address [address] [id number] Care Team Providers Care Golf Teacher Name Role Phone Jam Richardson MD Primary Care Provider [phone] Allergies Active Allergy Reactions Criticality Noted Date [...] fracture of shaft of right fibula 09/23/2023 Encounters Date Type Department Care Team Description 09/14/2024 Telephone [facility] order scheduler [facility] [address] [phone] Chad Surgeon, 09/11/2024 Community Orders [facility] [address] [place] [address] Trish Murillo APRN Oral lesion (Primary Dx) from Last 3 Months Family History Medical History Relation Name Comments [...] of 2 - 13+ 2-dose series) 09/14/1995 [facility]-DTaP,Tdap,and Td Vaccine s (2 - Tdap) 12/02/1997 12/01/1997 [facility]- SDOH Screenings 2000 [facility]-Adult SDOH Screenings 2000 [facility]-Hepatitis B Vaccines (1 of 3 - 19+ 3-dose series) 2001 HPV Vaccines (1 - 3-dose SCD M series) 2009 [facility]-HFVLN-19 Vaccine ( - season) 2023 [facility]-Depression Screening 10/17/2024 10/18/2023 [...] this topic Medical Devices Implanted Type Area Outreach Analyst Device Identifier Shelf Expiration Date Model / Serial / Lot [place] Sys Adoption Coordinator Knot[employer] Tightrope Ss - Sna - [id number] Implanted:Qty: 2 on 09/27/2023 by Calderon Alan MD at [facility] [place] Right: Ankle [id number] 09/26/2024 [id number] / NA / Plate Lcp 1/3 Tubl Col 57mm 5h - Sna - [id number] Implanted:Qty: 1 on 09/27/2023 by Calderon Alan MD at [facility] Plate Right: Ankle Synthes [facility]-[id number] 09/26/2024 241.351 / NA / Screw 3.5mm Cortex Selftap 16mm - Sna - [id number] Implanted:Qty: 1 on 09/27/2023 by Calderon Alan MD at [facility] Screw Right: Ankle Synthes [facility]-[id number] 09/26/2024 204.816 / NA / Procedures Procedure [...] HIV 1/2 Differentiation (09/23/2023 2:49 PM EDT) [facility] HIV 1 & 2 Antibody/Antigen Screen Non Reactive Non Reactive 09/23/2023 4:06 PM EDT [facility] Comment:Screening for HIV 1 & 2 antibodies, and P24 antigen is NONREACTIVE. No confirmatory testing is required. Blood Venous blood specimen / Unknown Venipuncture / Unknown 09/23/2023 2:49 PM EDT 09/23/2023 3:27 PM EDT Jacky Zuniga MD LAB BLOOD ORDERABLES Final Res ult [facility] [address] [place] [address] * Hepatitis C Antibody - ED (09/23/2023 2:49 PM EDT) [facility] Hepatitis C Antibody Negative Negative 09/23/2023 4:06 PM EDT [facility] Blood Venous blood specimen / Unknown Venipuncture / Unknown 09/23/2023 2:49 PM EDT 09/23/2023 3:26 PM EDT Jacky Zuniga MD LAB BLOOD ORDERABLES Final Res ult Performing Organization Address City/[facility] Co de Phone Number HEALTHCARE [facility] [address] [place] [address] from Last 3 Months or Most Recently Relevant to Health Maintenance Insurance Advance Directives Documents on File Type Date Recorded Patient Freight Broker Agent Expl anation Advance Directives and Living Will 09/23/2023 Care Teams Golf Teacher Relationship Specialty Start Date End Date Jam Richardsno MD [address] [place] [address] [place] [address] PCP - General 07/01/20
--- OUTSIDE RECORDS SUMMARY | 2024-10-12 12:54 | XMS_ITS | Clinical Summary ---
Author Organization [facility] Address [address] [place] [id number] Care Team Providers Care Professional Services Specialist Name Role Phone Ignacia Sheridan APRN Primary Care Provider [phone] Allergies No known active allergies Medications fenofibrate [...] age to complete this topic Insurance - [facility] Care Teams Professional Services Specialist Relationship Specialty Start Date End Date Ignacia Sheridan APRN PCP - General Nurse Practitioner 04/03/16
--- OUTSIDE RECORDS SUMMARY | 2024-10-12 12:54 | XMS_ITS | Encounter Summary ---
Author Organization [facility] Address [address] [place] [address] Care Team Providers Care Store Product Demonstrator Name Role Phone Unavailable Primary Care Provider Unavailabl e Reason for Visit * Reason Onset Date Comments Missed Appointment 09/02/2024 Encounter Details Date Type Department Care Team (Late st Contact Info) Description 09/02/2024 Telephone [facility] [address] [address] Edu Choe MD [address] [place] [address] Missed Appointment Social History Tobacco Use Types [...]
--- OUTSIDE RECORDS SUMMARY | 2024-10-12 12:54 | XMS_ITS | Encounter Summary ---
Author Organization [facility] Address [address] [place] [address] Care Team Providers Care Media Relations Manager Name Role Phone Unavailable Primary Care Provider Unavailabl e Reason for Visit * Reason Onset Date Comments Follow-up 08/27/2024 Encounter Details Date Type Department Care Team (Late st Contact Info) Description 08/27/2024 Telephone [facility] [place] [address] [address] Edu Choe MD [address] [place] [address] Follow-up Social History Tobacco Use Types Packs/Day [...]
--- OUTSIDE RECORDS SUMMARY | 2024-10-12 12:54 | XMS_ITS | Clinical Summary ---
Author Organization [facility] Phone Care Team Providers Care Kapok Machine Operator Name Role Phone Unavailable Primary [...] Patient not taking.Reason: Therapy Completed, Reported on 09/18/2024 Active Problems Problem Noted Date Diagnosed Date Carpal tunnel syndrome of left wrist 01/20/2024 Cubital tunnel syndrome on left 01/20/2024 Encounters Date Type Department Care Team Description 09/21/2024 Telephone [facility] [address] [place] [address] Edu Choe MD Other 09/18/2024 10:30 AM EDT Office Visit [facility] [address] [place] [id number] Edu Choe MD Left arm pain (Primary Dx); Carpal tunnel syndrome of left wrist; Cubital tunnel syndrome on left 09/11/[address] [facility] [address] [place] [address] Edu Choe MD Reschedule 09/02/2024 Telephone [facility] [address] [address] Edu Choe MD Missed Appointment 08/27/[address] [address] Edu Choe MD Follow-up from Last 3 Months Surgical History Surgery [...] Hand/Wrist/Left .; Surgeon: Edu Choe MD; Location: [facility]IN OR; Service: Orthopedics Medical History [...] 02/28/2024 12:33 PM EST Plan of Treatment Health Maintenance Due Date Last Done Comments Annual Wellness Exam 1985 Hepatitis B Vaccine (1 of 3 - 19+ 3-dose series) 2001 COVID-19 Vaccine (2023-2 5 season) 2023 Influenza Vaccine (#1) 2024 DTaP/TDaP/Td (3 - Td or Tdap) 09/11/2034, 12/01/1997 Meningococcal B Vaccine Aged Out No l onger eligible based on patient's age to complete this topic Pneumococcal Vaccine 0-49 Aged Out No longer eligible based on patient's age to complete this topic Medical Devices Implanted Type Area Gre Instructor Device Identifier Shelf Expiration Date Model / Serial / Lot Plate And Screws In Left Arm Band And Screws In Right Leg/Ankle Insurance CIG[employer] OPEN ACCESS PLUS CIGNA OPEN ACCESS PLUS CIGNA OPEN ACCESS PLUS CIGNA OPEN ACCESS PLUS
--- OUTSIDE RECORDS SUMMARY | 2024-10-12 12:54 | XMS_ITS | Encounter Summary ---
Author Organization Healthcare Address [address] [id number] Care Team Providers Care Manufacturing Worker Name Role Phone Jam Richardson MD Primary Care Provider + [phone] Encounter Details Date Type Department Care Team (Late st Contact Info) Description 09/14/2024 Telephone [facility] [address] [address] Chad Surgeon, [address] [place] [address] Social History Tobacco Use Types Packs/Day Years Used Date Smoking Tobacco: Never Smokeless Tobacco: Never Alcohol Use Standard Drinks/Week Comments Yes 6 [...] encounter Miscellaneous Notes * Telephone Encounter - Page Mckeon - 09/14/2024 9:09 AM EDT Attempted to reach pt for internal referral for a lesion. Asked pt if he had any other insurance besides [employer] and pt declined. Advised pt that we no longer have a medical contract with [employer] so if we proceed, it would be self pay. Informed pt that he can call the # on the back of his insurance card and they can provide a list of providers in network so he wasn't paying oop. Pt verbalized his unde rstanding and stated he will try that. Advised pt to call back if anything changes. mg documented in this encounter Plan of Treatment Not on file documented as of this encounter Visit Diagnoses Not on filedocumented in this encounter Additional Health Concerns Assessment Noted Time A fall risk assessment has been complete d for the patient 01/13/2024 1:48 PM EST A Body Mass Index follow-up plan has been documented for the patient 01/13/2024 2:17 PM EST documented as of this encounter Care Teams Manufacturing Worker Relationship Specialty Start Date End Date Jam Richardson MD [address] [place] [address] [place] [address] PCP - General 07/01/20 documented as of this encounter
--- OUTSIDE RECORDS SUMMARY | 2024-10-12 12:54 | XMS_ITS | Encounter Summary ---
Author Organization [facility] Address [address] [id number] Care Team Providers Care Adobe Architect Name Role Phone Jam Richardson MD Primary Care Provider [phone] Reason for Referral * Consultation (Routine) - Authorized Specialty Diagnoses / Procedures Referred By Bib perea Referred To Contact Oral Surgery Diagnoses Oral lesion Trish Murillo APRN [address] [address] Phone: tel: fax: [facility] [address] [place] [address] [address] [place] [address] Phone: tel: Referral ID Status Reason Start Date Expiration Date Visits Requested Visits Authorized [id number] Authorized Specialty Services Required 09/11/2024 03/13/2026 1 1 Encounter Details Date Type Department Care Team (Late st Contact Info) Description 09/11/2024 Community Orders Community [facility] [address] [place] [address] Trish Murillo APRN [address] [facility] [address] [place] [address] Oral lesion (Primary Dx) Social History Tobacco Use Types [...] as of this encounter Plan of Treatment Scheduled Referrals Name Type Priority Associated Diagnoses Order Schedule Ambulatory referral to Oral Maxillofacial Surgery Outpatient Referral Routine Oral lesion Expected: 09/11/2024 (Approximate), Expires: 03/15/2026 documented as of this encounter Visit Diagnoses Diagnosis Oral lesion- Primary Other and unspecified diseases of the oral soft tissues documented in this encounter Additional Health Concerns Assessment Noted Time A fall risk assessment has been complete d for the patient 01/13/2024 1:48 PM EST A Body Mass Index follow-up plan has been documented for the patient 01/13/2024 2:17 PM EST documented as of this encounter Care Teams Adobe Architect Relationship Specialty Start Date End Date Jam Richardson MD [address] [place] [address] [place] [address] PCP - General 07/01/20 documented as of this encounter
[2024-10-12 14:42] VITALS: BP 129/74; PULSE 82; RESP 14; O2SAT 96; BMI 40.6
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
== END 2024-10-12 23:59 | disposition home or self-care (01) ==
LOC: SC.PAIN 12:49
PROVIDERS: PCP Nurse Practitioner Family; Visit Provider Nurse Practitioner Family
DX: G90.512 Complex regional pain syndrome I of left upper limb (principal)
CPT/HCPCS: 99212; G0463

== ENCOUNTER 2024-10-30 14:18 | Day surgery (SDC) | payer OTHER, SELFPAY ==
[2024-10-30 14:43] VITALS: BP 143/72; PULSE 95; RESP 16; O2SAT 97; BMI 37.5
[2024-10-30] MEDS: IOPAMIDOL-200 (41%);10ML VIAL 3 ML IV (15:15)
[2024-10-30] MEDS: LIDOCAINE 1% 5ML PF VIAL 5 ML (15:24)
[2024-10-30] MEDS: DEXAMETHASONE 10MG/ML 1ML VIAL 10 MG (15:25)
[2024-10-30] MEDS: BUPIVACAINE 0.25% 10ML INJ 25 MG IJ (15:25)
[2024-10-30 15:26] VITALS: BP 135/60; PULSE 89; RESP 20; O2SAT 92
[2024-10-30] MEDS: LIDOCAINE 1% 30ML PF VIAL 30 ML (15:26)
[2024-10-30 15:28] VITALS: BP 135/60; PULSE 92; RESP 18; O2SAT 92
[2024-10-30 15:39] VITALS: BP 146/82; PULSE 93; RESP 16; O2SAT 93
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
--- NOTE | 2024-10-30 16:04 | EXP.HP ---
History of Present Illness *Admission Date: 10/30/24 *Reason for visit:: Left stellate ganglion block *History of present illness: Patient is a pleasant 44-year-old white male who we are treating for CRPS type II of the left upper extremity. He presents for a left stellate ganglion block today. [facility] Disclaimer: The information contained in this section may have been updated after the patient was seen, as this information can be updated by other users. Medical History GERD (gastroesophageal reflux disease) Chronic pain High blood pressure Diabetes Surgical History History of vasectomy Hx of LASIK History of surgery on lower extremity History of surgery on arm Social History Smoking Status: Current every day smoker tobacco type: smokeless tobacco alcohol intake: current (endorses occasional use of alcohol) alcohol intake frequency: 0-2 drinks per day counseling given: Yes substance use type: denies use current occupational status: other Travel in the last 8 weeks?: None household members: spouse and family housing: house number of children: 3 Other Medical History Have you received the Flu Vaccine for this season: No Have you received the Pneumonia Vaccine: No Review of Systems Review of Systems Review of systems:: pertinent systems reviewed and negative unless documented below Meds Home Medications and Allergies Home Medications ?Medication ?Instructions ?Recorded ?Confirmed ?Type amlodipine 10 mg tablet 10 mg PO DAILY High blood pressure 10/03/17 10/30/24 History carvedilol 25 mg tablet 25 mg PO BID High blood pressure 10/03/17 10/30/24 History allopurinol 100 mg tablet 100 mg PO DAILY gout 10/09/21 10/30/24 History fenofibrate nanocrystallized 145 145 mg PO DAILY hld 10/09/21 10/30/24 History mg tablet hydrochlorothiazide 25 mg tablet 25 mg PO DAILY htn 10/09/21 10/30/24 History pravastatin 40 mg tablet 40 mg PO HS hld 10/09/21 10/30/24 History tadalafil (pulm. hypertension) 20 20 mg PO DAILY PRN erectile 10/09/21 10/30/24 History mg tablet (pulmonary hypertension) dysfunction testosterone cypionate 200 mg/mL 200 mg IM Q2W Supplement 10/09/21 10/30/24 History intramuscular oil escitalopram oxalate 20 mg tablet 20 mg PO DAILY 01/14/24 10/30/24 History glimepiride 4 mg tablet 4 mg PO DAILY 01/14/24 10/30/24 History lidocaine HCl 2 % mucosal solution 2.5 ml mucous membrane TID-QID 01/14/24 10/30/24 History losartan 25 mg tablet 25 mg PO DAILY 01/14/24 10/30/24 History meloxicam 7.5 mg tablet 7.5 mg PO DAILY 01/14/24 10/30/24 History omeprazole 40 mg capsule,delayed 40 mg PO DAILY 01/14/24 10/30/24 History release tirzepatide 15 mg/0.5 mL 15 mg SQ QWEEK 01/14/24 10/30/24 History subcutaneous pen injector (Heidi) bupropion HCl 150 mg 24 hr tablet, 150 mg PO DAILY 09/23/24 10/30/24 History extended release (Wellbutrin XL) diclofenac sodium 75 mg See Rx Instructions .Route 10/05/24 10/30/24 Rx tablet,delayed release .COMPLEX #60 tabs New Prescriptions to Start Prescriptions: Allergies Allergy/AdvReac Type Severity Reaction Status Date / Time No Known Allergies Allergy Verified 01/14/24 11:03 Exam Data for Last 24 hours Vital signs and Labs for Last 24 Hours: Pulse Resp BP Pulse Ox O2 Del Method 93 H 16 146/82 H 93 L Room Air 10/30/24 15:39 10/30/24 15:39 10/30/24 15:39 10/30/24 15:39 10/30/24 15:39 I & O for Last 24 hours: Intake & Output 10/28/24 10/29/24 10/30/24 10/31/24 11:59 11:59 11:59 11:59 Weight 300 lb *Routine HEENT Exam Head: Present normocephalic Eye: Present EOMI ENT: Present mucous membranes moist *Routine Neck Exam Neck: Present supple and full ROM *Routine Respiratory Exam Respiratory: Present normal respiratory effort *Routine Cardiovascular Exam Cardiovascular: Present RRR, Normal S1 and Normal S2 *Routine Abdominal Exam Abdominal: Present soft *Routine Rectal Exam Rectal:: deferred *Routine Genitalia Exam Genitalia:: deferred Assessment and Plan *Assessment and plan (1) CRPS (complex regional pain syndrome), upper limb: Status: Acute Category: Medical Code(s): G90.519 - Complex regional pain syndrome I of unspecified upper limb Plan Left stellate ganglion block
== END 2024-10-30 15:39 | disposition home or self-care (01) ==
PROVIDERS: PCP Nurse Practitioner Family; Visit Provider Anesthesiology
DX: G90.512 Complex regional pain syndrome I of left upper limb (principal); E11.9 Type 2 diabetes mellitus without complications; K21.9 Gastro-esophageal reflux disease without esophagitis; I10 Essential (primary) hypertension; F17.290 Nicotine dependence, other tobacco product, uncomplicated; Z79.899 Other long term (current) drug therapy
CPT/HCPCS: 64510; 99221; J0665; J1100; J2003; Q9966

== ENCOUNTER 2025-02-09 09:38 | Outpatient (CLI) | payer OTHER, SELFPAY ==
--- OUTSIDE RECORDS SUMMARY | 2024-12-16 09:45 | XMS_ITS | Encounter Summary ---
Author Organization [facility] Address [address] [place] [address] Care Team Providers Care Prototype Model Maker Name Role Phone Jam Richardson MD Primary Care Provider + [phone] Reason for Visit * Reason Comments Follow-up Encounter Details Date Type Department Care Team (Late st Contact Info) Description 12/16/2024 10:45 AM EDT Office Visit [facility] [address] [address] Karla Jackson PA-C [address] [place] [address] Radial nerve palsy, left (Primary Dx) Social History Tobacco Use Types Packs/Day Years Used Date Smoking Tobacco: Never Smokeless Tobacco: Current Chew Comments:Dips but trying to slow down/quit Alcohol Use Standard Drinks/Week Comments Yes 0 (1 standard drink = 0.6 oz pur e alcohol) occas / 1 drink per day Sex and Gender Information Value Date Recorded Sex Assigned at Not on file Legal Sex Male 1:48 PM EST Gender Identity Not on file Sexual Orientation Not on file documented as of this encounter Progress Notes * Karla Jackson PA-C - 12/16/2024 10:45 AM EDT Images from the original note were not included. Azeem Chris 1980 CC: PO left FCR to EDC and palmaris longus to EPL tendon transfers DOS: 12/04/2024 History: Overall patient is doing well. Pain has been controlled. He continues to have quite a bit of swelling. He has been to hand therapy and is in a thumb spica plus volar extension splint. Physical exam: Left upper Extremity: Incision healing well, no concerns for infection Sutures intact. Moderate amount of swelling through the wrist and fingers. Fingers thumb and wrist extended at rest. Range of motion not tested. Neurovascular status intact. Impression: S/p above procedures Plan: Sutures removed today,Steri-Strips applied. He is to continue full-time in his hand therapy splint. I am okay if he takes this off for protected hygiene. He is okay for gentle DIP and PIP of the fingers motion. No thumb, MP or wrist motion. Follow-up 4 weeks for repeat exam. Sooner for questions concerns or worsening symptoms. Patient in agreement with plan of care today and all questions answered. The supervising/collaborating provider for the technical component of the x-rays is Edu Choe MD. This chart was completed using voice recognition technology and may contain unintended errors. documented in this encounter Plan of Treatment Upcoming Encounters Date Type Department Care Team (Late st Contact Info) Description 02/15/2025 10:15 AM EST Office Visit [facility] [address] [facility] [address] [place] [address] Karla Jackson PA-C [address] [place] [address] Scheduled Orders Name Type Priority Associated Diagnoses Orde r Schedule VT REMOVAL SUTURES/SHANNAN NOT REQUIRING ANESTHESIA VT Charge Routine Radial nerve palsy, left Ordered: 12/16/2024 documented as of this encounter Visit Diagnoses Diagnosis Radial nerve palsy, left- Primary documented in this encounter Care Teams Prototype Model Maker Relationship Specialty Start Date End Date Jam Richardson MD [address] [place] [id number] PCP - General Internal Medicine-Adolescent Medicine 12/04/24 documented as of this encounter
--- OUTSIDE RECORDS SUMMARY | 2025-01-03 20:07 | XMS_ITS | Encounter Summary ---
Author Organization [place] [address] Care Team Providers Care Meteorological Engineer Name Role Phone Jam Richardson MD Primary Care Provider [phone] Reason for Referral * Consultation (Routine) - Pending Review Specialty Diagnoses / Procedures Referred By Bib perea Referred To Contact Sleep Center Diagnoses BRAXTON (obstructive sleep apnea) Procedures [place] OFFICE/OUTPATIENT NEW MODERATE MDM 45 MINUTES Jacky Maddox MD [address] [place] [address] Phone: tel: fax: Referral ID Status Reason Start Date Expiration Date V isits Requested Visits Authorized [id number] Pending Review 01/09/2025 01/09/2026 1 1 Question Answer What test needs to be performed? Appropriate testing as determined by sleep specialist/sleep medicine protocols Reason for Visit * Auth/Cert/Inpt Specialty Diagnoses / Procedures Referred By Bib perea Referred To Contact Diagnoses Pancreatitis pancreatis Referral ID Status Reason Start Date Expiration Date Visits Re quested Visits Authorized [id number] 1 1 Encounter Details Date Type Department Care Team (Latest Contact Info) Description 01/03/2025 8:07 PM EST - 01/09/2025 1:30 PM EST Hospital Encounter EDG [facility]D [facility] [place] [address] Indira Preciado MD [address] [place] [address] Acute pancreatitis without infection or necrosis, unspecified pancreatitis type (Primary Dx); BRAXTON (obstructive sleep apnea) Discharge Disposition: Home or Self Care Social History Tobacco Use Types Packs/Day Years Used Date Smoking Tobacco: Never Smokeless Tobacco: Current Chew Comments:Dips but trying to slow down/quit Alcohol Use Standard Drinks/Week Comments Yes 0 (1 standard drink = 0.6 oz pur e alcohol) occas / 1 drink per day PHQ-2 Answer Date Recorded PHQ-2 Total Score 0 01/06/2025 Overall Financial Resource Strain (CARDIA) Answe r Date Recorded How hard is it for you to pa y for the very basics like food, housing, medical care, and heating? Not very hard 01/06/2025 [facility] [place] [facility] Occupat ional [facility] - Occupational Stress Questionnaire Answer Date Recorded Do you feel stress - tense, restless, nervous, or anxious, or unable to sleep at night because your mind is troubled all the time - these days? Not at all 01/06/2025 Exercise Vital Sign Answer Date Recorde d On average, how many days pe r week do you engage in moderate to strenuous exercise (like a brisk walk)? 0 days 01/06/2025 On average, how many minutes do you engage in exercise at this level? 0 min 01/06/2025 Hunger Vital Sign Answer Date Recorded Within the past 12 months, y ou worried that your food would run out before you got the money to buy more. Never true 01/07/20 25 Within the past 12 months, t he food you bought just didn't last and you didn't have money to get more. Never true 01/06/2025 [facility] Utilities Answer Date Recorded In the past 12 months has th e Wedding[employer], gas, oil, or water company threatened to shut off services in your home? No 01/06/2025 [facility] IP Transportation Answer D ate Recorded In the past 12 months, has l ack of reliable transportation kept you from medical appointments, meetings, work or from getting things needed for daily living? No 01/06/2025 Sex and Gender Information Value Date Recorded Sex Assigned at Not on file Legal Sex Male 1:48 PM EST Gender Identity Not on file Sexual Orientation Not on file documented as of this encounter Last Filed Vital Signs Vital Sign Reading Time Taken Comments Blood Pressure 139/78 01/09/2025 7:40 AM EST Pulse 57 01/09/2025 7:40 AM EST Temperature 36.5 C (97.7 F) 01/09/2025 7:40 AM EST Respiratory Rate 14 01/09/2025 7:40 AM EST Oxygen Saturation 95% 01/09/2025 7:40 AM EST Inhaled Oxygen Concentration - - Weight 161.3 kg (355 lb 11.2 oz) 01/09/2025 6:30 AM EST Height 190.5 cm (6' 3 ) 01/03/2025 8:33 PM EST Body Mass Index 44.46 01/03/2025 8:33 PM EST documented in this encounter Functional Status * Question Answer Date of Assessment Author Little interest or pleasure in doing things 0 01/06/2025 4:24 PM EST Ann-Marie Cormier RN Feeling down, depressed, or hopeless 0 01/06/2025 4:24 PM Ann-Marie Kelsey RN PHQ-2 Total Score 0 01/06/2025 4:24 PM Ann-Marie Kelsey RN * PHQ-9 Total Score Answer Date of Assessment Author 0 01/06/2025 4:24 PM Ann-Marie Kelsey RN * PHQ-2 Total Score Answer Date of Assessment Author 0 01/06/2025 4:24 PM EST Ann-Marie Cormier RN documented as of this encounter Discharge Summaries * Jacky Maddox MD - 01/09/2025 12:26 PM EST [facility] Discharge Summary Patient Name: Azeem Perez : 1980 Admit Date: 01/03/2025 Discharge Date: 01/09/2025 Admitting Physician: Indira Preciado MD Discharging Physician: Jacky Maddox MD Reason for Hospitalization: Active Hospital Problems BRAXTON (obstructive sleep apnea) Acute respiratory failure with hypoxia and hypercarbia (HCC) Elevated LFTs Bilateral lower extremity edema Normocytic anemia Moderate alcohol use disorder (HCC) Mood disorder *Acute pancreatitis Morbid obesity with body mass index (BMI) of 40.0 or higher (HCC) Chronic GERD Type 2 diabetes mellitus without complication, without long-term current use of insulin (HCC) Hypertension complicating diabetes (HCC) Brief Hospital Summary: Azeem Perez is a 44 y.o. male admitted for pancreatitis and elevated LFT's. He was worked up by GI.Consistent with alcohol induced pancreatitis, alcoholic hepatitis. MRCP was neg. His stay was complicated by respiratory failure following EGD which required bipap observation in the ICU. This was deemed secondary to BRAXTON and possible aspiration. He was treated with empiric antibiotics for aspiration. He was weaned to room air. Currently LFT's are down trending he is tolerating a diet. No abdominal pain. alcohol cessation advised. Given follow up info to [facility]. Need follow up with sleep medicine for BRAXTON. EGD with [facility] started on PPI BID. Medically stable for DC. Discharge Exam: Vitals: 01/09/25 0740 BP: 139/78 Pulse: 57 Resp: 14 Temp: 97.7 ??F (36.5 ??C) SpO2: 95% Physical Exam Constitutional: Appearance: He is obese. Cardiovascular: Rate and Rhythm: Normal rate. Pulmonary: Breath sounds: No wheezing or rales. Abdominal: General: Bowel sounds are normal. There is no distension. Palpations: Abdomen is soft. Musculoskeletal: Right lower leg: No edema. Left lower leg: No edema. Skin: General: Skin is warm and dry. Neurological: Mental Status: He is alert and oriented to person, place, and time. Correct Full Discharge Med List: Medication List START taking these medications cefdinir 300 mg Cap Dose: 300 mg Qty: 6 Capsule Refills: 0 Start: January 10, 2025 Commonly known as: OMNICEF 300 mg, Oral, 2 TIMES DAILY multivitamin with folic acid 400 mcg Tab Dose: 1 Tablet Qty: 30 Tablet Refills: 3 Start: January 10, 2025 Commonly known as: THERAGRAN 1 Tablet, Oral, DAILY pantoprazole 40 mg Tbec Dose: 40 mg Qty: 60 Tablet Refills: 2 Commonly known as: PROTONIX 40 mg, Oral, 2 TIMES DAILY CHANGE how you take these medications losartan 50 mg Tab Dose: 50 mg Qty: 30 Tablet Refills: 2 Start: January 10, 2025 Commonly known as: COZAAR 50 mg, Oral, DAILY What changed: medication strength how much to take CONTINUE taking these medications allopurinoL 100 mg Tab Dose: 1 Tablet Refills: 0 Commonly known as: ZYLOPRIM amLODIPine 10 mg Tab Dose: 1 Tablet Refills: 0 Commonly known as: NORVASC carvediloL 25 mg Tab Dose: 1 Tablet Refills: 0 Commonly known as: COREG escitalopram oxalate 20 mg Tab Dose: 1 Tablet Refills: 0 Commonly known as: LEXAPRO hydroCHLOROthiazide 25 mg Tab Dose: 1 Tablet Refills: 0 STOP taking these medications FARXIGA 10 mg Tab Generic drug: dapagliflozin propanediol meclizine 25 mg Tab Commonly known as: ANTIVERT meloxicam 7.5 mg Tab Commonly known as: MOBIC MOUNJARO 15 mg/0.5 mL Pnij Generic drug: tirzepatide omeprazole 40 mg Cpdr Commonly known as: PriLOSEC oxyCODONE 5 mg Tab Commonly known as: ROXICODONE XYOSTED 75 mg/0.5 mL Atin Generic drug: testosterone enanthate ASK your doctor about these medications glimepiride 4 mg Tab Dose: 1 Tablet Refills: 0 Commonly known as: AMARYL pravastatin 40 mg Tab Dose: 1 Tablet Refills: 0 Commonly known as: PRAVACHOL Where to Get Your Medications These medications were sent to [facility] [address] [place], [place] [id number] Hours: Saturday-Saturday 8:00am - 6:30pm Saturday-Saturday 9:00am - 5:00pm cefdinir 300 mg Cap losartan 50 mg Tab multivitamin with folic acid 400 mcg Tab pantoprazole 40 mg Tbec Condition at Discharge: good Disposition: Home Follow-up: Jam Richardson MD [address] [place] [address] [facility] [address] Follow up with PCP in 3-5 days [facility] [address] [facility] [address] Follow up Time spent: 36 mins Jacky Maddox MD documented in this encounter Discharge Instructions * Discharge Instructions* Eric Deutsch DO - 01/05/2025 7:48 AM EST Images from the original note were not included. +++++++++++++++++++++++++++++++++++++++++++++++++++++++++++++++++++ [facility] Discharge Instructions - Following Anesthesia We appreciate the opportunity to care for you today! Here are a few reminders as you head home: A responsible adult, 18 years or older must be in attendance until tomorrow morning. Rest quietly today. May resume usual diet as tolerated or as directed by your surgeon. Do not drive or operate any machinery until tomorrow morning or as instructed. Do not make any legal or important decisions for the next 24 hours. Do not drink alcoholic beverages or take sleeping pills for 24 hours unless otherwise directed. If you received a nerve block for post-operative pain control, protect your blocked arm/leg. It maybe numb. Carefully pad your limb to prevent pressure sores and other injuries. Be careful with applying cold/warm to the blocked limb. Numbness will alter the sensation of the limb and could damage your skin if you cannot correctly feel the temperature. If you have questions or concerns regarding your anesthesia experience, please call our office at . Get Well Soon! [facility] +++++++++++++++++++++++++++++++++++++++++++++++++++++++++++++++++++ * Discharge Instr - Diet* Marlene Lowery RD, LD - 01/08/2025 1:22 PM EST Continue to follow a low fat diet. * Attachments The following attachments cannot be sent through Care Everywhere. * Pancreatitis ??? Discharge instructions ([place]) * Alcohol and your health ([place]) * Cefdinir ([place]) * Vitamins (Multiple/Oral) ([place]) * Pantoprazole ([place]) * Losartan ([place]) documented in this encounter Medications at Time of Discharge allopurinoL (ZYLOPRIM) 100 mg Oral Tablet Take 1 Tablet by mouth daily. 03/19/2016 amLODIPine (NORVASC) 10 mg Oral Tablet Take 1 Tablet by mouth daily. 10/03/2017 carvediloL (COREG) 25 mg Oral Tablet Take 1 Tablet by mouth 2 times daily. 10/03/2017 escitalopram oxalate (LEXAPRO) 20 mg Oral Tablet Take 1 Tablet by mouth daily. glimepiride (AMARYL) 4 mg Oral Tablet Take 1 Tablet by mouth daily. hydroCHLOROthiazi de 25 mg Oral Tablet Take 1 Tablet by mouth daily. 10/09/2021 losartan (COZAAR) 50 mg Oral Tablet Take 1 Tablet by mouth daily. 30 Tablet 2 01/09/2025 12:59 PM EST 01/10/2025 multivitamin with folic acid (THERAGRAN) 400 mcg Oral Tablet Take 1 Tablet by mouth daily. 30 Tablet 3 01/09/2025 12:59 PM EST 01/10/2025 pantoprazole (PROTONIX) 40 mg Oral Tablet, Delayed Release (E.C.) Take 1 Tablet by mouth 2 times daily. 60 Tablet 2 01/09/2025 12:59 PM EST 01/09/2025 pravastatin (PRAVACHOL) 40 mg Oral Tablet Take 1 Tablet by mouth nightly. 10/09/2021 cefdinir (OMNICEF) 300 mg Oral Capsule Take 1 Capsule by mouth 2 times daily for 3 days. 6 Capsule 01/09/2025 12:59 PM EST 01/10/2025 01/13/2025 documented as of this encounter Ordered Prescriptions Prescription Sig Dispense Quantity Refills Last Filled Start Date End Date pantoprazole (PROTONIX) 40 mg Oral Tablet, Delayed Release (E.C.) Take 1 Tablet by mouth 2 times daily. 60 Tablet 2 01/09/2025 12:59 PM EST 01/09/2025 multivitamin with folic acid (THERAGRAN) 400 mcg Oral Tablet Take 1 Tablet by mouth daily. 30 Tablet 3 01/09/2025 12:59 PM EST 01/10/2025 losartan (COZAAR) 50 mg Oral Tablet Take 1 Tablet by mouth daily. 30 Tablet 2 01/09/2025 12:59 PM EST 01/10/2025 cefdinir (OMNICEF) 300 mg Oral Capsule Take 1 Capsule by mouth 2 times daily for 3 days. 6 Capsule 01/09/2025 12:59 PM EST 01/10/2025 5 documented in this encounter Discharge Disposition Disposition Code Departure Means Destination Comment s Home or Self Assisted documented in this encounter Progress Notes * Suzie Emerson CPhT - 01/09/2025 1:09 PM EST Discharge Medication Delivery Service [employer] biometrics technician has delivered the following medications for Azeem Perez: Rx#[id number]:LOSARTAN 50 MG TABLET-50 mg DAILY Rx#[id number]:MULTIVITAMIN WITH FOLIC ACID 400 MCG TABLET-1 Tablet DAILY Rx#[id number]:PANTOPRAZOLE 40 MG TABLET,DELAYED RELEASE-40 mg 2 TIMES DAILY Rx#[id number]:CEFDINIR 300 MG CAPSULE-300 mg 2 TIMES DAILY Date/Time of Delivery: 01/09/2025 1:09 PM Delivered to: patient's room, 54 (placed sealed bag with patient's belongings at foot of bed) Please contact [employer] biometrics technician with any questions. Thanks! Suzie Emerson CPhT * Jessica Valdovinos RN - 01/09/2025 12:29 PM EST Pt is A&Ox4. VSS. Afebrile. O2 sats >90% on room air. No c/o pain. Skin assessed, no new concerns. PIV removed for DC home. Pt v/u DC instructions and importance of f/u appointments and medication changes. Pt's at bedside to transport home via private car. * Alli Hannon APRN - 01/09/2025 9:38 AM EST Images from the original note were not included. [facility] Gastroenterology Follow Up Note Name: Azeem Perez ADDRESS: [address] [place] [id number] : 1980 AGE: 44 y.o. Primary Care Physician: Jam Richardson MD Date of Admission: 01/03/2025 Date of Consultation: 01/09/2025 We are following for pancreatitis Subjective Up in chair. No GI complaints. Tolerating regular diet without issue. Current GI related medications: Scheduled Meds: allopurinoL 100 mg Oral Daily amLODIPine 10 mg Oral Daily carvediloL 25 mg Oral BID cefTRIAXone (ROCEPHIN) IV (Orderable) 1 g Intravenous Daily enoxaparin 40 mg Subcutaneous 2 times per day ENSURE Original 1.05 1 Bottle Oral TID with Meals escitalopram oxalate 20 mg Oral Daily multivitamin with folic acid 1 Tablet Oral Daily And folic acid 1 mg Oral Daily And thiamine 100 mg Oral Daily And magnesium oxide 400 mg Oral Daily Insulin Calculator - FSBS (Correction Only) Input 1 Each MISCELLANEOUS 4 times per day And insulin aspart (NovoLOG) - Correction - Calculator 0-40 Units Subcutaneous QID MEALTIME/HS insulin glargine 10 Units Subcutaneous QPM (Insulin) losartan 50 mg Oral Daily pantoprazole (PROTONIX) 40 mg Intravenous BID Or pantoprazole 40 mg Oral BID polyethylene glycol 17 g Oral BID Continuous Infusions: PRN Meds:acetaminophen, dextrose, glucagon AND sterile water, melatonin, morphine, nicotine polacrilex, ondansetron OR ondansetron, oxyCODONE, prochlorperazine edisylate, senna Objective BP 139/78 (BP Location: Right arm, Patient Position: Sitting) Pulse 57 Temp 97.7 ??F (36.5 ??C)(Oral) Resp 14 Ht 6' 3 (1.905 m) Wt (!) 355 lb 11.2 oz (161.3 kg) SpO2 95% BMI 44.46 kg/m?? General: Azeem appears alert, well developed, well nourished, in no acute distress Skin: Warm, well perfused and no rashes Head: Normocephalic, without obvious abnormality, atraumatic Eyes: No icterus Neck: Supple without masses, no evidence of JVD Lungs: Clear to auscultation bilaterally, normal rate and effort Cardiac: Regular rate and rhythm, no murmurs, rubs, clicks or gallops Abdomen: Soft, nontender, and nondistended without hepatomegaly or masses, normoactive bowel soundsare present, no peritoneal signs Laboratory: Lab Results Component Value Date WBC 5.2 01/08/2025 HGB 13.0 (L) 01/08/2025 HCT 40.7 01/08/2025 MCV 80.9 01/08/2025 PLT 382 (H) 01/08/2025 Lab Results Component Value Date CREATININE 0.70 01/08/2025 BUN 11 01/08/2025 NA 134 (L) 01/08/2025 K 01/08/2025 Comment: Unable to result potassium due to elevated hemolysis. CL 98 01/08/2025 CO2 24 01/08/2025 Lab Results Component Value Date ALT 198 (H) 01/09/2025 AST 108 (H) 01/09/2025 ALKPHOS 68 01/09/2025 BILIDIR 0.5 (H) 01/09/2025 PROT 7.5 01/09/2025 LIPASE 158 (H) 01/06/2025 Radiology: MRI LIVER/MRCP W WO CONTRAST Result Date: 01/08/2025 MRI LIVER/MRCP W WO CONTRAST, 01/08/2025 6:26 PM CLINICAL HISTORY: 44 years. - Mild inflammatory changes and edema centered near the riley hepatis on CT. COMPARISON: Recent CT. PROCEDURE COMMENTS: MRILIVER/MRCP W WO CONTRAST FINDINGS: Moderately limited by motion with repeat imaging attempted also limited. Questionable minimal layering sludge or stones within an otherwise normal gallbladder. No biliary ductal dilation. No stone or abnormality within normal caliber system. No edema in the upper abdomen or collection. No suspicious focal liver lesion. The pancreas is normal without edema. The spleen is mildly enlarged. The adrenals are unremarkable. Renal parenchyma is grossly normal. The visualized bowel is normal in caliber without obstruction or wall thickening. No free fluid or suspicious lymphadenopathy. No acute findings. - Note: Radiology results need to be interpreted within a comprehensive clinicalcontext. If you have questions about the radiology report, please contact the office of the ordering clinician. Assessment/Plan: 1) Pancreatitis -highly suspect EtOH etiology, LFTs/Tbili were downtrending. 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 Our office will reach out to patient for scheduling. Thank you for allowing us to participate in the care of this patient. Please feel free to call if you have any questions. Alli Hannon APRN 01/09/2025 This chart was completed using voice recognition technology and may contain unintended errors Cosigned by Waqas Brody MD at 01/09/2025 10:57 AM EST * Sabiha Yee RN - 01/09/2025 5:36 AM EST Patient is alert & oriented x4, VSS, NSR on tele monitor, had a 6 second pause and several 3 second pauses while sleeping. Asymptomatic. Notified Karon Owen NP. Patient refused to wear bipap. Room air, sats >90%, respiration easy. No c/o pain. PIV site C/D/I and NSL. Skin assessed, no new issues. Ambulating independently in the room, tolerating well. Updated patient on plan of care. Call light w/in reach. * Jessica Valdovinos RN - 01/08/2025 4:49 PM EST Pt is A&Ox4. VSS. Afebrile. NSR on the monitor. HR went down to 34 and had a pause this afternoon as well. 02 sat upon at that time found to be 82% but then went up to 97% within 2 minutes on RA with waking up. Pain denied throughout shift. Skin assessed, no concerns noted. PIV is c/d/i, normal saline locked. Pt ambulating independently in room, steady on his feet. Pt and at bedside updated on plan of care. No new questions at this time. Call light within reach. * Jacky Maddox MD - 01/08/2025 2:14 PM ESTAssociated Problem(s): Acute pancreatitis Initially presented on 12/31 to outside hospital with acute pancreatitis Had worsening symptoms and bilirubin requiring transfer CT here with non-distend GB no stones Mild pericholecystic fluid versus edematous wall thickening GI is following suspect alcohol related EGD with [place] placement, on TF Planning MRCP, timing per GI, plans to pull [place] today Bili / LFT's down trending, ordered for tomorrow Hepatitis neg * Jacky Maddox MD - 01/08/2025 2:14 PM ESTAssociated Problem(s): Elevated LFTs See above Suspect alcoholic hepatitis Defer MRCP to GI, LFT's have been improving * Jacky Maddox MD - 01/08/2025 2:14 PM ESTAssociated Problem(s): Acute respiratory failure with hypoxia and hypercarbia (HCC) Requiring bipap s/p EGD Transferred to ICU after endoscopy CXR w/ Mild bibasilar airspace disease. Pulm CC consulted underlying untreated BRAXTON likely driving factor CTA Pulm neg for PE, suspected aspiration, started empiric antibiotics NIPPV PRN Weaned to room air 01/08/2025 * Jacky Maddox MD - 01/08/2025 2:14 PM ESTAssociated Problem(s): Chronic GERD PPI * Jacky Maddox MD - 01/08/2025 2:14 PM ESTAssociated Problem(s): Hypertension complicating diabetes (HCC) Norvasc's, Coreg and losartan Poorly controlled Increase losartan * Jacky Maddox MD - 01/08/2025 2:14 PM ESTAssociated Problem(s): Morbid obesity with body mass index (BMI) of 40.0 or higher (HCC) Higher dose of Lovenox per protocol * Jacky Maddox MD - 01/08/2025 2:14 PM ESTAssociated Problem(s): Type 2 diabetes mellitus without complication, without long-term current useof insulin (HCC) Lab Results Component Value Date HGBA1C 7.8 (H) 01/05/2025 FSBS and correctional BS controlled high Add lantus * Jacky Maddox MD - 01/08/2025 2:14 PM ESTAssociated Problem(s): Normocytic anemia S/p IV iron x 1 * Jacky Maddox MD - 01/08/2025 2:14 PM ESTAssociated Problem(s): Moderate alcohol use disorder (HCC) Apparently drinks a fifth every other day Monitor for withdrawal Has cut back recently Chem dependency Referral to [facility] * Jacky Maddox MD - 01/08/2025 2:14 PM ESTAssociated Problem(s): Mood disorder 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 PROGRESS NOTE Assessment & Plan Acute pancreatitis Initially presented on 12/31 to outside hospital with acute pancreatitis Had worsening symptoms and bilirubin requiring transfer CT here with non-distend GB no stones Mild pericholecystic fluid versus edematous wall thickening GI is following suspect alcohol related EGD with [place] placement, on TF Planning MRCP, timing per GI, plans to pull [place] today Bili / LFT's down trending, ordered for tomorrow Hepatitis neg Elevated LFTs See above Suspect alcoholic hepatitis Defer MRCP to GI, LFT's have been improving Acute respiratory failure with hypoxia and hypercarbia (HCC) Requiring bipap s/p EGD Transferred to ICU after endoscopy CXR w/ Mild bibasilar airspace disease. Pulm CC consulted underlying untreated BRAXTON likely driving factor CTA Pulm neg for PE, suspected aspiration, started empiric antibiotics NIPPV PRN Weaned to room air 01/08/2025 Chronic GERD PPI Hypertension complicating diabetes (HCC) Norvasc's, Coreg and losartan Poorly controlled Increase losartan Morbid obesity with body mass index (BMI) of 40.0 or higher (HCC) Higher dose of Lovenox per protocol Type 2 diabetes mellitus without complication, without long-term current use of insulin (HCC) Lab Results Component Value Date HGBA1C 7.8 (H) 01/05/2025 FSBS and correctional BS controlled high Add lantus Normocytic anemia S/p IV iron x 1 Moderate alcohol use disorder (HCC) Apparently drinks a fifth every other day Monitor for withdrawal Has cut back recently Chem dependency Referral to [facility] Mood disorder 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 Bilateral lower extremity edema DVT neg Echo EF 50-55% BRAXTON (obstructive sleep apnea) Bipap nightly Refer back to sleep medicine on DC Dispo: TBD pending MRCP VTE Prophylaxis: Qualifying Pharmacologic Prophylaxis enoxaparin (LOVENOX) injection 40 mg 2 times per day Bowel Regimen polyethylene glycol (GLYCOLAX, MIRALAX) packet 17 g 2 TIMES DAILY senna (SENOKOT) tablet 1-2 Tablet DAILY PRN Subjective CC: Follow Up Acute pancreatitis HPI: Doing well tolerating diet Wants [place] out Hopefully to go home soon Discussed importance of alcohol cessation Discussed referral to [facility] States that he has a lot of stress which is driving his drinking. Significant amount of time spend at beside discussing Objective BP (!) 161/88 (BP Location: Left arm, Patient Position: Sitting) Pulse 70 Temp 97.5 ??F (36.4 ??C) (Oral) Resp 20 Ht 6' 3 (1.905 m) Wt (!) 354 lb 6.4 oz (160.8 kg) SpO2 97% BMI 44.30 kg/m?? I/O last 3 completed shifts: In: 2843 [P.O.:1437; NG/GT:180] Out: 1415 [Urine:1415] Physical Exam Constitutional: General: He is not in acute distress. Appearance: He is obese. HENT: Head: Comments: NJ remains in place at time of exam Cardiovascular: Rate and Rhythm: Normal rate. Pulmonary: Breath sounds: No wheezing or rales. Abdominal: General: There is no distension. Palpations: Abdomen is soft. Tenderness: There is no abdominal tenderness. Musculoskeletal: Right lower leg: No edema. Left lower leg: No edema. Skin: General: Skin is warm and dry. Neurological: Mental Status: He is alert and oriented to person, place, and time. The following is intended for medical coding purposes only > 50 mins was spent reviewing the patients chart, obtaining a relevant history, performing a physical exam, counseling and/or educating the patient/family/caregiver, documenting in the medical record and coordinating patient care. Jacyk Maddox MD 01/08/2025 * Marlene Lowery RD,LD - 01/08/2025 1:22 PM EST [facility] Nutrition Reassessment Evidence Supported Malnutrition Diagnosis: No malnutrition identified Nutrition Problem/Diagnosis: Nutrition Diagnosis Problem 1: Inadequate oral intake related to altered GI function as evidenced by new medical diagnosis or change in existing diagnosis or condition. Status: Active nutrition diagnosis Nutrition Prescription: Kcals: 2225-2670kcal (25-30kcal/kg using IBW 89kg) Protein (g): 107-134g Protein needs based on: 1.2-1.5g/kg using IBW 89kg Other (comment): Reviewed 01/07 Plan/Interventions: Meals and Snacks: Low Fat Enteral Nutrition: OSVALDO removed this date Medical Food Supplements: Ensure Clear Medical Food/Supplement Freq: Vanilla - TID Vitamin and Mineral Supplements: Folate, Magnesium, Multivitamin Nutrition-Related Medication Management: Novolog, Protonix, Miralax Collaboration And Referral Of Nutrition Care: Collaboration with other providers Nutrition Discharge Instructions: Continue to follow a low fat diet. Azeem Perez is a 44 y.o. male patient. Admit Diagnosis: Pancreatitis [K85.90] Pancreatitis, unspecified pancreatitis type [K85.90] Subjective: Subjective Comment: Brief nutrition follow up. NJ removed this date, TF orders d/c'd. Will continueto monitor PO intakes and follow up PRN. * Alli Hannon APRN - 01/08/2025 12:01 PM EST Images from the original note were not included. [facility] Gastroenterology Follow Up Note Name: Azeem Perez ADDRESS: [address] [place] [address] [place] [address] : 1980 AGE: 44 y.o. Primary Care Physician: Jam Richardson MD Date of Admission: 01/03/2025 Date of Consultation: 01/08/2025 We are following for pancreatitis Subjective Up in chair. Tolerating diet. Looks good. Wants NJ pulled. Current GI related medications: Scheduled Meds: allopurinoL 100 mg Oral Daily amLODIPine 10 mg Oral Daily carvediloL 25 mg Oral BID cefTRIAXone (ROCEPHIN) IV (Orderable) 1 g Intravenous Daily enoxaparin 40 mg Subcutaneous 2 times per day ENSURE Original 1.05 1 Bottle Oral TID with Meals escitalopram oxalate 20 mg Oral Daily multivitamin with folic acid 1 Tablet Oral Daily And folic acid 1 mg Oral Daily And thiamine 100 mg Oral Daily And magnesium oxide 400 mg Oral Daily Insulin Calculator - FSBS (Correction Only) Input 1 Each MISCELLANEOUS 4 times per day And insulin aspart (NovoLOG) - Correction - Calculator 0-40 Units Subcutaneous 4 times per day losartan 25 mg Oral Daily pantoprazole (PROTONIX) 40 mg Intravenous BID Or pantoprazole 40 mg Oral BID polyethylene glycol 17 g Oral BID Continuous Infusions: JEVITY 1.5 70 mL/hr at 01/08/25 0556 PRN Meds:acetaminophen, dextrose, glucagon AND sterile water, melatonin, morphine, nicotine polacrilex, ondansetron OR ondansetron, oxyCODONE, prochlorperazine edisylate, senna Objective BP (!) 161/88 (BP Location: Left arm, Patient Position: Sitting) Pulse 66 Temp 97.5 ??F (36.4 ??C) (Oral) Resp 20 Ht 6' 3 (1.905 m) Wt (!) 354 lb 6.4 oz (160.8 kg) SpO2 97% BMI 44.30 kg/m?? General: Azeem appears alert, well developed, well nourished, in no acute distress Skin: Warm, well perfused and no rashes Head: Normocephalic, without obvious abnormality, atraumatic Eyes: No icterus Neck: Supple without masses, no evidence of JVD Lungs: normal rate and effort Cardiac: Regular rate and rhythm Abdomen: Soft, nontender, and nondistended without hepatomegaly or masses, normoactive bowel soundsare present, no peritoneal signs Laboratory: Lab Results Component Value Date WBC 5.2 01/08/2025 HGB 13.0 (L) 01/08/2025 HCT 40.7 01/08/2025 MCV 80.9 01/08/2025 PLT 382 (H) 01/08/2025 Lab Results Component Value Date CREATININE 0.70 01/08/2025 BUN 11 01/08/2025 NA 134 (L) 01/08/2025 K 01/08/2025 Comment: Unable to result potassium due to elevated hemolysis. CL 98 01/08/2025 CO2 24 01/08/2025 Lab Results Component Value Date ALT 184 (H) 01/07/2025 AST 196 (H) 01/07/2025 ALKPHOS 60 01/07/2025 BILIDIR 0.8 (H) 01/07/2025 PROT 6.6 01/07/2025 LIPASE 158 (H) 01/06/2025 Assessment/Plan: 1) Pancreatitis -highly suspect EtOH etiology, LFTs/Tbili were downtrending. 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 Please feel free to call if you have any questions. Alli Hannon APRN 01/08/2025 This chart was completed using voice recognition technology and may contain unintended errors Cosigned by Waqas Brody MD at 01/08/2025 6:22 PM EST Associated attestation - Waqas Brody MD - 01/08/2025 6:22 PM EST Images from the original note were not included. ATTENDING GASTROENTEROLOGY NOTE [facility] I have discussed the history, exam, labs/tests and plan of this patient with the midlevel provider and agree with the details as above. I did not personally evaluate the patient today. Await MRCP. NJpulled. Waqas Brody MD 01/08/2025 * Ann-Marie Cormier RN - 01/08/2025 9:19 AM EST 01/08/25917 Assessment Complete Actual Discharge Plan 01/08/25: CC Update, met with pt, spouse in room, on room air, still with NJThowever tolerating low fat diet per pt, PCP Debra at [facility], no issues affording Rx meds, no HH/DME needs, spouse to transport, CC following. Completed by CC/SW Yes * Sabiha Yee RN - 01/08/2025 6:17 AM EST Patient is alert & oriented x4, VSS, NSR on tele monitor. Room air, sats >90%, respiration easy. No c/o pain. PIV site C/D/I and NSL. Tube feed increased to 70 ml/hr (at goal). NJ tube intact, no complications. Tolerating PO well, no nausea/vomiting. Skin assessed, no new issues. Ambulating independently in the room, tolerating well. Updated patient on plan of care. Call light w/in reach. * Suzie Velazquez RN - 01/07/2025 6:16 PM EST Pt A&Ox4, VSS, NSR on tele monitor, afebrile. Sats >90% on RA, SOB with exertion. No c/o pain. PIV site c/d/i and NSL. Transitioned to full liquid and then low fat diet, pt tolerating well. Tube feed increased to 60 ml/hr. NJ tube intact, no complications. Skin assessed, no new issues. Wound care protocol in place. Ambulating independently. Updated pt and family on POC. Call light w/in reach. Szuie Velazquez RN * Jacky Maddox MD - 01/07/2025 1:43 PM ESTAssociated Problem(s): Acute pancreatitis Initially presented on 12/31 to outside hospital with acute pancreatitis Had worsening symptoms and bilirubin requiring transfer CT here with non-distend GB no stones Mild pericholecystic fluid versus edematous wall thickening GI is following suspect alcohol related EGD with NJ placement, started TF Planning MRCP, timing per GI Bili / LFT's down trending Hepatitis neg * Jacky Maddox MD - 01/07/2025 1:43 PM ESTAssociated Problem(s): Elevated LFTs See above Suspect alcoholic hepatitis Defer MRCP to GI, LFT's improving * Jacky Maddox MD - 01/07/2025 1:43 PM ESTAssociated Problem(s): Acute respiratory failure with hypoxia and hypercarbia (HCC) Requiring bipap s/p EGD Transferred to ICU after endoscopy CXR w/ Mild bibasilar airspace disease. Pulm CC consulted underlying untreated BRAXTON likely driving factor CTA Pulm neg for PE, suspected aspiration, start empiric antibiotics NIPPV PRN Weaned to room air * Jacky Maddox MD - 01/07/2025 1:43 PM ESTAssociated Problem(s): Chronic GERD PPI * Jacky Maddox MD - 01/07/2025 1:43 PM ESTAssociated Problem(s): Hypertension complicating diabetes (HCC) Norvasc's, Coreg and losartan * Jacky Maddox MD - 01/07/2025 1:43 PM ESTAssociated Problem(s): Morbid obesity with body mass index (BMI) of 40.0 or higher (HCC) Higher dose of Lovenox per protocol * Jacky Maddox MD - 01/07/2025 1:43 PM ESTAssociated Problem(s): Type 2 diabetes mellitus without complication, without long-term current useof insulin (HCC) Lab Results Component Value Date HGBA1C 7.8 (H) 01/05/2025 FSBS and correctional BS controlled 01/07/2025 * Jacky Maddox MD - 01/07/2025 1:43 PM ESTAssociated Problem(s): Normocytic anemia S/p IV iron x 1 * Jacky Maddox MD - 01/07/2025 1:43 PM ESTAssociated Problem(s): Moderate alcohol use disorder (HCC) Apparently drinks a fifth every other day Monitor for withdrawal Has cut back recently Chem dependency to see * Jacky Maddox MD - 01/07/2025 1:43 PM ESTAssociated Problem(s): Mood disorder 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 PROGRESS NOTE Assessment & Plan Acute pancreatitis Initially presented on 12/31 to outside hospital with acute pancreatitis Had worsening symptoms and bilirubin requiring transfer CT here with non-distend GB no stones Mild pericholecystic fluid versus edematous wall thickening GI is following suspect alcohol related EGD with NJ placement, started TF Planning MRCP, timing per GI Bili / LFT's down trending Hepatitis neg Elevated LFTs See above Suspect alcoholic hepatitis Defer MRCP to GI, LFT's improving Acute respiratory failure with hypoxia and hypercarbia (HCC) Requiring bipap s/p EGD Transferred to ICU after endoscopy CXR w/ Mild bibasilar airspace disease. Pulm CC consulted underlying untreated BRAXTON likely driving factor CTA Pulm neg for PE, suspected aspiration, start empiric antibiotics NIPPV PRN Weaned to room air Chronic GERD PPI Hypertension complicating diabetes (HCC) Norvasc's, Coreg and losartan Morbid obesity with body mass index (BMI) of 40.0 or higher (HCC) Higher dose of Lovenox per protocol Type 2 diabetes mellitus without complication, without long-term current use of insulin (HCC) Lab Results Component Value Date HGBA1C 7.8 (H) 01/05/2025 FSBS and correctional BS controlled 01/07/2025 Normocytic anemia S/p IV iron x 1 Moderate alcohol use disorder (HCC) Apparently drinks a fifth every other day Monitor for withdrawal Has cut back recently Chem dependency to see Mood disorder 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 Bilateral lower extremity edema DVT neg Echo EF 50-55% BRAXTON (obstructive sleep apnea) bipap Dispo: pending further work up VTE Prophylaxis: Qualifying Pharmacologic Prophylaxis enoxaparin (LOVENOX) injection 40 mg 2 times per day Bowel Regimen polyethylene glycol (GLYCOLAX, MIRALAX) packet 17 g 2 TIMES DAILY senna (SENOKOT) tablet 1-2 Tablet DAILY PRN Subjective CC: Follow Up Acute pancreatitis HPI: Doing much better, no pain, off oxygen, wants NJ out Objective BP 152/75 (BP Location: Left arm, Patient Position: Sitting) Pulse 72 Temp 98 ??F (36.7 ??C) (Oral) Resp 20 Ht 6' 3 (1.905 m) Wt (!) 386 lb 11.2 oz (175.4 kg) SpO2 96% BMI 48.33 kg/m?? I/O last 3 completed shifts: In: 1400 [P.O.:900; NG/GT:90] Out: - Physical Exam Constitutional: Appearance: He is obese. HENT: Nose: Comments: NJ remains in place Pulmonary: Effort: Pulmonary effort is normal. Breath sounds: No wheezing or rales. Abdominal: General: Bowel sounds are normal. Palpations: Abdomen is soft. Musculoskeletal: Right lower leg: No edema. Left lower leg: No edema. Skin: General: Skin is warm and dry. Neurological: Mental Status: He is oriented to person, place, and time. The following is intended for medical coding purposes only > 50 mins was spent reviewing the patients chart, obtaining a relevant history, performing a physical exam, counseling and/or educating the patient/family/caregiver, documenting in the medical record and coordinating patient care. Jacky Maddox MD 01/07/2025 * Marlene Lowery RD,LD - 01/07/2025 12:51 PM EST [facility] Nutrition Malnutrition Reassessment Evidence Supported Malnutrition Diagnosis: No malnutrition identified Nutrition Problem/Diagnosis: Nutrition Diagnosis Problem 1: Inadequate oral intake related to altered GI function as evidenced by new medical diagnosis or change in existing diagnosis or condition. Status: Active nutrition diagnosis Nutrition Prescription: Kcals: 2225-2670kcal (25-30kcal/kg using IBW 89kg) Protein (g): 107-134g Protein needs based on: 1.2-1.5g/kg using IBW 89kg Other (comment): Reviewed 01/07 Plan/Interventions: Meals and Snacks: Full Liquid Enteral Nutrition: Recommend advancing 10 ml q 6 to goal of Jevity 1.5 @ 70ml/hr to provide 2520 kcals, 107 gm protein, and 1277 ml FW. Medical Food Supplements: Ensure Clear Medical Food/Supplement Freq: Vanilla - TID Vitamin and Mineral Supplements: Folate, Magnesium, Multivitamin Nutrition-Related Medication Management: Novolog, Protonix, Miralax Nutrition Education: Oriented to Current Diet Order, Tube Feeding, Small frequent meals Collaboration And Referral Of Nutrition Care: Collaboration with other providers Azeem Perez is a 44 y.o. male patient. Admit Diagnosis: Pancreatitis [K85.90] Pancreatitis, unspecified pancreatitis type [K85.90] Subjective: Subjective Comment: GI notes reviewed - noted possible plans for diet advancement this afternoon. Labs reviewed. TF orders adjusted to advance to goal. Pt visited with family at bedside. Discussed possible plans for diet advancement this date, pt tolerating full liquids well. TF verified. Djscussed ONS - pt enjoys, will send to increase nutrient intake. Will continue to monitor and follow up PRN. Anthropometric Measurements: Height: 6' 3 (190.5 cm) Weight: (!) 386 lb 11 oz (175.4 kg) BMI (Calculated): 48.33 IBW +/- 10%: 196 lb (88.9 kg) % IBW: 197 Other (Comment): Wts have fluctuated but have mostly remained stable, will continue to monitor Food/Nutrition Related History: Dietary Orders Ordered Full Liquid Diet DIET EFFECTIVE NOW 01/07/25 0915 ENSURE Original 1.05 oral supplement 1 Each Oral TID with Meals JEVITY 1.5 continuous TF Per NJ Tube Continuous 50 mL/hr at 01/07/25 0931 Rate/Dose Change at 01/07/25 0931 Food Insecurity Within the past 12 months, you worried that your food would run out before you got the money to buymore.: Never true Within the past 12 months, the food you bought just didn't last and you didn't have money to get more.: Never true Tube Feeding?: Yes Tube Feeding Received (ml): 410 ml % of TF Goal Rate Met: 24 % Nutrition Focused Physical Findings: LDAs- Active NG/OG/NJ,Wound,Pressure Injury,or Drain NG/OG/NJ Tube Duration NJ/OJ Tube 111 fr Right nostril 2 days I/O last 3 completed shifts: In: 1400 [P.O.:900; NG/GT:90] Out: - Edema:Right Upper Extremity Edema: Trace Left Upper Extremity Edema: Trace Right Lower Extremity Edema: +2, Non-pitting Left Lower Extremity Edema: +2, Non-pitting Abdomen: Abdominal/GI Abdomen Inspection: Round Bowel Sounds (All Quadrants): Active Abdominal palpation: Tenderness Passing Flatus: Yes Nausea: No When was last BM? (Date): 01/07/25 Stool Assessment: Stool Occurrence: 1 Stool Appearance: (!) Type 6 [place] Stool Chart Stool Color: Brown Stool Amount: Large Biochemical Data/Medical Tests: Pertinent Labs: Glucose 141 Clinical Course: Clinical Course: Admitted from outside hospital w/acute pancreatitis (initially presented 12/31). S/p EGD with NJ tube placement 01/05. Transferred to MICU d/t ABGs not improving, respiratory status improved and transferred to 5D. ECHO showing 50-55% EF. Full liquids this date. * Janice Alva PA - 01/07/2025 9:27 AM EST Images from the original note were not included. [facility] Gastroenterology Follow Up Note Name: Azeem Perez ADDRESS: [address] [place] [id number] : 1980 AGE: 44 y.o. Primary Care Physician: Jam Richardson MD Date of Admission: 01/03/2025 Date of Consultation: 01/07/2025 We are following for pancreatitis Subjective Patient sitting up in chair, reports feeling well. States that he is hungry and wants to eat. No n/v, no pain. Had a BM with Miralax feeling good. Advanced to fulls, consider adv to low fat today if continuing to do well. Some increased in ALT/AST this AM,. Current GI related medications: Lovenox noted PPI BID Zofran prn Miralax BID Compazine prn Senna prn Mounjaro noted UNEMPLOYMENT EXAMINER Objective BP 150/87 (BP Location: Right arm, Patient Position: Sitting) Pulse 68 Temp 98.1 ??F (36.7 ??C)(Oral) Resp 18 Ht 6' 3 (1.905 m) Wt (!) 386 lb 11.2 oz (175.4 kg) SpO2 98% BMI 48.33 kg/m?? General: Azeem appears alert, well developed, well nourished, in no acute distress Skin: Warm, well perfused and no rashes Head: Normocephalic, without obvious abnormality, atraumatic Eyes: No icterus Neck: Supple without masses, no evidence of JVD Lungs: Clear to auscultation bilaterally, normal rate and effort Cardiac: Regular rate and rhythm, no murmurs, rubs, clicks or gallops Abdomen: Soft, nontender, and nondistended without hepatomegaly or masses, normoactive bowel soundsare present, no peritoneal signs Lymphadenopathy: Normal, no adenopathy noted Musculoskeletal/Ext: Normal muscle bulk with no contractures or deformities Neurological: No focal deficits. Laboratory: Lab Results Component Value Date WBC 4.8 01/07/2025 HGB 11.5 (L) 01/07/2025 HCT 37.3 (L) 01/07/2025 MCV 81.6 01/07/2025 PLT 264 01/07/2025 Lab Results Component Value Date CREATININE 0.82 01/07/2025 BUN 13 01/07/2025 NA 138 01/07/2025 K 3.5 01/07/2025 CL 98 01/07/2025 CO2 31 (H) 01/07/2025 Lab Results Component Value Date ALT 184 (H) 01/07/2025 AST 196 (H) 01/07/2025 ALKPHOS 60 01/07/2025 BILIDIR 0.8 (H) 01/07/2025 PROT 6.6 01/07/2025 LIPASE 158 (H) 01/06/2025 Assessment/Plan: 1) Pancreatitis -highly suspect EtOH etiology, LFTs/Tbili were downtrending. Acute elevation in ALT/ AST this AM. -s/p EGD 01/05 with NJ placement for nutrition -okay for TF, tolerating TF at 40cc/hr. Tolerating clears well. Advanced to fulls this AM. If does well, can adv to low fat. - MRCP after NJ is pulled as the NJ portion has metal on the tip of the tube. Consider pulling NJ today if doing well. - EGD with mucosa suggestive of Swanson's, biopsies confirmed 2) EtOH abuse -discussed cessation as this is likely the contributor to elevated LFTs/TB and pancreatitis Thank you for allowing us to participate in the care of this patient. Please feel free to call if you have any questions. JEET Cheng 01/07/2025 Cosigned by Kayden Serrano DO at 01/07/2025 5:25 PM EST Associated attestation - Kayden Serrano DO - 01/07/2025 5:25 PM EST Images from the original note were not included. ATTENDING GASTROENTEROLOGY NOTE I have discussed the history, exam, labs/tests and plan of this patient with the midlevel provider and agree with the details as above. Continues to do well. Tolerated clears and full liquids this AM. Wants to try low fat. Will see howhe tolerates low fat today and monitor for symptoms. Continue TF. Leave NJ in place as it was very difficult to place due to patient's respiratory decline during procedure and prolonged hypoxia post p rocedure requiring ICU care for one day. Patient is a difficult airway management. Consider pullingNJ tomorrow if tolerates low fat diet. Once NJ pulled then obtain MRCP. Kayden Serrano, DO 01/07/2025 * Raquel Gao RN - 01/07/2025 2:23 AM EST Daily Progress Note: Patient A/O X 4, VSS, afebrile NSR on the monitor, no c/o pain 3L O2 sats >90%, no c/o SOB No new skin issues to note Patient turning self frequently in bed PIV site c/d/I, no complications NJ tube c/d/I, TF running at goal 40 ml/hr Stand by assist, ambulating well Bed alarm on, bed in lowest position, and call light within reach Raquel Lua RN * Ann-Marie Cormier RN - 01/06/2025 4:30 PM EST 01/06/25 1625 Assessment Complete Actual Discharge Plan 01/06/25: CC Initial Assessment, met with pt, spouse in room, pt from home independently with spouse and children, no HH, pt states that he had a Cpap but returned it because it kept getting me sick and he could not tolerate mask, NOT ON HOME O2, may benefit from overnight pulse ox, currently with NJT for TF, starting clear liquid diet this christina, PCP Debra at [facility], no issues affording Rx meds, spouse able to transport home at d/c, CC following. Completed by CC/SW Yes Care Coordination Assessment Observation Information Provided to Patient/Family N/A Mental Status Alert and oriented Does patient need real estate agent? No Decision Maker Patient Quality of Support System Adequate DME Used at Home None Anticipated post-acute care needs Home with OP Follow Up * Everardo Ibarra MD - 01/06/2025 1:53 PM EST Images from the original note were not included. PULMONARY MEDICINE PROGRESS NOTE Length of stay: LOS: 3 days Subjective/Interval history: - pt is more awake , off bipap at this time - last abg this am pco2 52 and PH : 7.38 - mild abd pain - had sleep study : cpap was recommended, could not tolerate . however he tolerated bipap fine in icu - was drowsy - has NJ placed by GI during EGD - had deterioration acute hypoxemic hypercapnic failure after EGD : intubated for that procedure Infusions JEVITY 1.5 20 mL/hr at 01/06/25 0700 MV Settings: MECHANICAL VENTILATION (last filed) SUPPLEMENTAL O2 & NIV (last filed) O2 Device: High Flow Nasal Cannula O2 Flow Rate (L/min): 4 lpm FiO2 (%): 50 % EPAP: 6 cmH2O Set Rate NIV (BPM): 20 Mask Type: Full mask Mask Size: Large Mask Changed: No Active LDAs PIV Line Duration Peripheral IV 01/04/25 2324 Left;Posterior Forearm Ultrasound guided 1 day NG/OG/NJ Tube Duration NJ/OJ Tube 111 fr Right nostril 1 day Current Meds allopurinoL 100 mg Oral Daily amLODIPine 10 mg Oral Daily carvediloL 25 mg Oral BID enoxaparin 40 mg Subcutaneous 2 times per day escitalopram oxalate 20 mg Oral Daily multivitamin with folic acid 1 Tablet Oral Daily And folic acid 1 mg Oral Daily And thiamine 100 mg Oral Daily And magnesium oxide 400 mg Oral Daily Insulin Calculator - FSBS (Correction Only) Input 1 Each MISCELLANEOUS 4 times per day And insulin aspart (NovoLOG) - Correction - Calculator 0-40 Units Subcutaneous 4 times per day losartan 25 mg Oral Daily pantoprazole (PROTONIX) 40 mg Intravenous BID Or pantoprazole 40 mg Oral BID perflutren lipid microspheres PRN Meds acetaminophen, dextrose, glucagon AND sterile water, iopamidoL, melatonin, morphine, nicotine polacrilex, ondansetron OR ondansetron, oxyCODONE, perflutren lipid microspheres, polyethylene glycol, prochlorperazine edisylate, senna, sodium chloride 0.9% Past Medical, Family and Social histories were reviewed and are unchanged . Exam: Vitals: 01/06/25 1341 BP: 137/84 Pulse: 71 Resp: 20 Temp: 97.3 ??F (36.3 ??C) SpO2: 100% Temp (24hrs), Av.2 ??F (36.2 ??C), Min:95 ??F (35 ??C), Max:97.7 ??F (36.5 ??C) & BP Min: 114/64 Max: 138/74 Intake/Output Summary (Last 24 hours) at 01/06/2025 1353 Last data filed at 01/06/2025 0600 Gross per 24 hour Intake 1253.83 ml Output 1600 ml Net -346.17 ml Wt Readings from Last 2 Encounters: 01/06/25 (!) 381 lb 2.8 oz (172.9 kg) 12/04/24 (!) 373 lb (169.2 kg) Admit weight: Weight: (!) 373 lb (169.2 kg) General appearance: Morbid Obese in no acute distress, while on O2 supplementation. Head: normocephalic and atraumatic Eyes: pupils equal round and reactive to light and sclera anicteric ENT: mucous membranes moist, oral hygiene is Mallampati class IV Neck/Lymphatic: supple, no adenopathy, and no thyromegaly Respiratory System: Diminished breath sounds bilaterally and no wheezing Cardiovascular: Regular, Normal Rate, and palpable peripheral pulses Gastrointestinal: soft, nondistended, no mass, mild tenderness , and no rigidity or gross organomegaly Musculoskeletal: no cyanosis or edema Neurological: Alert, non-focal and following simple commands Dermatological: Normal Medications: Scheduled Meds: allopurinoL 100 mg Oral Daily amLODIPine 10 mg Oral Daily carvediloL 25 mg Oral BID enoxaparin 40 mg Subcutaneous 2 times per day escitalopram oxalate 20 mg Oral Daily multivitamin with folic acid 1 Tablet Oral Daily And folic acid 1 mg Oral Daily And thiamine 100 mg Oral Daily And magnesium oxide 400 mg Oral Daily Insulin Calculator - FSBS (Correction Only) Input 1 Each MISCELLANEOUS 4 times per day And insulin aspart (NovoLOG) - Correction - Calculator 0-40 Units Subcutaneous 4 times per day losartan 25 mg Oral Daily pantoprazole (PROTONIX) 40 mg Intravenous BID Or pantoprazole 40 mg Oral BID perflutren lipid microspheres Labs: ABGs: Recent Labs 01/05/25 1325 01/05/25 1632 PH 7.26* 7.31* PCO2 68* 61* PO2 73* 72* HCO3 25.8 27.1* O2SAT 91.5* 92.7* CBC: Recent Labs 01/04/25 0533 01/05/25 0624 01/05/25 1325 01/05/25 1632 01/06/25 0414 WBC 4.1 5.1 -- -- 5.8 HGB 11.2* 11.2* 12.3* 12.3* 11.3* HCT 36.2* 36.6* 37.7* 37.8* 37.1* MCV 80.8 81.9 -- -- 81.5 PLT 175 184 -- -- 248 BMP: Recent Labs 01/05/25 0624 01/05/25 1325 01/05/25 1438 01/05/25 1632 01/06/25 0414 NA 135* < > 138 140 137 K 4.2 -- 5.1* -- 4.4 CL 100 < > 99 99 98 CO2 28 -- 30* -- 29 PHOS -- -- 4.3 -- 3.7 BUN 12 -- 15 -- 15 CREATININE 0.70 -- 0.83 -- 0.71 < > = values in this interval not displayed. LIVER PROFILE: Recent Labs 01/03/25210901/04/25 0533 01/05/25 0624 01/06/25 0414 AST 75* 62* 63* 42* ALT 85* 81* 70* 69* LIPASE -- 479* -- 158* BILIDIR 1.8* -- 0.7* 1.0* ALKPHOS 59 61 59 64 PT/INR: No results for input(s): PROTIME , INR in the last 72 hours. APTT: No results for input(s): APTT in the last 72 hours. UA:No results for input(s): NITRITE , COLORU , PHUR , LABCAST , WBCUA , RBCUA , MUCUS , TRICHOMONAS , YEAST , BACTERIA , CLARITYU , SPECGRAV , LEUKOCYTESUR , UROBILINOGEN , BILIRUBINUR , BLOODU , GLUCOSEU , KETONESU , AMORPHOUS in the last 72 hours. ECHO: No results found for this or any previous visit. Most recent Imaging: [facility] US LOWER EXTREMITY VENOUS BILATERAL Conclusions * No evidence of deep vein thrombosis identified in the right lower extremity. * No evidence of deep vein thrombosis identified in the bilateral lower extremities. * No evidence of superficial thrombosis identified in the bilateral lower extremities. EC ECHOCARDIOGRAM 2D M MODE COMPLETE W CONTRAST Conclusions * Left ventricular chamber dimension is mildly enlarged. * Left ventricular function is low normal with an estimated ejection fraction of 50-55%. * The left ventricular diastolic function is consistent with diastolic dysfunction and indeterminate left atrial pressure. * Right ventricular systolic function is normal. * Unable to estimate pulmonary arterial systolic pressure due to lack of tricuspid regurgitation jet. Assessment: Active Hospital Problems Diagnosis *Acute pancreatitis Acute respiratory failure with hypoxia and hypercarbia (HCC) Elevated LFTs Bilateral lower extremity edema Normocytic anemia Moderate alcohol use disorder (HCC) Mood disorder Morbid obesity with body mass index (BMI) of 40.0 or higher (HCC) Chronic GERD Type 2 diabetes mellitus without complication, without long-term current use of insulin (HCC) Hypertension complicating diabetes (HCC) No change in current condition of these problems and diagnoses but what changed in impression and plan, I addressed each during rounds, please see updates in impression and plan if any. GI - Acute pancreatitis - Transaminitis better - Mild hyper bilirubinemia - Secondary to highly likely alcohol and/or possible gallbladder etiology ((GI note mentioned possible MRCP and if MRCP is positive for choledocholithiasis then they have plans for ERCP) I do not see an order for MRCP at this time GI will be notified)) I will defer for today Neuro Mild encephalopathy secondary to hypercapnia improved Alcohol abuse: Note that today is day 5 after admission to hospitalization no signs of withdrawal at this time Respiratory Patient is morbidly obese, hx obstructive sleep apnea Possibility of obesity hypoventilation syndrome However looking at his old measured bicarb was almost in the range 28-29, I suspect his pCO2 in thelow 50s - Doubt aspiration as the patient was intubated first attempt and no reported aspiration per anesthesia - Possible mild pulmonary vascular congestion - Bibasilar atelectasis specially with obese abdomen Renal Mild hyperkalemia Respiratory acidosis with partial compensation Cardiac Hypertension Endo Glycemic control Morbid obesity with metabolic syndrome, normal patient prealbumin is 9 Hematology Mild anemia Normal white blood cells Normal platelets Plan: continue Bipap at night I highly recommend sleep referral again to address his sleep apnea pt will need weight loss and consideration of bariatric surg at a leter time I will rule out PE : high risk with obesity and sedentary life style and recent hospitalization .... recommend glycemic control other burns defer further care to primary team DVT prophylaxis with LMWH GI prophylaxis with PPI Diet: none Tube feeding: NJ TF Code Status: Full Code Dispo: icu to tele Prognosis: guarded pulm team will follow in floor herve for CTA that was not done yet and management for hypoxemia as ptis on 5 liters/min , please wean consider oxygen eval on ambulation prior to DC as well Discussed with RN, RT. Care team Everardo Ibarra MD Pulmonary and Critical Care Medicine level 3 Disclaimer- This note was completed using voice recognition software. Despite my review, it may still contain unintended errors, typos etc. Please do not hesitate to contact me through hospital paging service with questions. * Janice Alva PA - 01/06/2025 11:58 AM EST Images from the original note were not included. [facility] Gastroenterology Follow Up Note Name: Azeem Perez ADDRESS: [address] [place] [address] : 1980 AGE: 44 y.o. Primary Care Physician: Jam Richardson MD Date of Admission: 01/03/2025 Date of Consultation: 01/06/2025 We are following for acute pancreatitis Subjective Patient sitting up in chair, reports feeling better. Anxious to get out of ICU. On 4L high flow O2 via NC. Wants to know when he can eat. No abdominal pain. NJ tube in place, not currently receiving TF. Has not been using any pain medication. Endoscopic Evaluation(s) for Current Hospital Course EGD: 01/05/[address] 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 Erythematous mucosa in the body of the stomach and antrum; no bleeding was observed; performed coldforceps biopsy to rule out H. pylori. The duodenum appeared normal. A nasojejunal tube was successfully placed in the proximal jejunum. Scope inserted via right nares and reached duodenum. Wire was inserted through the scope and advanced into duodenum. The wire was fixed externally. The scope was removed over the wire. A 12Fr Corpak nasojejunal tube was then placedover the wire and advanced. Endoscope was then inserted to verify the tube was post- pyloric. The tube was bridled at 111 cm. Recommendation 1) Follow up on biopsies 2) PPI qdaily 3) Start TF. 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 General: Azeem appears alert, well developed, well nourished, in no acute distress Skin: Warm, well perfused and no rashes Head: Normocephalic, without obvious abnormality, atraumatic Eyes: No icterus Neck: Supple without masses, no evidence of JVD Lungs: Clear to auscultation bilaterally, normal rate and effort Cardiac: Regular rate and rhythm, no murmurs, rubs, clicks or gallops Abdomen: Soft, nontender, and nondistended without hepatomegaly or masses, normoactive bowel soundsare present, no peritoneal signs Lymphadenopathy: Normal, no adenopathy noted Musculoskeletal/Ext: Normal muscle bulk with no contractures or deformities Neurological: No focal deficits. Laboratory: Lab Results Component Value Date WBC 5.8 01/06/2025 HGB 11.3 (L) 01/06/2025 HCT 37.1 (L) 01/06/2025 MCV 81.5 01/06/2025 PLT 248 01/06/2025 Lab Results Component Value Date CREATININE 0.71 01/06/2025 BUN 15 01/06/2025 NA 137 01/06/2025 K 4.4 01/06/2025 CL 98 01/06/2025 CO2 29 01/06/2025 Lab Results Component Value Date ALT 69 (H) 01/06/2025 AST 42 (H) 01/06/2025 ALKPHOS 64 01/06/2025 BILIDIR 1.0 (H) 01/06/2025 PROT 6.7 01/06/2025 LIPASE 158 (H) 01/06/2025 Assessment/Plan: 1) Pancreatitis -highly suspect EtOH etiology, LFTs/Tbili downtrending -s/p EGD yesterday with NJ placement for nutrition -okay for TF, okay to start clears as patient not requiring pain meds - events overnight noted, was transferred to ICU given BiPAP requirements. - EGD with mucosa suggestive of Swanson's, biopsies confirmed 2) EtOH abuse -discussed cessation as this is likely the contributor to elevated LFTs/TB and pancreatitis Thank you for allowing us to participate in the care of this patient. Please feel free to call if you have any questions. JEET Cheng 01/06/2025 Cosigned by Kayden Serrano DO at 01/06/2025 6:24 PM EST Associated attestation - Kayden Serrano DO - 01/06/2025 6:24 PM EST Images from the original note were not included. ATTENDING GASTROENTEROLOGY NOTE I have discussed the history, exam, labs/tests and plan of this patient with the midlevel provider and agree with the details as above. Looks better. Feels better. Tolerating TF at 30cc/hr. No further abdominal pain currently. Last pain med at 0400 today. Wants to try clears. No TTP on exam. Will start clears. Will see how he tolerates. If he does well then consider low fat tomorrow. Will obtain MRCP after NJ is pulled as the NJ portion has metal on the tip of the tube. No BM. Will start miralax BID. LFTs/TB improving daily. Kayden Serrano DO 01/06/2025 * Jacky Maddox MD - 01/06/2025 11:33 AM ESTAssociated Problem(s): Acute pancreatitis Initially presented on 12/31 to outside hospital with acute pancreatitis Had worsening symptoms and bilirubin requiring transfer CT here with non-distend GB no stones Mild pericholecystic fluid versus edematous wall thickening GI is following suspect alcohol related EGD with NJ placement Planning MRCP, timing? Defer to GI Bili / LFT's down trending Hepatitis neg * Jacky Maddox MD - 01/06/2025 11:33 AM ESTAssociated Problem(s): Acute respiratory failure with hypoxia and hypercarbia (HCC) Requiring bipap s/p EGD Transferred to ICU after endoscopy CXR w/ Mild bibasilar airspace disease. Pulm CC consulted underlying untreated BRAXTON likely driving factor Rule PE today NIPPV nightly and PRN during the day Wean oxygen as able down to 5L * Jacky Maddox MD - 01/06/2025 11:33 AM ESTAssociated Problem(s): Chronic GERD PPI * Jacky Maddox MD - 01/06/2025 11:33 AM ESTAssociated Problem(s): Hypertension complicating diabetes (HCC) Norvasc's, Coreg and losartan * Jacky Maddox MD - 01/06/2025 11:33 AM ESTAssociated Problem(s): Morbid obesity with body mass index (BMI) of 40.0 or higher (HCC) Higher dose of Lovenox per protocol * Jacky Maddox MD - 01/06/2025 11:33 AM ESTAssociated Problem(s): Type 2 diabetes mellitus without complication, without long-term current useof insulin (HCC) Lab Results Component Value Date HGBA1C 7.8 (H) 01/05/2025 FSBS and correctional BS controlled * Jacky aMddox MD - 01/06/2025 11:33 AM ESTAssociated Problem(s): Normocytic anemia S/p IV iron x 1 * Jacky Maddox MD - 01/06/2025 11:33 AM ESTAssociated Problem(s): Moderate alcohol use disorder (HCC) Apparently drinks a fifth every other day Monitor for withdrawal Has cut back recently Chem dependency to see * Jacky Maddox MD - 01/06/2025 11:33 AM ESTAssociated Problem(s): Mood disorder 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 PROGRESS NOTE Assessment & Plan Acute pancreatitis Initially presented on 12/31 to outside hospital with acute pancreatitis Had worsening symptoms and bilirubin requiring transfer CT here with non-distend GB no stones Mild pericholecystic fluid versus edematous wall thickening GI is following suspect alcohol related EGD with NJ placement Planning MRCP, timing? Defer to GI Bili / LFT's down trending Hepatitis neg Elevated LFTs See above Suspect alcoholic hepatitis Defer MRCP to GI, LFT's improving Acute respiratory failure with hypoxia and hypercarbia (HCC) Requiring bipap s/p EGD Transferred to ICU after endoscopy CXR w/ Mild bibasilar airspace disease. Pulm CC consulted underlying untreated BRAXTON likely driving factor Rule PE today NIPPV nightly and PRN during the day Wean oxygen as able down to 5L Chronic GERD PPI Hypertension complicating diabetes (HCC) Norvasc's, Coreg and losartan Morbid obesity with body mass index (BMI) of 40.0 or higher (HCC) Higher dose of Lovenox per protocol Type 2 diabetes mellitus without complication, without long-term current use of insulin (HCC) Lab Results Component Value Date HGBA1C 7.8 (H) 01/05/2025 FSBS and correctional BS controlled Normocytic anemia S/p IV iron x 1 Moderate alcohol use disorder (HCC) Apparently drinks a fifth every other day Monitor for withdrawal Has cut back recently Chem dependency to see Mood disorder 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 Bilateral lower extremity edema DVT study Check echo Both pending Dispo: Transfer to TCU, if okay with others VTE Prophylaxis: Qualifying Pharmacologic Prophylaxis enoxaparin (LOVENOX) injection 40 mg 2 times per day Bowel Regimen senna (SENOKOT) tablet 1-2 Tablet DAILY PRN polyethylene glycol (GLYCOLAX, MIRALAX) packet 17 g 2 TIMES DAILY PRN Subjective CC: Follow Up Acute pancreatitis HPI: Doing better more alert, oxygen weaned to 5 L while in room States no on oxygen at home Needs CPAP, had sleep study but does not want wear mask at home States cut back on drinking down to 1 glass every day or so. Objective BP 115/56 Pulse 69 Temp 97.6 ??F (36.4 ??C) (Axillary) Resp (!) 22 Ht 6' 3 (1.905 m) Wt (!) 381 lb 2.8 oz (172.9 kg) SpO2 95% BMI 47.64 kg/m?? I/O last 3 completed shifts: In: 2253.8 [I.V.:1949.8; NG/GT:180] Out: 1600 [Urine:1600] Physical Exam Constitutional: Appearance: He is obese. He is not toxic-appearing. HENT: Head: Normocephalic and atraumatic. Mouth/Throat: Mouth: Mucous membranes are moist. Cardiovascular: Rate and Rhythm: Normal rate. Pulmonary: Effort: Pulmonary effort is normal. Breath sounds: No wheezing or rales. Comments: Diminished Abdominal: General: There is distension. Tenderness: There is no abdominal tenderness. Musculoskeletal: Right lower leg: Edema present. Left lower leg: Edema present. Skin: General: Skin is warm and dry. Coloration: Skin is not jaundiced. Neurological: Mental Status: He is alert and oriented to person, place, and time. Jacky Maddox MD 01/06/2025 * Staci Torres RN - 01/06/2025 10:44 AM EST Images from the original note were not included. Daily Status Update 5L HFNC Tx. Family Does the patient have family present? Yes, offer family to join rounds Ventilator SpO2: 96 % (01/06/25 1000) Ventilator: No Airway LDAs None Edwards Score: (not recorded) Recent Labs 01/05/25 1632 PFRATIO 120 Pain Pain controlled in the last 24 hours: Yes Pain/Sedation Medications oxyCODONE (ROXICODONE) immediate release tablet 5 mg EVERY 4 HOURS PRN morphine injection 4-8 mg EVERY 4 HOURS PRN acetaminophen (TYLENOL) tablet 650 mg EVERY 4 HOURS PRN Pain Patient Currently in Pain: Denies (01/06/25 0800) Appropriate Pain Scale For Patient: 0-10 Scale (01/05/25 1130) Patient's Stated Pain Goal: no pain (01/05/25 1130) Pain 0-10 Scale: 5 (01/06/25 0434) Pain Type: Acute (01/05/25 0106) Pain Location: Abdomen (01/06/25 0434) Pain Orientation: Mid (01/06/25433) Pain Quality: Aching;Constant (01/06/25433) Onset pain: Past week (01/06/25433) Effect of Pain on Daily Activities: Sleep disturbance (01/06/25433) Pain Intervention(s): Medication (see eMar) (01/06/25433) Post Intervention Reassessment: Out of Room (01/05/25 0732) Critical-Care Pain Observation Tool Post Intervention Reassessment: Out of Room (01/05/25 0732) Non-Verbal Pain Pain Intervention(s): Medication (see eMar) (01/06/25433) Faces Scale Pain Intervention(s): Medication (see eMar) (01/06/25433) Delirium Is the patient experiencing s/s of delirium? No RASS Score: 0 (01/06/25 08) CAM Result: Negative (01/06/25799) Progressive Mobility Patient's Current Mobility Score: 6 RASS Score: 0 PT/OT Orders (From admission, onward) None PT Frequency: (not recorded) Plan: Progress mobility/mobilize per orders today Blood Glucose Recent Labs 01/05/25 1152 01/05/25 1438 01/05/25 1825 01/05/25 2304 01/06/25 0414 01/06/25437 GLU -- < > -- -- 153* -- FSBS 135* -- 151* 161* -- 159* < > = values in this interval not displayed. Insulin Drip: No Basal Insulin Orders: no Prandial Insulin Orders: no Correctional Algorithm: Medium (CF 25) Plan: Continue current treatment plan - glucose controlled Nutrition Last 4 Weights 01/03/2025 2033 01/04/2025 0503 01/05/2025 0558 01/06/2025 0600 Weight: 373 lb (169.2 kg) 373 lb (169.2 kg) 374 lb (169.6 kg) 381 lb 2.8 oz (172.9 kg) Net weight change in lbs since admission: 8.2 Ordered Tube Feeding Route: There are no questions and answers to display. There are no questions and answers to display. Diet Order: NPO DIET ICU Length of Stay: 1 days Plan: Continue current diet order Speech/Swallow Screen Bedside Swallow Screen Result: Swallow Screen Result: FAIL Communication Needs: No Bowel Regimen When was last BM? (Date): 01/04/25 Has patient had BM < or = 24 hours ago? Yes Bowel Regimen senna (SENOKOT) tablet 1-2 Tablet DAILY PRN polyethylene glycol (GLYCOLAX, MIRALAX) packet 17 g 2 TIMES DAILY PRN Plan: Bowel regimen contraindicated Wound Care Pino Scale Score: (!) 16 Prevention options initiated?: Yes Wound LDAs None Foam Border: (not recorded) Foam Border Applied/Changed Location: (not recorded) CLABSI Prevention CHG Application: (not recorded) Central Line LDAs None Appropriate to DC central line (use PIV instead)? N/A (no central access) Intravenous Fluids Appropriate to DC IV fluids? N/A (no IVF) CAUTI Prevention Sherman Cath LDA None Chelly Care/Sherman Care: Incontinence cleanser;Chelly wipes (01/05/25 1830) Appropriate to DC sherman (alternatives: external catheter, urinal, etc)? N/A (no sherman catheter) Restraints Restraints: no Most Recent Restraint Order (From admission, onward) None LTACH Is this patient LTACH appropriate? No: Will continue to follow * Jacky Maddox MD - 01/05/2025 5:14 PM ESTAssociated Problem(s): Type 2 diabetes mellitus without complication, without long-term current useof insulin (HCC) Check A1c FSBS and correctional * Jacky Maddox MD - 01/05/2025 5:14 PM ESTAssociated Problem(s): Bilateral lower extremity edema DVT study Check echo * Jacky Maddox MD - 01/05/2025 4:53 PM ESTAssociated Problem(s): Acute pancreatitis Initially presented on 12/31 to outside hospital with acute pancreatitis Had worsening symptoms and bilirubin requiring transfer CT here with non-distend GB no stones Mild pericholecystic fluid versus edematous wall thickening GI is following suspect alcohol related Planning MRCP EGD with NJ placement today LFT's improving Hepatitis screening * Jacky Maddox MD - 01/05/2025 4:53 PM ESTAssociated Problem(s): Elevated LFTs Initially presented on 12/31 to outside hospital with acute pancreatitis Had worsening symptoms and bilirubin requiring transfer CT here with non-distend GB no stones Mild pericholecystic fluid versus edematous wall thickening GI is following suspect alcohol related Planning MRCP EGD with NJ placement today LFT's improving Hepatitis screening * Jacky Maddox MD - 01/05/2025 4:53 PM ESTAssociated Problem(s): Chronic GERD PPI * Jacky Maddox MD - 01/05/2025 4:53 PM ESTAssociated Problem(s): Hypertension complicating diabetes (HCC) Norvasc's, Coreg and losartan * Jacky Maddox MD - 01/05/2025 4:53 PM ESTAssociated Problem(s): Morbid obesity with body mass index (BMI) of 40.0 or higher (HCC) Higher dose of Lovenox per protocol * Jacky Maddox MD - 01/05/2025 4:53 PM ESTAssociated Problem(s): Normocytic anemia S/p IV iron x 1 * Jacky Maddox MD - 01/05/2025 4:53 PM ESTAssociated Problem(s): Moderate alcohol use disorder (HCC) Apparently drinks a fifth every other day Monitor for withdrawal * Jacky Maddox MD - 01/05/2025 4:53 PM ESTAssociated Problem(s): Mood disorder 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 Pulm CC consulted Suspected underlying BRAXTON, noted lower suspicion of aspiration Cont NIPPV Check NTproBNP, diuresis? * Jacky Maddox MD - 01/05/2025 4:37 PM EST Images from the original note were not included. PROGRESS NOTE Assessment & Plan Acute pancreatitis Elevated LFTs Initially presented on 12/31 to outside hospital with acute pancreatitis Had worsening symptoms and bilirubin requiring transfer CT here with non-distend GB no stones Mild pericholecystic fluid versus edematous wall thickening GI is following suspect alcohol related Planning MRCP EGD with NJ placement today LFT's improving Hepatitis screening Acute respiratory failure with hypoxia and hypercarbia (HCC) Requiring bipap s/p EGD Transferred to ICU after endoscopy CXR w/ Mild bibasilar airspace disease. Pulm CC consulted Suspected underlying BRAXTON, noted lower suspicion of aspiration Cont NIPPV Check NTproBNP, diuresis? 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 Bilateral lower extremity edema DVT study Check echo Dispo: ICU VTE Prophylaxis: Qualifying Pharmacologic Prophylaxis enoxaparin (LOVENOX) injection 40 mg 2 times per day Bowel Regimen senna (SENOKOT) tablet 1-2 Tablet DAILY PRN polyethylene glycol (GLYCOLAX, MIRALAX) packet 17 g 2 TIMES DAILY PRN Subjective CC: Follow Up Acute pancreatitis HPI: Transferred to ICU on bipap ABG improving Discussed with CC team and RN More alert answer questions, remains on BIPAP, limited conversation Objective BP 127/73 Pulse 61 Temp 97.4 ??F (36.3 ??C) (Axillary) Resp 19 Ht 6' 3 (1.905 m) Wt (!) 374 lb (169.6 kg) SpO2 96% BMI 46.75 kg/m?? I/O last 3 completed shifts: In: 1745.9 [P.O.:60; I.V.:1685.9] Out: - Physical Exam Constitutional: Appearance: He is obese. Comments: NIPPV in place Cardiovascular: Rate and Rhythm: Normal rate. Pulmonary: Breath sounds: No wheezing or rales. Comments: Diminished Abdominal: Tenderness: There is abdominal tenderness. Musculoskeletal: General: Swelling (2+ bilaterally) present. Skin: General: Skin is warm and dry. Neurological: Mental Status: He is lethargic. Jacky Maddox MD 01/05/2025 * Amy Alexander RRT - 01/05/2025 1:49 PM EST Patient poc ABG not transferring into [facility] 01/05/25 13:15 PH 7.26 CO2 67 O2 72 HCO3 25 * Rajni Corral RN - 01/05/2025 1:07 PM EST Report called to 6D nurse, pt spouse collected patient belongings from pt room on 5C * Megan Finley RD,LD - 01/05/2025 12:37 PM EST [facility] Nutrition Initial Assessment Evidence Supported Malnutrition Diagnosis: Nutrition Problem/Diagnosis: Nutrition Diagnosis Problem 1: Inadequate oral intake related to altered GI function as evidenced by NPO or clear liquid status due to medical condition. Status: New nutrition diagnosis Nutrition Prescription: Kcals: 2225-2670kcal (25-30kcal/kg using IBW 89kg) Protein (g): 107-134g Protein needs based on: 1.2-1.5g/kg using IBW 89kg Other (comment): refeeding needs: 890-1780kcal (10-20kcal/kg using 89kg) Plan/Interventions: Meals and Snacks: NPO Enteral Nutrition: Recommend Jevity 1.5 starting @ 10ml/hr, increasing by 10ml every 8 hrs to refeeding goal rate 40ml/hr. Pending s/s refeeding, ultimate goal rate is Jevity 1.5 @ 70ml/hr - [id number], 107g protein, and 1277ml FW. Vitamin and Mineral Supplements: Multivitamin, Folate, Magnesium, Thiamin Nutrition-Related Medication Management: Protonix Collaboration And Referral Of Nutrition Care: Collaboration with other providers Azeem Perez is a 44 y.o. male patient. Admit Diagnosis: Pancreatitis [K85.90] Pancreatitis, unspecified pancreatitis type [K85.90] Reason For Assessment: Tube feeding Subjective: Subjective Comment: Working in room with staff at time of visit. Pt currently NPO with NJ just placed today. Has had ongoing abd pain across upper abdomen radiating to the back but has not felt nauseous, per MD notes. Anthropometric Measurements: Height: 6' 3 (190.5 cm) Weight: (!) 374 lb (169.6 kg) BMI (Calculated): 46.75 BMI Assessment: > or equal to 40 Obesity Grade lll IBW +/- 10%: 196 lb (88.9 kg) % IBW: 191 Weight History Intervals: Other Interval (comment), 12 Month 12 Month--Wt History (lb): (!) 340 lb (154.2 kg) 12 Month--Wt Change (lb): 34 12 Month--% Wt Change: 10 % 12 Month--Wt Gain or Loss: Gain Other Interval--Wt History (lb): (!) 352 lb (159.7 kg) (10 months ago) Other Interval--Wt Change (lb): 22 Other Interval--% Wt Change: 6.25 % Other Interval--Wt Gain or Loss: Gain Food/Nutrition Related History: Dietary Orders Ordered NPO: With Meds DIET EFFECTIVE MIDNIGHT Comments: INPATIENTS: Fluids such as black coffee, Gatorade, Powerade, water, and ice until 4 hoursprior to procedure. DO NOT GIVE angiotensin converting enzyme inhibitors (ACEs) or angiotensin receptor blockers (ARBs)on the DAY OF SURGERY 01/04/25 1719 % Avg Meals Consumed: (NPO) Tube Feeding?: No TPN?: No Food Allergies: NKFA Level of Assistance: Independent Nutrition Focused Physical Findings: Physical Exam?: No Functional Status: No Dysfunction LDAs- Active NG/OG/NJ,Wound,Pressure Injury,or Drain NG/OG/NJ Tube Duration NJ/OJ Tube 111 fr Right nostril <1 day I/O last 3 completed shifts: In: 2165.7 [P.O.:120; I.V.:2045.7] Out: - Edema:Right Upper Extremity Edema: Trace Left Upper Extremity Edema: Trace Right Lower Extremity Edema: Pitting Left Lower Extremity Edema: Pitting Abdomen: Abdominal/GI Abdomen Inspection: Round, Distended Bowel Sounds (All Quadrants): Active, Audible Abdominal palpation: Tenderness Passing Flatus: Yes Nausea: No When was last BM? (Date): (S) 01/04/25 Stool Assessment: Stool Occurrence: 1 Stool Appearance: Unable to assess Stool Color: Brown Stool Amount: Large Biochemical Data/Medical Tests: Pertinent Meds: Protonix Vitamins/Mineral Supplements: MVI w/ folic, Thiamine, Magox, Folvite Pertinent Labs: sodium 135, ALT 70, AST 63 Pertinent Medical History: T2DM, Depression, HLD, HTN Clinical Course: Clinical Course: Admitted from outside hospital w/acute pancreatitis (initially presented 12/31). S/p EGD with NJ tube placement 01/05. * Indira Preciado MD - 01/04/2025 6:40 PM ESTAssociated Problem(s): Acute pancreatitis Initially presented on 12/31 to outside hospital with acute pancreatitis Had worsening symptoms and bilirubin requiring transfer Pending MRCP Continue to trend LFTs GI is following Continue bowel rest, IV fluids, pain management Will decrease IV fluid rate given generalized swelling * Indira Preciado MD - 01/04/2025 6:40 PM ESTAssociated Problem(s): Chronic GERD PPI * Indira Preciado MD - 01/04/2025 6:40 PM ESTAssociated Problem(s): Hypertension complicating diabetes (HCC) Continue Norvasc's, Coreg and losartan * Indira Prceiado MD - 01/04/2025 6:40 PM ESTAssociated Problem(s): Morbid obesity with body mass index (BMI) of 40.0 or higher (HCC) Higher dose of Lovenox per protocol * Indira Preciado MD - 01/04/2025 6:40 PM ESTAssociated Problem(s): Type 2 diabetes mellitus without complication, without long-term current useof insulin (HCC) Fasting glucose 130 Monitor * Indira Preciado MD - 01/04/2025 6:40 PM ESTAssociated Problem(s): Normocytic anemia Labs indicating iron deficiency anemia Will start replacement * Indira Preciado MD - 01/04/2025 6:40 PM ESTAssociated Problem(s): Moderate alcohol use disorder (HCC) Potentially contributed to pancreatitis No evidence of alcohol withdrawal * Indira Preciado MD - 01/04/2025 6:40 PM ESTAssociated Problem(s): Mood disorder 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 * Indira Preciado MD - 01/04/2025 12:09 PM EST Images from the original note were not included. Hospitalist Progress Note Date of Admission: 01/03/2025 Chief Complaint: Abdominal pain Handoff Completed: Yes Disposition Perspective - Medically ready for discharge: No Anticipated ready for discharge timeframe?: 3-5 days Ready for discharge when / if?: Pending GI workup, improvement in symptoms Admitted on 01/03/2025: with: Acute pancreatitis and worsening bilirubin as a transfer from [facility]. GI evaluation pending, MRCP pending. Continues on bowel rest. Estimated Date of Discharge: 01/07/2025 Assessment & Plan Acute pancreatitis Initially presented on 12/31 to outside hospital with acute pancreatitis Had worsening symptoms and bilirubin requiring transfer Pending MRCP Continue to trend LFTs GI is following Continue bowel rest, IV fluids, pain management Will decrease IV fluid rate given generalized swelling Chronic GERD PPI Hypertension complicating diabetes (HCC) Continue Norvasc's, Coreg and losartan Morbid obesity with body mass index (BMI) of 40.0 or higher (HCC) Higher dose of Lovenox per protocol Type 2 diabetes mellitus without complication, without long-term current use of insulin (HCC) Fasting glucose 130 Monitor Normocytic anemia Labs indicating iron deficiency anemia Will start replacement Moderate alcohol use disorder (HCC) Potentially contributed to pancreatitis No evidence of alcohol withdrawal Mood disorder 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 DVT Prophylaxis: Lovenox Subjective: Patient reporting ongoing abdominal pain across his upper abdomen radiating to the back, does not feel nauseous and no recent vomiting. Passing gas and had BM today. He is currently on oxygen and having some extremity edema. High risk medications include IV morphine Medications: Reviewed Infusion Medications sodium chloride 0.9 % 150 mL/hr at 01/04/25 0817 Scheduled Medications allopurinoL 100 mg Oral Daily amLODIPine 10 mg Oral Daily carvediloL 25 mg Oral BID enoxaparin 40 mg Subcutaneous 2 times per day escitalopram oxalate 20 mg Oral Daily losartan 25 mg Oral Daily pantoprazole 40 mg Oral BID PRN Meds: acetaminophen, melatonin, morphine, nicotine polacrilex, ondansetron OR ondansetron, oxyCODONE, polyethylene glycol, prochlorperazine edisylate, senna Intake/Output Summary (Last 24 hours) at 01/04/2025 1209 Last data filed at 01/04/2025 0826 Gross per 24 hour Intake 1419.83 ml Output -- Net 1419.83 ml Physical Exam Performed: BP (!) 161/80 (BP Location: Right arm, Patient Position: Semi Fowlers) Pulse 69 Temp 97.5 ??F (36.4 ??C) (Oral) Resp 18 Ht 6' 3 (1.905 m) Wt (!) 373 lb (169.2 kg) SpO2 93% BMI 46.62 kg/m?? Physical Exam CONSTITUTIONAL: Alert and oriented x 3. Mild distress. CARDIOVASCULAR: normal rate and regular rhythm. No murmur heard. PULMONARY/CHEST: Guarded breath sounds but no crackles or wheezing ABDOMINAL: soft, tender in the upper abdomen; normal BS. MUSCULOSKELETAL: no atrophy or effusions. 1+ extremity edema. NEURO: non-focal, no lateralizing weakness. PSYCHIATRIC: normal mood and affect. I personally reviewed and interpreted daily labs Labs: Recent Labs 01/03/25210901/04/25 0533 WBC 4.1 4.1 HGB 11.4* 11.2* HCT 36.1* 36.2* PLT 175 175 Recent Labs 01/03/25210901/04/25 0533 NA 134* 136 K 3.9 3.9 CL 97* 99 CO2 27 28 BUN 14 12 CREATININE 0.86 0.77 CALCIUM 8.7 9.2 Recent Labs 01/03/25210901/04/25 0533 AST 75* 62* ALT 85* 81* BILIDIR 1.8* -- ALKPHOS 59 61 No results for input(s): INR in the last 72 hours. Urinalysis: No results found for: WBCUA , BACTERIA , RBCUA , BLOODU , SPECGRAV , GLUCOSEU , KETONESU Isabella Lee Sr. - 01/04/2025 9:50 AM EST Images from the original note were not included. 01/04/25 1000 Reason for Visit Date of visit 01/04/25 Visited With Patient and family/visitors Visited By Manager Equity Reason for Visit Hospitality visit Patient Assessment Patient Appears Calm Patient Roman Catholic Upon Assessment Islam Spiritual Strengths and Coping Resources Meaningful relationship or connection with God;Support system Patient Spiritual Wellbeing Appears to be coping adequately Interventions with Patient Relationship Building Interventions Cultivated a relationship of care and support Yarsani Interventions Prayer with patient or family Exploration Interventions Provided caring and supportive presence Outcomes Expressed Outcomes Appreciative of visit;Appreciative of prayer/ritual Care Plan Plan for Follow-Up Manager Equity(s) remains available as needed ISABELLA Paez Manager Equity, Pastoral and Spiritual Care For non-urgent requests, please place a Pastoral Care consult in [facility]. For all urgent matters, please send an urgent [facility] Secure Chat to the [facility] group at your location. Between 11pm and 7am, please use On-Call Finder to send an [facility] Secure Chat to the on-call airline radio operator. [facility] office phone numbers: EDG/COV/GRT [phone], ROLANDA [phone], FTT [phone], DBN [phone] * Prerna Carey [facility] - 01/03/2025 10:00 PM EST Azeem Perez is a 44 y.o. male Estimated Creatinine Clearance: 133.7 mL/min (by C-G formula based on SCr of 0.86 mg/dL). Weight: (!) 373 lb (169.2 kg) / Body mass index is 46.62 kg/m??. Enoxaparin for VTE prophylaxis adjusted to 40 mg BID based on BMI > 40 kg/m per collaborative care agreement. Thanks, Amira Carey, PharmD, BCCCP documented in this encounter H&P Notes * Shanika Fonseca MD - 01/03/2025 8:12 PM EST Images from the original note were not included. HISTORY AND PHYSICAL Name: Azeem Perez : 1980 AGE: 44 y.o. PCP: Jam Richardson MD Admitting Physician: Shanika Fonseca MD Date of Admit: 01/03/2025 ASSESSMENT AND PLAN Acute Pancreatitis -lipase > 3x ULN at OSH per record review. On day of transfer was down in 400's. Recheck in a.m. -CT from OSH with mild pancreatitis, and RUQ ultrasound obtained the following day with no evidenceof gallstones. Initial etiology likely felt to be alcohol related. Had symptom improvement and thensubsequent worsening with elevation in LFTs, prompting transfer to this facility for GI eval and consideration of MRCP - Given RUQ ultrasound with no findings suggestive of gallstones, CT A/P ordered to eval for complications of pancreatitis as well as any change in hepatobiliary pathology -check TGs and LFTs -IVF @ 150cc/hr (~1.5cc/kg/hr based on IBW) - Multimodal pain control -GI c/s'ed Moderate alcohol use disorder -Alcohol level negative per OSH records on arrival - Has been admitted to the hospital since 12/31, not had any symptoms of withdrawal. No history of alcohol withdrawal - Can hold off on CIWA Normocytic anemia -Hgb 11.4 at admit - New compared to previous baseline -Check anemia labs - Recheck Hgb in a.m. to ensure continued stability, with recent LFT elevation would consider hemolysis labs if continuing to downtrend Hypertension - Continue UNEMPLOYMENT EXAMINER ARB, amlodipine, Coreg - Hold UNEMPLOYMENT EXAMINER HCTZ with hyponatremia Obesity -BMI 46 -Complicates all aspects of care Mood disorder -Stable on current regimen -Continue UNEMPLOYMENT EXAMINER SSRI Nicotine use disorder -pt chews tobacco -NRT offered Hx gout - Continue UNEMPLOYMENT EXAMINER allopurinol BRAXTON - 2L NC prn qHS GERD -Cont UNEMPLOYMENT EXAMINER PPI UNEMPLOYMENT EXAMINER meds to be restarted/held as appropriate above once med rec is completed VTE Prophylaxis: n/a FEN: NPO DIET Dispo: Condition requiring admission to inpatient for further management. Code Status: Full CHIEF COMPLAINT: Pancreatitis HISTORY OF PRESENT ILLNESS: Azeem Perez is a 44 y.o. male who presented to OSH ED 12/31 with abdominal pain and 2 days of nausea vomiting. Was diagnosed with pancreatitis with a lipase above 3000 and LFT elevation and mild pancreatitis on CT. Was admitted to [facility], placed on Zosyn (?) and RUQ ultrasound was obtained. Perread report, no evidence of cholelithiasis. Pain initially was improving but then subsequently began to worsen.T. bili inocente from 3-5 per hospital course notes, was transferred to this facility for further GI eval. ROS: Pulm: no dyspnea, tachypnea : no dysuria, hematuria All other ROS negative except as noted above ALLERGIES: Allergies[1] HOME MEDS: Prior to Admission medications Medication Sig Start Date End Date Taking? Authorizing Provider allopurinoL (ZYLOPRIM) 100 mg Oral Tablet Take 1 Tablet by mouth daily. 03/19/16 Provider, Historical amLODIPine (NORVASC) 10 mg Oral Tablet Take 1 Tablet by mouth daily. 10/03/17 Provider, Historical carvediloL (COREG) 25 mg Oral Tablet Take 1 Tablet by mouth 2 times daily. 10/03/17 Provider, Historical escitalopram oxalate (LEXAPRO) 20 mg Oral Tablet Take 1 Tablet by mouth daily. Provider, Historical FARXIGA 10 mg Oral Tablet Take 1 Tablet by mouth daily. Provider, Historical glimepiride (AMARYL) 4 mg Oral Tablet Take 1 Tablet by mouth daily. Provider, Historical hydroCHLOROthiazide 25 mg Oral Tablet Take 1 Tablet by mouth daily. 10/09/21 Provider, Historical losartan (COZAAR) 25 mg Oral Tablet Take 1 Tablet by mouth daily. 01/12/24 Provider, Historical meclizine (ANTIVERT) 25 mg Oral Tablet Take 25 mg by mouth 3 times daily as needed. 06/28/20 Provider, Historical meloxicam (MOBIC) 7.5 mg Oral Tablet Take 1 Tablet by mouth daily. 12/31/23 Provider, Historical MOUNJARO 15 mg/0.5 mL SubQ Pen Injector Inject 15 mg under the skin once a week. Indications: takesfridays Provider, Historical omeprazole (PRILOSEC) 40 mg Oral Capsule, Delayed Release(E.C.) Take 1 Capsule by mouth daily. 11/06/23 Provider, Historical oxyCODONE (ROXICODONE) 5 mg Oral Tablet Take 1 Tablet by mouth every 4 hours as needed for Major Surgery/Trauma (G89.18). 12/04/24 Edu Choe MD oxyCODONE (ROXICODONE) 5 mg Oral Tablet Take 1 Tablet by mouth every 4 hours as needed for Major Surgery/Trauma (G89.18). Patient not taking: Reported on 12/16/2024 02/28/24 Edu Choe MD pravastatin (PRAVACHOL) 40 mg Oral Tablet Take 1 Tablet by mouth nightly. 10/09/21 Provider, Historical XYOSTED 75 mg/0.5 mL SubQ Auto-Injector Inject as directed once a week. LD 02/18 Indications: takes on Fridays10/18/23 Provider, Historical PMH: Past Medical History[2] PMHx reviewed. Pertinent history as listed in HPI. SURGICAL HX: Surgical History[3] Surgical hx reviewed. Pertinent history as listed in HPI. FHX: Family History[4] Family history reviewed. Pertinent history as listed in HPI. SOCIAL HX: Social History Tobacco Use Smoking status: Never Smokeless tobacco: Current Types: Chew Tobacco comments: Dips but trying to slow down/quit Substance Use Topics Alcohol use: Yes Comment: occas / 1 drink per day Social hx reviewed. Pertinent history as listed in HPI. Travel Screening No screening recorded since 01/02/252006 Travel History Travel since 12/03/24 No documented travel since 12/03/24 OBJECTIVE: Physical Exam Vitals: 01/03/252017 BP: 157/80 Pulse: 86 Resp: 20 Temp: 97.7 ??F (36.5 ??C) SpO2: 97% Weight: (!) 373 lb (169.2 kg) Wt Readings from Last 3 Encounters: 01/03/25 (!) 373 lb (169.2 kg) 12/04/24 (!) 373 lb (169.2 kg) 02/28/24 (!) 352 lb (159.7 kg) Body mass index is 46.62 kg/m??. Gen: no acute distress; sleeping but easily awakens to voice HE: Normocephalic, atraumatic, no scleral icterus ENT: MMM, EOMI, Nares patent Pulm: Normal respiratory effort; symmetric chest rise, CTAB. Conversant without overt dyspnea on 2LNC (on NC at admit for BRAXTON not acute hypoxia) CV: well perfused extremities; distal pulses intact, RRR, no murmur, no rub or gallop appreciated Abd: soft, distended, epigastric TTP, no significant guarding, no rebound. Nonacute abdomen Skin: warm, dry. No jaundice, petechiae or rashes visible with pt laying in bed Lymphatic: no retroauricular lymphadenopathy, no cervical lymphadenopathy MSK: No gross deformity or contracture, trace LE edema Neuro: no gross focal deficits; AAOX3 Psych: no overt depression, anxiety, agitation Radiology/ Procedures/Labs: Pertinent imaging and laboratory studies mentioned above were personally reviewed unless otherwise noted. ACTIVE PROBLEM LIST: Admission Diagnosis: Acute pancreatitis Active Hospital Problems Diagnosis *Acute pancreatitis Normocytic anemia Moderate alcohol use disorder (HCC) Mood disorder Morbid obesity with body mass index (BMI) of 40.0 or higher (HCC) Chronic GERD Type 2 diabetes mellitus without complication, without long-term current use of insulin (HCC) Hypertension complicating diabetes (HCC) Shanika Fonseca MD This chart was completed using voice recognition technology and may contain unintended errors [1] No Known Allergies [2] Past Medical History: Diagnosis Date Anesthesia complication pt not really sure; states he thinks O2 levels dropped Depression Essential (primary) hypertension Heartburn Hyperlipidemia Radial nerve palsy, left Type 2 diabetes mellitus without complications (HCC) [3] Past Surgical History: Procedure Laterality Date ANKLE SURGERY Right 09/2023 Broken Right Ankle ARM SURGERY Left 08/2023 Humerus ORIF CARPAL TUNNEL RELEASE Left 02/28/2024 .; Surgeon: Edu Choe MD; Location: [facility] MAIN OR; Service: Orthopedics EAR SURGERY tubes FRACTURE SURGERY HAND TENDON SURGERY Left 12/04/2024 Left Hand Flexor Carpi Radialis to Extensor Digitorum Communis Tendon Transfer and Palmarius LongusTendon to ExtensorPollicis Longus Tendon Transfer, Flexor Digitorum Superficialis transfer; Surgeon: Edu Choe MD; Location: [facility] MAIN OR; Service: Orthopedics ULNAR TUNNEL RELEASE Left 02/28/2024 Left Cubital Tunnel Release, Open Carpal Tunnel Release, Exploration of Radial Nerve with Neurolysis Repair; Surgeon: Edu Choe MD; Location: [facility] MAIN OR; Service: Orthopedics WISDOM TOOTH EXTRACTION [4] Family History Problem Relation Age of Onset No Known Problems Mother No Known Problems Father Anesth Problems Neg Hx documented in this encounter Procedure Notes * Kayden Serrano DO - 01/05/2025 10:24 AM EST [facility] OPERATIVE/PROCEDURE NOTE SPECIMENS: ID Type Source Tests Collected by Time Destination 1 : Gastric biopsy via forceps Tissue Gastric PATHOLOGY TISSUE REQUEST Kayden Serarno, 01/05/2025 1011 2 : Esophageal biopsy via forceps Tissue Esophagus PATHOLOGY TISSUE REQUEST Kayden Serrano, 01/05/2025 1023 FINDINGS: 1) 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 Start clears when patient is not requiring pain meds Kayden Serrano DO Date: 01/05/2025 documented in this encounter Consult Notes * Everardo Ibarra MD - 01/05/2025 3:27 PM EST Images from the original note were not included. INITIAL CONSULT 01/05/2025 Everardo Ibarra MD HISTORY OF PRESENT ILLNESS Chief Complaint: Acute pancreatitis Reason for consult: Respiratory distress requiring BiPAP status post EGD Present Illness 44 y.o. male with multiple medical problems including but not limited to hypertensions, GERD, hyperlipidemia, left radial nerve palsy, diabetes mellitus type 2, morbid obesity, alcohol abuse. And probable obstructive sleep apnea Patient presented on [facility] emergency room on 12/31 with abdominal pain, nausea and vomiting patient lipase at that time was 3000 and he was diagnosed with pancreatitis he had elevated LFTs with evidence of pancreatitis on CT scan he was admitted (treated with antibiotic had a right upper quadrant ultrasound that showed no cholelithiasis) then patient transferred to our hospital on 01/03 due to worsening back pain. And patient was sent to [facility] for possible MRCP/ERCP. According to notes patient had no shortness of breath no melena no hematochezia he drink fifth of alcohol every other day., No family history of pancreatitis or liver disease Today patient had an EGD, as per anesthesia report patient was intubated with 8 mm ET tube for procedure, extubated after the procedure to a BiPAP. Finding on EGD revealed salmon-colored mucosa suggestive of Swanson's, had gastritis and an NG placed. At this time patient is alert awake following command morbidly obese he is on a BiPAP 24/10 with a rate of 8 I changed to AVAPS of 500 with a rate of 20 given the fact of a blood gas showing 7.29, 68pCO2, saturation on monitor was 100% on 80% FiO2 and a PEEP of 10 I had decreased the PEEP to 6 as well as FiO2 to 60% and saturation on the monitor is 93%... Patient is pulling between 10 to 11 mg minutes Social history: Smoking: He chews tobacco but does not smoke it, he is every other day alcohol user and he drinks almost fifth of liquor He is Denies illicit drug abuse Family pulmonary history: Non-contributory Past Medical History[1] Surgical History[2] Allergies[3] Current Meds allopurinoL 100 mg Oral Daily amLODIPine 10 mg Oral Daily carvediloL 25 mg Oral BID enoxaparin 40 mg Subcutaneous 2 times per day escitalopram oxalate 20 mg Oral Daily multivitamin with folic acid 1 Tablet Oral Daily And folic acid 1 mg Oral Daily And thiamine 100 mg Oral Daily And magnesium oxide 400 mg Oral Daily losartan 25 mg Oral Daily pantoprazole 40 mg Oral BID PRN Meds acetaminophen, melatonin, morphine, nicotine polacrilex, ondansetron OR ondansetron, ondansetron OR ondansetron, oxyCODONE, polyethylene glycol, prochlorperazine edisylate, senna Infusions JEVITY 1.5 Family history Family History[4] Social History Azeem reports that he has never smoked. His smokeless tobacco use includes chew. He reports currentalcohol use. He reports that he does not currently use drugs. Review of Systems Review of systems including general/constitutional, visual, auditory, cardiovascular, respiratory, endocrine, hematologic, GI, , neurological, musculoskeletal and psychiatric was negative with the exception of the positives mentioned in the HPI EXAMINATION VS BP: 126/69 Temp: 95 ??F (35 ??C) SpO2: 94 % HR: 62 Resp: 19 O2 Device: Bipap O2 Flow Rate (L/min): 15 lpm FiO2 (%): 60 % IPAP: 22 cmH20 EPAP: 6 cmH2O Set Rate NIV (BPM): 20 Mask Type: Full mask Mask Size: Large Mask Changed: No Weight at Admission: 01/03/2025 (!) 373 lb (169.2 kg) Wt Readings from Last 2 Encounters: 01/05/25 (!) 374 lb (169.6 kg) 12/04/24 (!) 373 lb (169.2 kg) I/Os Intake/Output Summary (Last 24 hours) at 01/05/2025 3277 Last data filed at 01/05/2025 0957 Gross per 24 hour Intake 1745.89 ml Output -- Net 1745.89 ml General appearance: Drowsy, morbidly obese , currently resting on BiPAP 80% oxygen decreased to 60%oxygen/FiO2 Head: normocephalic and atraumatic Eyes: pupils equal round and reactive to light and sclera anicteric ENT: mucous membranes moist, oral hygiene is Mallampati class IV Neck/Lymphatic: Short neck thick Respiratory System: Diminished breath sounds bilaterally no wheezing Cardiovascular: Regular, Normal Rate, and palpable peripheral pulses Gastrointestinal: Obese abdomen, bowel sounds positive did not appreciate tenderness Musculoskeletal: no cyanosis or edema Neurological: Drowsy however arousable and answer questions and follow commands appropriately Dermatological: Normal DATA REVIEWED I have personally reviewed the following data: Recent Labs 01/05/25 1325 PH 7.26* PCO2 68* PO2 73* HCO3 25.8 O2SAT 91.5* Lab Results Component Value Date/Time GLU 133 (H) 01/05/2025 02:38 PM BUN 15 01/05/2025 02:38 PM CREATININE 0.83 01/05/2025 02:38 PM NA 138 01/05/2025 02:38 PM K 5.1 (H) 01/05/2025 02:38 PM CL 99 01/05/2025 02:38 PM CO2 30 (H) 01/05/2025 02:38 PM CALCIUM 9.1 01/05/2025 02:38 PM MG 2.2 01/05/2025 02:38 PM PHOS 4.3 01/05/2025 02:38 PM Recent Labs 01/03/25 2110 01/04/25 0533 01/05/25 0624 01/05/25 1325 WBC 4.1 4.1 5.1 -- HGB 11.4* 11.2* 11.2* 12.3* HCT 36.1* 36.2* 36.6* 37.7* PLT 175 175 184 -- No results found for this visit on 01/03/25 (from the past 2 weeks). Pulmonary Studies: No PFT/PSG/6MWT done recently ECHO: No results found for this or any previous visit. Imaging studies: Most recent Imaging: XR CHEST AP PORTABLE Narrative: XR CHEST AP PORTABLE, 01/05/2025 3:06 PM CLINICAL HISTORY: -post extubation, egd procedure COMPARISON: 02/04/2024 PROCEDURE COMMENTS: AP portable technique. FINDINGS: Support devices: NG tube noted. No change cardiomegaly. Mild bibasilar airspace disease. No pneumothorax. Impression: Mild bibasilar airspace disease. - Note: Radiology results need to be interpreted within a comprehensive clinical context. If you have questions about the radiology report, please contact the office of the ordering clinician. ESOPHAGOGASTRODUODENOSCOPY (EGD) Table formatting from the original result was not included. 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 Erythematous mucosa in the body of the stomach and antrum; no bleeding was observed; performed cold forceps biopsy to rule out H. pylori. The duodenum appeared normal. A nasojejunal tube was successfully placed in the proximal jejunum. Scope inserted via right nares and reached duodenum. Wire was inserted through the scope and advanced into duodenum. The wire was fixed externally. The scope was removed over the wire. A 12Fr Corpak nasojejunal tube was then placed over the wire and advanced. Endoscope was then inserted to verify the tube was post-pyloric. The tube was bridled at 111 cm. Recommendation 1) Follow up on biopsies 2) PPI qdaily 3) Start TF. Start clears when patient is not requiring pain meds Pre-Procedure Diagnosis / Indication Acute pancreatitis without infection or necrosis, unspecified pancreatitis type Post-Procedure Diagnosis None Staff Staff Role Kayden Serrano DO Performing Provider Ke Villela RN Splitting Machine Feeder LA NENA Herr CRNA, RN Endoscopy Nurse Eric Deutsch, Anesthesiologist Medications See Anesthesia Record. Preprocedure A history and physical has been performed, and patient medication allergies have been reviewed. The patient's tolerance of previous anesthesia has been reviewed. The risks and benefits of the procedure and the sedation options and risks were discussed with the patient. All questions were answered and informed consent obtained. ASA 3 - Patient with severe systemic disease Details of the Procedure The patient underwent general anesthesia, which was administered by an anesthesia professional. The patient's blood pressure, heart rate, level of consciousness, oxygen saturation, respirations, ECG and ETCO2 were monitored throughout the procedure. The scope was introduced into the mouth through a bite block and advanced to the second part of the duodenum. Retroflexion was performed in the cardia. The patient's estimated blood loss was minimal. The procedure was not difficult. The patient tolerated the procedure well. There were no apparent adverse events. Patient provided education and educated on specific discharge instructions. Patient educated on medications given during the procedure and new medications for discharge. Patient verbalizes understanding of discharge education. Patient stable and awaiting transport for discharge. Events Procedure Events Event Event Time ENDO SCOPE OUT TIME 01/05/2025 10:22 AM Specimens ID Type Source Tests Collected by Time 1 : Gastric biopsy via forceps Tissue Gastric PATHOLOGY TISSUE REQUEST Kayden Serrano, DO 01/05/2025 1011 2 : Esophageal biopsy via forceps Tissue Esophagus PATHOLOGY TISSUE REQUEST Kayden Serrano, DO 01/05/2025 1023 Anesthesia Event Time In Patient In - Proc. Room 01/05 09:40 AM XR CHEST AP PORTABLE Result Date: 01/05/2025 XR CHEST AP PORTABLE, 01/05/2025 3:06 PM CLINICAL HISTORY: -post extubation, egd procedure COMPARISON: 02/04/2024 PROCEDURE COMMENTS: AP portable technique. FINDINGS: Support devices: NG tube noted. No change cardiomegaly. Mild bibasilar airspace disease. No pneumothorax. Mild bibasilar airspace disease. - Note: Radiology results need to be interpreted within a comprehensive clinical context. If you have questions about the radiology report, please contact the office of the ordering clinician. ESOPHAGOGASTRODUODENOSCOPY (EGD) Result Date: 01/05/2025 Table formatting from the original result was not included. 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 Erythematous mucosa inthe body of the stomach and antrum; no bleeding was observed; performed cold forceps biopsy to ruleout H. pylori. The duodenum appeared normal. A nasojejunal tube was successfully placed in the proximal jejunum. Scope inserted via right nares and reached duodenum. Wire was inserted through the scope and advanced into duodenum. The wire was fixed externally. The scope was removed over the wire. A12Fr Corpak nasojejunal tube was then placed over the wire and advanced. Endoscope was then inserted to verify the tube was post-pyloric. The tube was bridled at 111 cm. Recommendation 1) Follow up on biopsies 2) PPI qdaily 3) Start TF. Start clears when patient is not requiring pain meds Pre-Procedure Diagnosis / Indication Acute pancreatitis without infection or necrosis, unspecified pancreatitis type Post- Procedure Diagnosis None Staff Staff Role Kayden Serrano DO Performing Provider Ke Moss RN Splitting Machine Feeder LA NENA Herr CRNA, RN Endoscopy Nurse Eric Deutsch DO Anesthesiologist Medications See Anesthesia Record. Preprocedure A history and physical has been performed, and patient medication allergies have been reviewed. The patient's tolerance of previous anesthesia has been reviewed. The risks and benefits of the procedure and the sedation options and risks were discussed with the patient. All questions were answered and informed consent obtained. ASA 3 - Patient with severe systemic disease Details of the Procedure The patient underwent general anesthesia, which was administered by an anesthesia professional. The patient's blood pressure, heart rate, level of consciousness, oxygen saturation, respirations, ECG and ETCO2 were monitored throughout the procedure. The scope was introduced into the mouth through a bite block and advanced to thesecond part of the duodenum. Retroflexion was performed in the cardia. The patient's estimated blood loss was minimal. The procedure was not difficult. The patient tolerated the procedure well. Therewere no apparent adverse events. Patient provided education and educated on specific discharge instructions. Patient educated on medications given during the procedure and new medications for discharge. Patient verbalizes understanding of discharge education. Patient stable and awaiting transport for discharge. Events Procedure Events Event Event Time ENDO SCOPE OUT TIME 01/05/2025 10:22 AM Specimens ID Type Source Tests Collected by Time 1 : Gastric biopsy via forceps Tissue Gastric PATHOLOGY TISSUE REQUEST Kayden Serrano DO 01/05/2025 1011 2 : Esophageal biopsy via forceps Tissue Esophagus PATHOLOGY TISSUE REQUEST Kayden Serrano DO 01/05/2025 1023 Anesthesia Event Time In Patient In - Proc.Room 01/05 09:40 AM XR EYE BILATERAL FOREIGN BODY Result Date: 01/04/2025 BILATERAL ORBITS FOR FOREIGN BODY, 01/04/2025 10:15 PM CLINICAL HISTORY: -clear for MRI. Prior orbital foreign body exposure. COMPARISON: None. PROCEDURE COMMENTS: Minimum of 2 views of the orbits toevaluate for foreign body. FINDINGS: No orbital foreign body. Sinuses and mastoids are clear. Orbital structures unremarkable. No radiopaque orbital foreign body. - Note: Radiology results need to be interpreted within a comprehensive clinical context. If you have questions about the radiology report, please contact the office of the ordering clinician. Chest x-ray atelectasis bilaterally and mild congestion Previous CT scan of the abdomen showed minimal pleural effusions and atelectasis MEDICAL DECISION MAKING Assessment: Pancreatitis [K85.90] Pancreatitis, unspecified pancreatitis type [K85.90] Active Hospital Problems Diagnosis *Acute pancreatitis Normocytic anemia Moderate alcohol use disorder (HCC) Mood disorder Morbid obesity with body mass index (BMI) of 40.0 or higher (HCC) Chronic GERD Type 2 diabetes mellitus without complication, without long-term current use of insulin (HCC) Hypertension complicating diabetes (HCC) GI - Acute pancreatitis -Transaminitis -Mild hyper bilirubinemia - Secondary to highly likely alcohol and/or possible gallbladder etiology ((GI note mentioned possible MRCP and if MRCP is positive for choledocholithiasis then they have plans for ERCP) I do not see an order for MRCP at this time GI will be notified)) I will defer for today Neuro Mild encephalopathy secondary to hypercapnia Alcohol abuse: Note that today is day 5 after admission to hospitalization no signs of withdrawal at this time Respiratory Patient is morbidly obese, raising the question of obstructive sleep apnea Possibility of obesity hypoventilation syndrome However looking at his old measured bicarb was almost in the range 28-29, I suspect his pCO2 in thelow 50s - Doubt aspiration as the patient was intubated first attempt and no reported aspiration per anesthesia - Possible mild pulmonary vascular congestion - Bibasilar atelectasis specially with large abdomen Renal Mild hyperkalemia Respiratory acidosis with partial compensation Cardiac Hypertension Endo Glycemic control Morbid obesity with metabolic syndrome, normal patient prealbumin is 9 Hematology Mild anemia Normal white blood cells Normal platelets Code Status: Full Code Plan: Continue AVAPS 500 tidal volume, rate of 20 Repeat ABG at 1600 Head of the bed elevated and reverse Trendelenburg position to offload the abdomen Titrate FiO2 keep saturation above 89% Flutter valve device and incentive spirometer Patient is currently has NG tube, okay to use if okay with GI Treatment for hypertension with amlodipine/carvedilol/losartan Currently on thiamine/folic acid/multivitamin Laxative with mag oxide Tube feeding with Jevity with a goal 40 mL an hour DVT prophylaxis with LMWH 40 q 12 GI prophylaxis with PPI Diet: N.p.o Tube feed with Jevity Discussed with RN, RT. Care team Thank you for the opportunity to participate in the care of your patient. Everardo Ibarra MD Pulmonary and Critical Care Medicine cct 55 mins Disclaimer- This note was completed using voice recognition software. Despite my review, it may still contain unintended errors, typos etc. Please do not hesitate to contact me through hospital paging service with questions. [1] Past Medical History: Diagnosis Date Anesthesia complication pt not really sure; states he thinks O2 levels dropped Depression Essential (primary) hypertension Heartburn Hyperlipidemia Radial nerve palsy, left Type 2 diabetes mellitus without complications (HCC) [2] Past Surgical History: Procedure Laterality Date ANKLE SURGERY Right 09/2023 Broken Right Ankle ARM SURGERY Left 08/2023 Humerus ORIF CARPAL TUNNEL RELEASE Left 02/28/2024 .; Surgeon: Edu Choe MD; Location: [facility] MAIN OR; Service: Orthopedics EAR SURGERY tubes FRACTURE SURGERY HAND TENDON SURGERY Left 12/04/2024 Left Hand Flexor Carpi Radialis to Extensor Digitorum Communis Tendon Transfer and Palmarius LongusTendon to ExtensorPollicis Longus Tendon Transfer, Flexor Digitorum Superficialis transfer; Surgeon: Edu Choe MD; Location: [facility] MAIN OR; Service: Orthopedics ULNAR TUNNEL RELEASE Left 02/28/2024 Left Cubital Tunnel Release, Open Carpal Tunnel Release, Exploration of Radial Nerve with Neurolysis Repair; Surgeon: Edu Choe MD; Location: [facility]IN OR; Service: Orthopedics WISDOM TOOTH EXTRACTION [3] No Known Allergies [4] Family History Problem Relation Age of Onset No Known Problems Mother No Known Problems Father Anesth Problems Neg Hx * Janice Alva PA - 01/04/2025 7:22 AM ESTAssociated Order(s): IP CONSULT TO GI Images from the original note were not included. [facility] Gastroenterology Consult Note Name: Azeem Perez ADDRESS: [address] [place] [id number] : 1980 AGE: 44 y.o. Primary Care Physician: Jam Richardson MD Date of Admission: 01/03/2025 Date of Consultation: 01/04/2025 Admitting Diagnosis: acute pancreatitis Chief Complaint / Reason for Consult: same History of Presenting Illness Azeem Perez is a(n) 44 y.o. male new to our service with pmhx remarkable for depression, HTN, GERD,HLD, T2DM, alcohol use disorder. Patient was transferred to this facility from [facility] for GI evaluation. He was admitted there on 12/31 with abdominal pain and CT showed uncomplicated pancreatitis. His LFTs and lipase were elevated. Initially symptoms and labs were improving with supportive care however patient had acute recurrence of abdominal pain and bilirubin went up to 4.9 01/03/25. Transfer was requested for MRCP and GI evaluation. On arrival, labs revealed ALT 85, AST 75, Tbili 2.8, BUN 14, Cr 0.86, WBC 4.1, Hgb 11.4, Plt 175. CT a/p pending this AM. On my exam today, patient confirms the above history and is accompanied by his who provides some additional. Together, they report that the patient began experiencing abdominal pain on Saturdayof last week, associated with sporadic fevers, chills. He denies CP, SOB. He was nauseous and had some bilious vomiting. Denies unintentional weight loss. Patient states that he has been acutely constipated since the onset of his pancreatitis, but his bowels did move this morning. He is not normally constipated at baseline. Denies melena or hematochezia. Patient does take NSAIDs on a regular basis. Endorses previous alcohol use approximately every other day, a tumbler filled with mountain dew an d crown royal. Current chew tobacco user. Denies drug use. 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 EXAMINER Prescriptions Prior to Admission[1] Allergies[2] Review of Systems: The following systems were reviewed and revealed the following in addition to any already discussedin the HPI: Constitutional: No acute distress, no wt loss, no fever/chills Eyes: No visual changes, no icterus HENT: no nasal drainage, no oral ulcers, Respiratory: no soa, no cough, no wheeze Cardiovascular: No chest pain, no dodge, no complaints Gastrointestinal: see hpi Genitourinary: no dysuria, no hematuria Musculoskeletal: no complaints Integumentary: No rash, no jaundice Hematology / Lymphatics: No enlarged lymph nodes Neuro / Psych: Alert, no confusion, no focal neuro deficits or complaints Social History: Azeem's social history reviewed: 1. ETOH: current every other day drinker per his report 2. Tobacco: chew tobacco user 3. Drugs: denies 4. Family History[3] Physical Examination Wt Readings from Last 1 Encounters: 01/04/25 (!) 373 lb (169.2 kg) Temp Readings from Last 3 Encounters: 01/04/25 97.5 ??F (36.4 ??C) (Forehead) 12/04/24 97.6 ??F (36.4 ??C) (Forehead) 02/28/24 98.7 ??F (37.1 ??C) (Temporal) BP Readings from Last 3 Encounters: 01/04/25 148/92 12/04/24 154/71 02/28/24 151/86 Pulse Readings from Last 3 Encounters: 01/04/25 72 12/04/24 86 02/28/24 88 General: Alert and oriented x 3, no acute distress Skin: Warm, no jaundice, no rashes Head: Normocephalic, atraumatic, no abnormalities Eyes: No icterus ENT: Nasal mucosa moist/pink, oral mucosa moist/pink Neck: Supple without mass, no jvd Lungs: Clear to auscultation bilaterally, no wheezes or rhonchi Cardiac: Regular rate and rhythm, no murmurs, rubs, clicks, or gallops Abdomen: soft, + abd diffusely tender, + distended, normoactive bowel sounds, no rebound/guarding, no fluid wave or ascites, no hepatomegaly, no masses Musculoskeletal/Ext: Symmetrical muscle tone and strength Neurological: No focal neurological deficits. Laboratory: Latest Reference Range & Units 01/03/25 21:10 01/04/25 05:33 ALT <=41 U/L 85 (H) 81 (H) AST <=40 U/L 75 (H) 62 (H) Bili Direct 0.0 - 0.3 mg/dL 1.8 (H) Bili Total 0.2 - 1.4 mg/dL 2.8 (H) 2.4 (H) Lipase Lvl 13 - 60 U/L 479 (H) Albumin 3.5 - 5.2 gm/dL 3.4 (L) 3.5 Alk Phos 40 - 129 U/L 59 61 Total Protein 6.4 - 8.3 gm/dL 6.9 6.9 Latest Reference Range & Units 02/04/24 14:29 01/03/25 21:10 01/04/25 05:33 Sodium 136 - 145 mmol/L 134 (L) 134 (L) 136 Potassium 3.5 - 5.0 mmol/L 4.0 3.9 3.9 Chloride 98 - 107 mmol/L 96 (L) 97 (L) 99 CO2 22 - 29 mmol/L 29 27 28 Calcium 8.6 - 10.4 mg/dL 9.0 8.7 9.2 Glucose 70 - 99 mg/dL 226 (H) 133 (H) 130 (H) BUN 6 - 20 mg/dL 17 14 12 Creatinine, Ser 0.67 - 1.30 mg/dL 0.88 0.86 0.77 eGFR (CKD-EPIcr 2020) >=60 mL/min/1.73 m2 111 111 115 Albumin 3.5 - 5.2 gm/dL 3.4 (L) 3.5 Alk Phos 40 - 129 U/L 59 61 Anion Gap 7 - 16 mmol/L 9 10 9 Total Protein 6.4 - 8.3 gm/dL 6.9 6.9 Latest Reference Range & Units 02/04/24 14:29 01/03/25 21:10 01/04/25 05:33 WBC 3.7 - 10.3 x10(3)/mcL 5.4 4.1 4.1 RBC 4.60 - 6.10 x10(6)/mcL 5.41 4.50 (L) 4.48 (L) Hgb 13.7 - 17.5 g/dL 16.1 11.4 (L) 11.2 (L) Hct 40.0 - 51.0 % 48.2 36.1 (L) 36.2 (L) MCV 80.0 - 100.0 fL 89.1 80.2 80.8 MCH 26.0 - 34.0 pg 29.8 25.3 (L) 25.0 (L) MCHC 30.7 - 35.5 g/dL 33.4 31.6 30.9 RDW <=14.9 % 13.4 15.9 (H) 16.0 (H) Platelets 155 - 369 x10(3)/mcL 190 175 175 MPV 8.8 - 12.5 fL 9.9 10.0 9.8 Imm Gran% % 1.1 0.7 IMMGRAN# 0.0 - 0.1 x10(3)/mcL 0.1 0.0 (L): Data is abnormally low (H): Data is abnormally high Imaging: No results found. Assessment/Plan: 1. Acute Pancreatitis -initially thought to be EtOH related and was improving clinically while at [facility], however, developed worsening abdominal pain and was transferred here for further evaluation and GI consult, ?MRCP - CT a/p this AM with mild inflammatory changes and edema centered near riley hepatis, nonspecificwith differential including acute interstitial pancreatitis and less likely cholecystitis. Recommend correlation with prior imaging and labs and further evaluation with right upper quadrant ultrasound and/or MRCP. No definitive evidence of CBD stone - labs this AM with minorly downtrending LFTs, lipase >450. ALP normal - IV pain medication per primary, NPO, IVF - will order MRCP today Dr. Serrano will see patient later today with further recommendations. Thank you for allowing us to participate in the care of this patient. Please feel free to call withany questions. JEET Cheng 01/04/2025 [1] Medications Prior to Admission Medication Sig Dispense Refill Last Dose/Taking allopurinoL (ZYLOPRIM) 100 mg Oral Tablet Take 1 Tablet by mouth daily. 01/02/2025 Morning amLODIPine (NORVASC) 10 mg Oral Tablet Take 1 Tablet by mouth daily. 01/02/2025 Morning carvediloL (COREG) 25 mg Oral Tablet Take 1 Tablet by mouth 2 times daily. 01/02/2025 Morning escitalopram oxalate (LEXAPRO) 20 mg Oral Tablet Take 1 Tablet by mouth daily. 01/02/2025 Morning hydroCHLOROthiazide 25 mg Oral Tablet Take 1 Tablet by mouth daily. 01/02/2025 Morning losartan (COZAAR) 25 mg Oral Tablet Take 1 Tablet by mouth daily. 01/02/2025 Morning MOUNJARO 15 mg/0.5 mL SubQ Pen Injector Inject 15 mg under the skin once a week. Indications: takeson Fridays Taking omeprazole (PRILOSEC) 40 mg Oral Capsule, Delayed Release(E.C.) Take 1 Capsule by mouth daily. 01/02/2025 Morning FARXIGA 10 mg Oral Tablet Take 1 Tablet by mouth daily. (Patient not taking: Reported on 01/03/2025) Not Taking glimepiride (AMARYL) 4 mg Oral Tablet Take 1 Tablet by mouth daily. (Patient not taking: Reported on 01/03/2025) Not Taking meclizine (ANTIVERT) 25 mg Oral Tablet Take 25 mg by mouth 3 times daily as needed. (Patient not taking: Reported on 01/03/2025) Not Taking meloxicam (MOBIC) 7.5 mg Oral Tablet Take 1 Tablet by mouth daily. (Patient not taking: Reported on01/03/2025) Not Taking oxyCODONE (ROXICODONE) 5 mg Oral Tablet Take 1 Tablet by mouth every 4 hours as needed for Major Surgery/Trauma (G89.18). (Patient not taking: Reported on 01/03/2025) 28 Tablet 0 Not Taking oxyCODONE (ROXICODONE) 5 mg Oral Tablet Take 1 Tablet by mouth every 4 hours as needed for Major Surgery/Trauma (G89.18). (Patient not taking: Reported on 06/15/2024) 28 Tablet 0 Not Taking pravastatin (PRAVACHOL) 40 mg Oral Tablet Take 1 Tablet by mouth nightly. (Patient not taking: Reported on 01/03/2025) Not Taking XYOSTED 75 mg/0.5 mL SubQ Auto-Injector Inject as directed once a week. LD 02/18 Indications: takes on Fridays (Patient not taking: Reported on 01/03/2025 Indications: takes on Fridays) Not Taking [2] No Known Allergies [3] Family History Problem Relation Age of Onset No Known Problems Mother No Known Problems Father Anesth Problems Neg Hx Cosigned by Kayden Serrano DO at 01/04/2025 3:31 PM EST Associated attestation - Kayden Serrano DO - 01/04/2025 3:31 PM EST Images from the original note were not included. GASTROENTEROLOGY ATTENDING NOTE HPI as above. Agree with MLP. Patient seen and examined independently . History, labs, imaging and assessment and plan reviewed. Patient with PMH of DM, GERD, HLD, HTN, EtOH abuse presents from [facility] for GI evaluation. Patient admitted there 12/31 with abdominal pain. Patient states the pain started on the right side then upper abdomen and shot into his back. CT scan showed uncomplicated pancreatitis. LFTs/TB were elevate as well. He was given clears and then had abdominal pain and increase in TB. Therefore he was tx here for MRCP possible ERCP. Patient denies any f/c, cp, sob, melena, hematochezia, dysphagia. Has GERD andtakes omeprazole. Takes diclofenac and mobic daily. Drinks 1/5 of EtOH QOD. No personal hx or family hx of liver disease. Still with abdominal pain and receiving pain meds. Pertinent ROS in HPI Vitals: 01/04/25 0811 BP: (!) 161/80 Pulse: 69 Resp: 18 Temp: 97.5 ??F (36.4 ??C) SpO2: 93% General: Alert and oriented x 3, NAD Skin: Warm, no jaundice, no rashes Head: Normocephalic, atraumatic, no abnormalities Eyes: EOMI, no icterus ENT: Nasal mucosa moist/pink, septum midline, oral mucosa moist/pink Lungs: Clear to auscultation b/l; No wheezes or rhonchi Cardiac: RRR, no m/r/g; Normal s1/s2 Abdomen: soft, nontender, nondistended, normoactive bowel sounds, no rebound/guarding, no fluid wave or ascites, no hepatosplenomegaly, no caput medusae Musculoskeletal/Ext: Symmetrical muscle tone and strength A/P: 1) Pancreatitis -highly suspect EtOH etiology; will w/u possible GB etiology; check MRCP -currently NPO; was trialed on clears at OSH and had abdominal pain and increase in TB; still requiring pain meds; I discussed the importance of nutrition in treatment of pancreatitis and discussed NJ tube placement for TF; I discussed risks of procedure; he is agreeable; will plan for EGD with NJ placement tomorrow -if MRCP + for choledocholithiasis then will plan for ERCP in addition and will need surgical consult; follow up on MRCP 2) EtOH abuse -discussed cessation as this is likely the contributor to elevated LFTs/TB and pancreatitis 3) Elevated LFTs/TB -EtOH? Choledocholithiasis? -MRCP today Thank you for the consult on this patient. Please feel free to call with any questions. Kayden Serrano, DO 01/04/2025 documented in this encounter Miscellaneous Notes * Utilization Review Notes - Adwoa Moeller, ROGELIO - 01/07/2025 9:51 AM EST Patient admitted as inpatient 01/03* - inpatient order on chart - continued stay on telemetry unit VITALS: 2L HFNC LABS: ALT 184, AST 196 MEDS: IV ABX (stop date 01/11) TESTS: CTAP: 2. Mild multifocal groundglass opacities in both lower lobes and posterior upper lobes. Findings likely infectious/inflammatory in etiology and possibly aspiration related. 3. Trace bilateral pleural effusions with mild bibasilar atelectasis. NOTES: Per GI MD: 1) Pancreatitis -highly suspect EtOH etiology, LFTs/Tbili were downtrending. Acute elevation in ALT/ AST this AM. -s/p EGD 01/05 with [place] placement for nutrition -okay for TF, tolerating TF at 40cc/hr. Tolerating clears well. Advanced to fulls this AM. If does well, can adv to low fat. Per Pulmonary MD: continue Bipap at night I highly recommend sleep referral again to address his sleep apnea pt will need weight loss and consideration of bariatric surg at a leter time I will rule out PE : high risk with obesity and sedentary life style and recent hospitalization .. DC PLAN: CC following Actual Discharge Plan 01/06/25: CC Initial Assessment, met with pt, spouse in room, pt from home independently with spouse and children, no HH, pt states that he had a Cpap but returned it because it kept getting me sick and he could not tolerate mask, NOT ON HOME O2, may benefit from overnight pulse ox, currently with NJT for TF, starting clear liquid diet this christina, PCP Debra at [facility], no issues affording Rx meds, spouse able to transport home at d/c, CC following. * RT Oxygen Plan of Care Note - Gaye Shelley RRT - 01/07/2025 8:47 AM EST Images from the original note were not included. January 07, 2025 Oxygen Therapy: Maintain Oxygen Sat greater than or equal to: 88-92 O2 Device: (S) Room Air O2 Flow Rate (L/min): 2 lpm SpO2: 98 % Reason for titration: Wean Will continue to wean oxygen as tolerated to maintain titration goal. Gyae Shelley RRT * RT Oxygen Plan of Care Note - Gaye Shelley RRT - 01/06/2025 8:48 AM EST Images from the original note were not included. January 06, 2025 Oxygen Therapy: Maintain Oxygen Sat greater than or equal to: O2 Device: High Flow Nasal Cannula O2 Flow Rate (L/min): 9 lpm SpO2: 94 % Will continue to wean oxygen as tolerated to maintain titration goal. Gaye Shelley RRT * Utilization Review Notes - Naheed Watson RN - 01/04/2025 12:04 PM EST ADMITTED INPT ON 01/03/2025. ADMIT FOR Pancreatitis 01/04 = LIPASE - 479 CONSULT GI MRCP NPO IV NS AT 150 ML/HR PER HOSPITALIST NOTE 01/03 = Acute Pancreatitis -lipase > 3x ULN at OSH per record review. On day of transfer was down in 400's. Recheck in a.m. -CT from OSH with mild pancreatitis, and RUQ ultrasound obtained the following day with no evidenceof gallstones. Initial etiology likely felt to be alcohol related. Had symptom improvement and thensubsequent worsening with elevation in LFTs, prompting transfer to this facility for GI eval and consideration of MRCP - Given RUQ ultrasound with no findings suggestive of gallstones, CT A/P ordered to eval for complications of pancreatitis as well as any change in hepatobiliary pathology -check TGs and LFTs -IVF @ 150cc/hr (~1.5cc/kg/hr based on IBW) - Multimodal pain control -GI c/s'ed * Plan of Care - Indira Preciado MD - 01/03/2025 5:04 PM EST Patient is being transferred from [facility] for GI evaluation. Per report- he was admitted there on 12/31 with abdominal pain and CT showed uncomplicated pancreatitis. His LFTs and lipase were elevated. Initially symptoms and labs were improving with supportive care however today patient had acute recurrence of abdominal pain and bilirubin went up to 4.9. Transfer was requested for MRCPand GI evaluation. As of note- patient is on zosyn that was started on admission presumably for SIRS type picture. Indira Preciado MD documented in this encounter Plan of Treatment Upcoming Encounters Date Type Department Care Team (Late st Contact Info) Description 02/15/2025 10:15 AM EST Office Visit [facility] [address] [facility] [address] [place] [address] Karla Jackson PA-C [address] [place] [address] Scheduled Referrals Name Type Priority Associated Diagnoses Orde r Schedule AMB REFERRAL TO SLEEP STUDIES/MEDICINE Outpatient Referral Routine [place] (obstructive sleep apnea) Ordered: 01/09/2025 documented as of this encounter Procedures Procedure Name Priority Date/Time Associated Diagnosis Comments GLUCOSE METER POC Routine 01/09/2025 9:09 AM EST ECG AND WAVEFORMS - TELEMETRY Routine 01/09/2025 7:30 AM EST HEPATIC FUNCTION PANEL Early AM 11/22/202 5 6:27 AM EST ECG AND WAVEFORMS - TELEMETRY Routine 01/09/2025 2:28 AM EST ECG AND WAVEFORMS - TELEMETRY Routine 01/09/2025 2:19 AM EST ECG AND WAVEFORMS - TELEMETRY Routine 01/09/2025 2:18 AM EST ECG AND WAVEFORMS - TELEMETRY Routine 01/09/2025 2:15 AM EST ECG AND WAVEFORMS - TELEMETRY Routine 01/09/2025 1:58 AM EST GLUCOSE METER POC Routine 01/08/2025 9:53 PM EST ECG AND WAVEFORMS - TELEMETRY Routine 01/08/2025 8:41 PM EST GLUCOSE METER POC Routine 01/08/2025 6:41 PM EST MRI LIVER/MRCP W WO CONTRAST ODILIA 01/08/2025 6:26 PM EST ECG AND WAVEFORMS - TELEMETRY Routine 01/08/2025 4:41 PM EST ECG AND WAVEFORMS - TELEMETRY Routine 01/08/2025 4:41 PM EST ECG AND WAVEFORMS - TELEMETRY Routine 01/08/2025 4:40 PM EST GLUCOSE METER POC Routine 01/08/2025 11:36 AM EST ECG AND WAVEFORMS - TELEMETRY Routine 01/08/2025 7:30 AM EST CBC WITH DIFF Early AM 01/08/2025 6:51 AM EST BASIC METABOLIC PANEL Early AM 01/08/2025 6:51 AM EST GLUCOSE METER POC Routine 01/08/2025 5:03 AM EST GLUCOSE METER POC Routine 01/07/2025 11:13 PM EST ECG AND WAVEFORMS - TELEMETRY Routine 01/07/2025 7:01 PM EST GLUCOSE METER POC Routine 01/07/2025 6:29 PM EST GLUCOSE METER POC Routine 01/07/2025 2:53 PM EST ECG AND WAVEFORMS - TELEMETRY Routine 01/07/2025 7:00 AM EST CBC WITH DIFF Early AM 01/07/2025 6:53 AM EST PHOSPHORUS LEVEL Early AM 01/07/2025 6:53 AM EST MAGNESIUM LEVEL Early AM 01/07/2025 6:53 AM EST HEPATIC FUNCTION PANEL Add-On 6:53 AM EST BASIC METABOLIC PANEL Early AM 01/07/2025 6:53 AM EST GLUCOSE METER POC Routine 01/07/2025 5:41 AM EST ECG AND WAVEFORMS - TELEMETRY Routine 01/07/2025 5:25 AM EST GLUCOSE METER POC Routine 01/06/2025 11:45 PM EST GLUCOSE METER POC Routine 01/06/2025 7:48 PM EST ECG AND WAVEFORMS - TELEMETRY Routine 01/06/2025 7:00 PM EST GLUCOSE METER POC Routine 01/06/2025 4:34 PM EST ECG AND WAVEFORMS - TELEMETRY Routine 01/06/2025 4:[address] ANGIOGRAM PULMONARY W CONTRAST ODILIA 01/06/2025 3:06 PM EST EC ECHOCARDIOGRAM 2D M MODE COMPLETE W CONTRAST Routine 01/06/2025 12:25 PM EST GLUCOSE METER POC Routine 01/06/2025 12:10 PM EST VA US LOWER EXTREMITY VENOUS BILATERAL Routine 01/06/2025 11:58 AM EST GLUCOSE METER POC Routine 01/06/2025 4:38 AM EST BLOOD GAS, VENOUS Routine 01/06/2025 4:14 AM EST CBC WITH DIFF Early AM 01/06/2025 4:14 AM EST PHOSPHORUS LEVEL Early AM 01/06/2025 4:14 AM EST MAGNESIUM LEVEL Early AM 01/06/2025 4:14 AM EST LIPASE LEVEL Routine 01/06/2025 4:14 AM EST HEPATIC FUNCTION PANEL Routine 4:14 AM EST BASIC METABOLIC PANEL Early AM 01/06/2025 4:14 AM EST GLUCOSE METER POC Routine 01/05/2025 11:04 PM EST GLUCOSE METER POC Routine 01/05/2025 6:25 PM EST POC ARTERIAL BLOOD GAS PROFILE Routine 01/05/2025 4:32 PM EST XR CHEST AP PORTABLE STAT 01/05/2025 3:06 PM EST CALCIUM, IONIZED Routine 01/05/2025 2:38 PM EST ACUTE HEPATITIS PANEL Routine 01/05/2025 2:38 PM EST PREALBUMIN Routine 01/05/2025 2:38 PM EST PHOSPHORUS LEVEL Early AM 01/05/2025 2:38 PM EST NT PROBNP Routine 01/05/2025 2:38 PM EST MAGNESIUM LEVEL Early AM 01/05/2025 2:38 PM EST HEPATIC FUNCTION PANEL Add-On 2:38 PM EST BASIC METABOLIC PANEL Routine 01/05/2025 2:38 PM EST POC ARTERIAL BLOOD GAS PROFILE Routine 01/05/2025 1:25 PM EST GLUCOSE METER POC Routine 01/05/2025 11:52 AM EST ESOPHAGOGASTRODUODENOSCOPY (EGD) Routine 01/05/2025 11:03 AM EST Acute pancreatitis without infection or necrosis, unspecified pancreatitis type IP CONSULT TO NUTRITION Routine 01/06/20 25 10:29 AM EST PATHOLOGY TISSUE REQUEST Routine 025 10:11 AM EST Acute pancreatitis without infection or necrosis, unspecified pancreatitis type GLUCOSE METER POC Routine 01/05/2025 7:56 AM EST CBC WITH DIFF Early AM 01/05/2025 6:24 AM EST HEMOGLOBIN A1C Add-On 01/05/2025 6:24 AM EST HEPATIC FUNCTION PANEL Early AM 6:24 AM EST BASIC METABOLIC PANEL Early AM 01/05/2025 6:24 AM EST XR EYE BILATERAL FOREIGN BODY ODILIA 01/04/2025 10:[address] ABDOMEN PELVIS WO ORAL WITH IV CONTRAST ODILIA 01/04/2025 7:53 AM EST VITAMIN B12/ FOLIC ACID Routine 01/05/20 5:33 AM EST CBC WITH DIFF Early AM 01/04/2025 5:33 AM EST LIPASE LEVEL Early AM 01/04/2025 5:33 AM EST COMPREHENSIVE METABOLIC PANEL Early AM 01/04/2025 5:33 AM EST IRON+TIBC Add-On 01/03/2025 9:10 PM EST CBC Routine 01/03/2025 9:10 PM EST TRIGLYCERIDES Add-On 01/03/2025 9:10 PM EST FERRITIN Add-On 01/03/2025 9:10 PM EST HEPATIC FUNCTION PANEL Add-On 9:10 PM EST BASIC METABOLIC PANEL Routine 01/03/2025 9:10 PM EST IP CONSULT TO GI Routine 01/03/2025 8:46 PM EST Procedure Note - Janice Alva PA - 01/04/2025 7:22 AM ESTThis note is in progress. Images from the original note were not included. [facility] Gastroenterology Consult Note Name: Azeem Perez ADDRESS: [address] [place] [address] [place] [address] : 1980 AGE: 44 y.o. Primary Care Physician: Jam Richardson MD Date of Admission: 01/03/2025 Date of Consultation: 01/04/2025 Admitting Diagnosis: acute pancreatitis Chief Complaint / Reason for Consult: same History of Presenting Illness Azeem Perez is a(n) 44 y.o. male new to our service with pmhx remarkablefor depression, HTN, GERD, HLD, T2DM, alcohol use disorder. Patient wastransferred to this facility from [facility] for GI evaluation.He was admitted there on 12/31 with abdominal pain and CT showeduncomplicated pancreatitis. His LFTs and lipase were elevated. Initiallysymptoms and labs were improving with supportive care however patient hadacute recurrence of abdominal pain and bilirubin went up to 4.9 01/03/25.Transfer was requested for MRCP and GI evaluation. On arrival, labsrevealed ALT 85, AST 75, Tbili 2.8, BUN 14, Cr 0.86, WBC 4.1, Hgb 11.4,Plt 175. CT a/p pending this AM. On my exam today, patient confirms the above history and is accompanied byhis who provides some additional. Together, they report that thepatient began experiencing abdominal pain on Saturday of last week,associated with sporadic fevers, chills. He denies CP, SOB. He wasnauseous and had some bilious vomiting. Denies unintentional weight loss.Patient states that he has been acutely constipated since the onset ofhis pancreatitis, but his bowels did move this morning. He is notnormally constipated at baseline. Denies melena or hematochezia. Patientdoes take NSAIDs on a regular basis. Endorses previous alcohol useapproximately every other day, a tumbler filled with Ritani royal. Current chew tobacco user. Denies drug use. Past Endoscopic Evaluations EGD/Colonoscopy: no records available to me, patient states he has neverhad these completed Current GI related medications: Lovenox noted PPI BID Zofran prn Miralax BID prn Compazine prn Senna prn Mounjaro noted [employer] Prescriptions Prior to Admission[1] Allergies[2] Review of Systems: The following systems were reviewed and revealed the following in additionto any already discussed in the HPI: Constitutional: No acute distress, no wt loss, no fever/chills Eyes: No visual changes, no icterus HENT: no nasal drainage, no oral ulcers, Respiratory: no soa, no cough, no wheeze Cardiovascular: No chest pain, no dodge, no complaints Gastrointestinal: see hpi Genitourinary: no dysuria, no hematuria Musculoskeletal: no complaints Integumentary: No rash, no jaundice Hematology / Lymphatics: No enlarged lymph nodes Neuro / Psych: Alert, no confusion, no focal neuro deficits orcomplaints Social History: Azeem's social history reviewed: 1. ETOH: current every other day drinker per his report 2. Tobacco: chew tobacco user 3. Drugs: denies 4. Family History[3] Physical Examination Wt Readings from Last 1 Encounters: 01/04/25 (!) 373 lb (169.2 kg) Temp Readings from Last 3 Encounters: 01/04/25 97.5 F (36.4 C) (Forehead) 12/04/24 97.6 F (36.4 C) (Forehead) 02/28/24 98.7 F (37.1 C) (Temporal) BP Readings from Last 3 Encounters: 01/04/25 148/92 12/04/24 154/71 02/28/24 151/86 Pulse Readings from Last 3 Encounters: 01/04/25 72 12/04/24 86 02/28/24 88 General: Alert and oriented x 3, no acute distress Skin: Warm, no jaundice, no rashes Head: Normocephalic, atraumatic, no abnormalities Eyes: No icterus ENT: Nasal mucosa moist/pink, oral mucosa moist/pink Neck: Supple without mass, no jvd Lungs: Clear to auscultation bilaterally, no wheezes or rhonchi Cardiac: Regular rate and rhythm, no murmurs, rubs, clicks, or gallops Abdomen: soft, + abd diffusely tender, + distended, normoactive bowelsounds, no rebound/guarding, no fluid wave or ascites, no hepatomegaly, nomasses Musculoskeletal/Ext: Symmetrical muscle tone and strength Neurological: No focal neurological deficits. Laboratory: Latest Reference Range & Units 01/03/25 21:10 01/04/25 05:33 ALT <=41 U/L 85 (H) 81 (H) AST <=40 U/L 75 (H) 62 (H) Bili Direct 0.0 - 0.3 mg/dL 1.8 (H) Bili Total 0.2 - 1.4 mg/dL 2.8 (H) 2.4 (H) Lipase Lvl 13 - 60 U/L 479 (H) Albumin 3.5 - 5.2 gm/dL 3.4 (L) 3.5 Alk Phos 40 - 129 U/L 59 61 Total Protein 6.4 - 8.3 gm/dL 6.9 6.9 Latest Reference Range & Units 02/04/24 14:29 01/03/25 21:10 01/04/2505:33 Sodium 136 - 145 mmol/L 134 (L) 134 (L) 136 Potassium 3.5 - 5.0 mmol/L 4.0 3.9 3.9 Chloride 98 - 107 mmol/L 96 (L) 97 (L) 99 CO2 22 - 29 mmol/L 29 27 28 Calcium 8.6 - 10.4 mg/dL 9.0 8.7 9.2 Glucose 70 - 99 mg/dL 226 (H) 133 (H) 130 (H) BUN 6 - 20 mg/dL 17 14 12 Creatinine, Ser 0.67 - 1.30 mg/dL 0.88 0.86 0.77 eGFR ([facility]) >=60 mL/min/1.73 m2 111 111 115 Albumin 3.5 - 5.2 gm/dL 3.4 (L) 3.5 Alk Phos 40 - 129 U/L 59 61 Anion Gap 7 - 16 mmol/L 9 10 9 Total Protein 6.4 - 8.3 gm/dL 6.9 6.9 Latest Reference Range & Units 02/04/24 14:29 01/03/25 21:10 01/04/2505:33 WBC 3.7 - 10.3 x10(3)/mcL 5.4 4.1 4.1 RBC 4.60 - 6.10 x10(6)/mcL 5.41 4.50 (L) 4.48 (L) Hgb 13.7 - 17.5 g/dL 16.1 11.4 (L) 11.2 (L) Hct 40.0 - 51.0 % 48.2 36.1 (L) 36.2 (L) MCV 80.0 - 100.0 fL 89.1 80.2 80.8 MCH 26.0 - 34.0 pg 29.8 25.3 (L) 25.0 (L) MCHC 30.7 - 35.5 g/dL 33.4 31.6 30.9 RDW <=14.9 % 13.4 15.9 (H) 16.0 (H) Platelets 155 - 369 x10(3)/mcL 190 175 175 MPV 8.8 - 12.5 fL 9.9 10.0 9.8 Imm Gran% % 1.1 0.7 IMMGRAN# 0.0 - 0.1 x10(3)/mcL 0.1 0.0 (L): Data is abnormally low (H): Data is abnormally high Imaging: No results found. Assessment/Plan: 1. Acute Pancreatitis -initially thought to be EtOH related and [facility], however, developed worsening abdominal pain and wastransferred here for further evaluation and GI consult, ?MRCP - CT a/p this AM with mild inflammatory changes and edema centered nearporta hepatis, nonspecific with differential including acute interstitialpancreatitis and less likely cholecystitis. Recommend correlation withprior imaging and labs and further evaluation with right upper quadrantultrasound and/or MRCP. No definitive evidence of CBD stone - labs this AM with minorly downtrending LFTs, lipase >450. ALP normal - IV pain medication per primary, NPO, IVF - will order MRCP today Dr. Serrano will see patient later today with further recommendations. Thank you for allowing us to participate in the care of this patient.Please feel free to call with any questions. JEET Cheng 01/04/2025 [1] Medications Prior to Admission Medication Sig Dispense Refill Last Dose/Taking allopurinoL (ZYLOPRIM) 100 mg Oral Tablet Take 1 Tablet by mouth daily.01/02/2025 Morning amLODIPine (NORVASC) 10 mg Oral Tablet Take 1 Tablet by mouth daily.01/02/2025 Morning carvediloL (COREG) 25 mg Oral Tablet Take 1 Tablet by mouth 2 timesdaily. 01/02/2025 Morning escitalopram oxalate (LEXAPRO) 20 mg Oral Tablet Take 1 Tablet by mouthdaily. 01/02/2025 Morning hydroCHLOROthiazide 25 mg Oral Tablet Take 1 Tablet by mouth daily.01/02/2025 Morning losartan (COZAAR) 25 mg Oral Tablet Take 1 Tablet by mouth daily.01/02/2025 Morning MOUNJARO 15 mg/0.5 mL SubQ Pen Injector Inject 15 mg under the skin oncea week. Indications: takes on Fridays Taking omeprazole (PRILOSEC) 40 mg Oral Capsule, Delayed Release(E.C.) Take 1Capsule by mouth daily. 01/02/2025 Morning FARXIGA 10 mg Oral Tablet Take 1 Tablet by mouth daily. (Patient nottaking: Reported on 01/03/2025) Not Taking glimepiride (AMARYL) 4 mg Oral Tablet Take 1 Tablet by mouth daily.(Patient not taking: Reported on 01/03/2025) Not Taking meclizine (ANTIVERT) 25 mg Oral Tablet Take 25 mg by mouth 3 times dailyas needed. (Patient not taking: Reported on 01/03/2025) Not Taking meloxicam (MOBIC) 7.5 mg Oral Tablet Take 1 Tablet by mouth daily.(Patient not taking: Reported on 01/03/2025) Not Taking oxyCODONE (ROXICODONE) 5 mg Oral Tablet Take 1 Tablet by mouth every 4hours as needed for Major Surgery/Trauma (G89.18). (Patient not taking:Reported on 01/03/2025) 28 Tablet 0 Not Taking oxyCODONE (ROXICODONE) 5 mg Oral Tablet Take 1 Tablet by mouth every 4hours as needed for Major Surgery/Trauma (G89.18). (Patient not taking:Reported on 06/15/2024) 28 Tablet 0 Not Taking pravastatin (PRAVACHOL) 40 mg Oral Tablet Take 1 Tablet by mouth nightly.(Patient not taking: Reported on 01/03/2025) Not Taking XYOSTED 75 mg/0.5 mL SubQ Auto-Injector Inject as directed once a week.LD 02/18 Indications: takes on Fridays (Patient not taking: Reported on01/03/2025 Indications: takes on Fridays) Not Taking [2] No Known Allergies [3] Family History Problem Relation Age of Onset No Known Problems Mother No Known Problems Father Anesth Problems Neg Hx ADMIT Routine 01/03/2025 8:17 PM EST documented in this encounter Results * (ABNORMAL) GLUCOSE METER POC (01/09/2025 9:09 AM EST) [facility] Glucose Meter POC 219(H) 70 - 100 mg/dL 01/09/2025 9:11 AM EST [facility] Sample Type Capillary 01/09/2025 9:11 AM EST [facility] Patient Status Non-Critical Patient 01/09/2025 9:11 AM EST [facility] Blood BLOOD SPECIMEN / Unknown 01/09/2025 9:09 AM EST 01/09/2025 9:11 AM EST us Indira Preciado MD POINT OF CARE TEST ORDERABLES Fi nal Result [facility] [address] [place] [address] * ECG AND WAVEFORMS - TELEMETRY (01/09/2025 7:30 AM EST) Pathologist [facility] ECG INTERPRET NSR [facility] 01/09/2025 7:30 AM EST Narrative [facility] - 01/09/2025 8:15 AM EST ROUTINE (LZ) [place] 0.18 QRS 0.10 RR 1.04 QT 0.44 QTc 0.43 See Clinical Report link for waveform capture us Unknown Provider POINT OF CARE CARDIOLOGY Final Result Performing Organization Address City/[facility]/ZIP Co de Phone Number [facility] [address] [place] [address] * (ABNORMAL) HEPATIC FUNCTION PANEL (01/09/2025 6:27 AM EST) Pathologist [facility] Total Protein 7.5 6.4 - 8.3 gm/dL 01/09/2025 7:57 AM EST [facility] Albumin 4.0 3.5 - 5.2 gm/dL 01/09/2025 7:57 AM EST [facility] Bili Direct 0.5(H) 0.0 - 0.3 mg/dL 01/09/2025 7:57 AM EST [facility] Bili Total 0.9 0.2 - 1.4 mg/dL 01/09/2025 7:57 AM EST [facility] AST 108(H) <=40 U/L 01/09/2025 7:57 AM EST [facility] ALT 198(H) <=41 U/L 01/09/2025 7:57 AM EST [facility] Alk Phos 68 40 - 129 U/L 01/09/2025 7:57 AM EST [facility] Blood VENOUS BLOOD / Unknown Venipuncture / Unknown 01/09/2025 6:27 AM EST 01/09/2025 7:20 AM EST us Jacky Maddox MD CHEMISTRY ORDERABLES Final Resu lt Performing Organization Address [facility] Co de Phone Number [facility] [address] [facility], [place] [address] * ECG AND WAVEFORMS - TELEMETRY (01/09/2025 2:28 AM EST) ECG INTERPRET Other [facility] Comment:asymptomatic 01/09/2025 2:28 AM EST Narrative [facility] - 01/09/2025 2:29 AM EST Pause 3.80 See Clinical Report link for waveform capture us Unknown Provider POINT OF CARE CARDIOLOGY Final Result Performing Organization Address [facility] de Phone Number [facility] [address] [place] [address] * ECG AND WAVEFORMS - TELEMETRY (01/09/2025 2:19 AM EST) ECG INTERPRET Other [facility] Comment:asymptomatic 01/09/2025 2:19 AM EST Narrative [facility] - 01/09/2025 2:22 AM EST Pause 3.52 See Clinical Report link for waveform capture us Unknown Provider POINT OF CARE CARDIOLOGY Final Result Performing Organization Address [facility] Co de Phone Number [facility] [address] [place] [phone] * ECG AND WAVEFORMS - TELEMETRY (01/09/2025 2:18 AM EST) ECG INTERPRET Other [facility] Comment:asymptomatic 01/09/2025 2:18 AM EST Narrative [facility] - 01/09/2025 2:18 AM EST Pause 3.88 See Clinical Report link for waveform capture us Unknown Provider POINT OF CARE CARDIOLOGY Final Result Performing Organization Address [facility] Co de Phone Number [facility] [address] [place] [address] * ECG AND WAVEFORMS - TELEMETRY (01/09/2025 2:15 AM EST) ECG INTERPRET Miss Beat or Pause [facility] Comment:asymptomatic 01/09/2025 2:15 AM EST Narrative [facility] - 01/09/2025 2:16 AM EST Pause 6.38 See Clinical Report link for waveform capture us Unknown Provider POINT OF CARE CARDIOLOGY Final Result Performing Organization Address [facility] Co de Phone Number [facility] [address] [place] [address] * ECG AND WAVEFORMS - TELEMETRY (01/09/2025 1:58 AM EST) ECG INTERPRET Miss Beat or Pause [facility] Comment:asymptomatic 01/09/2025 1:58 AM EST Narrative [facility] - 01/09/2025 1:59 AM EST NSR 2.5s PAUSE (AJ) Pause 2.49 See Clinical Report link for waveform capture us Unknown Provider POINT OF CARE CARDIOLOGY Final Result Performing Organization Address [facility] de Phone Number [facility] [address] [place] [address] * (ABNORMAL) GLUCOSE METER POC (01/08/2025 9:53 PM EST) Glucose Meter POC 281(H) 70 - 100 mg/dL 01/08/2025 9:54 PM EST [facility] Sample Type Capillary 01/08/2025 9:54 PM EST [facility] Patient Status Non-Critical Patient 01/08/2025 9:54 PM EST [facility] Blood BLOOD SPECIMEN / Unknown 01/08/2025 9:53 PM EST 01/08/2025 9:54 PM EST us Indira Preciado MD POINT OF CARE TEST ORDERABLES Fi nal Result Performing Organization Address [facility] de Phone Number [facility] [address] [place] [address] * ECG AND WAVEFORMS - TELEMETRY (01/08/2025 8:41 PM EST) ECG INTERPRET NSR [facility] 01/08/2025 8:41 PM EST Narrative [facility] - 01/08/2025 8:43 PM EST ROUTINE/AJ [place] 0.17 QRS 0.10 RR 0.87 QT 0.39 QTc 0.41 See Clinical Report link for waveform capture us Unknown Provider POINT OF CARE CARDIOLOGY Final Result Performing Organization Address [facility] de Phone Number [facility] [address] [place] [address] * (ABNORMAL) GLUCOSE METER POC (01/08/2025 6:41 PM EST) [facility] Glucose Meter POC 184(H) 70 - 100 mg/dL 01/08/2025 6:43 PM EST [facility] Sample Type Capillary 01/08/2025 6:43 PM EST [facility] Patient Status Non-Critical Patient 01/08/2025 6:43 PM EST [facility] Blood BLOOD SPECIMEN / Unknown 01/08/2025 6:41 PM EST 01/08/2025 6:43 PM EST us Indira Preciado MD POINT OF CARE TEST ORDERABLES Fi nal Result Performing Organization Address [facility] Co de Phone Number [facility] [address] [place] [phone] * MRI LIVER/MRCP W WO CONTRAST (01/08/2025 6:26 PM EST) Anatomical Region Laterality Modality Abdomen Magnetic Resonan ce 01/08/2025 6:26 PM EST Impressions 01/08/2025 7:16 PM EST No acute findings. - Note: Radiology results need to be interpreted within a comprehensive clinical context. If you have questions about the radiology report, please contact the office of the ordering clinician. Narrative 01/08/2025 7:16 PM EST MRI LIVER/MRCP W WO CONTRAST, 01/08/2025 6:26 PM CLINICAL HISTORY: 44 years. -Mild inflammatory changes and edema centered near the riley hepatis on CT. COMPARISON: Recent CT. PROCEDURE COMMENTS: MRI LIVER/MRCP W WO CONTRAST FINDINGS: Moderately limited by motion with repeat imaging attempted also limited. Questionable minimal layering sludge or stones within an otherwise normal gallbladder. No biliary ductal dilation. No stone or abnormality within normal caliber system. No edema in the upper abdomen or collection. No suspicious focal liver lesion. The pancreas is normal without edema. The spleen is mildly enlarged. The adrenals are unremarkable. Renal parenchyma is grossly normal. The visualized bowel is normal in caliber without obstruction or wall thickening. No free fluid or suspicious lymphadenopathy. Procedure Note Km Flores MD - 01/08/2025 MRI LIVER/MRCP W WO CONTRAST, 01/08/2025 6:26 PM CLINICAL HISTORY: 44 years. -Mild inflammatory changes and edema centerednear the riley hepatis on CT. COMPARISON: Recent CT. PROCEDURE COMMENTS: MRI LIVER/MRCP W WO CONTRAST FINDINGS: Moderately limited by motion with repeat imaging attempted also limited. Questionable minimal layering sludge or stones within an otherwisenormal gallbladder. No biliary ductal dilation. No stone or abnormality withinnormal caliber system. No edema in the upper abdomen or collection. No suspicious focal liver lesion. The pancreas is normal without edema.The spleen is mildly enlarged. The adrenals are unremarkable. Renal parenchyma is grossly normal. The visualized bowel is normal in caliber without obstruction or wall thickening. No free fluid or suspicious lymphadenopathy. IMPRESSION: No acute findings. - Note: Radiology results need to be interpreted within a comprehensiveclinical context. If you have questions about the radiology report, please contactthe office of the ordering clinician. Alli Hannon APRN IM MRI ORDERABLES Final Result * ECG AND WAVEFORMS - TELEMETRY (01/08/2025 4:41 PM EST) ECG INTERPRET Miss Beat or Pause [facility] 01/08/2025 4:4 1 PM EST Narrative [facility] - 01/08/2025 4:45 PM EST 3.23s PAUSE- HR DOWN 31 (LZ) See Clinical Report link for waveform capture us Unknown Provider POINT OF CARE CARDIOLOGY Final Result Performing Organization Address [facility] Co de Phone Number [facility] [address] [place] [address] * ECG AND WAVEFORMS - TELEMETRY (01/08/2025 4:41 PM EST) ECG INTERPRET Sinus Bradycardia [facility] Comment:HR 34 01/08/2025 4:41 PM EST Narrative [facility] - 01/08/2025 4:43 PM EST 2.78s PAUSE- HR DOWN 31 (LZ) Pause 2.78 See Clinical Report link for waveform capture us Unknown Provider POINT OF CARE CARDIOLOGY Final Result Performing Organization Address [facility] de Phone Number [facility] [address] [place] [address] * ECG AND WAVEFORMS - TELEMETRY (01/08/2025 4:40 PM EST) ECG INTERPRET Sinus Bradycardia [facility] Comment:SB 39 01/08/2025 4:40 PM EST Narrative [facility] - 01/08/2025 4:42 PM EST HR DOWN 39 (LZ) See Clinical Report link for waveform capture us Unknown Provider POINT OF CARE CARDIOLOGY Final Result Performing Organization Address [facility] de Phone Number [facility] [address] [place] [address] * (ABNORMAL) GLUCOSE METER POC (01/08/2025 11:36 AM EST) Glucose Meter POC 217(H) 70 - 100 mg/dL 01/08/2025 11:37 AM EST [facility] Sample Type Capillary 01/08/2025 11:37 AM EST [facility] Patient Status Non-Critical Patient 01/08/2025 11:37 AM EST [facility] Blood BLOOD SPECIMEN / Unknown 01/08/2025 11:36 AM EST 01/08/2025 11:37 AM EST us Indira Preciado MD POINT OF CARE TEST ORDERABLES Fi nal Result [facility] [address] [place] [address] * ECG AND WAVEFORMS - TELEMETRY (01/08/2025 7:30 AM EST) Pathologist [facility] ECG INTERPRET NSR [facility] 01/08/2025 7:30 AM EST Narrative [facility] - 01/08/2025 8:13 AM EST ROUTINE (LZ) [place] 0.19 QRS 0.11 RR 0.93 QT 0.41 QTc 0.42 See Clinical Report link for waveform capture us Unknown Provider POINT OF CARE CARDIOLOGY Final Result Performing Organization Address City/[facility]/ZIP Co de Phone Number [facility] [address] [place] [address] * (ABNORMAL) CBC WITH DIFF (01/08/2025 6:51 AM EST) Pathologist [facility] WBC 5.2 3.7 - 10.3 x10(3)/mcL 01/08/2025 7:09 AM EST [facility] RBC 5.03 4.60 - 6.10 x10(6)/mcL 01/08/2025 7:09 AM EST [facility] Hgb 13.0(L) 13.7 - 17.5 g/dL 01/08/2025 7:09 AM EST [facility] Hct 40.7 40.0 - 51.0 % 01/08/2025 7:09 AM EST [facility] MCV 80.9 80.0 - 100.0 fL 01/08/2025 7:09 AM EST [facility] MCH 25.8(L) 26.0 - 34.0 pg 01/08/2025 7:09 AM EST [facility] MCHC 31.9 30.7 - 35.5 g/dL 01/08/2025 7:09 AM EST [facility] RDW 16.3(H) <=14.9 % 01/08/2025 7:09 AM EST [facility] Platelet 382(H) 155 - 369 x10(3)/mcL 01/08/2025 7:09 AM EST [facility] MPV 9.8 8.8 - 12.5 fL 01/08/2025 7:09 AM EST [facility] Neut Percent 65.8 % 01/08/2025 7:09 AM EST [facility] Comment:Neutrophils equals s egs plus bands Imm Gran% 1.3 % 01/08/2025 7:09 AM EST [facility] Comment:Automated count of m etamyelocytes, myelocytes and promyelocytes. IG >1% represents a left shift and provides an early indication of an infection or inflammatory process. Lymph Percent 23.1 % 01/08/2025 7:09 AM EST [facility] [place] Percent 7.5 % 01/08/2025 7:09 AM EST [facility] Eos Percent 1.7 % 01/08/2025 7:09 AM EST [facility] Baso Percent 0.6 % 01/08/2025 7:09 AM EST [facility] Neut # 3.4 1.6 - 6.1 x10(3)/mcL 01/08/2025 7:09 AM EST [facility] Comment:Neutrophils equals s egs plus bands IMMGRAN# 0.1 0.0 - 0.1 x10(3)/mcL 01/08/2025 7:09 AM EST [facility] Comment:Automated count of m etamyelocytes, myelocytes and promyelocytes. An absolute IG <0.1 is reported as 0.0. Lymph # 1.2 1.2 - 3.9 x10(3)/mcL 01/08/2025 7:09 AM EST [facility] [place] # 0.4 0.3 - 0.9 x10(3)/mcL 01/08/2025 7:09 AM EST [facility] Eos# 0.1 0.0 - 0.5 x10(3)/mcL 01/08/2025 7:09 AM EST [facility] Baso # 0.0 0.0 - 0.1 x10(3)/mcL 01/08/2025 7:09 AM EST [facility] Blood VENOUS BLOOD / Unknown Venipuncture / Unknown 01/08/2025 6:51 AM EST 01/08/2025 7:03 AM EST us Samara Mckeon W[employer] HEMATOLOGY ORDERABLES F inal Result [facility] [address] [facility] , [place] [address] * (ABNORMAL) BASIC METABOLIC PANEL (01/08/2025 6:51 AM EST) Sodium 134(L) 136 - 145 mmol/L 01/08/2025 7:35 AM EST [facility] Potassium 01/08/2025 7:35 AM EST [facility] Comment:Unable to result pot assium due to elevated hemolysis. Chloride 98 98 - 107 mmol/L 01/08/2025 7:35 AM EST [facility] Total CO2 24 22 - 29 mmol/L 01/08/2025 7:35 AM EST [facility] Anion Gap 12 7 - 16 mmol/L 01/08/2025 7:35 AM EST [facility] Calcium 9.5 8.6 - 10.4 mg/dL 01/08/2025 7:35 AM EST [facility] Glucose Lvl 140(H) 70 - 99 mg/dL 01/08/2025 7:35 AM EST [facility] BUN 11 6 - 20 mg/dL 01/08/2025 7:35 AM EST [facility] Creatinine 0.70 0.67 - 1.30 mg/dL 01/08/2025 7:35 AM EST [facility] eGFR (CKD-EPIcr 2020) 118 >=60 mL/min/1.7 3 m2 01/08/2025 7:35 AM EST [facility] Comment:Estimated GFR was ca lculated using the CKD-EPIcr (2020) equation refit without race. The equation is recommended by the [employer] - [place] [employer]ph[employer] Task Force. Blood VENOUS BLOOD / Unknown Venipuncture / Unknown 01/08/2025 6:51 AM EST 01/08/2025 7:04 AM EST us Samara Mckeon APRN CHEMISTRY ORDERABLES Fi nal Result [facility] [address] [facility], [place] [address] * (ABNORMAL) GLUCOSE METER POC (01/08/2025 5:03 AM EST) Glucose Meter POC 189(H) 70 - 100 mg/dL 01/08/2025 5:04 AM EST [facility] Sample Type Capillary 01/08/2025 5:04 AM EST [facility] Patient Status Non-Critical Patient 01/08/2025 5:04 AM EST [facility] Blood BLOOD SPECIMEN / Unknown 01/08/2025 5:03 AM EST 01/08/2025 5:04 AM EST us Indira Preciado MD POINT OF CARE TEST ORDERABLES Fi nal Result Performing Organization Address City/[facility]/ZIP Co de Phone Number [place] [phone] * (ABNORMAL) GLUCOSE METER POC (01/07/2025 11:13 PM EST) Glucose Meter POC 194(H) 70 - 100 mg/dL 01/07/2025 11:15 PM EST [facility] Sample Type Capillary 01/07/2025 11:15 PM EST [facility] Patient Status Non-Critical Patient 01/07/2025 11:15 PM EST [facility] Blood BLOOD SPECIMEN / Unknown 01/07/2025 11:13 PM EST 01/07/2025 11:15 PM EST Indira Preciado MD POINT OF CARE TEST ORDERABLES Fi nal Result [address] [address] * ECG AND WAVEFORMS - TELEMETRY (01/07/2025 7:01 PM EST) ECG INTERPRET NSR [facility] 01/07/2025 7:01 PM EST Narrative [facility] - 01/07/2025 8:11 PM EST ROUTINE (CB) [place] 0.21 QRS 0.07 RR 0.86 QT 0.40 QTc 0.43 See Clinical Report link for waveform capture us Unknown Provider POINT OF CARE CARDIOLOGY Final Result Performing Organization Address City/[facility]/ZIP Co de Phone Number [facility] [address] [place] [address] * (ABNORMAL) GLUCOSE METER POC (01/07/2025 6:29 PM EST) Glucose Meter POC 192(H) 70 - 100 mg/dL 01/07/2025 6:31 PM EST [facility] Sample Type Capillary 01/07/2025 6:31 PM EST [facility] Patient Status Non-Critical Patient 01/07/2025 6:31 PM EST [facility] Blood BLOOD SPECIMEN / Unknown 01/07/2025 6:29 PM EST 01/07/2025 6:31 PM EST Indira Preciado MD POINT OF CARE TEST ORDERABLES Fi nal Result [facility] [address] [place] [address] * (ABNORMAL) GLUCOSE METER POC (01/07/2025 2:53 PM EST) Glucose Meter POC 122(H) 70 - 100 mg/dL 01/07/2025 2:54 PM EST [facility] Sample Type Capillary 01/07/2025 2:54 PM EST [facility] Patient Status Non-Critical Patient 01/07/2025 2:54 PM EST [facility] Blood BLOOD SPECIMEN / Unknown 01/07/2025 2:53 PM EST 01/07/2025 2:54 PM EST us Indira Preciado MD POINT OF CARE TEST ORDERABLES Fi nal Result [facility] [address] [place] [address] * ECG AND WAVEFORMS - TELEMETRY (01/07/2025 7:00 AM EST) Pathologist [facility] ECG INTERPRET NSR [facility] 01/07/2025 7:00 AM EST Narrative [facility] - 01/07/2025 7:47 AM EST [place] ROUTINE [place] 0.20 QRS 0.08 RR 0.88 QT 0.39 See Clinical Report link for waveform capture us Unknown Provider POINT OF CARE CARDIOLOGY Final Result Performing Organization Address City/[facility]/ZIP Co de Phone Number [facility] [address] [place] [address] * (ABNORMAL) HEPATIC FUNCTION PANEL (01/07/2025 6:53 AM EST) Total Protein 6.6 6.4 - 8.3 gm/dL 01/07/2025 9:23 AM EST [facility] Albumin 3.5 3.5 - 5.2 gm/dL 01/07/2025 9:23 AM EST [facility] Bili Direct 0.8(H) 0.0 - 0.3 mg/dL 01/07/2025 9:23 AM EST [facility] Bili Total 1.2 0.2 - 1.4 mg/dL 01/07/2025 9:23 AM EST [facility] AST 196(H) <=40 U/L 01/07/2025 9:23 AM EST [facility] ALT 184(H) <=41 U/L 01/07/2025 9:23 AM EST [facility] Alk Phos 60 40 - 129 U/L 01/07/2025 9:23 AM EST [facility] Blood VENOUS BLOOD / Unknown Venipuncture / Unknown 01/07/2025 6:53 AM EST 01/07/2025 6:57 AM EST us Jacky Maddox MD CHEMISTRY ORDERABLES Final Resu lt [facility] [address] [facility] , [place] [address] * (ABNORMAL) CBC WITH DIFF (01/07/2025 6:53 AM EST) WBC 4.8 3.7 - 10.3 x10(3)/mcL 01/07/2025 7:28 AM EST [facility] RBC 4.57(L) 4.60 - 6.10 x10(6)/mcL 01/07/2025 7:28 AM EST [facility] Hgb 11.5(L) 13.7 - 17.5 g/dL 01/07/2025 7:28 AM EST [facility] Hct 37.3(L) 40.0 - 51.0 % 01/07/2025 7:28 AM EST [facility] MCV 81.6 80.0 - 100.0 fL 01/07/2025 7:28 AM EST [facility] MCH 25.2(L) 26.0 - 34.0 pg 01/07/2025 7:28 AM EST [facility] MCHC 30.8 30.7 - 35.5 g/dL 01/07/2025 7:28 AM EST [facility] RDW 16.2(H) <=14.9 % 01/07/2025 7:28 AM EST [facility] Platelet 264 155 - 369 x10(3)/mcL 01/07/2025 7:28 AM EST [facility] MPV 9.3 8.8 - 12.5 fL 01/07/2025 7:28 AM EST [facility] Neut Percent 65.9 % 01/07/2025 7:28 AM EST [facility] Comment:Neutrophils equals s egs plus bands Imm Gran% 0.8 % 01/07/2025 7:28 AM EST [facility] Comment:Automated count of m etamyelocytes, myelocytes and promyelocytes. Lymph Percent 23.8 % 01/07/2025 7:28 AM EST [facility] [place] Percent 8.5 % 01/07/2025 7:28 AM EST [facility] Eos Percent 0.6 % 01/07/2025 7:28 AM EST [facility] Baso Percent 0.4 % 01/07/2025 7:28 AM EST [facility] Neut # 3.2 1.6 - 6.1 x10(3)/mcL 01/07/2025 7:28 AM EST [facility] Comment:Neutrophils equals s egs plus bands IMMGRAN# 0.0 0.0 - 0.1 x10(3)/mcL 01/07/2025 7:28 AM EST [facility] Comment:Automated count of m etamyelocytes, myelocytes and promyelocytes. An absolute IG <0.1 is reported as 0.0. Lymph # 1.2 1.2 - 3.9 x10(3)/mcL 01/07/2025 7:28 AM EST [facility] [place] # 0.4 0.3 - 0.9 x10(3)/mcL 01/07/2025 7:28 AM EST [facility] Eos# 0.0 0.0 - 0.5 x10(3)/mcL 01/07/2025 7:28 AM EST [facility] Baso # 0.0 0.0 - 0.1 x10(3)/mcL 01/07/2025 7:28 AM EST [facility] Blood VENOUS BLOOD / Unknown Venipuncture / Unknown 01/07/2025 6:53 AM EST 01/07/2025 6:57 AM EST us Samara Mckeon W[employer] HELPER HEMATOLOGY ORDERABLES F inal Result [facility] [address] [facility] , [place] [address] * (ABNORMAL) BASIC METABOLIC PANEL (01/07/2025 6:53 AM EST) Sodium 138 136 - 145 mmol/L 01/07/2025 7:38 AM EST [facility] Potassium 3.5 3.5 - 5.0 mmol/L 01/07/2025 7:38 AM EST [facility] Chloride 98 98 - 107 mmol/L 01/07/2025 7:38 AM EST [facility] Total CO2 31(H) 22 - 29 mmol/L 01/07/2025 7:38 AM EST [facility] Anion Gap 9 7 - 16 mmol/L 01/07/2025 7:38 AM EST [facility] Calcium 8.8 8.6 - 10.4 mg/dL 01/07/2025 7:38 AM EST [facility] Glucose Lvl 141(H) 70 - 99 mg/dL 01/07/2025 7:38 AM EST [facility] BUN 13 6 - 20 mg/dL 01/07/2025 7:38 AM EST [facility] Creatinine 0.82 0.67 - 1.30 mg/dL 01/07/2025 7:38 AM EST [facility] eGFR (CKD-EPIcr 2020) 112 >=60 mL/min/1.7 3 m2 01/07/2025 7:38 AM EST [facility] Comment:Estimated GFR was ca lculated using the CKD-EPIcr (2020) equation refit without race. The equation is recommended by the [employer] Kid[employer] - [place] [employer] Nephrology Task Force. Blood VENOUS BLOOD / Unknown Venipuncture / Unknown 01/07/2025 6:53 AM EST 01/07/2025 6:57 AM EST Samara Mckeon W[employer] HELPER CHEMISTRY ORDERABLES Fi nal Result [facility] 1 [facility] , [address] [place] [phone] * MAGNESIUM LEVEL (01/07/2025 6:53 AM EST) Magnesium 2.0 1.6 - 2.4 mg/dL 01/07/2025 7:38 AM EST [facility] Blood VENOUS BLOOD / Unknown Venipuncture / Unknown 01/07/2025 6:53 AM EST 01/07/2025 6:57 AM EST us Kayden Serrano DO CHEMISTRY ORDERABLES Final Resul t Performing Organization Address City/[facility]/ZIP Co de Phone Number [facility] [address] [facility] , [address] [place] [phone] * PHOSPHORUS LEVEL (01/07/2025 6:53 AM EST) Phosphorus 2.9 2.5 - 4.5 mg/dL 01/07/2025 7:38 AM EST [facility] Blood VENOUS BLOOD / Unknown Venipuncture / Unknown 01/07/2025 6:53 AM EST 01/07/2025 6:57 AM EST us Kayden Serrano DO CHEMISTRY ORDERABLES Final Resul t Performing Organization Address [facility] Co de Phone Number [facility] [address] [facility] , [place] [address] * (ABNORMAL) GLUCOSE METER POC (01/07/2025 5:41 AM EST) Glucose Meter POC 143(H) 70 - 100 mg/dL 01/07/2025 5:43 AM EST [facility] Sample Type Capillary 01/07/2025 5:43 AM EST [facility] Patient Status Non-Critical Patient 01/07/2025 5:43 AM EST [facility] Blood BLOOD SPECIMEN / Unknown 01/07/2025 5:41 AM EST 01/07/2025 5:43 AM EST us Indira Preciado MD POINT OF CARE TEST ORDERABLES Fi nal Result Performing Organization Address City/[facility] Co de Phone Number [facility] [address] [place] [id number] * ECG AND WAVEFORMS - TELEMETRY (01/07/2025 5:25 AM EST) ECG INTERPRET Sinus Bradycardia [facility] 01/07/2025 5:25 AM EST Narrative [facility] - 01/07/2025 5:27 AM EST SASHA TO 39 (CB) See Clinical Report link for waveform capture us Unknown Provider POINT OF CARE CARDIOLOGY Final Result [facility] [address] [place] [address] * (ABNORMAL) GLUCOSE METER POC (01/06/2025 11:45 PM EST) Glucose Meter POC 136(H) 70 - 100 mg/dL 01/06/2025 11:47 PM EST [facility] Sample Type Capillary 01/06/2025 11:47 PM EST [facility] Patient Status Non-Critical Patient 01/06/2025 11:47 PM EST [facility] Blood BLOOD SPECIMEN / Unknown 01/06/2025 11:45 PM EST 01/06/2025 11:47 PM EST us Indira Preciado MD POINT OF CARE TEST ORDERABLES Fi nal Result Performing Organization Address City/[facility]/ZIP Co de Phone Number [facility] 1 [place] [address] * (ABNORMAL) GLUCOSE METER POC (01/06/2025 7:48 PM EST) Glucose Meter POC 164(H) 70 - 100 mg/dL 01/06/2025 7:49 PM EST [facility] Sample Type Capillary 01/06/2025 7:49 PM EST [facility] Patient Status Non-Critical Patient 01/06/2025 7:49 PM EST [facility] Blood BLOOD SPECIMEN / Unknown 01/06/2025 7:48 PM EST 01/06/2025 7:49 PM EST Indira Preciado MD POINT OF CARE TEST ORDERABLES Fi nal Result Performing Organization Address City/[facility]/ZIP Co de Phone Number [facility] [address] [place] [address] * ECG AND WAVEFORMS - TELEMETRY (01/06/2025 7:00 PM EST) ECG INTERPRET NSR [facility] 01/06/2025 7:00 PM EST Narrative [facility] - 01/06/2025 9:01 PM EST ROUTINE (CB) [place] 0.17 QRS 0.09 RR 0.84 QT 0.41 QTc 0.44 See Clinical Report link for waveform capture us Unknown Provider POINT OF CARE CARDIOLOGY Final Result Performing Organization Address City/[facility]/ZIP Co de Phone Number [facility] [address] [place] [address] * (ABNORMAL) GLUCOSE METER POC (01/06/2025 4:34 PM EST) [facility] Glucose Meter POC 123(H) 70 - 100 mg/dL 01/06/2025 4:35 PM EST [facility] Sample Type Capillary 01/06/2025 4:35 PM EST [facility] Patient Status Non-Critical Patient 01/06/2025 4:35 PM EST [facility] Blood BLOOD SPECIMEN / Unknown 01/06/2025 4:34 PM EST 01/06/2025 4:35 PM EST Indira Preciado MD POINT OF CARE TEST ORDERABLES Fi nal Result Performing Organization Address [facility]/ZIP Co de Phone Number [facility] [address] [place] [address] * ECG AND WAVEFORMS - TELEMETRY (01/06/2025 4:33 PM EST) ECG INTERPRET NSR [facility] 01/06/2025 4:33 PM EST Narrative [facility] - 01/06/2025 4:43 PM EST [place] ROUT[place] 0.20 QRS 0.09 RR 0.85 QT 0.42 See Clinical Report link for waveform capture us Unknown Provider POINT OF CARE CARDIOLOGY Final Result Performing Organization Address City/[facility]/ZIP Co de Phone Number [facility] [address] [place] [address] * CT ANGIOGRAM PULMONARY W CONTRAST (01/06/2025 3:06 PM EST) Anatomical Region Laterality Modality Chest Computed Tomogra phy 01/06/2025 3:06 PM EST Impressions 01/06/2025 3:17 PM EST 1. No acute pulmonary embolism. 2. Mild multifocal groundglass opacities in both lower lobes and posterior upper lobes. Findings likely infectious/inflammatory in etiology and possibly aspiration related. 3. Trace bilateral pleural effusions with mild bibasilar atelectasis. - Note: Radiology results need to be interpreted within a comprehensive clinical context. If you have questions about the radiology report, please contact the office of the ordering clinician. Narrative 01/06/2025 3:[address] PULMONARY ANGIOGRAM, 01/06/2025 3:06 PM CLINICAL HISTORY: -R/O PE. COMPARISON: Chest x-ray same day TECHNIQUE: PE protocol CT angiogram of the chest using iodinated IV contrast as recorded in [facility]. 2-D multiplanar reconstructions and 3-D MIP reconstructions reviewed. Dose 1 : CT DLP Total : 342.95 mGycm DLP Spiral Max : 322.52 mGycm Maximum CTDI Vol : 16.4 mGy FINDINGS: Adequate visualization of the pulmonary arteries to the segmental/subsegmental level. No acute pulmonary embolism. No aortic arch aneurysm. No active failure, pneumonia, effusion, or pneumothorax. Mild multifocal groundglass opacities in both lower lobes and posterior upper lobes. Trace bilateral pleural effusions with mild bibasilar atelectasis. Coronary artery calcification: Mild. Partially imaged transesophageal enteric tube. Procedure Note Javier Olea MD - 01/06/2025 CT PULMONARY ANGIOGRAM, 01/06/2025 3:06 PM CLINICAL HISTORY: -R/O PE. COMPARISON: Chest x-ray same day TECHNIQUE: PE protocol CT angiogram of the chest using iodinated IVcontrast as recorded in [facility]. 2-D multiplanar reconstructions and 3-D MIPreconstructions reviewed. Dose 1 : CT DLP Total : 342.95 mGycm DLP Spiral Max : 322.52 mGycm Maximum CTDI Vol : 16.4 mGy FINDINGS: Adequate visualization of the pulmonary arteries to the segmental/subsegmental level. No acute pulmonary embolism. No aortic arch aneurysm. No active failure, pneumonia, effusion, or pneumothorax. Mild multifocal groundglass opacities in both lower lobes and posteriorupper lobes. Trace bilateral pleural effusions with mild bibasilaratelectasis. Coronary artery calcification: Mild. Partially imaged transesophageal enteric tube. IMPRESSION: 1. No acute pulmonary embolism. 2. Mild multifocal groundglass opacities in both lower lobes andposterior upper lobes. Findings likely infectious/inflammatory in etiology andpossibly aspiration related. 3. Trace bilateral pleural effusions with mild bibasilar atelectasis. - Note: Radiology results need to be interpreted within a comprehensiveclinical context. If you have questions about the radiology report, please contactthe office of the ordering clinician. Eben MARCANO [facility] ORDERABLES Final Result * EC ECHOCARDIOGRAM 2D M MODE COMPLETE W CONTRAST (01/06/2025 12:25 PM EST) Ejection Fraction 50-55% PYRAMIS MITRAL REGURGITATION trace PYRAMIS AORTIC STENOSIS no PYRAMIS LV DIASTOLIC PLAX 6.1 cm PYRAMIS Anatomical Region Laterality Modality Electrocardiogra phy 01/06/2025 9:22 AM EST Impressions 01/06/2025 12:07 PM EST Conclusions * Left ventricular chamber dimension is mildly enlarged. * Left ventricular function is low normal with an estimated ejection fraction of 50-55%. * The left ventricular diastolic function is consistent with diastolic dysfunction and indeterminate left atrial pressure. * Right ventricular systolic function is normal. * Unable to estimate pulmonary arterial systolic pressure due to lack of tricuspid regurgitation jet. Narrative Procedure Note Jaylen Sykes, DO - 01/06/2025 IMPRESSION Conclusions * Left ventricular chamber dimension is mildly enlarged. * Left ventricular function is low normal with an estimated ejection fraction of 50-55%. * The left ventricular diastolic function is consistent with diastolic dysfunction and indeterminate left atrial pressure. * Right ventricular systolic function is normal. * Unable to estimate pulmonary arterial systolic pressure due to lackof tricuspid regurgitation jet. Jacky Maddox MD IMG ECHO ORDERABLES Final Resul t * (ABNORMAL) GLUCOSE METER POC (01/06/2025 12:10 PM EST) Glucose Meter POC 145(H) 70 - 100 mg/dL 01/06/2025 12:12 PM EST [facility] Sample Type Capillary 01/06/2025 12:12 PM EST [facility] Patient Status Non-Critical Patient 01/06/2025 12:12 PM EST [facility] Blood BLOOD SPECIMEN / Unknown 01/06/2025 12:10 PM EST 01/06/2025 12:12 PM EST Indira Preciado MD POINT OF CARE TEST ORDERAB[place] [address] * AK US LOWER EXTREMITY VENOUS BILATERAL (01/06/2025 11:58 AM EST) Anatomical Region Laterality Modality Vascular, Leg Vascular Imaging 01/06/2025 11:4 1 AM EST Impressions 01/07/2025 7:02 AM EST Conclusions * No evidence of deep vein thrombosis identified in the right lower extremity. * No evidence of deep vein thrombosis identified in the bilateral lower extremities. * No evidence of superficial thrombosis identified in the bilateral lower extremities. Narrative Procedure Note Get Gates MD - 01/07/2025 IMPRESSION Conclusions * No evidence of deep vein thrombosis identified in the right lower extremity. * No evidence of deep vein thrombosis identified in the bilaterallower extremities. * No evidence of superficial thrombosis identified in the bilaterallower extremities. Jacky Maddox MD IMG VASCULAR ORDERABLES Final R esult * (ABNORMAL) GLUCOSE METER POC (01/06/2025 4:38 AM EST) Glucose Meter POC 159(H) 70 - 100 mg/dL 01/06/2025 4:40 AM EST [facility] Sample Type Capillary 01/06/2025 4:40 AM EST [facility] Patient Status Non-Critical Patient 01/06/2025 4:40 AM EST [facility] Blood BLOOD SPECIMEN / Unknown 01/06/2025 4:38 AM EST 01/06/2025 4:40 AM EST us Indira Preciado MD POINT OF CARE TEST ORDERABLES Fi nal Result [facility] [address] [place] [id number] * (ABNORMAL) CBC WITH DIFF (01/06/2025 4:14 AM EST) WBC 5.8 3.7 - 10.3 x10(3)/mcL 01/06/2025 4:33 AM EST [facility] RBC 4.55(L) 4.60 - 6.10 x10(6)/mcL 01/06/2025 4:33 AM EST [facility] Hgb 11.3(L) 13.7 - 17.5 g/dL 01/06/2025 4:33 AM EST [facility] Hct 37.1(L) 40.0 - 51.0 % 01/06/2025 4:33 AM EST [facility] MCV 81.5 80.0 - 100.0 fL 01/06/2025 4:33 AM EST [facility] MCH 24.8(L) 26.0 - 34.0 pg 01/06/2025 4:33 AM EST [facility] MCHC 30.5(L) 30.7 - 35.5 g/dL 01/06/2025 4:33 AM EST [facility] RDW 16.1(H) <=14.9 % 01/06/2025 4:33 AM EST [facility] Platelet 248 155 - 369 x10(3)/mcL 01/06/2025 4:33 AM EST [facility] MPV 9.2 8.8 - 12.5 fL 01/06/2025 4:33 AM EST [facility] Neut Percent 80.4 % 01/06/2025 4:33 AM EST [facility] Comment:Neutrophils equals s egs plus bands Imm Gran% 0.9 % 01/06/2025 4:33 AM EST [facility] Comment:Automated count of m etamyelocytes, myelocytes and promyelocytes. Lymph Percent 12.5 % 01/06/2025 4:33 AM EST [facility] [place] Percent 6.0 % 01/06/2025 4:33 AM EST [facility] Eos Percent 0.0 % 01/06/2025 4:33 AM EST [facility] Baso Percent 0.2 % 01/06/2025 4:33 AM EST [facility] Neut # 4.7 1.6 - 6.1 x10(3)/[facility] 01/06/2025 4:33 AM EST [facility] Comment:Neutrophils equals s egs plus bands IMMGRAN# 0.1 0.0 - 0.1 x10(3)/[facility] 01/06/2025 4:33 AM EST [facility] Comment:Automated count of m etamyelocytes, myelocytes and promyelocytes. An absolute IG <0.1 is reported as 0.0. Lymph # 0.7(L) 1.2 - 3.9 x10(3)/[facility] 01/06/2025 4:33 AM EST [facility] Winona # 0.4 0.3 - 0.9 x10(3)/[facility] 01/06/2025 4:33 AM EST [facility] Eos# 0.0 0.0 - 0.5 x10(3)/[facility] 01/06/2025 4:33 AM EST [facility] Baso # 0.0 0.0 - 0.1 x10(3)/[facility] 01/06/2025 4:33 AM EST [facility] Blood VENOUS BLOOD / Unknown Venipuncture / Unknown 01/06/2025 4:14 AM EST 01/06/2025 4:25 AM EST us Samara Mckeon [employer] HEMATOLOGY ORDERABLES F inal Result [facility] [address] [facility] , [place] [address] * (ABNORMAL) BASIC METABOLIC PANEL (01/06/2025 4:14 AM EST) Sodium 137 136 - 145 mmol/L 01/06/2025 5:41 AM EST [facility] Potassium 4.4 3.5 - 5.0 mmol/L 01/06/2025 5:41 AM EST [facility] Chloride 98 98 - 107 mmol/L 01/06/2025 5:41 AM EST [facility] Total CO2 29 22 - 29 mmol/L 01/06/2025 5:41 AM EST [facility] Anion Gap 10 7 - 16 mmol/L 01/06/2025 5:41 AM EST [facility] Calcium 9.3 8.6 - 10.4 mg/dL 01/06/2025 5:41 AM EST [facility] Glucose Lvl 153(H) 70 - 99 mg/dL 01/06/2025 5:41 AM EST [facility] BUN 15 6 - 20 mg/dL 01/06/2025 5:41 AM EST [facility] Creatinine 0.71 0.67 - 1.30 mg/dL 01/06/2025 5:41 AM EST [facility] eGFR (CKD-EPIcr 2020) 117 >=60 mL/min/1.7 3 m2 01/06/2025 5:41 AM EST [facility] Comment:Estimated GFR was ca lculated using the CKD-EPIcr (2020) equation refit without race. The equation is recommended by the National Kid[employer] - [place] [employer] Neph[employer] Task Force. Blood VENOUS BLOOD / Unknown Venipuncture / Unknown 01/06/2025 4:14 AM EST 01/06/2025 4:25 AM EST us Samara Mckeon [employer] CHEMISTRY ORDERABLES Fi nal Result [facility] [address] [facility] , [place] [address] * (ABNORMAL) BLOOD GAS, VENOUS (01/06/2025 4:14 AM EST) pH Venous 7.38 7.32 - 7.42 pH 01/06/2025 4:43 AM EST [facility] pCO2 Venous 52(H) 41 - 51 mmHg 01/06/2025 4:43 AM EST [facility] pO2 Venous 74(H) 25 - 40 mmHg 01/06/2025 4:43 AM EST [facility] Comment:Interpret with cauti on. Not recommended to evaluate patient's oxygenation status. Base Excess Akhil 4.7 mmol/L 4:43 AM EST [facility] Hco3 Venous 30.4(H) 24.0 - 28.0 mmol/L 01/06/2025 4:43 AM EST [facility] CO2 Total Akhil 28 25 - 29 mmol/L 01/06/2025 4:43 AM EST [facility] O2 Sat. Venous 94.1(H) 40.0 - 70.0 % 01/06/2025 4:43 AM EST [facility] Inspired O2 50 01/06/2025 4:43 AM EST [facility] Blood VENOUS BLOOD / Unknown Venipuncture / Unknown 01/06/2025 4:14 AM EST 01/06/2025 4:25 AM EST us Samara Mckeon APRN CHEMISTRY ORDERABLES Fi nal Result Performing Organization Address City/[facility]/ZIP Co de Phone Number [facility], [address] , [place] [address] * (ABNORMAL) LIPASE LEVEL (01/06/2025 4:14 AM EST) Lipase Lvl 158(H) 13 - 60 U/L 01/06/2025 6:17 AM EST [facility] Blood VENOUS BLOOD / Unknown Venipuncture / Unknown 01/06/2025 4:14 AM EST 01/06/2025 4:25 AM EST us Everardo Ibarra MD CHEMISTRY ORDERABLES Final Res ult Performing Organization Address City/[facility]/ZIP Co de Phone Number [facility], [address] , [place] [address] * (ABNORMAL) HEPATIC FUNCTION PANEL (01/06/2025 4:14 AM EST) Total Protein 6.7 6.4 - 8.3 gm/dL 01/06/2025 5:41 AM EST [facility] Albumin 3.3(L) 3.5 - 5.2 gm/dL 01/06/2025 5:41 AM EST [facility] Bili Direct 1.0(H) 0.0 - 0.3 mg/dL 01/06/2025 5:41 AM EST [facility] Bili Total 1.4 0.2 - 1.4 mg/dL 01/06/2025 5:41 AM EST [facility] AST 42(H) <=40 U/L 01/06/2025 5:41 AM EST [facility] ALT 69(H) <=41 U/L 01/06/2025 5:41 AM EST [facility] Alk Phos 64 40 - 129 U/L 01/06/2025 5:41 AM EST [facility] Blood VENOUS BLOOD / Unknown Venipuncture / Unknown 01/06/2025 4:14 AM EST 01/06/2025 4:25 AM EST us Everardo Ibarra MD CHEMISTRY ORDERABLES Final Res ult Performing Organization Address [facility] Co de Phone Number [facility], [address] , [place] [address] * MAGNESIUM LEVEL (01/06/2025 4:14 AM EST) Pathologist [facility] Magnesium 2.1 1.6 - 2.4 mg/dL 01/06/2025 5:41 AM EST [facility] Blood VENOUS BLOOD / Unknown Venipuncture / Unknown 01/06/2025 4:14 AM EST 01/06/2025 4:25 AM EST us Kayden Serrano DO CHEMISTRY ORDERABLES Final Resul t Performing Organization Address City/[facility]/ZIP Co de Phone Number [facility] [address] [facility] , [address] [place] [id number] * PHOSPHORUS LEVEL (01/06/2025 4:14 AM EST) Phosphorus 3.7 2.5 - 4.5 mg/dL 01/06/2025 5:41 AM EST [facility] Blood VENOUS BLOOD / Unknown Venipuncture / Unknown 01/06/2025 4:14 AM EST 01/06/2025 4:25 AM EST Kayden Serrano DO CHEMISTRY ORDERABLES Final Resul t [facility] [address] [facility], [address] [place] [phone] * (ABNORMAL) GLUCOSE METER POC (01/05/2025 11:04 PM EST) Glucose Meter POC 161(H) 70 - 100 mg/dL 01/06/2025 8:47 AM EST [facility] Sample Type Capillary 01/06/2025 8:47 AM EST [facility] Patient Status Non-Critical Patient 01/06/2025 8:47 AM EST [facility] Blood BLOOD SPECIMEN / Unknown 01/05/2025 11:04 PM EST 01/06/2025 8:47 AM EST Indira Preciado MD POINT OF CARE TEST ORDERABLES Fi nal Result [facility] [address] [place], [place] [id number] * (ABNORMAL) GLUCOSE METER POC (01/05/2025 6:25 PM EST) Glucose Meter POC 151(H) 70 - 100 mg/dL 01/05/2025 6:26 PM EST [facility] Sample Type Capillary 01/05/2025 6:26 PM EST [facility] Patient Status Non-Critical Patient 01/05/2025 6:26 PM EST [facility] Blood BLOOD SPECIMEN / Unknown 01/05/2025 6:25 PM EST 01/05/2025 6:26 PM EST us Indira Preciado MD POINT OF CARE TEST ORDERABLES Fi nal Result [facility] [address] [place] [phone] * (ABNORMAL) POC ARTERIAL BLOOD GAS PROFILE (01/05/2025 4:32 PM EST) pH 7.31(L) 7.35 - 7.45 pH 01/05/2025 4:33 PM EST [facility] pCO2 61(H) 35 - 45 mmHg 01/05/2025 4:33 PM EST [facility] pO2 72(L) 80 - 100 mmHg 01/05/2025 4:33 PM [facility] HCO3 27.1(H) 22.0 - 26.0 mmol/L 01/05/2025 4:33 PM [facility] Base Excess 4.5(H) -2.0 - 3.0 mmol/L 01/05/2025 4:33 PM [facility] O2 Sat 92.7(L) 95.0 - 98.0 % 01/05/2025 4:33 PM EST [facility] Sodium 140 136 - 145 mmol/L 01/05/2025 4:33 PM [facility] Calcium Ionized 1.23 1.12 - 1.32 mmol/L 01/05/2025 4:33 PM [facility] Chloride 99 98 - 107 mmol/L 01/05/2025 4:33 PM [facility] Glucose WB 144(H) 72 - 112 mg/dL 01/05/2025 4:33 PM [facility] Lactic Acid 0.7 0.5 - 1.9 mmol/L 01/05/2025 4:33 PM [facility] K-WB 4.9 3.5 - 5.0 mmol/L 01/05/2025 4:33 PM [facility] Hgb 12.3(L) 13.7 - 17.5 g/dL 01/05/2025 4:33 PM [facility] Hct 37.8(L) 40.0 - 51.0 % 01/05/2025 4:33 PM EST [facility] Inspired O2 60.0 % 01/05/2025 4:33 PM EST [facility] P/F Ratio 120 mmHg 01/05/2025 4:33 PM EST [facility] Blood ARTERIAL BLOOD / Unknown 01/05/2025 4:32 PM EST 01/05/2025 4:33 PM EST us Indira Preciado MD POINT OF CARE TEST ORDERABLES Fi nal Result [facility] [address] [place] [address] * XR CHEST AP PORTABLE (01/05/2025 3:06 PM EST) Anatomical Region Laterality Modality Chest Radiographic Zulay ging 01/05/2025 3:06 PM EST Impressions 01/05/2025 3:11 PM EST Mild bibasilar airspace disease. - Note: Radiology results need to be interpreted within a comprehensive clinical context. If you have questions about the radiology report, please contact the office of the ordering clinician. Narrative 01/05/2025 3:11 PM EST XR CHEST AP PORTABLE, 01/05/2025 3:06 PM CLINICAL HISTORY: -post extubation, egd procedure COMPARISON: 02/04/2024 PROCEDURE COMMENTS: AP portable technique. FINDINGS: Support devices: NG tube noted. No change cardiomegaly. Mild bibasilar airspace disease. No pneumothorax. Procedure Note Shahab Flores MD - 01/05/2025 XR CHEST AP PORTABLE, 01/05/2025 3:06 PM CLINICAL HISTORY: -post extubation, egd procedure COMPARISON: 02/04/2024 PROCEDURE COMMENTS: AP portable technique. FINDINGS: Support devices: NG tube noted. No change cardiomegaly. Mild bibasilar airspace disease. Nopneumothorax. IMPRESSION: Mild bibasilar airspace disease. - Note: Radiology results need to be interpreted within a comprehensiveclinical context. If you have questions about the radiology report, please contactthe office of the ordering clinician. us Everardo Ibarra MD IMG DIAGNOSTIC IMAGING ORDERAB LES Final Result * (ABNORMAL) HEPATIC FUNCTION PANEL (01/05/2025 2:38 PM EST) Pathologist [facility] Total Protein 7.0 6.4 - 8.3 gm/dL 01/08/2025 12:48 PM EST [facility] Albumin 3.8 3.5 - 5.2 gm/dL 01/08/2025 12:48 PM EST [facility] Bili Direct 1.2(H) 0.0 - 0.3 mg/dL 01/08/2025 12:48 PM EST [facility] Bili Total 1.7(H) 0.2 - 1.4 mg/dL 01/08/2025 12:48 PM EST [facility] AST 67(H) <=40 U/L 01/08/2025 12:48 PM EST [facility] ALT 82(H) <=41 U/L 01/08/2025 12:48 PM EST [facility] Alk Phos 66 40 - 129 U/L 01/08/2025 12:48 PM EST [facility] Blood VENOUS BLOOD / Unknown Venipuncture / Unknown 01/05/2025 2:38 PM EST 01/05/2025 2:45 PM EST Alli Hannon [employer] HELPER CHEMISTRY ORDERABLES Tabitha l Result [facility] [address] [facility] , [place] [address] * ACUTE HEPATITIS PANEL (01/05/2025 2:38 PM EST) Pathologist [facility] Hep Bs Ag Non-Reacti ve Non-React vance 01/05/2025 6:03 PM EST [facility] Comment:HBsAg not detected. Does not exclude possibility of exposure to HBV. Hep B Core IgM Non-Reacti ve Non-React vance 01/05/2025 6:03 PM EST [facility] Hep A IgM Non-Reacti ve Non-React vance 01/05/2025 6:03 PM EST [facility] Hep C Ab Non-Reacti ve Non-React vance 01/05/2025 6:03 PM EST [facility] Comment:No antibodies to HCV detected. Does not exclude possibility of exposure to HCV. Blood VENOUS BLOOD / Unknown Venipuncture / Unknown 01/05/2025 2:38 PM EST 01/05/2025 2:45 PM EST Narrative [facility] 01/05/2025 6:03 PM EST Test performed using [employer] electrochemiluminescence immunassay (ECLIA). Jacky Maddox MD CHEMISTRY ORDERABLES Final Resu lt Performing Organization Address [facility] Phone Number [facility] , [place] [address] * (ABNORMAL) NT PROBNP (01/05/2025 2:38 PM EST) NT Pro-BNP 189(H) <=138 pg/mL 01/05/2025 5:53 PM EST [facility] Blood VENOUS BLOOD / Unknown Venipuncture / Unknown 01/05/2025 2:38 PM EST 01/05/2025 2:45 PM EST Narrative [facility] - 01/05/2025 5:53 PM EST An NT pro-BNP level less than 300 pg/mL in any patient, regardless of age, effectively rules out acute CHF with a 99% negative predictive value. Ingestion of jose antonio doses of biotin (>5 mg/day) taken within 8 hours of drawing blood sample can interfere with this immunoassay test. Jacky Maddox MD CHEMISTRY ORDERABLES Final Resu Performing Organization Address [facility] de Phone Number [address] , [place] [address] * IONIZED CALCIUM - INPATIENT (01/05/2025 2:38 PM EST) Calcium Ionized 1.21 1.12 - 1.32 mmol/L 01/05/2025 2:50 PM EST [facility] Blood VENOUS BLOOD / Unknown Venipuncture / Unknown 01/05/2025 2:38 PM EST 01/05/2025 2:45 PM EST us Everardo Ibarra MD CHEMISTRY ORDERABLES Final Res ult [facility] [address] [facility] , [place] [address] * (ABNORMAL) BASIC METABOLIC PANEL (01/05/2025 2:38 PM EST) Sodium 138 136 - 145 mmol/L 01/05/2025 3:21 PM EST [facility] Potassium 5.1(H) 3.5 - 5.0 mmol/L 01/05/2025 3:21 PM EST [facility] Chloride 99 98 - 107 mmol/L 01/05/2025 3:21 PM EST [facility] Total CO2 30(H) 22 - 29 mmol/L 01/05/2025 3:21 PM EST [facility] Anion Gap 9 7 - 16 mmol/L 01/05/2025 3:21 PM EST [facility] Calcium 9.1 8.6 - 10.4 mg/dL 01/05/2025 3:21 PM EST [facility] Glucose Lvl 133(H) 70 - 99 mg/dL 01/05/2025 3:21 PM EST [facility] BUN 15 6 - 20 mg/dL 01/05/2025 3:21 PM EST [facility] Creatinine 0.83 0.67 - 1.30 mg/dL 01/05/2025 3:21 PM EST [facility] eGFR (CKD-EPIcr 2020) 112 >=60 mL/min/1.7 3 m2 01/05/2025 3:21 PM EST [facility] Comment:Estimated GFR was ca lculated using the CKD-EPIcr (2020) equation refit without race. The equation is recommended by the National Kid[employer] - [place] [employer] Nephrology Task Force. Blood VENOUS BLOOD / Unknown Venipuncture / Unknown 01/05/2025 2:38 PM EST 01/05/2025 2:45 PM EST us Everardo Ibarra MD CHEMISTRY ORDERABLES Final Res ult Performing Organization Address [facility] Co de Phone Number [facility] [address] [facility] , [place] [address] * (ABNORMAL) PREALBUMIN (01/05/2025 2:38 PM EST) Prealbumin 9.0(L) 20.0 - 40.0 mg/dL 01/05/2025 3:20 PM EST [facility] Blood VENOUS BLOOD / Unknown Venipuncture / Unknown 01/05/2025 2:38 PM EST 01/05/2025 2:45 PM EST Kayden Serrano DO CHEMISTRY ORDERABLES Final Resul t Performing Organization Address [facility] de Phone Number [facility] [address] [facility] , [place] [address] * MAGNESIUM LEVEL (01/05/2025 2:38 PM EST) Magnesium 2.2 1.6 - 2.4 mg/dL 01/05/2025 3:21 PM EST [facility] Blood VENOUS BLOOD / Unknown Venipuncture / Unknown 01/05/2025 2:38 PM EST 01/05/2025 2:45 PM EST Kayden Serrano DO CHEMISTRY ORDERABLES Final Resul t Performing Organization Address [facility] Co de Phone Number [facility] [address] [facility] , [place] [address] * PHOSPHORUS LEVEL (01/05/2025 2:38 PM EST) Phosphorus 4.3 2.5 - 4.5 mg/dL 01/05/2025 3:21 PM EST [facility] Blood VENOUS BLOOD / Unknown Venipuncture / Unknown 01/05/2025 2:38 PM EST 01/05/2025 2:45 PM EST us Kayden Serrano DO CHEMISTRY ORDERABLES Final Resul t [facility] [address] [facility] , [place] [address] * (ABNORMAL) POC ARTERIAL BLOOD GAS PROFILE (01/05/2025 1:25 PM EST) pH 7.26(L) 7.35 - 7.45 pH 01/05/2025 3:12 PM EST [facility] pCO2 68(H) 35 - 45 mmHg 01/05/2025 3:12 PM EST [facility] pO2 73(L) 80 - 100 mmHg 01/05/2025 3:12 PM [facility] HCO3 25.8 22.0 - 26.0 mmol/L 01/05/2025 3:12 PM [facility] Base Excess 3.4(H) -2.0 - 3.0 mmol/L 01/05/2025 3:12 PM [facility] O2 Sat 91.5(L) 95.0 - 98.0 % 01/05/2025 3:12 PM EST [facility] Sodium 138 136 - 145 mmol/L 01/05/2025 3:12 PM [facility] Calcium Ionized 1.23 1.12 - 1.32 mmol/L 01/05/2025 3:12 PM [facility] Chloride 100 98 - 107 mmol/L 01/05/2025 3:12 PM [facility] Glucose WB 137(H) 72 - 112 mg/dL 01/05/2025 3:12 PM [facility] Lactic Acid 0.6 0.5 - 1.9 mmol/L 01/05/2025 3:12 PM [facility] K-WB 4.7 3.5 - 5.0 mmol/L 01/05/2025 3:12 PM [facility] Hgb 12.3(L) 13.7 - 17.5 g/dL 01/05/2025 3:12 PM [facility] Hct 37.7(L) 40.0 - 51.0 % 01/05/2025 3:12 PM EST [facility] Inspired O2 80.0 % 01/05/2025 3:12 PM EST [facility] P/F Ratio 91 mmHg 01/05/2025 3:12 PM EST [facility] Blood ARTERIAL BLOOD / Unknown 01/05/2025 1:25 PM EST 01/05/2025 3:12 PM EST Indira Preciado MD POINT OF CARE TEST ORDERABLES Fi nal Result Performing Organization Address [facility] [place] [address] * (ABNORMAL) GLUCOSE METER POC (01/05/2025 11:52 AM EST) [facility] Glucose Meter POC 135(H) 70 - 100 mg/dL 01/05/2025 11:53 AM EST [facility] Sample Type Capillary 01/05/2025 11:53 AM EST [facility] Patient Status Non-Critical Patient 01/05/2025 11:53 AM EST [facility] Blood BLOOD SPECIMEN / Unknown 01/05/2025 11:52 AM EST 01/05/2025 11:53 AM EST us Indira Preciado MD POINT OF CARE TEST ORDERABLES Fi nal Result Performing Organization Address [facility] [place] [address] * ESOPHAGOGASTRODUODENOSCOPY (EGD) (01/05/2025 11:03 AM EST) Anatomical Region Laterality Modality Endoscopy Narrative 01/05/2025 10:29 AM EST Table formatting from the original result was not included. 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 Erythematous mucosa in the body of the stomach and antrum; no bleeding was observed; performed cold forceps biopsy to rule out H. pylori. The duodenum appeared normal. A nasojejunal tube was successfully placed in the proximal jejunum. Scope inserted via right nares and reached duodenum. Wire was inserted through the scope and advanced into duodenum. The wire was fixed externally. The scope was removed over the wire. A 12Fr Corpak nasojejunal tube was then placed over the wire and advanced. Endoscope was then inserted to verify the tube was post-pyloric. The tube was bridled at 111 cm. Recommendation 1) Follow up on biopsies 2) PPI qdaily 3) Start TF. Start clears when patient is not requiring pain meds Pre-Procedure Diagnosis / Indication Acute pancreatitis without infection or necrosis, unspecified pancreatitis type Post-Procedure Diagnosis None Staff Staff Role Kayden Serrano DO Performing Provider Ke Villela RN Splitting Machine Feeder LA NENA Herr CRNA, RN Endoscopy Nurse Eric Deutsch DO Anesthesiologist Medications See Anesthesia Record. Preprocedure A history and physical has been performed, and patient medication allergies have been reviewed. The patient's tolerance of previous anesthesia has been reviewed. The risks and benefits of the procedure and the sedation options and risks were discussed with the patient. All questions were answered and informed consent obtained. ASA 3 - Patient with severe systemic disease Details of the Procedure The patient underwent general anesthesia, which was administered by an anesthesia professional. The patient's blood pressure, heart rate, level of consciousness, oxygen saturation, respirations, ECG and ETCO2 were monitored throughout the procedure. The scope was introduced into the mouth through a bite block and advanced to the second part of the duodenum. Retroflexion was performed in the cardia. The patient's estimated blood loss was minimal. The procedure was not difficult. The patient tolerated the procedure well. There were no apparent adverse events. Patient provided education and educated on specific discharge instructions. Patient educated on medications given during the procedure and new medications for discharge. Patient verbalizes understanding of discharge education. Patient stable and awaiting transport for discharge. Events Procedure Events Event Event Time ENDO SCOPE OUT TIME 01/05/2025 10:22 AM Specimens ID Type Source Tests Collected by Time 1 : Gastric biopsy via forceps Tissue Gastric PATHOLOGY TISSUE REQUEST Kayden Serrano DO 01/05/2025 1011 2 : Esophageal biopsy via forceps Tissue Esophagus PATHOLOGY TISSUE REQUEST Kayden Serrano DO 01/05/2025 1023 Anesthesia Event Time In Patient In - Proc. Room 01/05 09:40 AM Kayden Serrano DO ENDOSCOPY PROCEDURE ORDERABLES F inal Result * PATHOLOGY TISSUE REQUEST (01/05/2025 10:11 AM EST) CASE REPORT Surgical Pathology Case: [id number] Authorizing Provider: Kayden Serrano DO Collected: 01/05/2025 1011 Ordering Location: [facility] 5C Received: 01/05/2025 1254 Pathologist: Mariposa Ramirez MD Specimens: A) - Gastric, Gastric biopsy via forceps B) - Esophagus, Esophageal biopsy via forceps 01/06/2025 8:48 AM EST [facility] FINAL DIAGNOSIS A) Stomach, biopsy: - Mild superficial chronic gastritis. - Negative for H. pylori by routine H and E stain. B) Esophagus, biopsy: - Swanson's esophagus. - Negative for dysplasia. 01/06/2025 8:48 AM EST [facility] at 0848 EST GROSS DESCRIPTION A. Received in formalin and labeled with the patient's name, medical record number, and gastric biopsy are 6 fragments of lemus tissue ranging from 0.3 to 1.0 cm in greatest dimension. Entirely submitted in A1. Harjit Joy 01/05/2025 B. Received in formalin and labeled with the patient's name, medical record number, and esophageal biopsy are 2 fragments of lemus tissue ranging from 0.2 to 0.3 cm in greatest dimension. Entirely submitted in B1. Harjit Joy 01/05/2025 01/06/2025 8:48 AM [facility] MICROSCOPIC DESCRIPTION The microscopic examination may have been rendered in whole, or in part, by analyzing high-resolutio n digital images (whole slide images) on the [employer] Digital Pathology platform validated at [facility]. 01/06/2025 8:48 AM EST [facility] EMBEDDED IMAGES 01/06/2025 8:48 AM EST [facility] Tissue STOMACH STRUCTURE / Unknown 01/05/2025 10:11 AM EST 01/05/2025 12:54 PM EST Tissue specimen (specimen) ESOPHAGEAL STRUCTURE / Unknown 01/05/2025 10:23 AM EST 01/05/2025 12:54 PM EST us Kayden Serrano DO PATHOLOGY ORDERABLES Final Resul t [facility] [address] [place] [address] [place] [address] * (ABNORMAL) GLUCOSE METER POC (01/05/2025 7:56 AM EST) Glucose Meter POC 102(H) 70 - 100 mg/dL 01/05/2025 7:58 AM EST [facility] Sample Type Capillary 01/05/2025 7:58 AM EST [facility] Patient Status Non-Critical Patient 01/05/2025 7:58 AM EST [facility] Blood BLOOD SPECIMEN / Unknown 01/05/2025 7:56 AM EST 01/05/2025 7:58 AM EST us Indira Preciado MD POINT OF CARE TEST ORDERABLES Fi nal Result Performing Organization Address City/[facility]/[place]IP [place] [address] * (ABNORMAL) HEMOGLOBIN A1C (01/05/2025 6:24 AM EST) Hgb A1C 7.8(H) 4.2 - 5.6 % 01/05/2025 6:53 PM EST [facility] Est. Avg Glucose 177 mg/dL 01/05/2025 6:53 PM EST [facility] Blood VENOUS BLOOD / Unknown Venipuncture / Unknown 01/05/2025 6:24 AM EST 01/05/2025 6:55 AM EST Narrative [facility] - 01/05/2025 6:53 PM EST REFERENCE RANGE: Normal: 4.0-5.6% Pre-diabetes: 5.7-6.4% Provisional diagnosis of diabetes: >6.4% Hgb F>10% and anything which shortens red cell survival, such as hemolytic anemia, or unstable hemoglobin variants such as HbSS, HbSC, or HbCC, will lower the HbA1c value associated with a given level of glycemic control. us Jacky Maddox MD CHEMISTRY ORDERABLES Final Resu lt [facility] [address] , [place] [address] * (ABNORMAL) CBC WITH DIFF (01/05/2025 6:24 AM EST) Pathologist [facility] WBC 5.1 3.7 - 10.3 x10(3)/mcL 01/05/2025 7:07 AM EST [facility] RBC 4.47(L) 4.60 - 6.10 x10(6)/mcL 01/05/2025 7:07 AM EST [facility] Hgb 11.2(L) 13.7 - 17.5 g/dL 01/05/2025 7:07 AM EST [facility] Hct 36.6(L) 40.0 - 51.0 % 01/05/2025 7:07 AM EST [facility] MCV 81.9 80.0 - 100.0 fL 01/05/2025 7:07 AM EST [facility] MCH 25.1(L) 26.0 - 34.0 pg 01/05/2025 7:07 AM EST [facility] MCHC 30.6(L) 30.7 - 35.5 g/dL 01/05/2025 7:07 AM EST [facility] RDW 16.2(H) <=14.9 % 01/05/2025 7:07 AM EST [facility] Platelet 184 155 - 369 x10(3)/mcL 01/05/2025 7:07 AM EST [facility] MPV 9.6 8.8 - 12.5 fL 01/05/2025 7:07 AM EST [facility] Neut Percent 69.7 % 01/05/2025 7:07 AM EST [facility] Comment:Neutrophils equals s egs plus bands Imm Gran% 1.0 % 01/05/2025 7:07 AM EST [facility] Comment:Automated count of m etamyelocytes, myelocytes and promyelocytes. Lymph Percent 17.4 % 01/05/2025 7:07 AM EST [facility] [place] Percent 9.5 % 01/05/2025 7:07 AM EST [facility] Eos Percent 2.0 % 01/05/2025 7:07 AM EST [facility] Baso Percent 0.4 % 01/05/2025 7:07 AM EST [facility] Neut # 3.5 1.6 - 6.1 x10(3)/[facility] 01/05/2025 7:07 AM EST [facility] Comment:Neutrophils equals s egs plus bands IMMGRAN# 0.1 0.0 - 0.1 x10(3)/[facility] 01/05/2025 7:07 AM EST [facility] Comment:Automated count of m etamyelocytes, myelocytes and promyelocytes. An absolute IG <0.1 is reported as 0.0. Lymph # 0.9(L) 1.2 - 3.9 x10(3)/[facility] 01/05/2025 7:07 AM EST [facility] [place] # 0.5 0.3 - 0.9 x10(3)/[facility] 01/05/2025 7:07 AM EST [facility] Eos# 0.1 0.0 - 0.5 x10(3)/[facility] 01/05/2025 7:07 AM EST [facility] Baso # 0.0 0.0 - 0.1 x10(3)/[facility] 01/05/2025 7:07 AM EST [facility] Blood VENOUS BLOOD / Unknown Venipuncture / Unknown 01/05/2025 6:24 AM EST 01/05/2025 6:55 AM EST us Indira Preciado MD HEMATOLOGY ORDERABLES Final Resu lt [facility] [address] , [place] [address] * (ABNORMAL) BASIC METABOLIC PANEL (01/05/2025 6:24 AM EST) Sodium 135(L) 136 - 145 mmol/L 01/05/2025 7:29 AM EST [facility] Potassium 4.2 3.5 - 5.0 mmol/L 01/05/2025 7:29 AM EST [facility] Chloride 100 98 - 107 mmol/L 01/05/2025 7:29 AM EST [facility] Total CO2 28 22 - 29 mmol/L 01/05/2025 7:29 AM EST [facility] Anion Gap 7 7 - 16 mmol/L 01/05/2025 7:29 AM EST [facility] Calcium 8.7 8.6 - 10.4 mg/dL 01/05/2025 7:29 AM EST [facility] Glucose Lvl 105(H) 70 - 99 mg/dL 01/05/2025 7:29 AM EST [facility] BUN 12 6 - 20 mg/dL 01/05/2025 7:29 AM EST [facility] Creatinine 0.70 0.67 - 1.30 mg/dL 01/05/2025 7:29 AM EST [facility] eGFR (CKD-EPIcr 2020) 118 >=60 mL/min/1.7 3 m2 01/05/2025 7:29 AM EST [facility] Comment:Estimated GFR was ca lculated using the CKD-EPIcr (2020) equation refit without race. The equation is recommended by the [employer] - [place] [employer]ph[employer] Task Force. Blood VENOUS BLOOD / Unknown Venipuncture / Unknown 01/05/2025 6:24 AM EST 01/05/2025 6:55 AM EST us Indira Preciado MD CHEMISTRY ORDERABLES Final Resul t [facility] [address] , [place] [address] * (ABNORMAL) HEPATIC FUNCTION PANEL (01/05/2025 6:24 AM EST) Total Protein 6.2(L) 6.4 - 8.3 gm/dL 01/05/2025 7:29 AM EST [facility] Albumin 3.3(L) 3.5 - 5.2 gm/dL 01/05/2025 7:29 AM EST [facility] Bili Direct 0.7(H) 0.0 - 0.3 mg/dL 01/05/2025 7:29 AM EST [facility] Bili Total 1.6(H) 0.2 - 1.4 mg/dL 01/05/2025 7:29 AM EST [facility] AST 63(H) <=40 U/L 01/05/2025 7:29 AM EST [facility] ALT 70(H) <=41 U/L 01/05/2025 7:29 AM EST [facility] Alk Phos 59 40 - 129 U/L 01/05/2025 7:29 AM EST [facility] Blood VENOUS BLOOD / Unknown Venipuncture / Unknown 01/05/2025 6:24 AM EST 01/05/2025 6:55 AM EST us Indira Preciado MD CHEMISTRY ORDERABLES Final Resul t [facility] [address] , [place] [address] * XR EYE BILATERAL FOREIGN BODY (01/04/2025 10:15 PM EST) Anatomical Region Laterality Modality Radiographic Zulay ging 01/04/2025 10:1 5 PM EST Impressions 01/04/2025 10:44 PM EST No radiopaque orbital foreign body. - Note: Radiology results need to be interpreted within a comprehensive clinical context. If you have questions about the radiology report, please contact the office of the ordering clinician. Narrative 01/04/2025 10:44 PM EST BILATERAL ORBITS FOR FOREIGN BODY, 01/04/2025 10:15 PM CLINICAL HISTORY: -clear for MRI. Prior orbital foreign body exposure. COMPARISON: None. PROCEDURE COMMENTS: Minimum of 2 views of the orbits to evaluate for foreign body. FINDINGS: No orbital foreign body. Sinuses and mastoids are clear. Orbital structures unremarkable. Procedure Note Lina Song MD - 11/17/2025 BILATERAL ORBITS FOR FOREIGN BODY, 01/04/2025 10:15 PM CLINICAL HISTORY: -clear for MRI. Prior orbital foreign body exposure. COMPARISON: None. PROCEDURE COMMENTS: Minimum of 2 views of the orbits to evaluate forforeign body. FINDINGS: No orbital foreign body. Sinuses and mastoids are clear.Orbital structures unremarkable. IMPRESSION: No radiopaque orbital foreign body. - Note: Radiology results need to be interpreted within a comprehensiveclinical context. If you have questions about the radiology report, please contactthe office of the ordering clinician. us Km Gaitan MD IMG DIAGNOSTIC IMAGING ORDER LEISA Final Result * CT ABDOMEN PELVIS WO ORAL WITH IV CONTRAST (01/04/2025 7:53 AM EST) Anatomical Region Laterality Modality Abdomen, Pelvis, Chest, Hip Comp uted Tomography 01/04/2025 7:53 AM EST Impressions 01/04/2025 8:16 AM EST Mild inflammatory changes and edema centered near the riley hepatis, nonspecific with differential including acute interstitial pancreatitis and less likely cholecystitis. Recommend correlation with prior imaging and labs and further evaluation with right upper quadrant ultrasound and/or MRCP. Small bilateral pleural effusions with adjacent bibasilar airspace disease. - Note: Radiology results need to be interpreted within a comprehensive clinical context. If you have questions about the radiology report, please contact the office of the ordering clinician. Narrative 01/04/2025 8:[address] ABDOMEN AND PELVIS WITH CONTRAST (FAST), 01/04/2025 7:53 AM CLINICAL HISTORY: -mild pancreatitis OSH w/o evidence of gallstones on read and bili uptrending w/ worsening pain. Eval for pancreatitis complications or CBD dilation. COMPARISON: None. PROCEDURE COMMENTS: Multi-detector CT scanning of the abdomen and pelvis with multiplanar reformatting per expedited protocol. Iodinated IV contrast given as recorded in EPIC. Dose 1 : CT DLP Total : 7447.8 mGycm DLP Spiral Max : 2845.91 mGycm Maximum CTDI Vol : 47.96 mGy FINDINGS: LOWER THORAX: Small right and trace left pleural effusions with adjacent patchy right basilar opacities, likely atelectasis. ABDOMEN AND PELVIS: Liver, spleen, kidneys, and adrenal glands unremarkable. No hydronephrosis. Nondistended gallbladder. No visible stones. Mild pericholecystic fluid versus edematous wall thickening. Trace perihepatic and right paracolic gutter ascites. Mild inflammation and trace fluid extends along the riley hepatis and the pancreaticoduodenal groove. Otherwise, pancreas unremarkable. No bowel obstruction or acute inflammatory process. No focal bowel wall thickening. No free air. Few borderline enlarged likely reactive. Pancreatic lymph nodes. No acute osseous abnormality. Procedure Note Alexandre Gutierrez MD - 01/04/2025 CT ABDOMEN AND PELVIS WITH CONTRAST (FAST), 01/04/2025 7:53 AM CLINICAL HISTORY: -mild pancreatitis OSH w/o evidence of gallstones onread and bili uptrending w/ worsening pain. Eval for pancreatitis complications orCBD dilation. COMPARISON: None. PROCEDURE COMMENTS: Multi-detector CT scanning of the abdomen and pelviswith multiplanar reformatting per expedited protocol. Iodinated IV contrastgiven as recorded in EPIC. Dose 1 : CT DLP Total : 7447.8 mGycm DLP Spiral Max : 2845.91 mGycm Maximum CTDI Vol : 47.96 mGy FINDINGS: LOWER THORAX: Small right and trace left pleural effusions with adjacentpatchy right basilar opacities, likely atelectasis. ABDOMEN AND PELVIS: Liver, spleen, kidneys, and adrenal glandsunremarkable. No hydronephrosis. Nondistended gallbladder. No visible stones. Mild pericholecystic fluidversus edematous wall thickening. Trace perihepatic and right paracolic gutterascites. Mild inflammation and trace fluid extends along the riley hepatis andthe pancreaticoduodenal groove. Otherwise, pancreas unremarkable. No bowel obstruction or acute inflammatory process. No focal bowel wall thickening. No free air. Few borderline enlarged likely reactive. Pancreatic lymphnodes. No acute osseous abnormality. IMPRESSION: Mild inflammatory changes and edema centered near the riley hepatis, nonspecific with differential including acute interstitialpancreatitis and less likely cholecystitis. Recommend correlation with prior imagingand labs and further evaluation with right upper quadrant ultrasound and/or MRCP. Small bilateral pleural effusions with adjacent bibasilar airspacedisease. - Note: Radiology results need to be interpreted within a comprehensiveclinical context. If you have questions about the radiology report, please contactthe office of the ordering clinician. us Shanika Fonseca MD IMG CT ORDERABLES Final Result * VITAMIN B12/ FOLIC ACID (01/04/2025 5:33 AM EST) Pathologist [facility] Vitamin B12 934 232 - 1,245 pg/mL 01/04/2025 6:56 AM EST [facility] Folate 5.45 >=4.50 ng/mL 01/04/2025 6:56 AM EST [facility] Blood VENOUS BLOOD / Unknown Venipuncture / Unknown 01/04/2025 5:33 AM EST 01/04/2025 5:44 AM EST Narrative [facility] - 01/04/2025 6:56 AM EST Ingestion of jose antonio doses of biotin (>5 mg/day) taken within 8 hours of drawing blood sample can interfere with this immunoassay test. us Shanika Fonseca MD CHEMISTRY ORDERABLES Final Resu lt [facility] [address] , [place] [address] * (ABNORMAL) CBC WITH DIFF (01/04/2025 5:33 AM EST) Pathologist [facility] WBC 4.1 3.7 - 10.3 x10(3)/mcL 01/04/2025 6:04 AM EST [facility] RBC 4.48(L) 4.60 - 6.10 x10(6)/mcL 01/04/2025 6:04 AM EST [facility] Hgb 11.2(L) 13.7 - 17.5 g/dL 01/04/2025 6:04 AM EST [facility] Hct 36.2(L) 40.0 - 51.0 % 01/04/2025 6:04 AM EST [facility] MCV 80.8 80.0 - 100.0 fL 01/04/2025 6:04 AM EST [facility] MCH 25.0(L) 26.0 - 34.0 pg 01/04/2025 6:04 AM EST [facility] MCHC 30.9 30.7 - 35.5 g/dL 01/04/2025 6:04 AM EST [facility] RDW 16.0(H) <=14.9 % 01/04/2025 6:04 AM EST [facility] Platelet 175 155 - 369 x10(3)/mcL 01/04/2025 6:04 AM EST [facility] MPV 9.8 8.8 - 12.5 fL 01/04/2025 6:04 AM EST [facility] Neut Percent 65.5 % 01/04/2025 6:04 AM EST [facility] Comment:Neutrophils equals s egs plus bands Imm Gran% 0.7 % 01/04/2025 6:04 AM EST [facility] Comment:Automated count of m etamyelocytes, myelocytes and promyelocytes. Lymph Percent 17.5 % 01/04/2025 6:04 AM EST [facility] [place] Percent 14.6 % 01/04/2025 6:04 AM EST [facility] Eos Percent 1.2 % 01/04/2025 6:04 AM EST [facility] Baso Percent 0.5 % 01/04/2025 6:04 AM EST [facility] Neut # 2.7 1.6 - 6.1 x10(3)/mcL 01/04/2025 6:04 AM EST [facility] Comment:Neutrophils equals s egs plus bands IMMGRAN# 0.0 0.0 - 0.1 x10(3)/mcL 01/04/2025 6:04 AM EST [facility] Comment:Automated count of m etamyelocytes, myelocytes and promyelocytes. An absolute IG <0.1 is reported as 0.0. Lymph # 0.7(L) 1.2 - 3.9 x10(3)/mcL 01/04/2025 6:04 AM EST [facility] [place] # 0.6 0.3 - 0.9 x10(3)/mcL 01/04/2025 6:04 AM EST [facility] Eos# 0.1 0.0 - 0.5 x10(3)/mcL 01/04/2025 6:04 AM EST [facility] Baso # 0.0 0.0 - 0.1 x10(3)/mcL 01/04/2025 6:04 AM EST [facility] Blood VENOUS BLOOD / Unknown Venipuncture / Unknown 01/04/2025 5:33 AM EST 01/04/2025 5:44 AM EST us Shanika Fonseca MD HEMATOLOGY ORDERABLES Final Res ult Performing Organization Address [facility] Co de Phone Number [facility], [address] , [place] [address] * (ABNORMAL) LIPASE LEVEL (01/04/2025 5:33 AM EST) Lipase Lvl 479(H) 13 - 60 U/L 01/04/2025 7:09 AM EST [facility] Blood VENOUS BLOOD / Unknown Venipuncture / Unknown 01/04/2025 5:33 AM EST 01/04/2025 5:58 AM EST us Shanika Fonseca MD CHEMISTRY ORDERABLES Final Resu lt Performing Organization Address [facility] de Phone Number [facility], [address] , [place] [address] * (ABNORMAL) COMPREHENSIVE METABOLIC PANEL (01/04/2025 5:33 AM EST) Sodium 136 136 - 145 mmol/L 01/04/2025 6:28 AM EST [facility] Potassium 3.9 3.5 - 5.0 mmol/L 01/04/2025 6:28 AM EST [facility] Chloride 99 98 - 107 mmol/L 01/04/2025 6:28 AM EST [facility] Total CO2 28 22 - 29 mmol/L 01/04/2025 6:28 AM EST [facility] Anion Gap 9 7 - 16 mmol/L 01/04/2025 6:28 AM EST [facility] Calcium 9.2 8.6 - 10.4 mg/dL 01/04/2025 6:28 AM EST [facility] Glucose Lvl 130(H) 70 - 99 mg/dL 01/04/2025 6:28 AM EST [facility] BUN 12 6 - 20 mg/dL 01/04/2025 6:28 AM EST [facility] Creatinine 0.77 0.67 - 1.30 mg/dL 01/04/2025 6:28 AM EST [facility] Albumin 3.5 3.5 - 5.2 gm/dL 01/04/2025 6:28 AM EST [facility], [facility] Total Protein 6.9 6.4 - 8.3 gm/dL 01/04/2025 6:28 AM EST [facility] Bili Total 2.4(H) 0.2 - 1.4 mg/dL 01/04/2025 6:28 AM EST [facility], [facility] ALT 81(H) <=41 U/L 01/04/2025 6:28 AM EST [facility], [facility] AST 62(H) <=40 U/L 01/04/2025 6:28 AM EST [facility] Alk Phos 61 40 - 129 U/L 01/04/2025 6:28 AM EST [facility] eGFR (CKD-EPIcr 2020) 115 >=60 mL/min/1.7 3 m2 01/04/2025 6:28 AM EST [facility], [facility] Comment:Estimated GFR was ca lculated using the CKD-EPIcr (2020) equation refit without race. The equation is recommended by the [employer] - [place] [employer]ph[employer] Task Force. Blood VENOUS BLOOD / Unknown Venipuncture / Unknown 01/04/2025 5:33 AM EST 01/04/2025 5:58 AM EST us Shanika Fonseca MD CHEMISTRY ORDERABLES Final Resu lt [facility], [facility] [address] [facility] , [place] [address] * FERRITIN (01/03/2025 9:10 PM EST) Ferritin 178 30 - 400 ng/mL 01/04/2025 5:15 AM EST [facility], [facility] Blood VENOUS BLOOD / Unknown Venipuncture / Unknown 01/03/2025 9:10 PM EST 01/03/2025 9:14 PM EST Narrative [facility] [employer], [facility] - 01/04/2025 5:15 AM EST Ingestion of jose antonio doses of biotin (>5 mg/day) taken within 8 hours of drawing blood sample can interfere with this immunoassay test. Shanika Fonseca MD CHEMISTRY ORDERABLES Final Resu lt Performing Organization Address [facility] de Phone Number [facility], [address] , [place] [phone] * (ABNORMAL) IRON+TIBC (01/03/2025 9:10 PM EST) Iron 30(L) 50 - 170 mcg/dL 01/04/2025 5:15 AM EST [facility], [facility] Transferrin 249 200 - 360 mg/dL 01/04/2025 5:15 AM EST [facility], [facility] Transferrin Saturation 9(L) 20 - 50 % 01/04/2025 5:15 AM EST [facility], [facility] TIBC 349 250 - 400 mcg/dL 01/04/2025 5:15 AM EST [facility], [facility] Blood VENOUS BLOOD / Unknown Venipuncture / Unknown 01/03/2025 9:10 PM EST 01/03/2025 9:14 PM EST Shanika Fonseca MD CHEMISTRY ORDERABLES Final Resu lt Performing Organization Address [facility] de Phone Number [facility], [address] , [place] [address] * (ABNORMAL) TRIGLYCERIDES (01/03/2025 9:10 PM EST) Triglyceride 255(H) <150 mg/dL 01/04/2025 1:06 AM EST [facility], [facility] Comment: < 150 Normal 150 - 199 Borderline High 200 - 499 High >= 500 Very High Blood VENOUS BLOOD / Unknown Venipuncture / Unknown 01/03/2025 9:10 PM EST 01/03/2025 9:14 PM EST us Shanika Fonseca MD CHEMISTRY ORDERABLES Final Resu Performing Organization Address City/[facility]/ZIP Co de Phone Number [facility] [address] [facility] , [place] [address] * (ABNORMAL) HEPATIC FUNCTION PANEL (01/03/2025 9:10 PM EST) Total Protein 6.9 6.4 - 8.3 gm/dL 01/04/2025 12:40 AM EST [facility] Albumin 3.4(L) 3.5 - 5.2 gm/dL 01/04/2025 12:40 AM EST [facility] Bili Direct 1.8(H) 0.0 - 0.3 mg/dL 01/04/2025 12:40 AM EST [facility] Bili Total 2.8(H) 0.2 - 1.4 mg/dL 01/04/2025 12:40 AM EST [facility] AST 75(H) <=40 U/L 01/04/2025 12:40 AM EST [facility] ALT 85(H) <=41 U/L 01/04/2025 12:40 AM EST [facility] Alk Phos 59 40 - 129 U/L 01/04/2025 12:40 AM EST [facility] Blood VENOUS BLOOD / Unknown Venipuncture / Unknown 01/03/2025 9:10 PM EST 01/03/2025 9:14 PM EST us Shanika Fonseca MD CHEMISTRY ORDERABLES Final Resu [facility] [address] [facility] , [place] [address] * (ABNORMAL) BASIC METABOLIC PANEL (01/03/2025 9:10 PM EST) Sodium 134(L) 136 - 145 mmol/L 01/03/2025 9:47 PM EST [facility] Potassium 3.9 3.5 - 5.0 mmol/L 01/03/2025 9:47 PM EST [facility] Chloride 97(L) 98 - 107 mmol/L 01/03/2025 9:47 PM EST [facility] Total CO2 27 22 - 29 mmol/L 01/03/2025 9:47 PM EST [facility] Anion Gap 10 7 - 16 mmol/L 01/03/2025 9:47 PM EST [facility] Calcium 8.7 8.6 - 10.4 mg/dL 01/03/2025 9:47 PM EST [facility] Glucose Lvl 133(H) 70 - 99 mg/dL 01/03/2025 9:47 PM EST [facility] BUN 14 6 - 20 mg/dL 01/03/2025 9:47 PM EST [facility] Creatinine 0.86 0.67 - 1.30 mg/dL 01/03/2025 9:47 PM EST [facility] eGFR (CKD-EPIcr 2020) 111 >=60 mL/min/1.7 3 m2 01/03/2025 9:47 PM EST [facility] Comment:Estimated GFR was ca lculated using the CKD-EPIcr (2020) equation refit without race. The equation is recommended by the [employer] - [place] [employer] Neph[employer] Task Force. Blood VENOUS BLOOD / Unknown Venipuncture / Unknown 01/03/2025 9:10 PM EST 01/03/2025 9:14 PM EST Beatrice Davis APRN CHEMISTRY ORDERABLES F inal Result [facility] [address] [facility] , [address] [place] [phone] * (ABNORMAL) CBC (01/03/2025 9:10 PM EST) WBC 4.1 3.7 - 10.3 x10(3)/mcL 01/03/2025 9:25 PM EST [facility] RBC 4.50(L) 4.60 - 6.10 x10(6)/mcL 01/03/2025 9:25 PM EST [facility] Hgb 11.4(L) 13.7 - 17.5 g/dL 01/03/2025 9:25 PM EST [facility] Hct 36.1(L) 40.0 - 51.0 % 01/03/2025 9:25 PM EST [facility] MCV 80.2 80.0 - 100.0 fL 01/03/2025 9:25 PM EST [facility] MCH 25.3(L) 26.0 - 34.0 pg 01/03/2025 9:25 PM EST [facility] MCHC 31.6 30.7 - 35.5 g/dL 01/03/2025 9:25 PM EST [facility] RDW 15.9(H) <=14.9 % 01/03/2025 9:25 PM EST [facility] Platelet 175 155 - 369 x10(3)/mcL 01/03/2025 9:25 PM EST [facility] MPV 10.0 8.8 - 12.5 fL 01/03/2025 9:25 PM EST [facility] Blood VENOUS BLOOD / Unknown Venipuncture / Unknown 01/03/2025 9:10 PM EST 01/03/2025 9:14 PM EST Beatrice Davis APRN HEMATOLOGY ORDERABLES Final Result [facility] [address] [facility] , [place] [address] documented in this encounter Visit Diagnoses Diagnosis Acute pancreatitis- Primary Acute pancreatitis without infection or necrosis, unspecified pancreatitis type [place] (obstructive sleep apnea) Obstructive sleep apnea (adult) (pediatric) Morbid obesity with body mass index (BMI) of 40.0 or higher (HCC) Type 2 diabetes mellitus without complication, without long-term current use of insulin (HCC) Hypertension complicating diabetes (HCC) Chronic GERD Normocytic anemia Anemia, unspecified Moderate alcohol use disorder (HCC) Mood disorder Unspecified episodic mood disorder Acute respiratory failure with hypoxia and hypercarbia (HCC) Elevated LFTs Other abnormal blood chemistry Bilateral lower extremity edema Edema [place] (obstructive sleep apnea) Obstructive sleep apnea (adult) (pediatric) documented in this encounter Admitting Diagnoses Diagnosis Pancreatitis, unspecified pancreatitis type documented in this encounter Administered Medications Inactive Administered Medications - up to 1 most recent administrations Medication Order MAR Action Action Date Dose Rate Site 0.9 % NaCl infusion Intravenous, at 75 mL/hr, CONTINUOUS, Starting on Sat01/03/25 at 2230, Until Sat01/04/25 at 1211 IV Restarted 01/04/2025 8:17 AM EST 150 mL/hr 0.9 % NaCl infusion Intravenous, at 100 mL/hr, CONTINUOUS, Starting on Sat01/04/25 at 1345, Until Sat01/05/25 at 1344 New Bag 01/05/2025 1:16 AM EST 100 mL/hr acetaminophen (TYLENOL) tablet 650 mg 650 mg, Oral, EVERY 4 HOURS PRN, Starting on Sat01/03/25 at 2045, Until 01/09/25 at 1730, Pain, Fever, Maximum adult dose of acetaminophen is 4000 mg from all sources in 24 hours. allopurinoL (ZYLOPRIM) tablet 100 mg 100 mg, Oral, DAILY, First dose on Sat01/04/25 at 0900, Until Discontinued Given 01/09/2025 9:20 AM EST 100 mg amLODIPine (NORVASC) tablet 10 mg 10 mg, Oral, DAILY, First dose on Sat01/04/25 at 0900, Until Discontinued Given 01/09/2025 9:20 AM EST 10 mg azithromycin (ZITHROMAX) tablet 500 mg 500 mg, Oral, DAILY, 3 doses, First dose on Sat01/06/25 at 1930, Last dose on Sat01/08/25 at 0900, Oral azithromycin has been ordered in place of azithromycin IV piggyback due to ongoing IV fluid availability issues., Reason for Therapy: Infection Documented, Indication: Pneumonia Given 01/08/2025 8:50 AM EST 500 mg carvediloL (COREG) tablet 25 mg 25 mg, Oral, 2 TIMES DAILY, First dose on Sat01/03/25 at 2230, Until Discontinued, Take with a meal. Given 01/09/2025 9:20 AM EST 25 mg cefTRIAXone (ROCEPHIN) 1 g in sterile water 9.6 mL IVP 1 g, Intravenous, EVERY 24 HOURS SCHEDULED (Daily), 5 doses, First dose on Sat01/06/25 at 1930, Last dose on Sat01/10/25 at 0900, Draw up 9.6 mL of Sterile Water for Injection into syringe and inject into cefTRIAXone 1 g vial. Shake vial until powder is completely dissolved. Draw up entire content of vial (about 10 mL) into syringe. Administer intravenous push (IVP) over a period of 3 to 5 minutes., Reason for Therapy: Infection Documented, Indication: Pneumonia Given 01/09/2025 9:21 AM EST 1 g dextrose 50 % solution 25 mL 25 mL, Intravenous, PRN, Starting on Sat01/05/25 at 1547, Until 01/09/25 at 1730, Low blood sugar, If FSBS less than 70 mg/dl and patient cannot take orally, Check FSBS every 15 minutes and repeat 25 mL of D50 IV push and notify physician if FSBS less than 70 mg/dL [facility] , Insulin Calculator enoxaparin (LOVENOX) injection 40 mg 40 mg, Subcutaneous, EVERY 12 HOURS SCHEDULED (2 times per day), First dose (after last reorder) on Sat01/03/25 at 2230, Until Discontinued Given 01/09/2025 9:21 AM EST 40 mg Abdominal Tissue ENSURE Original 1.05 oral supplement 1 Each 1 Each (1 Bottle), Oral, 3 TIMES DAILY WITH MEALS (NUTR), First dose on Sat01/07/25 at 1800, Until Discontinued, Vanilla Administer orally. Do not administer if NPO or on clear liquid diet. Not for IV use. Supplied by [facility] Given 01/07/2025 8:00 PM EST 1 Each escitalopram oxalate (LEXAPRO) tablet 20 mg 20 mg, Oral, DAILY, First dose on Sat01/04/25 at 0900, Until Discontinued Given 01/09/2025 9:20 AM EST 20 mg ferric gluconate (FERRLECIT) 125 mg in sodium chloride 0.9 % 110 mL ivpb 125 mg, Intravenous, ONCE, 1 dose, On Sat01/04/25 at 2015, Administer over 60 Minutes IV Started 01/04/2025 8:02 PM EST 125 mg 110 mL/hr folic acid (FOLVITE) tablet 1 mg 1 mg, Oral, DAILY, First dose on Sat01/04/25 at 2015, Until Discontinued Given 01/09/2025 9:20 AM EST 1 mg gadoterate meglumine (DOTAREM) solution 30 mL 30 mL, Intravenous, ONCE PRN, 1 dose, Starting on Sat01/08/25 at 1756, Until Sat01/08/25 at 1827, Radiology Procedure, [facility]IC[facility] , MRI (Contrasts) Given 01/08/2025 6:27 PM EST 30 mL glucagon (GLUCAGEN) injection 1 mg 1 mg, Intramuscular, PRN, Starting on Sat01/05/25 at 1547, Until Sat01/09/25 at 1730, Low blood sugar, If FSBS less than 70 mg/dl, patient cannot take orally and without IV access, If patient is without IV access, give Glucagon 1 mg Intramuscularly, insert IV and call physician., Insulin Calculator insulin aspart U-100 (NovoLOG) injection 0-40 Units 0-40 Units, Subcutaneous, EVERY 6 HOURS SCHEDULED (4 times per day), First dose on Sat01/05/25 at 1800, Until Discontinued, PO Diet: Obtain FSBS before patient begins eating. Administer this dose, which only provides correctional insulin, immediately after FSBS. If patient is NPO or declines meal tray, continue with calculated correction insulin dose. Tube Feeds and TPN: Obtain FSBS and administer this dose, which only provides correctional insulin, immediately after FSBS. Notify physician if FSBS less than 50 or greater than 350. Correction insulin doses must be by at least 3 hours. Waste Sort Code = [facility] Hazardous Waste Container, Blood Glucose Target - Daytime (mg/dL): 140, Blood Glucose Target - Nighttime (mg/dL): 180, Hyperglycemia Correction Factor: 50, Insulin Calculator Given 01/08/2025 6:45 PM EST 1 Units Right Arm insulin aspart U-100 (NovoLOG) injection 0-40 Units 0-40 Units, Subcutaneous, 4 TIMES DAILY AT MEALTIME AND BEDTIME, First dose (after last modification) on Sat01/08/25 at 2100, Until Discontinued, PO Diet: Obtain FSBS before patient begins eating. Administer this dose, which only provides correctional insulin, immediately after FSBS. If patient is NPO or declines meal tray, continue with calculated correction insulin dose. Tube Feeds and TPN: Obtain FSBS and administer this dose, which only provides correctional insulin, immediately after FSBS. Notify physician if FSBS less than 50 or greater than 350. Correction insulin doses must be by at least 3 hours. Waste Sort Code = [employer]ous Waste Container, Blood Glucose Target - Daytime (mg/dL): 140, Blood Glucose Target - Nighttime (mg/dL): 180, Hyperglycemia Correction Factor: 50, Insulin Calculator Given 01/09/2025 9:19 AM EST 2 Units Right Arm Insulin Calculator - FSBS (Correction Only) Input MISCELLANEOUS, EVERY 6 HOURS SCHEDULED (4 times per day), First dose (after last modification) on Sat01/09/25 at 0000, Until Discontinued, Blood Glucose Target - Daytime (mg/dL): 140, Blood Glucose Target - Nighttime (mg/dL): 180, Hyperglycemia Correction Factor: 50, Insulin Calculator insulin glargine U-100 (LANTUS) injection 10 Units 10 Units, Subcutaneous, EVERY EVENING (INSULIN), First dose on Sat01/08/25 at 1900, Until Discontinued, A blood sugar is not required prior to administering the Lantus dose. Assess the trend of blood sugars within the last 24 hours. If 2 out of 3 blood sugars are less than (<) 120, contact pharmacy to decrease the total Lantus dose by 20%. Waste Sort Code = [facility] Given 01/08/2025 6:45 PM EST 10 Units Right Arm iopamidoL (ISOVUE-370) 370 mg iodine /mL (76 %) injection (LOW) 100 mL 100 mL, Intravenous, ONCE PRN, 1 dose, Starting on Sat01/04/25 at 0739, Until Sat01/04/25 at 0747, Radiography/Imaging, Radiology Procedure, [facility]ESICANT , CT (Contrasts) Given 01/04/2025 7:47 AM EST 100 mL iopamidoL (ISOVUE-370) 370 mg iodine /mL (76 %) injection (LOW) 75 mL 75 mL, Intravenous, ONCE PRN, 1 dose, Starting on Sat01/06/25 at 1352, Until Sat01/06/25 at 1505, Radiography/Imaging, Radiology Procedure, VESICANT , CT (Contrasts) Given 01/06/2025 3:05 PM EST 75 mL JEVITY 1.5 continuous TF at 40-70 mL/hr, Per [place] Tube, CONTINUOUS (NUTR), Starting on Sat01/05/25 at 1445, Until Sat01/08/25 at 1320, Enteral Water Flush: 30 mL, Enteral Flush Frequency: Q 4h, CONTINUOUS: Increase TF by 10 mL every 6 hour(s) until goal rate of 70 mL/hr. Enteral Infusion ONLY. NOT FOR IV USE Supplied by [facility] 01/08/2025 5:56 AM EST 70 mL/hr losartan (COZAAR) tablet 25 mg 25 mg, Oral, DAILY, First dose on Sat01/04/25 at 0900, Until Discontinued, +++ARB Medication+++ Given 01/08/2025 8:50 AM EST 25 mg losartan (COZAAR) tablet 50 mg 50 mg, Oral, DAILY, First dose (after last modification) on 01/09/25 at 0900, Until Discontinued, +++ARB Medication+++ Given 01/09/2025 9:20 AM EST 50 mg magnesium oxide (MAG-OX) tablet 400 mg 400 mg, Oral, DAILY, First dose on Sat01/04/25 at 2015, Until Discontinued Given 01/09/2025 9:20 AM EST 400 mg melatonin tablet 5-10 mg 5-10 mg, Oral, NIGHTLY PRN, Starting on 01/03/25 at 2045, Until 01/09/25 at 1730, Sleep, Begin with lowest dose unless otherwise directed. Reassess patient in 30 minutes. If necessary, remainder of dose may be given to patient. morphine (PF) 2 mg/2 mL (1 mg/mL) injection 2-4 mg 2-4 mg, Intravenous, EVERY 4 HOURS PRN, Starting on 01/03/25 at 2047, Until Sat01/04/25 at 0005, Breakthrough Pain Given 01/03/2025 9:21 PM EST 2 mg morphine injection 4-8 mg 4-8 mg, Intravenous, EVERY 4 HOURS PRN, Starting on Sat01/04/25 at 0005, Until 01/09/25 at 1730, Breakthrough Pain Given 01/05/2025 1:15 AM EST 8 mg multivitamin with folic acid (THERAGRAN) 400 mcg tablet 1 Tablet 1 Tablet, Oral, DAILY, First dose on Sat01/04/25 at 2015, Until Discontinued Given 01/09/2025 9:20 AM EST 1 Tablet nicotine polacrilex (NICORETTE) gum 2 mg 2 mg, Oral, PRN, Starting on Sat01/04/25 at 0030, Until 01/09/25 at 1730, Smoking cessation, Chew slowly until it tingles, then place gum between cheek and gum until tingle is gone; repeat process until most of tingle is gone (~30 minutes). If strong or frequent cravings are present after 1 piece of gum, may use a second piece within the hour (do not continuously use one piece after the other). Do not eat or drink 15 minutes before using or while the gum is in mouth. Maximum of 24 pieces per day. Do not swallow gum. Please place used patch, wrapper, and/or empty package in [employer] Container ondansetron (ZOFRAN) injection 4 mg 4 mg, Intravenous, EVERY 4 HOURS PRN, Starting on Sat01/03/25 at 2045, Until 01/09/25 at 1730, Nausea ondansetron (ZOFRAN) tablet 4 mg 4 mg, Oral, EVERY 4 HOURS PRN, Starting on Sat01/03/25 at 2045, Until 01/09/25 at 1730, Nausea oxyCODONE (ROXICODONE) immediate release tablet 5 mg 5 mg, Oral, EVERY 4 HOURS PRN, Starting on Sat01/04/25 at 0012, Until 01/09/25 at 1730, Pain, ok to alt w/ IV opioid Given 01/06/2025 4:34 AM EST 5 mg pantoprazole (PROTONIX) 40 mg in sodium chloride 0.9% 10 mL injection 40 mg, Intravenous, 2 TIMES DAILY, First dose on Sat01/05/25 at 2100, Until Discontinued, Administer IV Push if patient cannot swallow pantoprazole tablets Given 01/05/2025 9:04 PM EST 40 mg pantoprazole (PROTONIX) tablet 40 mg 40 mg, Oral, 2 TIMES DAILY, First dose on Sat01/03/25 at 2230, Until Discontinued, Therapeutic Interchange for omeprazole (Prilosec) 40mg cap daily Given 01/04/2025 11:29 PM EST 40 mg pantoprazole (PROTONIX) tablet 40 mg 40 mg, Oral, 2 TIMES DAILY, First dose on Sat01/05/25 at 2100, Until Discontinued, Do not crush or chew Given 01/09/2025 9:20 AM EST 40 mg perflutren lipid microspheres (DEFINITY) 1.3 mL in sodium chloride 0.9% 10 mL injection 10 mL, Injection, ONCE, 1 dose, On Sat01/06/25 at 1000, Bring vial to room temperature. Shake for 45 seconds using Vialmix apparatus. FIRST withdraw 8.7 mL of 0.9% NaCl into a 10-mL syringe. SECOND, vent the activated vial using an 18- or 20-gauge needle tip. THIRD, attach second 18- or 20-gauge needle to 10-ml syringe and insert in vial. Invert vial, and slowly withdraw 1.3 ml activated product. Do NOT inject air into vial. Gently hand agitate then administer ordered dose., Echo Meds Given 01/06/2025 10:10 AM EST 2 mL polyethylene glycol (GLYCOLAX, MIRALAX) packet 17 g 17 g, Oral, 2 TIMES DAILY, First dose (after last modification) on Sat01/06/25 at 2100, Until Discontinued, If multiple oral PRN laxatives/stool softeners ordered, may give per patient preference. Given 01/06/2025 8:22 PM EST 17 g prochlorperazine edisylate (COMPAZINE) injection 5 mg 5 mg, Intravenous, EVERY 6 HOURS PRN, Starting on Sat01/04/25 at 0004, Until 01/09/25 at 1730, Breakthrough Nausea/Vomiting senna (SENOKOT) tablet 1-2 Tablet 1-2 Tablet, Oral, DAILY PRN, Starting on Sat01/04/25 at 0004, Until 01/09/25 at 1730, Constipation, Start with lowest dose and may give additional if needed. If multiple oral PRN laxatives/stool softeners ordered, may give per patient preference. Given 01/06/2025 6:31 PM EST 2 Tablets sodium chloride 0.9% syringe 50-100 mL 50-100 mL, Intravenous, ONCE PRN, 1 dose, Starting on Sat01/08/25 at 1756, Until Sat01/08/25 at 1826, Line Care, Flush peripheral lines every 12 hours, central lines every 8 hours, and after IV medication, MRI (Contrasts) Given 01/08/2025 6:26 PM EST 55 mL sodium chloride 0.9% syringe Intravenous, ONCE PRN, 1 dose, Starting on Sat01/04/25 at 0739, Until Sat01/04/25 at 0747, Line Care, Flush peripheral lines every 12 hours, central lines every 8 hours, and after IV medication, CT (Contrasts) Given 01/04/2025 7:47 AM EST sodium chloride 0.9% syringe Intravenous, ONCE PRN, 1 dose, Starting on Sat01/06/25 at 1352, Until Sat01/06/25 at 1505, Line Care, Flush peripheral lines every 12 hours, central lines every 8 hours, and after IV medication, CT (Contrasts) Given 01/06/2025 3:05 PM EST 20 mL sterile water injection 1 mL 1 mL, Injection, PRN, Starting on Sat01/05/25 at 1547, Until Sat01/09/25 at 1730, Use for drug dilution, Use to dilute and administer glucagon injection, Insulin Calculator thiamine tablet 100 mg 100 mg, Oral, DAILY, First dose on Sat01/04/25 at 2015, Until Discontinued Given 01/09/2025 9:20 AM EST 100 mg documented in this encounter Discontinued Medications Medication Sig Discontinue Reason Start Date End Da te FARXIGA 10 mg Oral Tablet Take 1 Tablet by mouth daily. Stop Taking at Discharge 01/09/2025 losartan (COZAAR) 25 mg Oral Tablet Take 1 Tablet by mouth daily. Stop Taking at Discharge 01/12/2024 01/09/2025 meclizine (ANTIVERT) 25 mg Oral Tablet Take 25 mg by mouth 3 times daily as needed. Stop Taking at Discharge 06/28/2020 01/09/2025 meloxicam (MOBIC) 7.5 mg Oral Tablet Take 1 Tablet by mouth daily. Stop Taking at Discharge 12/31/2023 01/09/2025 omeprazole (PRILOSEC) 40 mg Oral Capsule, Delayed Release(E.C.) Take 1 Capsule by mouth daily. Stop Taking at Discharge 11/06/2023 01/09/2025 XYOSTED 75 mg/0.5 mL SubQ Auto-InjectorIndicatio ns:takes on Fridays Inject as directed once a week. LD 02/18 Indications: takes on Fridays Stop Taking at Discharge 10/18/2023 01/09/2025 MOUNJARO 15 mg/0.5 mL SubQ Pen InjectorIndications:ta jose on Fridays Inject 15 mg under the skin once a week. Indications: takes on Fridays Stop Taking at Discharge 01/09/2025 oxyCODONE (ROXICODONE) 5 mg Oral Tablet Take 1 Tablet by mouth every 4 hours as needed for Major Surgery/Trauma (G89.18). Stop Taking at Discharge 02/28/2024 01/09/2025 oxyCODONE (ROXICODONE) 5 mg Oral Tablet Take 1 Tablet by mouth every 4 hours as needed for Major Surgery/Trauma (G89.18). Stop Taking at Discharge 12/04/2024 01/09/2025 documented as of this encounter Active and Recently Administered Medications Times are shown in EST. Scheduled Medication Order 01/07/2025 01/08/2025 01/09/2025 allopurinoL (ZYLOPRIM) tablet 100 mg 100 mg, Oral, DAILY, First dose on Sat01/04/25 at 0900, Until Discontinued 08 (Given - Provider: Suzie Velazquez RN) 0850 (Given - Provider: Jessica Valdovinos RN) 0920 (Given - Provider: Jessica Valdovinos RN) amLODIPine (NORVASC) tablet 10 mg 10 mg, Oral, DAILY, First dose on Sat01/04/25 at 0900, Until Discontinued 08 (Given - Provider: Suzie Velazquez RN) 0850 (Given - Provider: Jessica Valdovinos RN) 0920 (Given - Provider: Jessica Valdovinos RN) azithromycin (ZITHROMAX) tablet 500 mg (COMPLETED) 500 mg, Oral, DAILY, 3 doses, First dose on Sat01/06/25 at 1930, Last dose on Sat01/08/25 at 0900, Oral azithromycin has been ordered in place of azithromycin IV piggyback due to ongoing IV fluid availability issues., Reason for Therapy: Infection Documented, Indication: Pneumonia 08 (Given - Provider: Suzie Velazquez RN) 0850 (Given - Provider: Jessica Valdovinos RN) carvediloL (COREG) tablet 25 mg 25 mg, Oral, 2 TIMES DAILY, First dose on Sat01/03/25 at 2230, Until Discontinued, Take with a meal. 0821 (Given - Provider: Suzie Velazquez RN)1999 (Given - Provider: Sabiha Yee RN) 0851 (Given - Provider: Jessica Valdovinos RN)1956 (Given - Provider: Sabiha Yee RN) 09 (Given - Provider: Jessica Valdovinos RN) cefTRIAXone (ROCEPHIN) 1 g in sterile water 9.6 mL IVP 1 g, Intravenous, EVERY 24 HOURS SCHEDULED (Daily), 5 doses, First dose on Sat01/06/25 at 1930, Last dose on 01/10/25 at 0900, Draw up 9.6 mL of Sterile Water for Injection into syringe and inject into cefTRIAXone 1 g vial. Shake vial until powder is completely dissolved. Draw up entire content of vial (about 10 mL) into syringe. Administer intravenous push (IVP) over a period of 3 to 5 minutes., Reason for Therapy: Infection Documented, Indication: Pneumonia 818 (Given - Provider: Suzie Velazquez RN) 0851 (Given - Provider: Jessica Valdovinos RN) 09 (Given - Provider: Jessica Valdovinos RN) enoxaparin (LOVENOX) injection 40 mg 40 mg, Subcutaneous, EVERY 12 HOURS SCHEDULED (2 times per day), First dose (after last reorder) on 01/03/25 at 2230, Until Discontinued 0821 (Given - Provider: Suzie Velazquez RN)2000 (Given - Provider: Sabiha Yee RN) 0851 (Given - Provider: Jessica Valdovinos RN)1956 (Given - Provider: Sabiha Yee RN) 09 (Given - Provider: Jessica Valdovinos, ROGELIO) ENSURE Original 1.05 oral supplement 1 Each 1 Each (1 Bottle), Oral, 3 TIMES DAILY WITH MEALS (NUTR), First dose on Do 01/07/25 at 1800, Until Discontinued, Vanilla Administer orally. Do not administer if NPO or on clear liquid diet. Not for IV use. Supplied by [facility] 1999 (Given - Provider: Sabiha Yee RN) 0900 (Not Given - Provider: Jessica Valdovinos RN - Reason: Patient Declined)1300 (Not Given - Provider: Jessica Valdovinos RN - Reason: Patient Declined)1800 (Not Given - Provider: Jessica Valdovinos, ROGELIO - Reason: Patient Declined) 0900 (Not Given - Provider: Jessica Valdovinos RN - Reason: Patient Declined)1210 (Not Given - Provider: Jessica Valdovinos RN - Reason: Patient Declined) escitalopram oxalate (LEXAPRO) tablet 20 mg 20 mg, Oral, DAILY, First dose on Sat01/04/25 at 0900, Until Discontinued 08 (Given - Provider: Suzie Velazquez RN) 0850 (Given - Provider: Jessica Valdovinos RN) 0920 (Given - Provider: Jessica Valdovinos RN) folic acid (FOLVITE) tablet 1 mg(Linked Group 1) 1 mg, Oral, DAILY, First dose on Sat01/04/25 at 2015, Until Discontinued 820 (Given - Provider: Suzie Velazquez RN) 0850 (Given - Provider: Jessica Valdovinos RN) 0920 (Given - Provider: Jessica Valdovinos RN) insulin aspart U-100 (NovoLOG) injection 0-40 Units (CANCELED) 0-40 Units, Subcutaneous, EVERY 6 HOURS SCHEDULED (4 times per day), First dose on Sat01/05/25 at 1800, Until Discontinued, PO Diet: Obtain FSBS before patient begins eating. Administer this dose, which only provides correctional insulin, immediately after FSBS. If patient is NPO or declines meal tray, continue with calculated correction insulin dose. Tube Feeds and TPN: Obtain FSBS and administer this dose, which only provides correctional insulin, immediately after FSBS. Notify physician if FSBS less than 50 or greater than 350. Correction insulin doses must be by at least 3 hours. Waste Sort Code = [employer] Hazardous Waste Container, Blood Glucose Target - Daytime (mg/dL): 140, Blood Glucose Target - Nighttime (mg/dL): 180, Hyperglycemia Correction Factor: 50, Insulin Calculator 0000 (Not Given - Provider: Raquel Gao RN - Reason: Order parameters not met)0600 (Not Given - Provider: Raquel Gao RN - Reason: Order parameters not met)1200 (Not Given - Provider: Suzie Velazquez RN - Reason: Order parameters not met)1838 (Given - Provider: Suzie Velazquez RN)2314 (Not Given - Provider: Sabiha Yee RN - Reason: Order parameters not met) 0507 (Given - Provider: Sabiha Charlotte Green, RN - Comment: verified dose by Charito Rutledge RN)1139 (Given - Provider: Jessica Valdovinos RN)1845 (Given - Provider: Jessica Valdovinos RN) insulin aspart U-100 (NovoLOG) injection 0-40 Units(Linked Group 2) 0-40 Units, Subcutaneous, 4 TIMES DAILY AT MEALTIME AND BEDTIME, First dose (after last modification) on Sat01/08/25 at 2100, Until Discontinued, PO Diet: Obtain FSBS before patient begins eating. Administer this dose, which only provides correctional insulin, immediately after FSBS. If patient is NPO or declines meal tray, continue with calculated correction insulin dose. Tube Feeds and TPN: Obtain FSBS and administer this dose, which only provides correctional insulin, immediately after FSBS. Notify physician if FSBS less than 50 or greater than 350. Correction insulin doses must be by at least 3 hours. Waste Sort Code = [employer] Hazardous Waste Container, Blood Glucose Target - Daytime (mg/dL): 140, Blood Glucose Target - Nighttime (mg/dL): 180, Hyperglycemia Correction Factor: 50, Insulin Calculator 215 (Given - Provider: Sabiha Yee RN - Comment: verified dose by ROGELIO Peña) 0919 (Given - Provider: Jessica Valdovinos RN)1200 (Due) Insulin Calculator - FSBS (Correction Only) Input(Linked Group 2) MISCELLANEOUS, EVERY 6 HOURS SCHEDULED (4 times per day), First dose (after last modification) on Sat01/09/25 at 0000, Until Discontinued, Blood Glucose Target - Daytime (mg/dL): 140, Blood Glucose Target - Nighttime (mg/dL): 180, Hyperglycemia Correction Factor: 50, Insulin Calculator 215 (Non- Med Documentation - Provider: Sabiha Yee RN) 0800 (Non- Med Documentation - Provider: Jessica Valdovinos, RN)1200 (Due) insulin glargine U-100 (LANTUS) injection 10 Units 10 Units, Subcutaneous, EVERY EVENING (INSULIN), First dose on Sat01/08/25 at 1900, Until Discontinued, A blood sugar is not required prior to administering the Lantus dose. Assess the trend of blood sugars within the last 24 hours. If 2 out of 3 blood sugars are less than (<) 120, contact pharmacy to decrease the total Lantus dose by 20%. Waste Sort Code = [employer] 1845 (Given - Provider: Jessica Valdovinos RN) losartan (COZAAR) tablet 25 mg (CANCELED) 25 mg, Oral, DAILY, First dose on Sat01/04/25 at 0900, Until Discontinued, +++ARB Medication+++ 0821 (Given - Provider: Suzie Velazquez RN) 0850 (Given - Provider: Jessica Valdovinos RN) losartan (COZAAR) tablet 50 mg 50 mg, Oral, DAILY, First dose (after last modification) on Sat01/09/25 at 0900, Until Discontinued, +++ARB Medication+++ 0920 (Given - Provider: Jessica Valdovinos, ROGELIO) magnesium oxide (MAG-OX) tablet 400 mg(Linked Group 1) 400 mg, Oral, DAILY, First dose on Sat01/04/25 at 2014, Until Discontinued 0821 (Given - Provider: Suzie Velazquez RN) 0851 (Given - Provider: Jessica Valdovinos RN) 0920 (Given - Provider: Jessica Valdovinos RN) multivitamin with folic acid (THERAGRAN) 400 mcg tablet 1 Tablet(Linked Group 1) 1 Tablet, Oral, DAILY, First dose on Sat01/04/25 at 2014, Until Discontinued 0821 (Given - Provider: Suzie Velazquez RN) 0850 (Given - Provider: Jessica Valdovinos RN) 0920 (Given - Provider: Jessica Valdovinos RN) pantoprazole (PROTONIX) 40 mg in sodium chloride 0.9% 10 mL injection(Linked Group 3) 40 mg, Intravenous, 2 TIMES DAILY, First dose on Sat01/05/25 at 2100, Until Discontinued, Administer IV Push if patient cannot swallow pantoprazole tablets 0822 (See Alternative - Provider: Suzie Velazquez RN)1999 (See Alternative - Provider: Sabiha Yee RN) 0850 (See Alternative - Provider: Jessica Valdovinos RN)195 (See Alternative - Provider: Sabiha Yee RN) 0920 (See Alternative - Provider: Jessica Valdovinos, ROGELIO) pantoprazole (PROTONIX) tablet 40 mg(Linked Group 3) 40 mg, Oral, 2 TIMES DAILY, First dose on Sat01/05/25 at 2100, Until Discontinued, Do not crush or chew 0822 (Given - Provider: Suzie Velazquez RN)1999 (Given - Provider: Sabiha Yee, RN) 0850 (Given - Provider: Jessica Valdovinos RN)1956 (Given - Provider: Sabiha Yee RN) 0920 (Given - Provider: Jessica Valdovinos RN) polyethylene glycol (GLYCOLAX, MIRALAX) packet 17 g 17 g, Oral, 2 TIMES DAILY, First dose (after last modification) on Sat01/06/25 at 2100, Until Discontinued, If multiple oral PRN laxatives/stool softeners ordered, may give per patient preference. 0900 (Not Given - Provider: Suzie Velazquez RN - Reason: Other - Comment: pt having BM)2099 (Not Given - Provider: Sabiha Yee RN - Reason: Patient Declined - Comment: +BM) 0851 (Not Given - Provider: Jessica Valdovinos RN - Reason: Patient Declined)2099 (Not Given - Provider: Sabiha Yee RN - Reason: Patient Declined) 0920 (Not Given - Provider: Jessica Valdovinos RN - Reason: Patient Declined) thiamine tablet 100 mg(Linked Group 1) 100 mg, Oral, DAILY, First dose on Sat01/04/25 at 2015, Until Discontinued 08 (Given - Provider: Suzie Velazquez RN) 0851 (Given - Provider: Jessica Valdovinos RN) 0920 (Given - Provider: Jessica Valdovinos RN) Continuous Medication Order 01/07/2025 01/08/2025 01/09/2025 JEVITY 1.5 continuous TF (CANCELED) at 40-70 mL/hr, Per [place] Tube, CONTINUOUS (NUTR), Starting on Sat01/05/25 at 1445, Until Sat01/08/25 at 1320, Enteral Water Flush: 30 mL, Enteral Flush Frequency: Q 4h, CONTINUOUS: Increase TF by 10 mL every 6 hour(s) until goal rate of 70 mL/hr. Enteral Infusion ONLY. NOT FOR IV USE Supplied by [facility] 0536 (Rate/Dose Change - Provider: Raquel Gao RN)09 (Rate/Dose Change - Provider: Suzie Velazquez RN)172 (Rate/Dose Change - Provider: Suzie Velazquez RN)1999 (Rate/Dose Verify - Provider: Sabiha Yee RN)232 (Rate/Dose Change - Provider: Sabiha Yee, RN) 0556 (New Bag - Provider: Sabiha Yee RN)1215 (Stopped - Provider: Jessica Valdovinos, RN) PRN Medication Order 01/07/2025 01/08/2025 01/09/2025 acetaminophen (TYLENOL) tablet 650 mg 650 mg, Oral, EVERY 4 HOURS PRN, Starting on 01/03/25 at 2045, Until 01/09/25 at 1730, Pain, Fever, Maximum adult dose of acetaminophen is 4000 mg from all sources in 24 hours. dextrose 50 % solution 25 mL 25 mL, Intravenous, PRN, Starting on Sat01/05/25 at 1547, Until 01/09/25 at 1730, Low blood sugar, If FSBS less than 70 mg/dl and patient cannot take orally, Check FSBS every 15 minutes and repeat 25 mL of D50 IV push and notify physician if FSBS less than 70 mg/dL VESICANT , Insulin Calculator gadoterate meglumine (DOTAREM) solution 30 mL (COMPLETED) 30 mL, Intravenous, ONCE PRN, 1 dose, Starting on Sat01/08/25 at 1756, Until Sat01/08/25 at 1827, Radiology Procedure, VESICANT , MRI (Contrasts) 1827 (Given - Provider: Michael Hatch, RT) glucagon (GLUCAGEN) injection 1 mg(Linked Group 4) 1 mg, Intramuscular, PRN, Starting on Sat01/05/25 at 1547, Until 01/09/25 at 1730, Low blood sugar, If FSBS less than 70 mg/dl, patient cannot take orally and without IV access, If patient is without IV access, give Glucagon 1 mg Intramuscularly, insert IV and call physician., Insulin Calculator melatonin tablet 5-10 mg 5-10 mg, Oral, NIGHTLY PRN, Starting on 01/03/25 at 2045, Until 01/09/25 at 1730, Sleep, Begin with lowest dose unless otherwise directed. Reassess patient in 30 minutes. If necessary, remainder of dose may be given to patient. morphine injection 4-8 mg 4-8 mg, Intravenous, EVERY 4 HOURS PRN, Starting on Sat01/04/25 at 0005, Until 01/09/25 at 1730, Breakthrough Pain nicotine polacrilex (NICORETTE) gum 2 mg 2 mg, Oral, PRN, Starting on Sat01/04/25 at 0030, Until 01/09/25 at 1730, Smoking cessation, Chew slowly until it tingles, then place gum between cheek and gum until tingle is gone; repeat process until most of tingle is gone (~30 minutes). If strong or frequent cravings are present after 1 piece of gum, may use a second piece within the hour (do not continuously use one piece after the other). Do not eat or drink 15 minutes before using or while the gum is in mouth. Maximum of 24 pieces per day. Do not swallow gum. Please place used patch, wrapper, and/or empty package in [employer] Hazardous Waste Container ondansetron (ZOFRAN) injection 4 mg(Linked Group 5) 4 mg, Intravenous, EVERY 4 HOURS PRN, Starting on 01/03/25 at 2045, Until 01/09/25 at 1730, Nausea ondansetron (ZOFRAN) tablet 4 mg(Linked Group 5) 4 mg, Oral, EVERY 4 HOURS PRN, Starting on Sat01/03/25 at 2045, Until 01/09/25 at 1730, Nausea oxyCODONE (ROXICODONE) immediate release tablet 5 mg 5 mg, Oral, EVERY 4 HOURS PRN, Starting on Sat01/04/25 at 0012, Until 01/09/25 at 1730, Pain, ok to alt w/ IV opioid prochlorperazine edisylate (COMPAZINE) injection 5 mg 5 mg, Intravenous, EVERY 6 HOURS PRN, Starting on Sat01/04/25 at 0004, Until 01/09/25 at 1730, Breakthrough Nausea/Vomiting senna (SENOKOT) tablet 1-2 Tablet 1-2 Tablet, Oral, DAILY PRN, Starting on Sat01/04/25 at 0004, Until 01/09/25 at 1730, Constipation, Start with lowest dose and may give additional if needed. If multiple oral PRN laxatives/stool softeners ordered, may give per patient preference. sodium chloride 0.9% syringe 50-100 mL (COMPLETED) 50-100 mL, Intravenous, ONCE PRN, 1 dose, Starting on Sat01/08/25 at 1756, Until Sat01/08/25 at 1826, Line Care, Flush peripheral lines every 12 hours, central lines every 8 hours, and after IV medication, MRI (Contrasts) 1826 (Given - Provider: Michael Hatch, RT) sterile water injection 1 mL(Linked Group 4) 1 mL, Injection, PRN, Starting on Sat01/05/25 at 1547, Until Sat01/09/25 at 1730, Use for drug dilution, Use to dilute and administer glucagon injection, Insulin Calculator Linked Groups Order Group 1: multivitamin with folic acid (THERAGRAN) 400 mcg tablet 1 TabletJump to med 1 Tablet, Oral, DAILY, First dose on Sat01/04/25 at 2014, Until Discontinued And folic acid (FOLVITE) tablet 1 mgJump to med 1 mg, Oral, DAILY, First dose on Sat01/04/25 at 2014, Until Discontinued And thiamine tablet 100 mgJump to med 100 mg, Oral, DAILY, First dose on Sat01/04/25 at 2014, Until Discontinued And magnesium oxide (MAG-OX) tablet 400 mgJump to med 400 mg, Oral, DAILY, First dose on Sat01/04/25 at 2014, Until Discontinued Group 2: Insulin Calculator - FSBS (Correction Only) InputJump to med MISCELLANEOUS, EVERY 6 HOURS SCHEDULED (4 times per day), First dose (after last modification) on Sat01/09/25 at 0000, Until Discontinued, Blood Glucose Target - Daytime (mg/dL): 140, Blood Glucose Target - Nighttime (mg/dL): 180, Hyperglycemia Correction Factor: 50, Insulin Calculator And insulin aspart U-100 (NovoLOG) injection 0-40 UnitsJump to med 0-40 Units, Subcutaneous, 4 TIMES DAILY AT MEALTIME AND BEDTIME, First dose (after last modification) on Sat01/08/25 at 2100, Until Discontinued, PO Diet: Obtain FSBS before patient begins eating. Administer this dose, which only provides correctional insulin, immediately after FSBS. If patient is NPO or declines meal tray, continue with calculated correction insulin dose. Tube Feeds and TPN: Obtain FSBS and administer this dose, which only provides correctional insulin, immediately after FSBS. Notify physician if FSBS less than 50 or greater than 350. Correction insulin doses must be by at least 3 hours. Waste Sort Code = [employer] Hazardous Waste Container, Blood Glucose Target - Daytime (mg/dL): 140, Blood Glucose Target - Nighttime (mg/dL): 180, Hyperglycemia Correction Factor: 50, Insulin Calculator Group 3: pantoprazole (PROTONIX) 40 mg in sodium chloride 0.9% 10 mL injectionJump to med 40 mg, Intravenous, 2 TIMES DAILY, First dose on Sat01/05/25 at 2100, Until Discontinued, Administer IV Push if patient cannot swallow pantoprazole tablets Or pantoprazole (PROTONIX) tablet 40 mgJump to med 40 mg, Oral, 2 TIMES DAILY, First dose on Sat01/05/25 at 2100, Until Discontinued, Do not crush or chew Group 4: glucagon (GLUCAGEN) injection 1 mgJump to med 1 mg, Intramuscular, PRN, Starting on Sat01/05/25 at 1547, Until 01/09/25 at 1730, Low blood sugar, If FSBS less than 70 mg/dl, patient cannot take orally and without IV access, If patient is without IV access, give Glucagon 1 mg Intramuscularly, insert IV and call physician., Insulin Calculator And sterile water injection 1 mLJump to med 1 mL, Injection, PRN, Starting on Sat01/05/25 at 1547, Until 01/09/25 at 1730, Use for drug dilution, Use to dilute and administer glucagon injection, Insulin Calculator Group 5: ondansetron (ZOFRAN) tablet 4 mgJump to med 4 mg, Oral, EVERY 4 HOURS PRN, Starting on 01/03/25 at 2045, Until 01/09/25 at 1730, Nausea Or ondansetron (ZOFRAN) injection 4 mgJump to med 4 mg, Intravenous, EVERY 4 HOURS PRN, Starting on Sat01/03/25 at 204, Until 01/09/25 at 1730, Nausea documented in this encounter Orders Medications Ordered That Pierre ht Not Have Been Administered Count Last Ordered Date First Ordered Date Insulin Calculator - FSBS (C orrection Only) Input 2 01/08/2025 01/05/2025 perflutren lipid microsphere s (DEFINITY) 1.1 mg/mL injection 1 01/06/2025 dextrose 50 % solution 25 mL 1 01/05/2025 glucagon (GLUCAGEN) injection 1 mg 1 2024 ondansetron (ZOFRAN) injection 4 mg 2 01/0501/03/2025 ondansetron (ZOFRAN-ODT) dis integrating tablet 8 mg 1 01/05/2025 sterile water injection 1 mL 1 01/05/2025 nicotine polacrilex (NICORETTE) gum 2 mg 1 01/04/2025 prochlorperazine edisylate ( COMPAZINE) injection 5 mg 1 01/04/2025 acetaminophen (TYLENOL) tablet 650 mg 1 enoxaparin (LOVENOX) injection 40 mg 1 12/19 melatonin tablet 5-10 mg 1 01/03/2025 ondansetron (ZOFRAN) tablet 4 mg 1 01/04/20 polyethylene glycol (GLYCOLA X, MIRALAX) packet 17 g 1 01/03/2025 Consult Count Last Ordered Date First Orde red Date IP CONSULT TO NUTRITION 1 01/05/2025 IP CONSULT TO GI 1 01/03/2025 Admission Count Last Ordered Date First Orde red Date ADMIT 1 01/03/2025 Transfer Count Last Ordered Date First Orde red Date TRANSFER PATIENT 4 01/06/2025 01/05/2025 Discharge Count Last Ordered Date First Orde red Date DISCHARGE PATIENT 1 01/09/2025 documented in this encounter Care Teams Meteorological Engineer Relationship Specialty Start Date End Date Jam Richardson MD [address] [place] [id number] PCP - General Internal Medicine-Adolescent Medicine 12/04/24 documented as of this encounter
--- OUTSIDE RECORDS SUMMARY | 2025-01-05 09:39 | XMS_ITS | Encounter Summary ---
Author Organization [place] [address] Care Team Providers Care Mill Turner Name Role Phone Jam Richardson MD Primary Care Provider [phone] Reason for Visit * Auth/Cert/Inpt Specialty Diagnoses / Procedures Referred By Bib t Referred To Contact Diagnoses Pancreatitis pancreatis Referral ID Status Reason Start Date Expiration Date Visits Re quested Visits Authorized [id number] 1 1 Encounter Details Date Type Department Care Team (Late st Contact Info) Description 01/05/2025 9:39 AM EST Anesthesia [place] [address] Eric Deutsch DO [address] [place] [id number] Olivia Villela APRN [address] [place] [id number] Anesthesia Record Procedure Summary Procedure Name Responsible Anesthesiologist Anesthesia Start Time Anesthesia Stop Time ESOPHAGOGASTRODUODENOSCOPY (EGD) Eric Deutsch DO 01/05/25 0939 01/05/25 1111 Events Date Time Event Comment 01/05/2025 0755 0933 AN Equip Check 0939 An Start 0940 An Start Data 0940 Immediate Pre Anesthetic Ass es 0944 An Induction 0947 Quick Note Initial attempt by GEOGRAPHIC INFORMATION SYSTEMS MANAGER, provided mask ventilation via anesthesia circuit. Backup glidescope called over, after this second attempt by anesthesiologist. Patient required a period of recruitment maneuvers and placed on vent 0953 An Intubation 1008 Anesthesia Ready 1008 Time out 1009 Incision 1022 An Emergence 1038 Quick Note Patient slow to emerge from anesthesia given body habitus and likely chronic obesity hypoventilation. Patient extubated when awake and following commands and placed onto bipap in recovery 1058 An Extubation 1111 Handoff I completed my SBAR handoff to the receiving nurse which has included the followin. Identification of the patient, family, or patient surrogate 2. Identification of the responsible practitioner 3. Pertinent medical history 4. Surgical procedure and reason for procedure 5. Intraoperative anesthetic management 6. All current lines, drains and respiratory support. 7. Outstanding follow up orders (X-rays, consults etc) 8. Expectations/Plans for the early post-procedure period 9. Opportunity for questions and acknowledgement of understanding from the receiving PACU/ICU team manager 1111 An Stop 1111 an stop data Meds Name Total lidocaine injection 1% 100 mg propofol (DIPRIVAN) injection 300 mg rocuronium (ZEMURON) 10 mg/mL injection 40 mg succinylcholine (ANECTINE) 20 mg/mL inje ction (EDG, ROLANDA, FTT) 200 mg dexamethasone (DECADRON) injection 4 mg/ mL 8 mg ondansetron (ZOFRAN) injection 4 mg /2 m L 4 mg sugammadex (BRIDION) 100 mg/mL injection 400 mg lactated ringers infusion 1,000 mL * Agents Name O2 N2O Air Et Sevoflurane Et Desflurane * Blood No blood administrations on file. Lines, Drains, and Airways Type Details Placement Removal Peripheral IV 01/04/25; 2324; 18; 1.88; Left, Posterior; Forearm; ROGELIO Evans VAT; 1; Ultrasound guided; None; 01/09/25; 1200; Per patient request; Catheter intact, Dressing applied, No Complications 01/04/25 2324 by Ariadna Silva RN 01/09/25 1200 by Jessica Valdovinos, RN Airway Device: ETT- Cuffed; Size: 8 mm; Placement Date: 01/05/25; Placement Time: 952 (created via procedure documentation); Removal Date: 01/05/25; Removal Time: 1058 01/05/25 0953 by Angelia Morton CRNA 01/05/25 1058 by Angelia Morton CRNA [place]/OJ Tube 01/05/25; 1028; A. L am; (Visualized with endoscope); 111 fr; Right nostril; 111 cm; 01/08/25; 1215 01/05/25 1028 by Ke Villela RN 01/08/25 1215 by Jessica Valdovinos RN documented in this encounter Social History Tobacco Use Types Packs/Day Years [...] care, and heating? Not very hard 01/06/2025 [facility] - Occupational Stress [...] money to get more. Never true 01/06/2025 [facility] Utilities Answer Date Recorded In the past 12 months has th e electric, gas, oil, or water company threatened to shut off services in your home? No 01/06/2025 [facility] IP Transportation Answer D ate Recorded In [...] on file documented as of this encounter Procedure Notes * Angelia Morton CRNA - 01/05/2025 10:16 AM ESTAssociated Order(s): Intraop Airway Placement Intraop Airway Placement: Date/Time: 01/05/2025 9:53 AM Induction type: IV and Rapid sequence Mask size: Standard adult Pre-Oxygenation: BMI guided pre-O2 and Ramping Mask ventilation: Difficult mask ventilation Mask ventilation improved by: Oral airway Oral airway sizes: 100 and 110 Technique: Video laryngoscope Laryngoscope blade: Dobson Blade size: 4 Grade view: III Airway type: ETT- cuffed Topical Anesthetic/Lubricant: None Intubation assist devices: Stylet 14fr Device size: 8mm Secured at: 24 cm Secured by: Tape Measured from: Lips Placement verified: Auscultation, End tidal CO2 and Symmetric chest wall motion Condition: Unchanged and Atraumatic Insertion attempts: 1 Title: GEOGRAPHIC INFORMATION SYSTEMS MANAGER documented in this encounter OR Notes * Anesthesia Postprocedure Evaluation - Eric Deutsch DO - 01/05/2025 12:54 PM EST Post-Anesthesia Evaluation Note Patient Name: Azeem Perez Patient Date: January 05, 2025 Post-Anesthesia Evaluation Patient Location: ENDO Post op vitals: stable Difficult airway: no Nausea controlled: yes Level of consciousness: awake Post anesthesia pain: adequate analgesia Airway patency: patent Respiratory status: CPAP/BIPAP Cardiovascular status: stable Hydration status: euvolemic Temperature: Normothermia Perioperative complications: NONE Comments: Patient with positive pressure requirement post extubation, placed on bipap without incident however slow emergence prior to extubation Vitals Value Taken Time BP 119/63 01/05/25 12:33 Resp 14 01/05/25 12:33 SpO2 96 % 01/05/25 12:33 Temp 36.1 ??C (97 ??F) 01/05/25 12:15 Pulse 59 01/05/25 12:33 * Anesthesia Preprocedure Evaluation - Eric Deutsch DO - 01/05/2025 7:49 AM EST Pre-Anesthesia Evaluation Note Patient Name: Azeem Perez Sex: male Patient : 1980 Age: 44 y.o. Patient Date: January 05, 2025 Procedure: ESOPHAGOGASTRODUODENOSCOPY (EGD) Anesthesia Evaluation Previous anesthesia. History of anesthetic complications (states he thinks O2 levels dropped): No family history of anesthesia complications: Airway Comments: short thick neck Mallampati: IV TM distance: <3 FB Neck ROM: full No increased risk of difficult airway Dental - normal exam Pulmonary (+) Sleep apnea (2L nasal cannula PRN) Physical exam: Comments: decreased breath sounds Cardiovascular (+)Exercise tolerance: good Hypertension: well controlled Hyperlipidemia Shortness of breath: NANCE Physical exam: Rhythm: regular Rate: normal (-) no angina Neuro/Psych (+) Psychiatric history (mood disorder): Depression Peripheral neuropathy GI/Hepatic/Renal Comments: Pancreatitis Gout (+)GERD/PUD: well controlled Endo/Other (+)GLP-1 / Weight loss med (Mounjaro): : class III obesity Diabetes mellitus: type 2 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 Anesthesia Plan ASA 3 Last solid intake: The patient has not eaten within the last 8 hours. Anesthesia Plan: MAC Induction: intravenous Monitors: STD Counseled patient that he has high liklihood of conversion to General anesthesia will start with MAC given brief procedure Informed consent Anesthetic plan and risks discussed with: patient and family. Chart Reviewed and patient examined documented in this encounter Miscellaneous Notes * PAT Pre Evaluation for Anesthesia - Hawa Blanc APRN - 01/04/2025 3:56 PM EST Pre-Anesthesia Evaluation Note Patient Name: Azeem Perez Sex: male Patient : 1980 Age: 44 y.o. Patient Date: January 04, 2025 Procedure: ESOPHAGOGASTRODUODENOSCOPY (EGD) Anesthesia Evaluation Previous anesthesia. History of anesthetic complications (states he thinks O2 levels dropped): No family history of anesthesia complications: Airway Comments: short thick neck TM distance: >3 FB Neck ROM: full No increased risk of difficult airway Dental - normal exam Pulmonary (+) Sleep apnea (2L nasal cannula PRN) Physical exam: Comments: decreased breath sounds Cardiovascular (+)Exercise tolerance: good Hypertension: well controlled Hyperlipidemia Shortness of breath: NANCE Physical exam: Rhythm: regular Rate: normal (-) no angina Neuro/Psych (+) Psychiatric history (mood disorder): Depression Peripheral neuropathy GI/Hepatic/Renal Comments: Pancreatitis Gout (+)GERD/PUD: well controlled Endo/Other (+)GLP-1 / Weight loss med (Mounjaro): : class III obesity Diabetes mellitus: type 2 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 Anesthesia Plan Anesthesia Plan: MAC Informed consent Anesthetic plan and risks discussed with: patient and family. Chart Reviewed and patient examined documented in this encounter Plan of Treatment Upcoming Encounters Date Type Department Care Team (Late st Contact Info) Description 02/15/2025 10:15 AM EST Office Visit [facility] [address] [place] [address] Karla Jackson PA-C [address] [place] [address] documented as of this encounter Procedures Procedure Name Priority Date/Time Associated Diagnosis Comments INTRAOP AIRWAY PLACEMENT Routine 01/05/2025 9:53 AM EST documented in this encounter Results * INTRAOP AIRWAY PLACEMENT (01/05/2025 9:53 AM EST) Narrative [facility] - 01/05/2025 9:53 AM EST Angelia Morton CRNA 01/05/2025 10:17 AM Intraop Airway Placement: Date/Time: 01/05/2025 9:53 AM Induction type: IV and Rapid sequence Mask size: Standard adult Pre-Oxygenation: BMI guided pre-O2 and Ramping Mask ventilation: Difficult mask ventilation Mask ventilation improved by: Oral airway Oral airway sizes: 100 and 110 Technique: Video laryngoscope Laryngoscope blade: Dobson Blade size: 4 Grade view: III Airway type: ETT- cuffed Topical Anesthetic/Lubricant: None Intubation assist devices: Stylet 14fr Device size: 8mm Secured at: 24 cm Secured by: Tape Measured from: Lips Placement verified: Auscultation, End tidal CO2 and Symmetric chest wall motion Condition: Unchanged and Atraumatic Insertion attempts: 1 Title: GEOGRAPHIC INFORMATION SYSTEMS MANAGER us Eric Deutsch DO [place] ANESTHESIA Final Result [facility] [address] [place] [id number] documented in this encounter Visit Diagnoses Not on filedocumented in this encounter Administered Medications Inactive Administered Medications - up to 1 most recent administrations Medication Order MAR Action Action Date Dose Rate Site dexAMETHasone (DECADRON) injection Intravenous, PRN (Anesthesia), Starting on Sat01/05/25 at 1002, Until Sat01/05/25 at 1111, Anesthesia Intra-op Given 01/05/2025 10:02 AM EST 8 mg lactated ringers infusion Intravenous, CONTINUOUS PRN, Starting on Sat01/05/25 at 0940, Until Sat01/05/25 at 1111, Anesthesia Intra-op New Bag 01/05/2025 9:57 AM EST lidocaine 1% 10 mg/mL (1 %) injection Intravenous, PRN (Anesthesia), Starting on Sat01/05/25 at 0944, Until Sat01/05/25 at 1111, Anesthesia Intra-op Given 01/05/2025 9:44 AM EST 100 mg ondansetron (ZOFRAN) injection Intravenous, PRN (Anesthesia), Starting on Sat01/05/25 at 1002, Until Sat01/05/25 at 1111, Anesthesia Intra-op Given 01/05/2025 10:02 AM EST 4 mg propofoL (DIPRIVAN) injection Intravenous, PRN (Anesthesia), Starting on Sat01/05/25 at 0944, Until Sat01/05/25 at 1111, Anesthesia Intra-op Given 01/05/2025 9:44 AM EST 300 mg rocuronium injection Intravenous, PRN (Anesthesia), Starting on Sat01/05/25 at 1000, Until Sat01/05/25 at 1111, Anesthesia Intra-op Given 01/05/2025 10:00 AM EST 40 mg succinylcholine (ANECTINE) injection Intravenous, PRN (Anesthesia), Starting on Sat01/05/25 at 0944, Until Sat01/05/25 at 1111, Anesthesia Intra-op Given 01/05/2025 9:44 AM EST 200 mg sugammadex (BRIDION) injection Intravenous, PRN (Anesthesia), Starting on Sat01/05/25 at 1020, Until Sat01/05/25 at 1111, Anesthesia Intra-op Given 01/05/2025 10:20 AM EST 400 mg documented in this encounter Care Teams Mill Turner Relationship Specialty Start Date End Date Jam Richardson MD [address] [place] [id number] PCP - General Internal Medicine-Adolescent Medicine 12/04/24 documented as of this encounter
--- OUTSIDE RECORDS SUMMARY | 2025-01-13 10:15 | XMS_ITS | Encounter Summary ---
Author Organization [facility] Address [address] [place] [address] Care Team Providers Care Blood Bank Laboratory Technician Name Role Phone Jam Richardson MD Primary Care Provider + [phone] Reason for Visit * Reason Comments Follow-up Encounter Details Date Type Department Care Team (Late st Contact Info) Description 01/13/2025 10:15 AM EST Office Visit [facility] [address] [address] Karla Jackson PA-C [address] [place] [address] Radial nerve palsy, left (Primary Dx) Social [...] care, and heating? Not very hard 01/06/2025 [facility] - Occupational Stress [...] money to get more. Never true 01/06/2025 [facility] Utilities Answer Date Recorded In the past 12 months has th e rPath, gas, oil, or water [employer] threatened to shut off services in your home? No 01/06/2025 [facility] HRSN CMS IP Transportation Answer D ate Recorded In [...] Progress Notes * Karla Jackson PA-C - 01/13/2025 10:15 AM EST Images from the original note were not included. Azeem Perez 1980 CC: S/p PO left FCR to EDC and palmaris longus to EPL tendon transfers DOS: 12/04/2024 History: Patient is doing well. He has not been back to hand therapy since his last visit thought that he was not supposed to go until after this visit. He has been in his hand therapy splint up until 11 days ago when he was admitted to the hospital for pancreatitis. He had multiple IV lines and monitors on both extremities and they took his splint off. Patient also notes that the splint itself is somewhat flexible and actually is today in quite a bit of flexion at the MP joints. Physical exam: Left upper Extremity: Incisions are all well-healed. Some moderate scar tissue through the volar wrist. Patient can do active extension of the wrist. Has full passive extension of the fingers. Some very slight limited extension of the fingers noted with attempts at active movement. Neurovascular status intact. Impression: S/p above procedures Plan: Patient encouraged to schedule hand therapy appointment for soon as possible. We were able to get his splint into a bit more extension today. I do want him to continue in this full-time except for protected hygiene. I discussed with him that I would like to see how he does after few hand therapy visits to make sure that his reconstruction is all intact given that he has been out of his splint. Again he does havesome slight active extension likely just a matter of count of retraining of the muscles. If hand therapy has any concerns certainly would want them to let us know. Follow-up 4 weeks for repeat exam. Sooner for any questions concerns or worsening symptoms. Patient in [...] AM EST Office Visit [facility] [address] [facility] [address] [place] [address] Karla Jackson PA-C [address] [place] [address] documented as of this encounter Visit Diagnoses Diagnosis Radial nerve palsy, left- Primary documented in this encounter Care Teams Blood Bank Laboratory Technician Relationship Specialty Start Date End Date Jam Richardson MD [address] [facility] [phone] PCP - General Internal Medicine-Adolescent Medicine 12/04/24 documented as of this encounter
--- OUTSIDE RECORDS SUMMARY | 2025-02-09 09:42 | XMS_ITS | Clinical Summary ---
Author Organization [facility] Phone Care Team Providers Care Enterprise Systems Administrator Name Role Phone Jam Richardson MD Primary Care Provider [phone] Allergies No known active allergies Medications amLODIPine (NORVASC) 10 mg Oral Tablet Take 1 Tablet by mouth daily. 10/03/2017 Active allopurinoL (ZYLOPRIM) 100 mg Oral Tablet Take 1 Tablet by mouth daily. 03/19/2016 Active carvediloL (COREG) 25 mg Oral Tablet Take 1 Tablet by mouth 2 times daily. 10/03/2017 Active escitalopram oxalate (LEXAPRO) 20 mg Oral Tablet Take 1 Tablet by mouth daily. Active glimepiride (AMARYL) 4 mg Oral Tablet Take 1 Tablet by mouth daily. Active hydroCHLOROthia zide 25 mg Oral Tablet Take 1 Tablet by mouth daily. 10/09/2021 Active pravastatin (PRAVACHOL) 40 mg Oral Tablet Take 1 Tablet by mouth nightly. 10/09/2021 Active losartan (COZAAR) 50 mg Oral Tablet Take 1 Tablet by mouth daily. 30 Tablet 2 01/09/2025 12:59 PM EST 01/10/2025 Active multivitamin with folic acid (THERAGRAN) 400 mcg Oral Tablet Take 1 Tablet by mouth daily. 30 Tablet 3 01/09/2025 12:59 PM EST 01/10/2025 Active pantoprazole (PROTONIX) 40 mg Oral Tablet, Delayed Release (E.C.) Take 1 Tablet by mouth 2 times daily. 60 Tablet 2 01/09/2025 12:59 PM EST 01/09/2025 Active cefdinir (OMNICEF) 300 mg Oral Capsule Take 1 Capsule by mouth 2 times daily for 3 days. 6 Capsule 01/09/2025 12:59 PM EST 01/10/2025 01/14/20 25 Active Problems Problem Noted Date Diagnosed Date BRAXTON (obstructive sleep apnea) 01/06/2025 Assessment & Plan (01/08/2025 2:14 PM EST): Bipap nightly Refer back to sleep medicine on DC Assessment & Plan (01/07/2025 1:43 PM EST): bipap Acute respiratory failure with hypoxia and hyper carbia 01/05/2025 Assessment & Plan (01/08/2025 2:14 PM EST): Requiring bipap s/p EGD Transferred to ICU after endoscopy CXR w/ Mild bibasilar airspace disease. Pulm CC consulted underlying untreated BRAXTON likely driving factor CTA Pulm neg for PE, suspected aspiration, started empiric antibiotics NIPPV PRN Weaned to room air 01/08/2025 Assessment & Plan (01/07/2025 1:43 PM EST): Requiring bipap s/p EGD Transferred to ICU after endoscopy CXR w/ Mild bibasilar airspace disease. Pulm CC consulted underlying untreated BRAXTON likely driving factor CTA Pulm neg for PE, suspected aspiration, start empiric antibiotics NIPPV PRN Weaned to room air Assessment & Plan (01/06/2025 11:33 AM EST): Requiring bipap s/p EGD Transferred to ICU after endoscopy CXR w/ Mild bibasilar airspace disease. Pulm CC consulted underlying untreated BRAXTON likely driving factor Rule PE today NIPPV nightly and PRN during the day Wean oxygen as able down to 5L Assessment & Plan (01/05/2025 4:53 PM EST): Requiring bipap s/p EGD Transferred to ICU after endoscopy CXR w/ Mild bibasilar airspace disease. Pulm CC consulted Suspected underlying BRAXTON, noted lower suspicion of aspiration Cont NIPPV Check NTproBNP, diuresis? Elevated LFTs 01/05/2025 Assessment & Plan (01/08/2025 2:14 PM EST): See above Suspect alcoholic hepatitis Defer MRCP to GI, LFT's have been improving Assessment & Plan (01/07/2025 1:43 PM EST): See above Suspect alcoholic hepatitis Defer MRCP to GI, LFT's improving Assessment & Plan (01/06/2025 11:33 AM EST): See above Suspect alcoholic hepatitis Defer MRCP to GI, LFT's improving Assessment & Plan (01/05/2025 4:53 PM EST): Initially presented on 12/31 to outside hospital with acute pancreatitis Had worsening symptoms and bilirubin requiring transfer CT here with non-distend GB no stones Mild pericholecystic fluid versus edematous wall thickening GI is following suspect alcohol related Planning MRCP EGD with NJ placement today LFT's improving Hepatitis screening Bilateral lower extremity edema 01/05/2025 Assessment & Plan (01/08/2025 2:14 PM EST): DVT neg Echo EF 50-55% Assessment & Plan (01/07/2025 1:43 PM EST): DVT neg Echo EF 50-55% Assessment & Plan (01/06/2025 11:33 AM EST): DVT study Check echo Both pending Assessment & Plan (01/05/2025 5:14 PM EST): DVT study Check echo Normocytic anemia 01/04/2025 Assessment & Plan (01/08/2025 2:14 PM EST): S/p IV iron x 1 Assessment & Plan (01/07/2025 1:43 PM EST): S/p IV iron x 1 Assessment & Plan (01/06/2025 11:33 AM EST): S/p IV iron x 1 Assessment & Plan (01/05/2025 4:53 PM EST): S/p IV iron x 1 Assessment & Plan (01/04/2025 6:40 PM EST): Labs indicating iron deficiency anemia Will start replacement Moderate alcohol use disorder 01/04/2025 Assessment & Plan (01/08/2025 2:14 PM EST): Apparently drinks a fifth every other day Monitor for withdrawal Has cut back recently Chem dependency Referral to [facility] Assessment & Plan (01/07/2025 1:43 PM EST): Apparently drinks a fifth every other day Monitor for withdrawal Has cut back recently Chem dependency to see Assessment & Plan (01/06/2025 11:33 AM EST): Apparently drinks a fifth every other day Monitor for withdrawal Has cut back recently Chem dependency to see Assessment & Plan (01/05/2025 4:53 PM EST): Apparently drinks a fifth every other day Monitor for withdrawal Assessment & Plan (01/04/2025 6:40 PM EST): Potentially contributed to pancreatitis No evidence of alcohol withdrawal Mood disorder 01/04/2025 Assessment & Plan (01/08/2025 2:14 PM EST): Continue AUDIT DIRECTOR Lexapro Assessment & Plan (01/07/2025 1:43 PM EST): Continue AUDIT DIRECTOR Lexapro Assessment & Plan (01/06/2025 11:33 AM EST): Continue AUDIT DIRECTOR Lexapro Assessment & Plan (01/05/2025 4:53 PM EST): Continue AUDIT DIRECTOR Lexapro Assessment & Plan (01/04/2025 6:40 PM EST): Continue AUDIT DIRECTOR Lexapro Acute pancreatitis 01/03/2025 Assessment & Plan (01/08/2025 2:14 PM EST): Initially presented on 12/31 to outside hospital with acute pancreatitis Had worsening symptoms and bilirubin requiring transfer CT here with non-distend GB no stones Mild pericholecystic fluid versus edematous wall thickening GI is following suspect alcohol related EGD with NJ placement, on TF Planning MRCP, timing per GI, plans to pull NJ today Bili / LFT's down trending, ordered for tomorrow Hepatitis neg Assessment & Plan (01/07/2025 1:43 PM EST): Initially presented on 12/31 to outside hospital with acute pancreatitis Had worsening symptoms and bilirubin requiring transfer CT here with non-distend GB no stones Mild pericholecystic fluid versus edematous wall thickening GI is following suspect alcohol related EGD with NJ placement, started TF Planning MRCP, timing per GI Bili / LFT's down trending Hepatitis neg Assessment & Plan (01/06/2025 11:33 AM EST): Initially presented on 12/31 to outside hospital with acute pancreatitis Had worsening symptoms and bilirubin requiring transfer CT here with non-distend GB no stones Mild pericholecystic fluid versus edematous wall thickening GI is following suspect alcohol related EGD with NJ placement Planning MRCP, timing? Defer to GI Bili / LFT's down trending Hepatitis neg Assessment & Plan (01/05/2025 4:53 PM EST): Initially presented on 12/31 to outside hospital with acute pancreatitis Had worsening symptoms and bilirubin requiring transfer CT here with non-distend GB no stones Mild pericholecystic fluid versus edematous wall thickening GI is following suspect alcohol related Planning MRCP EGD with NJ placement today LFT's improving Hepatitis screening Assessment & Plan (01/04/2025 6:40 PM EST): Initially presented on 12/31 to outside hospital with acute pancreatitis Had worsening symptoms and bilirubin requiring transfer Pending MRCP Continue to trend LFTs GI is following Continue bowel rest, IV fluids, pain management Will decrease IV fluid rate given generalized swelling Radial nerve palsy, left 11/23/2024 Carpal tunnel syndrome of left wrist 01/20/2024 Cubital tunnel syndrome on left 01/20/2024 Morbid obesity with body mass index (BMI) of 40. 0 or higher 09/27/2023 Assessment & Plan (01/08/2025 2:14 PM EST): Higher dose of Lovenox per protocol Assessment & Plan (01/07/2025 1:43 PM EST): Higher dose of Lovenox per protocol Assessment & Plan (01/06/2025 11:33 AM EST): Higher dose of Lovenox per protocol Assessment & Plan (01/05/2025 4:53 PM EST): Higher dose of Lovenox per protocol Assessment & Plan (01/04/2025 6:40 PM EST): Higher dose of Lovenox per protocol Chronic GERD 08/15/2016 Assessment & Plan (01/08/2025 2:14 PM EST): PPI Assessment & Plan (01/07/2025 1:43 PM EST): PPI Assessment & Plan (01/06/2025 11:33 AM EST): PPI Assessment & Plan (01/05/2025 4:53 PM EST): PPI Assessment & Plan (01/04/2025 6:40 PM EST): PPI Hypertension complicating diabetes 04/08/2016 Assessment & Plan (01/08/2025 2:14 PM EST): Norvasc's, Coreg and losartan Poorly controlled Increase losartan Assessment & Plan (01/07/2025 1:43 PM EST): Norvasc's, Coreg and losartan Assessment & Plan (01/06/2025 11:33 AM EST): Norvasc's, Coreg and losartan Assessment & Plan (01/05/2025 4:53 PM EST): Norvasc's, Coreg and losartan Assessment & Plan (01/04/2025 6:40 PM EST): Continue Norvasc's, Coreg and losartan Type 2 diabetes mellitus wit hout complication, without long-term current use of insulin 04/08/2016 Assessment & Plan (01/08/2025 2:14 PM EST): Lab Results Component Value Date HGBA1C 7.8 (H) 01/05/2025 FSBS and correctional BS controlled high Add lantus Assessment & Plan (01/07/2025 1:43 PM EST): Lab Results Component Value Date HGBA1C 7.8 (H) 01/05/2025 FSBS and correctional BS controlled 01/07/2025 Assessment & Plan (01/06/2025 11:33 AM EST): Lab Results Component Value Date HGBA1C 7.8 (H) 01/05/2025 FSBS and correctional BS controlled Assessment & Plan (01/05/2025 5:14 PM EST): Check A1c FSBS and correctional Assessment & Plan (01/04/2025 6:40 PM EST): Fasting glucose 130 Monitor Resolved Problems Problem Noted Date Diagnosed Date Resolved Date Hemochromatosis 02/21/2024 01/04/2025 Lung nodules 04/08/2016 01/04/2025 Overview (01/04/2025): CT scan Psychiatric 02/16/16: 1.2 cm noncalcified nodule right middle lobe, several smaller subcentimeter nodules in the right middle and lower lobe, nonspecific subpleural opacity is in the lung bases--no other CT scan to follow up on that to date Encounters Date Type Department Care Team Description 01/13/2025 10:15 AM EST Office Visit [facility] [address] [place] [address] Karla Jackson, PA-C Radial nerve palsy, left (Primary Dx) 01/10/2025 Telephone [facility] [address] [place] [address] Alli Hannon, MANDARIN TEACHER Hospital Follow Up 01/06/2025 Results Follow-Up ED[place] [address] [place] [address] Kayden Serrano DO PATHOLOGY TISSUE REQUEST 01/05/2025 9:39 AM EST Anesthesia Event [facility] ENDOSCOPY [facility] [address], [place] [address] Eric Deutsch DO Wilson, Christine E, MANDARIN TEACHER 01/03/2025 8:07 PM EST - 01/09/2025 1:30 PM EST Hospital Encounter [facility] 5D TCU [facility] [place] [address] Indira Preciado MD Acute pancreatitis without infection or necrosis, unspecified pancreatitis type (Primary Dx); BRAXTON (obstructive sleep apnea) Discharge Disposition: Home or Self Care 12/16/2024 10:45 AM EDT Office Visit [facility] [address] [place] [id number] Karla Jackson, PA-C Radial nerve palsy, left (Primary Dx) 12/10/2024 Telephone [facility] [address] [employer] [place] [id number] Edu Choe MD Follow-up 12/08/2024 Telephone [facility] [address] [place] [address] [place] [id number] Edu Choe MD 12/07/2024 Orders Only [facility] [address] [place] [address] Edu Choe MD Radial nerve palsy, left (Primary Dx) 12/07/2024 Telephone [facility] [place] [address] [employer] [place] [place] [address] Edu Choe MD 12/04/2024 1:45 PM EDT - 12/04/2024 3:10 PM EDT Surgery [facility] [address] [place] [address] Edu Choe MD WRIST EXTENSOR CARPI ULNARIS TENDON SHEATH REPAIR 12/04/2024 1:43 PM EDT Anesthesia Event [facility] [address] [place] [address] Vani Abdul MD Record, Adwoa Zuniga, MANDARIN TEACHER 12/04/2024 11:30 AM EDT - 12/04/2024 6:22 PM EDT Hospital Encounter [facility] POST ANESTHESIA [address] [place] [address] Edu Choe MD Discharge Disposition: Home or Self Care 12/03/2024 Telephone [facility] [address] [place] [id number] Edu Choe MD Other (sx time ) 11/23/2024 10:15 AM EDT Office Visit [facility] [address] [place] [address] Edu Choe MD Radial nerve palsy, left (Primary Dx); Nicotine abuse 11/23/2024 Travel 11/23/2024 Orders Only [facility] [address] [place] [address] Edu Choe MD Radial nerve palsy, left (Primary Dx) from Last 3 Months Surgical [...] MD; Location: [facility] MAIN OR; Service: Orthopedics FRACTURE SURGERY HAND TENDON SURGERY 12/04/2024 Hand/Wrist/Left Left Hand Flexor Carpi Radialis to Extensor Digitorum Communis Tendon Transfer and Palmarius Longus Tendon to ExtensorPollicis Longus Tendon Transfer, Flexor Digitorum Superficialis transfer; Surgeon: Edu Choe MD; Location: [facility] MAIN OR; Service: Orthopedics Medical History Medical History Date Comments Type 2 diabetes mellitus wit hout complications (HCC) Essential (primary) hypertension Hyperlipidemia Heartburn Depression Radial nerve palsy, left Anesthesia complication pt not r eally sure; states he thinks O2 levels dropped Family History Medical History Relation Name Comments No Known Problems Father No Known Problems Mother Anesth Problems Neg Hx Relation Name Status Comments Father Alive Mother Alive Social History Tobacco Use Types Packs/Day Years Used Date Smoking Tobacco: Never Smokeless Tobacco: Current Chew Tobacco Cessation:Ready to Q uit: Not Asked; Counseling Given: Not Answered Comments:Dips but trying to slow down/quit Alcohol [...] care, and heating? Not very hard 01/06/2025 [facility] [facility] - Occupational Stress [...] money to get more. Never true 01/06/2025 [facility] Utilities Answer Date Recorded In the past 12 months has th e electric, gas, oil, or water [employer] threatened to shut off services in your home? No 01/06/2025 [facility] IP Transportation Answer D ate Recorded In [...] Mass Index 44.46 01/03/2025 8:33 PM EST Plan of Treatment Upcoming Encounters Date Type Department Care Team (Late st Contact Info) Description 02/15/2025 10:15 AM EST Office Visit [facility] [address] [place] [address] Karla Jackson PA-C [address] [place] [address] Health Maintenance Due Date Last Done Comments Annual Wellness Exam 1985 Diabetic Eye Exam 2000 Kidney Health: uACR 2000 Hepatitis B Vaccine (1 of 3 - 19+ 3-dose series) 2001 Pneumococcal Vaccine 0-49 (1 of 2 - PCV) 2001 COVID-19 Vaccine (1 - season) 2024 Influenza Vaccine (#1) 2024 Hemoglobin A1c 07/05/2025 01/05/2025 Lipids 01/03/2026 01/03/2025 Kidney Health: eGFR 01/08/2026 01/08/2025, 01/07/2025, 01/06/2025, Additional history exists DTaP/TDaP/Td (3 - Td or Tdap) 09/11/2034 09/11/2024, 12/01/1997 Meningococcal B Vaccine Aged Out No l onger eligible based on patient's age to complete this topic Medical Devices Implanted Type Area Cleaner And Polisher Device Identifier Shelf Expiration Date Model / Serial / Lot Plate And Screws In Left Arm Band And Screws In Right Leg/Ankle Tube Corflo Nasointestinal Endo Feeding Tube With Enfit [facility] - [id number] Implanted:Qty: 1 on 01/05/2025 by Kayden Serrano DO at [facility] [id number] / / Procedures Procedure Name Priority Date/Time Associated Diagnosis Comments GLUCOSE METER POC Routine 01/09/2025 9:09 AM EST ECG AND WAVEFORMS - TELEMETRY Routine 01/09/2025 7:30 AM EST HEPATIC FUNCTION PANEL Early AM 6:27 AM EST ECG AND WAVEFORMS - [...] - TELEMETRY Routine 01/07/2025 7:00 AM EST HEPATIC FUNCTION PANEL Add-On 6:53 AM EST CBC WITH DIFF Early AM 01/07/2025 6:53 AM EST BASIC METABOLIC PANEL Early AM 01/07/2025 6:53 AM EST MAGNESIUM LEVEL Early AM 01/07/2025 6:53 AM EST PHOSPHORUS LEVEL Early AM 01/07/2025 6:53 AM EST GLUCOSE [...] METER POC Routine 01/06/2025 4:38 AM EST CBC WITH DIFF Early AM 01/06/2025 4:14 AM EST BASIC METABOLIC PANEL Early AM 01/06/2025 4:14 AM EST BLOOD GAS, VENOUS Routine 01/06/2025 4:14 AM EST LIPASE LEVEL Routine 01/06/2025 4:14 AM EST HEPATIC FUNCTION PANEL Routine 4:14 AM EST MAGNESIUM LEVEL Early AM 01/06/2025 4:14 AM EST PHOSPHORUS LEVEL Early AM 01/06/2025 4:14 AM EST GLUCOSE METER POC Routine 01/05/2025 11:04 PM EST GLUCOSE METER POC Routine 01/05/2025 6:25 PM EST POC ARTERIAL BLOOD GAS PROFILE Routine 01/05/2025 4:32 PM EST XR CHEST AP PORTABLE STAT 01/05/2025 3:06 PM EST HEPATIC FUNCTION PANEL Add-On 2:38 PM EST ACUTE HEPATITIS PANEL Routine 01/05/2025 2:38 PM EST NT PROBNP Routine 01/05/2025 2:38 PM EST CALCIUM, IONIZED Routine 01/05/2025 2:38 PM EST BASIC METABOLIC PANEL Routine 01/05/2025 2:38 PM EST PREALBUMIN Routine 01/05/2025 2:38 PM EST MAGNESIUM LEVEL Early AM 01/05/2025 2:38 PM EST PHOSPHORUS LEVEL Early AM 01/05/2025 2:38 PM EST POC ARTERIAL BLOOD [...] without infection or necrosis, unspecified pancreatitis type INTRAOP AIRWAY PLACEMENT Routine 9:53 AM EST GLUCOSE METER POC Routine 01/05/2025 7:56 AM EST HEMOGLOBIN A1C Add-On 01/05/2025 6:24 AM EST CBC WITH DIFF Early AM 01/05/2025 6:24 AM EST BASIC METABOLIC PANEL Early AM 01/05/2025 6:24 AM EST HEPATIC FUNCTION PANEL Early AM 6:24 AM EST XR EYE BILATERAL FOREIGN BODY ODILIA 01/04/2025 10:[address] ABDOMEN PELVIS WO ORAL WITH IV CONTRAST ODILIA 01/04/2025 7:53 AM EST VITAMIN B12/ FOLIC ACID Routine 01/05/20 25 5:33 AM EST CBC WITH DIFF Early AM 01/04/2025 5:33 AM EST LIPASE LEVEL Early AM 01/04/2025 5:33 AM EST COMPREHENSIVE METABOLIC PANEL Early AM 01/04/2025 5:33 AM EST FERRITIN Add-On 01/03/2025 9:10 PM EST IRON+TIBC Add-On 01/03/2025 9:10 PM EST TRIGLYCERIDES Add-On 01/03/2025 9:10 PM EST HEPATIC FUNCTION PANEL Add-On 9:10 PM EST BASIC METABOLIC PANEL Routine 01/03/2025 9:10 PM EST CBC Routine 01/03/2025 9:10 PM EST IP CONSULT TO GI Routine 01/03/2025 8:46 PM EST Procedure Note - Janice Alva PA - 01/04/2025 7:22 AM ESTThis note is in progress. Images from the original note were not included. [facility] Gastroenterology Consult Note Name: Azeem Perez ADDRESS: [address] [place], [place] [id number] : 1980 AGE: 44 y.o. Primary Care [...] day, a tumbler filled with mountain dew andcrCalsys royal. Current chew tobacco user. Denies drug use. Past Endoscopic Evaluations EGD/Colonoscopy: no records available to me, patient states he has neverhad these completed Current GI related medications: Lovenox noted PPI BID Zofran prn Miralax BID prn Compazine prn Senna prn Mounjaro noted AUDIT DIRECTOR Prescriptions Prior to Admission[1] Allergies[2] Review of [...] Protein 6.4 - 8.3 gm/dL 6.9 6.9 [facility] Reference Range & Units 02/04/24 14:29 01/03/25 [...] Hx ADMIT Routine 01/03/2025 8:17 PM EST SCANNED RHYTHM STRIPS 12/07/2024 10:48 AM EDT GLUCOSE METER POC Routine 12/04/2024 4:04 PM EDT INTRAOP AIRWAY PLACEMENT Routine 025 1:53 PM EDT [place] TR TDN RESTORE INTRNSC FUNCJ RING&SM FNGR 12/04/2024 1:42 PM EDT Radial nerve palsy, left Special Needs th [place] TR/TRNSPL TDN CARP/MTCRPL HAND W/O FR GRF EA TDN 12/04/2024 1:42 PM EDT Radial nerve palsy, left Special Needs th GLUCOSE METER POC Routine 12/04/2024 11:44 AM EDT from Last 3 Months Results * (ABNORMAL) GLUCOSE METER POC (01/09/2025 9:09 AM EST) Only the most recent of20 resultswithin the time period is included. Glucose Meter POC 219(H) 70 - 100 mg/dL 01/09/2025 9:11 AM [facility] Sample Type Capillary 01/09/2025 9:11 AM EST [facility] Patient Status Non-Critical Patient 01/09/2025 9:11 AM EST [facility] Blood BLOOD SPECIMEN / Unknown 01/09/2025 9:09 AM EST 01/09/2025 9:11 AM EST us Indira Preciado MD POINT OF CARE TEST ORDERABLES Fi nal Result [facility] [address] [place] [address] * ECG AND WAVEFORMS - TELEMETRY (01/09/2025 7:30 AM EST) Only the most recent of16 resultswithin the time period is included. [facility] ECG INTERPRET NSR [facility] 01/09/2025 7:30 AM EST Narrative [facility] - 01/09/2025 8:15 AM EST ROUTINE (LZ) [place] 0.18 QRS 0.10 RR 1.04 QT 0.44 QTc 0.43 See Clinical Report link for waveform capture us Unknown Provider POINT OF CARE CARDIOLOGY Final Result Performing Organization Address City/[facility] Co de Phone Number [facility] [address] [place] [address] * (ABNORMAL) HEPATIC FUNCTION PANEL (01/09/2025 6:27 AM EST) Only the most recent of6 resultswithin the time period is included. [facility] Total Protein 7.5 6.4 - 8.3 gm/dL [...] 129 U/L 01/09/2025 7:57 AM EST [facility] Blood VENOUS BLOOD / Unknown Venipuncture / Unknown 01/09/2025 6:27 AM EST 01/09/2025 7:20 AM EST us Jacky Maddox MD CHEMISTRY ORDERABLES Final Resu lt [facility] [address] [facility] , [place] [address] * MRI LIVER/MRCP W WO CONTRAST (01/08/2025 [...] office of the ordering clinician. Alli Hannon MANDARIN TEACHER IMG MRI ORDERABLES Final Result * (ABNORMAL) CBC WITH DIFF (01/08/2025 6:51 AM EST) Only the most recent of5 resultswithin the time period is included. WBC 5.2 3.7 - 10.3 x10(3)/mcL 01/08/2025 [...] 7:09 AM EST [facility] Platelet 382(H) 155 - 369 x10(3)/mcL 01/08/2025 7:09 AM EST [facility] MPV 9.8 8.8 - 12.5 fL 01/08/2025 7:09 AM EST [facility], [facility] Neut Percent 65.8 % 01/08/2025 7:09 AM EST [facility], [facility] Comment:Neutrophils equals s egs plus bands Imm Gran% 1.3 % 01/08/2025 7:09 AM EST [facility], [facility] Comment:Automated count of m etamyelocytes, myelocytes and promyelocytes. IG >1% represents a left shift and provides an early indication of an infection or inflammatory process. Lymph Percent 23.1 % 01/08/2025 7:09 AM EST [facility], [facility] Cameron Percent 7.5 % 01/08/2025 7:09 AM EST [facility] Eos Percent 1.7 % 01/08/2025 7:09 AM EST [facility], [facility] Baso Percent 0.6 % 01/08/2025 7:09 AM EST [facility], [facility] Neut # 3.4 1.6 - 6.1 x10(3)/mcL 01/08/2025 7:09 AM EST [facility]+, [facility] Comment:Neutrophils equals s egs plus bands IMMGRAN# 0.1 0.0 - 0.1 x10(3)/mcL 01/08/2025 7:09 AM EST [facility], [facility] Comment:Automated count of m etamyelocytes, myelocytes and promyelocytes. An absolute IG <0.1 is reported as 0.0. Lymph # 1.2 1.2 - 3.9 x10(3)/mcL 01/08/2025 7:09 AM EST [facility], [facility] Cameron # 0.4 0.3 - 0.9 x10(3)/mcL 01/08/2025 7:09 AM EST [facility], [facility] Eos# 0.1 0.0 - 0.5 x10(3)/mcL 01/08/2025 7:09 AM EST [facility], [facility] Baso # 0.0 0.0 - 0.1 x10(3)/mcL 01/08/2025 7:09 AM EST [facility], [facility] Blood VENOUS BLOOD / Unknown Venipuncture / Unknown 01/08/2025 6:51 AM EST 01/08/2025 7:03 AM EST us Samara Mckeon MANDARIN TEACHER HEMATOLOGY ORDERABLES F inal Result [facility], [facility] [address] [facility] , [address] [place] [id number] * (ABNORMAL) BASIC METABOLIC PANEL (01/08/2025 6:51 AM EST) Only the most recent of6 resultswithin the time period is included. Sodium 134(L) 136 - 145 mmol/L 01/08/2025 [...] recommended by the National Kidney Foundation - English Society of Nephrology Task Force. Blood VENOUS BLOOD / Unknown Venipuncture / Unknown 01/08/2025 6:51 AM EST 01/08/2025 7:04 AM EST Samara Mckeon MANDARIN TEACHER CHEMISTRY ORDERABLES Fi nal Result Performing Organization Address [facility] de Phone Number [employer] [facility] [address] [facility] , [place] [address] * PHOSPHORUS LEVEL (01/07/2025 6:53 AM EST) Only the most recent of3 resultswithin the time period is included. Phosphorus 2.9 2.5 - 4.5 mg/dL 01/07/2025 7:38 AM EST [facility] [employer] Blood VENOUS BLOOD / Unknown Venipuncture / Unknown 01/07/2025 6:53 AM EST 01/07/2025 6:57 AM EST Kayden Serrano DO CHEMISTRY ORDERABLES Final Resul t Performing Organization Address [facility] de Phone Number [facility] [employer] [address] , [place] [address] * MAGNESIUM LEVEL (01/07/2025 6:53 AM EST) Only the most recent of3 resultswithin the time period is included. Magnesium 2.0 1.6 - 2.4 mg/dL 01/07/2025 7:38 AM EST [employer] Blood VENOUS BLOOD / Unknown Venipuncture / Unknown 01/07/2025 6:53 AM EST 01/07/2025 6:57 AM EST Kayden Serrano DO CHEMISTRY ORDERABLES Final Resul t Performing Organization Address [facility] de Phone Number [employer] [facility] [address] [facility] , [place] [address] * CT ANGIOGRAM PULMONARY W CONTRAST (01/06/2025 [...] using iodinated IV contrast as recorded in [employer]. 2-D multiplanar reconstructions and 3-D MIP reconstructions [...] chest using iodinated IVcontrast as recorded in [employer]. 2-D multiplanar reconstructions and 3-D MIPreconstructions reviewed. [...] please contactthe office of the ordering clinician. Angel MARCANO IMG CT ORDERABLES Final Result * EC ECHOCARDIOGRAM [...] IMG ECHO ORDERABLES Final Resul t * VA US LOWER EXTREMITY VENOUS BILATERAL (01/06/2025 11:58 [...] VASCULAR ORDERABLES Final R esult * (ABNORMAL) BLOOD GAS, VENOUS (01/06/2025 4:14 AM EST) pH Venous 7.38 7.32 - 7.42 pH 01/06/2025 4:43 AM EST [facility] pCO2 Venous 52(H) 41 - 51 mmHg [...] 4:43 AM EST [facility] CO2 Total Akhil 28 25 - 29 mmol/L 01/06/2025 4:43 AM EST [facility] O2 Sat. Venous 94.1(H) 40.0 - 70.0 % 01/06/2025 4:43 AM EST [facility] Insp[employer] O2 50 01/06/2025 4:43 AM EST [facility] Blood VENOUS BLOOD / Unknown Venipuncture / Unknown 01/06/2025 4:14 AM EST 01/06/2025 4:25 AM EST Samara Mckeon MANDARIN TEACHER CHEMISTRY ORDERABLES Fi nal Result [facility] [address] [facility] , [place] [address] * (ABNORMAL) LIPASE LEVEL (01/06/2025 4:14 AM EST) Only the most recent of2 resultswithin the time period is included. Lipase Lvl 158(H) 13 - 60 U/L 01/06/2025 6:17 AM EST [employer] Blood VENOUS BLOOD / Unknown Venipuncture / Unknown 01/06/2025 4:14 AM EST 01/06/2025 4:25 AM EST us Everardo Ibarra MD CHEMISTRY ORDERABLES Final Res ult [employer] [address] [facility] , [place] [address] * (ABNORMAL) POC ARTERIAL BLOOD GAS PROFILE (01/05/2025 4:32 PM EST) Only the most recent of2 resultswithin the time period is included. pH 7.31(L) 7.35 - 7.45 pH 01/05/2025 4:33 PM EST [facility] pCO2 61(H) 35 - 45 mmHg 01/05/2025 4:33 PM [facility] pO2 72(L) 80 - 100 mmHg 01/05/2025 4:33 PM [facility] HCO3 27.1(H) 22.0 - 26.0 mmol/L 01/05/2025 4:33 PM [facility] Base Excess 4.5(H) -2.0 - 3.0 mmol/L 01/05/2025 4:33 PM [facility] O2 Sat 92.7(L) 95.0 - 98.0 % 01/05/2025 4:33 PM EST [facility] Sodium 140 136 - 145 mmol/L 01/05/2025 4:33 PM EST [facility] Calcium Ionized 1.23 1.12 - 1.32 mmol/L 01/05/2025 4:33 PM [facility] Chloride 99 98 - 107 mmol/L 01/05/2025 4:33 PM [facility] Glucose WB 144(H) 72 - 112 mg/dL 01/05/2025 4:33 PM [facility] Lactic Acid 0.7 0.5 - 1.9 mmol/L 01/05/2025 4:33 PM EST [facility] K-WB 4.9 3.5 - 5.0 mmol/L 01/05/2025 4:33 PM EST [facility] Hgb 12.3(L) 13.7 - 17.5 g/dL 01/05/2025 4:33 PM EST [facility] Hct 37.8(L) 40.0 - 51.0 % 01/05/2025 4:33 PM EST [facility] [employer] O2 60.0 % 01/05/2025 4:33 PM EST [facility] P/F Ratio 120 mmHg 01/05/2025 4:33 PM EST [facility] Blood ARTERIAL BLOOD / Unknown 01/05/2025 4:32 PM EST 01/05/2025 4:33 PM EST Indira Preciado MD POINT OF CARE TEST ORDERABLES Fi nal Result [facility] 1 [place] [address] * XR CHEST AP PORTABLE (01/05/2025 3:06 [...] please contactthe office of the ordering clinician. Everardo Ibarra MD IMG DIAGNOSTIC IMAGING ORDERAB LES Final Result * IONIZED CALCIUM - INPATIENT (01/05/2025 2:38 PM EST) Pathologist [facility] Calcium Ionized 1.21 1.12 - 1.32 mmol/L 01/05/2025 2:50 PM EST [facility] [employer] Blood VENOUS BLOOD / Unknown Venipuncture / Unknown 01/05/2025 2:38 PM EST 01/05/2025 2:45 PM EST Everardo Ibarra MD CHEMISTRY ORDERABLES Final Res ult [facility] [employer] [address] [facility] , [place] [address] * ACUTE HEPATITIS PANEL (01/05/2025 2:38 PM EST) Pathologist [facility] Hep Bs Ag Non-Reacti ve Non-React vance 01/05/2025 6:03 PM EST [employer] Comment:HBsAg not detected. Does not exclude possibility of exposure to HBV. Hep B Core IgM Non-Reacti ve Non-React vance 01/05/2025 6:03 PM EST [employer] Hep A IgM Non-Reacti ve Non-React vance 01/05/2025 6:03 PM EST [employer] Hep C Ab Non-Reacti ve Non-React vance 01/05/2025 6:03 PM EST [employer] Comment:No antibodies to HCV detected. Does not exclude possibility of exposure to HCV. Blood VENOUS BLOOD / Unknown Venipuncture / Unknown 01/05/2025 2:38 PM EST 01/05/2025 2:45 PM EST Narrative [facility] [employer] - 01/05/2025 6:03 PM EST Test performed using Ladonna [employer] electrochemiluminescence immunassay (ECLIA). Jacky Maddox MD CHEMISTRY ORDERABLES Final Resu lt Performing Organization Address [facility] de Phone Number [facility] [employer] [facility] [address] [facility] , [place] [address] * (ABNORMAL) PREALBUMIN (01/05/2025 2:38 PM EST) Prealbumin 9.0(L) 20.0 - 40.0 mg/dL 01/05/2025 3:20 PM EST [facility] [employer] Blood VENOUS BLOOD / Unknown Venipuncture / Unknown 01/05/2025 2:38 PM EST 01/05/2025 2:45 PM EST Kayden Serrano DO CHEMISTRY ORDERABLES Final Resul t Performing Organization Address [facility] Phone Number [facility] [address] [facility] , [place] [address] * (ABNORMAL) NT PROBNP (01/05/2025 2:38 PM EST) NT Pro-BNP 189(H) <=138 pg/mL 01/05/2025 5:53 PM EST [facility] [employer] Blood VENOUS BLOOD / Unknown Venipuncture / Unknown 01/05/2025 2:38 PM EST 01/05/2025 2:45 PM EST Narrative [facility] [employer] - 01/05/2025 5:53 PM EST An NT pro-BNP level less than 300 pg/mL in any patient, regardless of age, effectively rules out acute CHF with a 99% negative predictive value. Ingestion of jose antonio doses of biotin (>5 mg/day) taken within 8 hours of drawing blood sample can interfere with this immunoassay test. Jacky Maddox MD CHEMISTRY ORDERABLES Final Resu lt [facility] [employer] [address] [place] [address] , [place] [address] * ESOPHAGOGASTRODUODENOSCOPY (EGD) (01/05/2025 11:03 AM EST) [...] Serrano DO Performing Provider Ke Villela RN Aviation Safety Officer [place] NENA Herr CRNA, RN Endoscopy Nurse [...] AM EST) CASE REPORT Surgical Pathology Case: [id number] Authorizing Provider: Kayden Serrano DO Collected: 01/05/2025 1011 [facility]: 01/05/2025 1254 Pathologist: Mariposa Ramirez MD Specimens: A) - Gastric, Gastric biopsy via forceps B) - Esophagus, Esophageal biopsy via forceps 01/06/2025 8:48 AM EST [facility] FINAL DIAGNOSIS A) Stomach, biopsy: - Mild superficial chronic gastritis. - Negative for H. pylori by routine H and E stain. B) Esophagus, biopsy: - Swanson's esophagus. - Negative for dysplasia. 01/06/2025 8:48 AM EST [facility] at 0848 EST GROSS DESCRIPTION A. [...] B1. Harjit Joy 01/05/2025 01/06/2025 8:48 AM EST [facility] MICROSCOPIC DESCRIPTION The microscopic examination may have been rendered in whole, or in part, by analyzing high-resolutio n digital images (whole slide images) on the [employer] Digital Pathology platform validated at [facility]. 01/06/2025 8:48 AM EST [facility] EMBEDDED IMAGES 01/06/2025 8:48 AM EST [facility] Tissue STOMACH STRUCTURE / Unknown 01/05/2025 10:11 AM EST 01/05/2025 12:54 PM EST Tissue specimen (specimen) ESOPHAGEAL STRUCTURE / Unknown 01/05/2025 10:23 AM EST 01/05/2025 12:54 PM EST us Kayden Serrano DO PATHOLOGY ORDERABLES Final Resul t Performing Organization Address City/[facility] Co de Phone Number [facility] [address] [place] [address] [facility] [address] [place] [address] * INTRAOP AIRWAY PLACEMENT (01/05/2025 9:53 AM EST) Narrative [facility] - 01/05/2025 9:53 AM EST Angelia [...] Unchanged and Atraumatic Insertion attempts: 1 Title: MILL PLATFORM SUPERVISOR us Eric Deutsch DO [place] ANESTHESIA Final Result Performing Organization Address City/[facility]/ZIP Co de Phone Number [address] [phone] * (ABNORMAL) HEMOGLOBIN A1C (01/05/2025 6:24 AM EST) Hgb A1C 7.8(H) 4.2 - 5.6 % 01/05/2025 6:53 PM EST [facility] [facility] Est. Avg Glucose 177 mg/dL 01/05/2025 6:53 PM EST [facility] [employer] [facility] Blood VENOUS BLOOD / Unknown Venipuncture / Unknown 01/05/2025 6:24 AM EST 01/05/2025 6:55 AM EST Narrative [facility] [employer] [facility] - 01/05/2025 6:53 PM EST REFERENCE RANGE: Normal: 4.0-5.6% Pre-diabetes: 5.7-6.4% Provisional diagnosis of diabetes: >6.4% Hgb F>10% and anything which shortens red cell survival, such as hemolytic anemia, or unstable hemoglobin variants such as HbSS, HbSC, or HbCC, will lower the HbA1c value associated with a given level of glycemic control. us Jacky Maddox MD CHEMISTRY ORDERABLES Final Resu lt [facility] [employer] [address] , [place] [address] * XR EYE BILATERAL FOREIGN BODY (01/04/2025 [...] unremarkable. Procedure Note Lina Song MD - 01/04/2025 BILATERAL ORBITS FOR FOREIGN BODY, 01/04/2025 [...] B12/ FOLIC ACID (01/04/2025 5:33 AM EST) Vitamin B12 934 232 - 1,245 pg/mL 01/04/2025 6:56 AM EST [facility] Folate 5.45 >=4.50 ng/mL 01/04/2025 6:56 AM EST [facility] Blood VENOUS BLOOD / Unknown Venipuncture / Unknown 01/04/2025 5:33 AM EST 01/04/2025 5:44 AM EST Narrative [facility] - 01/04/2025 6:56 AM EST Ingestion of jose antonio doses of biotin (>5 mg/day) taken within 8 hours of drawing blood sample can interfere with this immunoassay test. us Shanika Fonseca MD CHEMISTRY ORDERABLES Final Resu lt [facility] [address] [facility] , [address] [place] [id number] * (ABNORMAL) COMPREHENSIVE METABOLIC PANEL (01/04/2025 5:33 [...] 6:28 AM EST [facility] Glucose Lvl 130(H) 70 - 99 mg/dL 01/04/2025 6:28 AM EST [facility], [facility] BUN 12 6 - 20 mg/dL 01/04/2025 6:28 AM EST [facility] Creatinine 0.77 0.67 - 1.30 mg/dL 01/04/2025 6:28 AM EST [facility], [facility] Albumin 3.5 3.5 - 5.2 gm/dL 01/04/2025 6:28 AM EST [facility], [facility] Total Protein 6.9 6.4 - 8.3 gm/dL 01/04/2025 6:28 AM EST [facility], [facility] Bili Total 2.4(H) 0.2 - 1.4 mg/dL 01/04/2025 6:28 AM EST [facility], [facility] ALT 81(H) <=41 U/L 01/04/2025 6:28 AM EST [facility], [facility] AST 62(H) <=40 U/L 01/04/2025 6:28 AM EST [facility], [facility] Alk Phos 61 40 - 129 U/L 01/04/2025 6:28 AM EST [facility] eGFR (CKD-EPIcr 2020) 115 >=60 mL/min/1.7 3 m2 01/04/2025 6:28 AM EST [facility], [facility] Comment:Estimated GFR was ca lculated using the CKD-EPIcr (2020) equation refit without race. The equation is recommended by the National Kidney Foundation - English Society of Nephrology Task Force. Blood VENOUS BLOOD / Unknown Venipuncture / Unknown 01/04/2025 5:33 AM EST 01/04/2025 5:58 AM EST us Shanika Fonseca MD CHEMISTRY ORDERABLES Final Resu lt [facility], [facility] [address] [facility] , [place] [address] * (ABNORMAL) IRON+TIBC (01/03/2025 9:10 PM EST) Iron 30(L) 50 - 170 mcg/dL 01/04/2025 5:15 AM EST [facility] Transferrin 249 200 - 360 mg/dL 01/04/2025 5:15 AM EST [facility] [employer] Saturation 9(L) 20 - 50 % 01/04/2025 5:15 AM EST [facility] TIBC 349 250 - 400 mcg/dL 01/04/2025 5:15 AM EST [facility] Blood VENOUS BLOOD / Unknown Venipuncture / Unknown 01/03/2025 9:10 PM EST 01/03/2025 9:14 PM EST us Shanika Fonseca MD CHEMISTRY ORDERABLES Final Resu lt [facility], [facility] [address] [facility] , [address] [place] [id number] * (ABNORMAL) CBC (01/03/2025 9:10 PM EST) WBC 4.1 3.7 - 10.3 x10(3)/mcL 01/03/2025 9:25 PM EST [facility] RBC 4.50(L) 4.60 - 6.10 x10(6)/mcL 01/03/2025 9:25 PM EST [facility] Hgb 11.4(L) 13.7 - 17.5 g/dL 01/03/2025 9:25 PM EST [facility] Hct 36.1(L) 40.0 - 51.0 % 01/03/2025 9:25 PM EST [facility] MCV 80.2 80.0 - 100.0 fL 01/03/2025 9:25 PM EST [facility] MCH 25.3(L) 26.0 - 34.0 pg 01/03/2025 9:25 PM EST [facility] MCHC 31.6 30.7 - 35.5 g/dL 01/03/2025 9:25 PM EST [facility] RDW 15.9(H) <=14.9 % 01/03/2025 9:25 PM EST [facility] Platelet 175 155 - 369 x10(3)/mcL 01/03/2025 9:25 PM EST [facility] MPV 10.0 8.8 - 12.5 fL 01/03/2025 9:25 PM EST [facility] [employer] Blood VENOUS BLOOD / Unknown Venipuncture / Unknown 01/03/2025 9:10 PM EST 01/03/2025 9:14 PM EST Beatrice Davis APRN HEMATOLOGY ORDERABLES Final Result Performing Organization Address [facility] de Phone Number [facility] [employer] [address] , [place] [address] * (ABNORMAL) TRIGLYCERIDES (01/03/2025 9:10 PM EST) Triglyceride 255(H) <150 mg/dL 01/04/2025 1:06 AM EST [facility] Comment: < 150 Normal 150 - 199 Borderline High 200 - 499 High >= 500 Very High Blood VENOUS BLOOD / Unknown Venipuncture / Unknown 01/03/2025 9:10 PM EST 01/03/2025 9:14 PM EST us Shanika Fonseca MD CHEMISTRY ORDERABLES Final Resu lt Performing Organization Address [facility] de Phone Number [facility] [employer] [address] , [place] [address] * FERRITIN (01/03/2025 9:10 PM EST) Ferritin 178 30 - 400 ng/mL 01/04/2025 5:15 AM EST [facility] Blood VENOUS BLOOD / Unknown Venipuncture / Unknown 01/03/2025 9:10 PM EST 01/03/2025 9:14 PM EST Narrative [facility] - 01/04/2025 5:15 AM EST Ingestion of jose antonio doses of biotin (>5 mg/day) taken within 8 hours of drawing blood sample can interfere with this immunoassay test. us Shanika Fonseca MD CHEMISTRY ORDERABLES Final Resu lt Performing Organization Address [facility] de Phone Number [facility] [employer] [address] [facility], [place] [address] * SCANNED RHYTHM STRIPS (12/07/2024 10:48 AM EDT) Anatomical Region Laterality Modality Other 12/07/2024 10:4 8 AM EDT us Unknown Provider IMG ECG ORDERABLES Final Result * INTRAOP AIRWAY PLACEMENT (12/04/2024 1:53 PM EDT) Narrative [facility] - 12/04/2024 1:53 PM EDT Tory Hutchinson, MILL PLATFORM SUPERVISOR 12/04/2024 2:54 PM Intraop Airway Placement: Date/Time: 12/04/2024 1:53 PM Induction type: IV and Rapid sequence Mask size: Large adult Pre-Oxygenation: BMI guided pre-O2, Ramping and Reverse trendelenberg Mask ventilation: Not attempted Technique: Video laryngoscope Laryngoscope blade: Dobson Blade size: 4 Grade view: II Airway type: ETT- cuffed Intubation assist devices: Stylet 14fr Airway location: Oral Device size: 7.5mm Secured at: 23 cm Secured by: Tape Measured from: Teeth Placement verified: Auscultation, End tidal CO2 and Symmetric chest wall motion Condition: Atraumatic and Unchanged Insertion attempts: 1 Title: MILL PLATFORM SUPERVISOR us Vani Abdul MD [place] ANESTHESIA Final R esult [address] [address] from Last 3 Months Insurance [employer] OPEN ACCESS PLUS CIGNA OPEN ACCESS PLUS [facility] [place] [address] CIGNA OPEN ACCESS PLUS [facility] [employer] [address] OPEN ACCESS PLUS CIG[employer] OPEN ACCESS PLUS Advance Directives For more information, please contact: [phone] * Full Code (Latest Code Status on File) Date Activated Date Inactivated Comments 01/03/2025 8:46 PM 01/09/2025 5:30 PM Care Teams Enterprise Systems Administrator Relationship Specialty Start Date End Date Jam Richardson MD [address] [place] [phone] PCP - General Internal Medicine-Adolescent Medicine 12/04/24
--- OUTSIDE RECORDS SUMMARY | 2025-02-09 09:42 | XMS_ITS | Clinical Summary ---
Author Organization [facility] Address [address] [place] [id number] Care Team Providers Care [employer] Chemistry Teacher Name Role Phone Ignacia Sheridan APRN Primary Care Provider [phone] Allergies No known active allergies Medications fenofibrate [...] Lung nodules 04/08/2016 Overview (04/08/2016): CT scan [facility] 12/29/16: 1.2 cm noncalcified nodule right [...] Health Maintenance Due Date Last Done Comments DIABETIC EYE EXAM 1992 DIABETIC FOOT EXAM 1992 URINE MICROALBUMIN-CREATININE RATIO (uACR) 1992 Hepatitis B (1 of 3 - 19+ 3-dose series) 2001 Pneumococcal Vaccine 0-49 (1 of 2 - PCV) 2001 TDAP/TD VACCINES (1 - Tdap) 2001 ANNUAL PHYSICAL 06/19/2016 HEMOGLOBIN A1C 06/19/2016 HEPATITIS C SCREENING 06/19/2016 INFLUENZA VACCINE 09/18/2024 Insurance [employer] - [place]/MULTI Care Teams High [employer] Chemistry Teacher Relationship Specialty Start Date End Date Ignacia Sheridan APRN PCP - General Nurse Practitioner 04/03/16
--- OUTSIDE RECORDS SUMMARY | 2025-02-09 09:42 | XMS_ITS | Encounter Summary ---
Author Organization [facility] Address [address] [place] [address] Care Team Providers Care Review Consultant Name Role Phone Jam Richardson MD Primary Care Provider [phone] Encounter Details Date Type Department Care Team (Late st Contact Info) Description 12/08/2024 Telephone [facility] [address] [address] Edu Choe MD [address] [place] [address] Social History Tobacco Use Types Packs/Day Years [...] care, and heating? Not very hard 01/06/2025 [facility] [place] [facility] Occupat ional Health - Occupational Stress [...] money to get more. Never true 01/06/2025 [facility] Utilities Answer Date Recorded In the past 12 months has th e electric, gas, oil, or water company threatened to shut off services in your home? No 01/06/2025 [facility] IP Transportation Answer D ate Recorded In [...] on file documented as of this encounter Functional Status * Question Answer Date of Assessment Author Little interest or pleasure in doing things 0 01/06/2025 4:24 PM Ann-Marie Kelsey RN Feeling down, depressed, or hopeless 0 01/06/2025 4:24 PM Ann-Marie Kelsey RN PHQ-2 Total Score 0 01/06/2025 4:24 PM Ann-Marie Kelsey RN * PHQ-9 Total Score Answer Date of Assessment Author 0 01/06/2025 4:24 PM Ann-Marie Kelsey RN * PHQ-2 Total Score Answer Date of Assessment Author 0 01/06/2025 4:24 PM Ann-Marie Kelsey RN documented as of this encounter Miscellaneous Notes * Telephone Encounter - Suzie Hanna Athletic Trainer - 12/08/2024 1:38 PM EDT Note faxed to the number provided * Telephone Encounter - Juancho Helm MA - 12/08/2024 1:30 PM EDT [facility] called and would like the OP note faxed to them [facility] [phone] Fx: [phone] documented in this encounter Plan of Treatment Upcoming Encounters Date Type Department Care Team (Late st Contact Info) Description 02/15/2025 10:15 AM EST Office Visit [facility] [address] [facility] [address] [place] [address] Karla Jackson PA-C [address] [place] [address] documented as of this encounter Visit Diagnoses Not on filedocumented in this encounter Care Teams Review Consultant Relationship Specialty Start Date End Date Jam Richardson MD [address] [place] [address] PCP - General Internal Medicine-Adolescent Medicine 12/04/24 documented as of this encounter
--- OUTSIDE RECORDS SUMMARY | 2025-02-09 09:42 | XMS_ITS | Encounter Summary ---
Author Organization [facility] Gastro[facility] rology Address [address] [place] [id number] Care Team Providers Care Map Editor Name Role Phone Jam Rihcardson MD Primary Care Provider + [phone] Reason for Visit * Reason Onset Date Comments Hospital Follow Up 01/10/2025 Encounter Details Date Type Department Care Team (Late st Contact Info) Description 01/10/2025 Telephone [facility] [address] [place] [address] Alli Hannon APRN [address] [place] [address] Hospital Follow Up Social History Tobacco Use Types Packs/Day Years [...] care, and heating? Not very hard 01/06/2025 [facility] [place] [facility] - Occupational Stress [...] money to get more. Never true 01/06/2025 [facility] Utilities Answer Date Recorded In the past 12 months has th e [employer], gas, oil, or water [facility] threatened to shut off services in your home? No 01/06/2025 [facility] IP Transportation Answer D ate Recorded [...] encounter Miscellaneous Notes * Telephone Encounter - Alyssa Nichols - 01/11/2025 8:48 AM EST called pt to schedule hospital follow up in 1-2 months, left VM * Telephone Encounter - Alli Hannon APRN - 01/10/2025 12:18 PM EST Patient to be discharged from hospital. Please call patient to schedule a 1-2 month hospital followup office visit. documented in this encounter Plan of Treatment Upcoming Encounters Date Type Department Care Team (Late st Contact Info) Description 02/15/2025 10:15 AM EST Office Visit Candi JOHNSON [address] [place] [address] Karla Jackson PA-C [address] [place] [address] documented as of this encounter Visit Diagnoses Not on filedocumented in this encounter Care Teams Map Editor Relationship Specialty Start Date End Date Jam Richardson MD [address] [place] [address] PCP - General Internal Medicine-Adolescent Medicine 12/04/24 documented as of this encounter
--- OUTSIDE RECORDS SUMMARY | 2025-02-09 09:42 | XMS_ITS | Encounter Summary ---
Author Organization [place] [address] [place] [address] Care Team Providers Care Media Strategist Name Role Phone Jam Richardson MD Primary Care Provider [phone] Encounter Details Date Type Department Care Team (Late st Contact Info) Description 01/06/2025 Results Follow-Up [place] [address] [place] [address] Kayden Serrano, DO [address] [place] [address] PATHOLOGY TISSUE REQUEST Social History Tobacco Use Types Packs/Day Years [...] care, and heating? Not very hard 01/06/2025 [facility] [place] of Occupat ional Health - Occupational Stress [...] money to get more. Never true 01/06/2025 [facility] Utilities Answer Date Recorded In the past 12 months has th e electric, gas, oil, or water company threatened to shut off services in your home? No 01/06/2025 [facility] IP Transportation Answer D ate Recorded [...] Kelsey RN documented as of this encounter Plan of Treatment Upcoming Encounters Date Type Department Care Team (Late st Contact Info) Description 02/15/2025 10:15 AM EST Office Visit [facility] [address] [place] [address] Karla Jackson PA-C [address] [place] [address] documented as of this encounter Visit Diagnoses Not on filedocumented in this encounter Care Teams Media Strategist Relationship Specialty Start Date End Date Jam Richardson MD [address] [place] [address] PCP - General Internal Medicine-Adolescent Medicine 12/04/24 documented as of this encounter
--- OUTSIDE RECORDS SUMMARY | 2025-02-09 09:42 | XMS_ITS | Encounter Summary ---
Author Organization [facility] Address [address] [place] [id number] Care Team Providers Care Supervisor [employer] Name Role Phone Jam Richardson MD Primary Care Provider [phone] Reason for Referral * Consultation (Routine) - Authorized Specialty Diagnoses / Procedures Referred By Bib perea Referred To Contact Oral Surgery Diagnoses Oral lesion Trish Murillo APRN [id number] fax: [facility] [address] [place] [address] [address] [place] [address] Phone: tel: Referral ID Status Reason Start Date Expiration Date Visits Requested Visits Authorized [id number] Authorized Specialty Services Required 09/11/2024 03/13/2026 1 1 Encounter Details Date Type Department Care Team (Late st Contact Info) Description 09/11/2024 [facility] [address] [place] [address] Trish Murillo APRN [id number] Oral lesion (Primary Dx) Social History Tobacco [...] documented as of this encounter Care Teams Supervisor [employer] Relationship Specialty Start Date End Date Jam Richardson MD [facility] [address] PCP - General 07/01/20 documented as of this encounter
--- OUTSIDE RECORDS SUMMARY | 2025-02-09 09:42 | XMS_ITS | Clinical Summary ---
Author Organization [facility] Address [address] [place] [id number] Care Team Providers Care Appeals Board Referee Name Role Phone Jam Richardson MD Primary Care Provider [phone] Allergies Active Allergy Reactions Criticality Noted Date [...] DAYS BEFORE MEALS AND AT BEDTIME 01/06/20 Active losartan (Cozaar) 25 MG tablet 01/12/20 [...] of 3 - 19+ 3-dose series) 2001 [facility]-Pneumococcal Vaccine: Pediatrics (0 to 5 Years) and At-Risk Patients (6 to 49 Years) (1 of 2 - PCV) 2001 [facility]-Depression Screening 10/17/2024 10/18/2023 [id number] Vaccine (1 - season) 2024 [facility]-Influenza Vaccine (#1) 2024 [facility]-Zoster Vaccines (1 of 2) 2032 [facility]-HIV Screening Completed 09/23/2023 [facility]-Hepatitis C Screening Completed 09/23/2023 [facility]-Obesity Intervention Completed 024, 11/11/2023, 10/18/2023 HPV Vaccines (No Doses Required) Completed [facility]-HIB Vaccines Aged Out No longer e [...] this topic Medical Devices Implanted Type Area Roll Up Machine Operator Device Identifier Shelf Expiration Date Model / Serial / Lot [place] Sys Glue Wheel Operator Knotless Tightrope Ss - Sna - [id number] Implanted:Qty: 2 on 09/27/2023 by Calderon Alan MD at [facility] [place] Right: Ankle [id number] 09/26/2024 [id number] / NA / Plate Lcp 1/3 Tubl Col 57mm 5h - Sna - [id number] Implanted:Qty: 1 on 09/27/2023 by Calderon Alan MD at [facility] Plate Right: Ankle Synthes [id number] 09/26/2024 [id number] / NA / Screw 3.5mm Cortex Selftap 16mm - Sna - [id number] Implanted:Qty: 1 on 09/27/2023 by Calderon Alan MD at [facility] Screw Right: Ankle [employer] [id number] 09/26/2024 204.816 / NA / Procedures Procedure [...] Reactive Non Reactive 09/23/2023 4:06 PM EDT [facility] Comment:Screening for HIV 1 & 2 antibodies, and P24 antigen is NONREACTIVE. No confirmatory testing is required. Blood Venous blood specimen / Unknown Venipuncture / Unknown 09/23/2023 2:49 PM EDT 09/23/2023 3:27 PM EDT Jacky Zuniga MD LAB BLOOD ORDERABLES Final Res ult Performing Organization Address City/[facility]/ZIP Co de Phone Number [facility] [address] [place] [address] * Hepatitis C Antibody - ED (09/23/2023 2:49 PM EDT) Hepatitis C Antibody Negative Negative 09/23/2023 4:06 PM EDT [facility] Blood Venous blood specimen / Unknown Venipuncture / Unknown 09/23/2023 2:49 PM EDT 09/23/2023 3:26 PM EDT Jacky Zuniga MD LAB BLOOD ORDERABLES Final Res ult Performing Organization Address City/[facility] Co de Phone Number [facility]ALTHCARE [facility] [address] [place] [address] from Last 3 Months or Most Recently Relevant to Health Maintenance Insurance CIG Advance Directives Documents on File Type Date Recorded Patient Senior Account Representative Expl anation Advance Directives and Living Will 09/23/2023 Care Teams Appeals Board Referee Relationship Specialty Start Date End Date Jam Richardson MD [facility] [address] PCP - General 07/01/20
--- OUTSIDE RECORDS SUMMARY | 2025-02-09 09:42 | XMS_ITS | Encounter Summary ---
Author Organization [facility] Address [address] [place] [address] Care Team Providers Care Lumber Salvager Name Role Phone Jam Richardson MD Primary Care Provider [phone] Encounter Details Date Type Department Care Team (Late st Contact Info) Description 12/07/2024 Telephone [facility] Information Systems Director [address] [place] [address] [place] [address] [place] [address] Social History Tobacco Use Types Packs/Day Years [...] care, and heating? Not very hard 01/06/2025 [facility] [place] of Occupat ional Health - Occupational Stress [...] money to get more. Never true 01/06/2025 [facility] Utilities Answer Date Recorded In the past 12 months has th e electric, gas, oil, or water company threatened to shut off services in your home? No 01/06/2025 [facility] IP Transportation Answer D ate Recorded In [...] Encounter - Suzie Hanna Athletic Trainer - 12/07/2024 4:28 PM EDT order faxed to the number provided * Telephone Encounter - Marleny Stout, Clerical Staff - 12/07/2024 4:23 PM EDT req copy of pt order fax [phone] documented in this encounter Plan of Treatment Upcoming Encounters Date Type Department Care Team (Late st Contact Info) Description 02/15/2025 10:15 AM EST Office Visit [facility] [address] [place] [address] Karla Jackson PA-C [address] [place] [address] documented as of this encounter Visit Diagnoses Not on filedocumented in this encounter Care Teams Lumber Salvager Relationship Specialty Start Date End Date Jam Richardson MD [address] [place] [id number] PCP - General Internal Medicine-Adolescent Medicine 12/04/24 documented as of this encounter
[2025-02-09 09:56] LABS: Hematocrit 39.8 % (42.0-52.0); Hemoglobin 13.4 g/dL (14.1-18.0); Immature Granulocytes % 0.7 %; Mean Corpuscular HGB Conc 33.7 g/dL (31.8-35.4); Mean Corpuscular Hemoglobin 26.0 pg (27.0-31.2); Mean Corpuscular Volume 77.1 fl (80-94); Nucleated Red Blood Cells % 0 %; Platelet Count 202 K/mm3 (142-424); Red Blood Count 5.16 M/mm3 (4.60-6.20); Red Cell Distribution Width-SD 39.4 fL; White Blood Count 7.2 K/mm3 (4.8-10.8)
[2025-02-09 10:30] LABS: Hemoglobin A1C 8.8 % (4.0-6.0)
[2025-02-09 10:40] LABS: Albumin Level 4.8 g/dl (3.5-5.0); Chloride 98 mmol/L (98-107); Potassium 3.9 mmoL/L (3.5-5.1); Sodium 137 mmol/L (136-145)
[2025-02-09 10:42] LABS: Alanine Aminotransferase 70 U/L (12-78); Blood Urea Nitrogen 15 mg/dl (9-20); Creatinine,Serum 0.90 mg/dl (0.66-1.25); Estimated Glomerular Filt Rate 93 ml/min (>60); GFR (African American) 112 ML/MIN (>60)
[2025-02-09 10:43] LABS: Albumin/Globulin Ratio 1.7 (1.1-1.8); Alkaline Phosphatase 60 U/L (38-126); Anion Gap 11.9 mEq/L (5-15); Aspartate Amino Transferase 40 U/L (17-59); Bilirubin,Total 0.6 mg/dl (0.2-1.3); Calcium 10.4 mg/dl (8.4-10.2); Carbon Dioxide 31 mmol/L (22.0-30.0); Cholesterol 183 mg/dl (140-200); Globulin 2.8 g/dL (1.3-3.2); Glucose 274 mg/dl (74-100); HDL Cholesterol 25 mg/dl (40-60); Total Protein,Serum 7.6 g/dl (6.3-8.2); Triglycerides 371 mg/dl (30-150)
== END 2025-02-09 23:59 | disposition home or self-care (01) ==
LOC: LAB 09:39
PROVIDERS: PCP Nurse Practitioner Family; Visit Provider Nurse Practitioner Family
DX: E78.2 Mixed hyperlipidemia (principal); E11.65 Type 2 diabetes mellitus with hyperglycemia; K22.710 Barrett's esophagus with low grade dysplasia; K85.20 Alcohol induced acute pancreatitis without necrosis or infection
CPT/HCPCS: 36415; 80053; 80061; 83036; 85025